=== PATIENT | female | born 1995 | race Caucasian/White ===

== ENCOUNTER 2022-07-16 10:45 | Outpatient (CLI) | payer BC, SELFPAY ==
--- OUTSIDE RECORDS SUMMARY | 2022-07-16 10:48 | XMS_ITS | Clinical Summary ---
:1995 Author Organization [employer] [place] [address] Care Team Providers Name Role Phone Noris Todd MD Primary Care Provider [phone] Dana Ch MD Unavailable Allergies No known active allergies Medications Medication Sig Dispensed Refills Start Date End Date Status citalopram (CELEXA) 20 Take 1 Tablet (20 30 Tablet 2 2 Active mg tabletIndications: mg) by mouth once Anxiety daily. Take half tab daily x5-7 days then 1 tab daily miscellaneous medical As directed. 1 Each 0 08/28/2021 Active supply (Blood Pressure Check your blood Cuff) miscIndications: pressure twice a Gestational day, call if hypertension, third >150/100 trimester NIFEdipine (PROCARDIA Take 1 Tablet (30 30 Tablet 0 09/10/2021 Active XL) 30 mg mg) by mouth once Extended-Release daily before a tabletIndications: meal. Gestational hypertension, third trimester Active Problems Patient Care Coordination Note Formatting of this note might be differe nt from the original. There is a resolved Delivery P isael of Care which has been moved to a progress note under Case Management tab dated 09/09/21 by Janey Painting RN. Problem Noted Date 37 weeks gestation of 09/07/2021 Normal vaginal delivery 09/07/2021 Obstetrical laceration, second degree 09/07/2021 Obesity in , BMI 38 09/06/2021 arrhythmia affecting , antepartum-inter mittent SVT 07/23/2021 MPP Supervision of high-risk 07/23/2021 Overview: Formatting of this note is dif ferent from the original. MPP OB PATIENT SO: Pato Its a boy! NEXT VISIT ALERTS: Patient checking at h ome BPs? COVID-19 08/28/21 negative = need to repea t prior to IOL 09/06/21 PLANS & FUTURE APPOINTMENTS: - OB visits: Through 09/19/21 TESTING PLAN: Weekly - Testing: Through 09/19/21 GROWTH PLAN: - Growth: Next 09/19/21 DELIVERY PLAN: - Scheduled delivery: 09/06/21 @ 1930 w [facility] - Preferred delivery location: [facility] PRIMARY DIAGNOSIS: 26 y.o. Estim ated Date of Delivery: 09/27/21 : Intermittent SVT Maternal: gHTN? Hospital admission d/t SVT 07/23-09/26; started flecainide Anxiety/Depression LAST GROWTH: 08/22/21 34w6d EFW 2411 grams, percentil e: 36 07/23/21 30w4d EFW 1663 grams, percentil e: 49 ECHO: Multiple in [facility] 08/22/21 Normal REFERRING PHYSICIAN/PHONE/LAST UPDATE: Radha Ch MD [facility] [phone] Primary MD approves scheduling of recomm ended ultrasounds/testing: Not specified SPECIALISTS/CONSULTS: Include: Specialty MD Clinic Name Phone# LV [place] and ADDED TO PATIENT CARE TEAM Yes LEXI signed for [facility]: Signed 08/22/21 CARE COORDINATION: Belle Coleman, SERGEI/Lay House RN/Radhika Huitron RN/Angelique Pabon RN/Jesenia Coy RN [phone] YARD JACKER: GENETICS: 04/17/21 AFP Negative 07/25/21 MPP - genetic testing after halley h PROCEDURES: EKG 07/26/21 Normal sinus rhythm PERTINENT MEDS: ASA Flecainide 100 BID ROUTINE OB: Flu vaccine: Date given: 06/05/21 COVID-19 vaccine: Date(s) given: 11/27/20; 12/18/20- Plans to schedule booster Tdap vaccine: GIVE BETWEEN 27 AND 36 WEE KS Date given: 08/07/21 COMPASS: Initial completed YES Part 2 between 32w-36w completed YES ANXIETY/DEPRESSION SCREEN: Initial screen: Date: 08/22/21 GA: 34w6d PHQ-9 score: 3 JAXON-7 score: 1 Previous history of anxiety or depressio n? YES ROUTINE LABS: Blood type: A Positive Antibody screen: Negative Last pap: 06/18/20 NIL Plan for Gestational Diabetes screening: GCT 07/04/21 100 Treponema Pallidum: DRAW @ 28 WEEKS Date drawn: 07/04/21 Negative GBS: 08/28/21 Hemoglobin: Initial: 03/04/21 13.0 28 wk: 07/04/21 12.7 36 wk 08/28/21 13.4 ADDITIONAL PERTINENT LABS: Preeclampsia Labs: 07/23/21 WNL x PCR 0. 1; 08/22/21 WNL; 08/28/21 WNL X PCR 0.1; 09/03/21 WNL PCR 0.1 CHECKLIST FOR SCHEDULING PROCEDURES: Call [phone] for Amaya and [phone] for ited Procedure: Induction Hospital: [facility] Unit: L&D Date & Time of procedure: 09/06/21 @ 193 0 Nur Score if induction: 3 Pertinent information: gHTN, intermitten t SVT Gestational age on procedure date? 37 MD doing procedure: [facility] Date scheduled: 08/28/2021 when patient wa s 35w5d. Scheduling MD & RN: COOPER Rico & Kasie reyes RN Notifications: Hospitalist Delivery-OBH buttonhole maker notifie d through Ashlee inbox? Yes MPP MD buttonhole maker notified via Ashlee in box? Yes Primary MD notified via Ashlee inbox? No Primary MD clinic called if not Jenn padilla? No On [facility] calendar? Yes Care Coordination notified? Yes H&P/PPTL: PPTL permit signed? Not Applicable H&P and Plan in chart? Yes, 08/22/21 [facility] appointment made for H&P with GUSTAVO haile 30 days of procedure? Completed 08/22/21 Regardless of vaccination status, all pr ocedures require a COVID-19 test . Patients should be scheduled for a COVID-19 test within 3-5 days prior to the scheduled procedure to be done in main [facility] Clinic Date: 09/03/21 Patient notification: Patient notified of procedure date? Yes Written admission instructions given to patient via AVS? No PPTL& DELIVERY SCHEDULING: Do COVID testing with in 3-5 days of ekta eduled delivery @ a main [facility] site H&P needed 30 days before delivery Herve e: PPTL: No Is Medical assistance? PPTL Permit signed: Date: Scanned date: PLAN OF CARE: 08/28/21 per HS ?? Continue routine ob cares ?-- Patients home cuff with big discrepancy from the clinic, she desires a cuff from our clinic today. She was instructed to check her blood pressure twice a day at home and will bring the readings with her her to next weeks appointment. Instructed to call if >150/100. ?? Return OB checks: ?-- Weekly??given concern for gestational hypertension? Return Ultrasound/Testing ?-- Growth ultras ound last week, no need to repeat prior to delivery ?-- Weekly BPP/NS T given gestational hypertension ?-- echocar diogram every 2 weeks-will cancel for next week. Okay per cardiology given patient will be induced the day it was scheduled. ?? Labs: ?-- : Com pleted with primary ?-- Diabetes scre ening: passed on 07/04/21 ?-- GBS culture t ioday ?-- Preeclampsia labs completed today given gestation hypertension and elevated blood pressure at home -- COVID-19 test today given symptoms, repeat next week if negative for pre-procedure ?? Medications: ?-- Continue pren atal vitamin with folic acid and medications noted above ?-- Tdap at 28 we eks ?-- Flu vaccine ( if not given yet) ?-- Continue on f lecainide 100mg twice daily, refill given today ?-- Continue bASA -- COVID-19 Vaccine-11/27/20; 12/18/20- Pl ans to schedule booster -- Celexa, take 10mg daily x5-7 days th en 20mg daily ?? Depression screening/management:??did not require intervention (scores<=9). ?? Consult: ?--NICU consult ?? Patient understands she should call o r return to clinic if she experiences any s/s infection, persistent uterine cramping, vaginal bleeding, leaking of fluid, pain/swelling in legs. ?? Delivery:??IOL 37 weeks given radha GONZÁLES cheduabbi for 09/06/20 at 1930 Encounter for supervision of low-risk first in first trimester 04/16/2021 Overview: Formatting of this note is dif ferent from the original. Partners name: [facility] Hx: depression Concerns this : BMI 36 - level 2 anatomy scan OB Hx: OB History Para Term AB Living 1 0 0 0 0 0 SAB TAB Ectopic Multiple Live Births 0 0 0 0 # Outcome Date GA Lbr Jack/2nd Weight Sex Delivery Anes PTL Lv 1 Current BMI: Body mass index is 36.36 kg/m??. Re commended wt gain: 11-20 Genetic screening: yes ASA prophylaxis 12-36 weeks for Moderate risk (2 or more of): Nulliparity and Obesity w BMI>30 Ultrasound: Level 2 FAS indicated (pre-preg BMI>30): yes Smoker: none Flu vaccine: COVID-19 vaccine: complete Pertussis Vaccine: Peds: Domestic violence screen: Pain during labor: BCM: : yes, but ok with formula feeding Maternal varicella, non-immune 04/03/2021 Obesity with body mass index 30 or greater 10/06/2018 Depression 08/29/2014 Gestational hypertension, third trimester Anxiety hypertension Resolved Problems Problem Noted Date Resolved Date Elevated blood pressure affecting in third 09/06/2021 trimester, antepartum Immunizations Name Administration Dates Next Due AMB Influenza, IIV3 (Age >=3 07/05/2013 years)(Flu Clinic Only) DTP 02/26/1999, 05/13/1996, 1995, 1995, 1995 HIB PRP-T (ActHIB,Hiberix) 05/13/1996, 1995, 5, 1995 Hepatitis B (Peds) 02/08/1996, 1995, 1995 Human Papilloma Virus Vaccine 10/28/2012, 07/02/2012, 2011 Influenza, IIV3 (Age >=3 years) 07/05/2013, 07/02/2012 Influenza, IIV4 06/18/2020, 06/13/2019, 05/03/2018, 06/15/2017, 06/09/2016, 05/15/2015, 05/25/2014 MMR 02/26/1999, 05/13/1996 Meningococcal Vaccine (Menveo) 06/09/2016 Oral Polio Vaccine 02/26/1999, 05/13/1996, 1995, 1995 Td (Age >=7 Years) 06/13/2019 Tdap 10/13/2006 Varicella Vaccine 04/14/2012, 04/08/2004 Family History Medical History Relation Name Comments Good Health Brother Diabetes Father Hypertension Father Good Health Mother Relation Name Status Comments Brother Alive Father Alive Mother Alive Social History Tobacco Use Types Packs/Day Years Used Date Never Smoker Smokeless Tobacco: Never Used Tobacco Cessation: Counseling Given: Yes Comments: father smokes Alcohol Use Standard Drinks/Week Comments No 0 (1 standard drink = 0.6 oz pure alcoho l) Sex Assigned at Date Recorded Not on file Obstetrics History Para Term AB IAB SAB Ectopic Multiple Living Live Births 1 1 1 0 0 0 0 0 0 1 1 Date Outcome GA Total Labor/2nd/3rd Weight Sex Delivery Anes PTL Linda A 1 A5 Name Clin Labor 09/07 Term 37w 5h 34m 5h 12m/0h 2.71 kg M VAGINAL Epidu My 7 9 PETER 1d 19m/0h 03m (5 lb GUERRERO ral, ng SE N,B ats, 15.6 Local B Chucky oz) MARCO garcia MD Complications: None Delivery Location: Hospital ([address]) Last Filed Vital Signs Vital Sign Reading Time Taken Comments Blood Pressure 129/83 09/18/2021 2:34 PM CENTRAL STERILE TECH Pulse 97 09/11/2021 9:56 AM CENTRAL STERILE TECH Temperature 36.9 ??C (98.4 ??F) 09/09/2021 9:38 AM CENTRAL STERILE TECH Respiratory Rate 16 09/09/2021 9:38 AM CENTRAL STERILE TECH Oxygen Saturation 99% 09/09/2021 9:38 AM CENTRAL STERILE TECH Inhaled Oxygen Concentration - - Weight 97.3 kg (214 lb 8 oz) 09/18/2021 2:34 PM CENTRAL STERILE TECH Height 167.5 cm (5' 5.95) 04/03/2021 2:20 PM CDT Body Mass Index 34.68 04/03/2021 2:20 PM CDT Plan of Treatment Health Maintenance Due Date Last Done Comments COVID-19 vaccine series (3 - 02/12/2021 12/18/2020, 021 Booster for Pfizer series) BMI (ht and wt on same day) for 04/03/2022 04/03/2021, 05/25, age 18+ 08/21/2019, Additional history exists Influenza for age 9-49 04/24/2022 06/18/2020, 06/13/2019, 05/03/2018, Additional history exists Depression screening for age 12+ 09/25/2022 09/25/2021, , 08/28/2021, Additional history exists Pap test for age 21-65 06/18/2023 06/18/2020, 06/15/2017, 06/09/2016 Tetanus booster 06/13/2029 06/13/2019, 10/13/2006 Tdap Completed 10/13/2006 HIV for age 15-65 Completed 03/04/2021 Hepatitis C screening for age Completed 03/04/2021 18-79 Results Not on filefrom Last 3 Months Insurance Payer Benefit Plan / Subscriber ID Effective Dates Phone Addre ss Type Group WC WORKERS WC [employer] [id number] 2020-Presen [address] [place] [address] MEDICA MEDICA CHOICE [id number] 2013-Presen [address] [address] [place] [address] BLUE CROSS BLUE CROSS OF [id number] 2018-Presen [address] [address] [place] [address] (Home) [place] [address] Jackie Luke Juan Personal/Family Self [address] (Home) [place] [address] Jackie Luke Juan Workers Comp Self [address] (Home) [place] [address] Advance Directives Documents on File Type Date Recorded Patient Manager Pathology Explanati on Treatment Guidelines 09/06/2021 Latest Code Status on File Code Status Date Activated Date Inactivated Comments Full Code 09/06/2021 9:14 PM 09/09/2021 6:02 PM Code Status Discussion: Reviewed Preferences Full Code 07/25/2021 7:36 AM 07/26/2021 2:42 PM Code Status Discussion: Reviewed Preferences Full Code 07/23/2021 4:36 PM 07/25/2021 7:36 AM Code Status Discussion: Unable to Assess Preferences, Provid er to review later Full Code 07/23/2021 3:36 PM 07/23/2021 3:54 PM Code Status Discussion: Unable to Assess Preferences, Provid er to review later Care Teams Fixture Repairer Fabricator Relationship Specialty Start Date End Date Noris Todd PCP - General Family Practice 04/03/[address] [place] [address] Dana Ch, Referring Provider Obstetrics and 08/19/21 Gynecology [address] [place] [address]
[2022-07-16 13:50] LABS: Cholesterol* 166 mg/dL (90-199); Glucose* 85 mg/dL (60-115)
[2022-07-16 13:51] LABS: HDL Cholesterol* 38 mg/dL (>=50); LDL Cholesterol Calculated 92 mg/dL (<100); Triglycerides* 181 mg/dL (40-149)
== END 2022-07-16 10:46 | disposition home or self-care (01) ==
PROVIDERS: Visit Provider Registered Nurse
DX: Z01.419 Encounter for gynecological examination (general) (routine) without abnormal findings (principal); R19.7 Diarrhea, unspecified; Z13.1 Encounter for screening for diabetes mellitus; Z13.6 Encounter for screening for cardiovascular disorders; Z13.29 Encounter for screening for other suspected endocrine disorder
CPT/HCPCS: 80061; 82947; 84443

== ENCOUNTER 2022-07-27 18:35 | Emergency (ER) | payer BC, SELFPAY ==
[2022-07-27 19:21] VITALS: BP 136/101; PULSE 87; RESP 18; TEMP 38; O2SAT 98; BMI 41.4
--- NOTE | 2022-07-27 20:03 | ED_ITS ---
HPI - Eye Problem General Time Seen by Provider: 20:03 Date Seen: 07/27/22 Chief complaint: Ear/Nose/Throat Problem Stated complaint: Blood shot eyes Time Seen by Provider: 07/27/22 20:03 Source: patient, RN notes reviewed and old records reviewed Mode of arrival: ambulatory Limitations: no limitations History of Present Illness HPI Narrative: Patient is a very pleasant 27-year-old female who noted the onset of cold and cough symptoms last week in association with right eye redness. She started antibiotic drops which are polymyxin B/trimethoprim and on that day. She noted that she thought her left eye was also little red and started using the eyedrops in both. Instead of getting better she is actually notice worsening. She notes that she feels like her eyes are bulging somewhat. She has not had any fever but also notes a cough and when she blows her nose she has significant green mucus. She notes that she feels like her eyes are itching and she has some itching below her eyes as well. She notes when she tries to itch the skin it causes a burning sensation. She has not had a fever. She has known exposure to RSV as her child has it. She is not short of breath. Tomorrow she has her grandmother's . Related Data Home Medications Medication Instructions Recorded Confirmed norethindrone (contraceptive) 0.35 1 mg PO DAILY 07/16/22 07/16/22 mg tablet Previous Rx's Medication Instructions Recorded citalopram 20 mg tablet 20 mg PO DAILY #90 tabs 07/16/22 levonorgestrel-ethinyl estradiol 1 tab PO QDAY #84 tabs 07/16/22 0.1 mg-20 mcg tablet (Aviane) amoxicillin 875 mg-potassium 1 tab PO Q12H 10 days #20 tabs 07/27/22 clavulanate 125 mg tablet fluconazole 150 mg tablet 150 mg PO DAILY 1 dose #1 tab 07/27/22 (Diflucan) Allergies Allergy/AdvReac Type Severity Reaction Status Date / Time No Known Drug Allergies Allergy Verified 07/27/22 19:26 Review of Systems Const: Reports: fatigue; Denies: fever or chills Eyes: Reports: blurry vision (Occasional blurry film over right eye that clears.), eye discomfort (Bilaterally) and eye discharge (Green); Denies: change in vision ENMT: Denies: throat pain or difficulty swallowing Cardio: Denies: chest pain or shortness of breath with exertion Resp: Reports: cough; Denies: shortness of breath GI: Denies: abdominal pain, nausea, vomiting or difficulty swallowing Neuro: Reports: headache (With cough) Endo: Reports: fatigue [facility] History History of gestational hypertension Surgical History H/O oral surgery History of removal of skin mole Family History Family/Other Breast cancer Paternal Grandfather Bladder cancer Mother High blood pressure High cholesterol Father High blood pressure High cholesterol Diabetes Social History Smoking Status: Never smoker Do you use any of these nicotine containing products: None Second hand tobacco smoke exposure: No How often do you have a drink containing alcohol: never How often do you have six or more drinks on one occasion: Never AUDIT-C Alcohol total score: 0 Non-prescribed substance use: denies use Little interest or pleasure in doing things: not at all Feeling down, depressed, or hopeless: not at all service: No Exam Narrative: Exam Narrative: Patient is alert and oriented. Her eyes are red. Her EOM is full and there is no photophobia. Pupils are equal round reactive. She has injection of the sclera and some edema noted. There is debris on the eyelashes bilaterally. No surrounding edema of the eyelids. Oral cavity moist mucous membranes and neck is supple. Heart with regular rate and rhythm and lungs are clear. Abdomen soft. Visual acuity is noted. Fundi easily visualized and are within normal limits. Const: Vital Signs, click to edit/add: Vital Signs - 24 hr 07/27/22 19:21 Temperature 100.4 F H Pulse Rate [Pulse Oximeter] 87 Respiratory Rate 18 Blood Pressure [Le ft Upper Arm] 136/101 H Pulse Oximetry 98 Oxygen Delivery Me thod Room Air Documenting provider has reviewed patient's vital signs: yes Course Vital Signs Vital signs: Initial Vital Signs Temperature 100.4 F H 07/27/22 19:21 Temperature Source Temporal Artery Scan 07/27/22 19:21 Pulse Rate 87 07/27/22 19:21 Respiratory Rate 18 07/27/22 19:21 Blood Pressure 136/101 H 07/27/22 19:21 Blood Pressure Mean 112 07/27/22 19:21 Blood Pressure Position Sitting 07/27/22 19:21 Pulse Oximetry 98 07/27/22 19:21 Oxygen Delivery Method 07/27/22 19:21 Vital Signs Temperature 100.4 F H 07/27/22 19:21 Pulse Rate 87 07/27/22 19:21 Respiratory Rate 18 07/27/22 19:21 Blood Pressure 136/101 H 07/27/22 19:21 Pulse Oximetry 98 07/27/22 19:21 Oxygen Delivery Method 07/27/22 19:21 Temperature 100.4 F H 07/27/22 19:21 Pulse Rate 87 07/27/22 19:21 Respiratory Rate 18 07/27/22 19:21 Blood Pressure 136/101 H 07/27/22 19:21 Pulse Oximetry 98 07/27/22 19:21 Oxygen Delivery Method 07/27/22 19:21 MDM - Eye Problem MDM Narrative Medical decision making narrative: 1. RSV-patient has tested positive for RSV. She is notified via phone. She gave me permission to leave a message on her phone and I do so. Negative for COVID and influenza. 2. Sinusitis-while most likely viral she does have green discharge from her eyes. Will treat with antibiotic Augmentin to cover both sinusitis and conjunctivitis. I did explain to patient this is most likely viral but given the fact that she is needing to be at a unable to return for further cares if she is not improving I did elect to treat with Augmentin 875 p.o. b.i.d. times 10 days. Tonight she will use erythromycin ointment for comfort she may discontinue the appointment when she starts an oral antibiotic. 3. Allergic reaction-patient's eyes are likely reddened secondary to neomycin which is a component of the eye drop she is currently using. Would recommend discontinuance of this medication. Benadryl 25-50 mg every 6 hours as needed. 4. Tpfxdhyrvff-caqrxu-md if she has worsening symptoms. Changes in her vision. And as needed. Medical Records Attestation: I reviewed the patient's medical records. Lab Data Attestation: I reviewed the patient's lab results. Labs: Lab Results 07/27/22 Range/Units 20:45 SARS-CoV-2 (PCR) Negative SARS-CoV-2 (Negative) Influenza Type A (PCR) Negative PCR FLU A (Negative) Influenza Type B (PCR) Negative PCR FLU B (Negative) RSV (PCR) POSITIVE PCR RSV A (Negative) Discharge Plan Discharge Clinical Impression: Allergic reaction, URI (upper respiratory infection) Patient Disposition: Home, Self-Care Condition: Unchanged Additional Instructions: Suggest use of erythromycin ointment every 6-8 hours until you start your oral antibiotic. Would also use Benadryl 25-50 mg every 6 hours as needed. I will call you with the results of your nasal swab. Augmentin the antibiotic was sent in to pharmacy in [facility]. Prescriptions: New amoxicillin-pot clavulanate 875-125 mg tablet 1 tab PO Q12H 10 Days Qty: 20 0RF fluconazole [Diflucan] 150 mg tablet 150 mg PO DAILY Qty: 1 0RF Rx Instructions: administer on day 1 of therapy No Action norethindrone (contraceptive) 0.35 mg tablet 1 mg PO DAILY citalopram 20 mg tablet 20 mg PO DAILY Qty: 90 3RF levonorgestrel-ethinyl estrad [Aviane] 0.1-20 mg-mcg tablet 1 tab PO QDAY Qty: 84 3RF Follow Up/Referrals: Provider,Not a Local [Primary Care Provider] - Stand Alone Forms: [facility] Info Instructions
--- OUTSIDE RECORDS SUMMARY | 2022-07-27 20:33 | XMS_ITS | Clinical Summary ---
:1995 Author Organization [facility] [place] [address] Care Team Providers Name Role Phone Noris Todd MD Primary Care Provider [phone] Dana Ch MD Unavailable Allergies No known [...] - Scheduled delivery: 09/06/21 @ 1930 w [facility] - Preferred delivery location: [facility] PRIMARY DIAGNOSIS: 26 y.o. Estim ated Date of Delivery: 09/27/21 : Intermittent SVT Maternal: gHTN? Hospital admission d/t SVT 07/23-09/26; started flecainide Anxiety/Depression LAST GROWTH: 08/22/21 34w6d EFW 2411 grams, percentil e: 36 07/23/21 30w4d EFW 1663 grams, percentil e: 49 ECHO: Multiple in [facility] 08/22/21 Normal REFERRING PHYSICIAN/PHONE/LAST UPDATE: Radha hC MD [facility] [phone] Primary MD approves scheduling of recomm ended ultrasounds/testing: Not specified SPECIALISTS/CONSULTS: Include: Specialty MD Clinic Name Phone# LV [place] and ADDED TO PATIENT CARE TEAM Yes LEXI signed for [facility]: Signed 08/22/21 CARE COORDINATION: Belle Coleman, SERGEI/[facility] RN/Radhika Huitron RN/Angelique Pabon RN/Jesenia Coy RN [phone] TRANSIT MECHANIC: GENETICS: 04/17/21 AFP Negative 07/25/21 MPP - [...] PCR 0.1 CHECKLIST FOR SCHEDULING PROCEDURES: Call [phone] for Amaya and [phone] for ited Procedure: Induction Hospital: [facility] Unit: L&D Date & Time of procedure: 09/06/21 @ 193 0 Nur Score if induction: 3 Pertinent information: gHTN, intermitten t SVT Gestational age on procedure date? 37 MD doing procedure: [facility] Date scheduled: 08/28/2021 when patient wa s 35w5d. Scheduling MD & RN: COOPER Rico & Kasie reyes RN Notifications: Hospitalist Delivery-OBH inclusion internship notifie d through [facility] inbox? Yes MPP MD inclusion internship notified via Ashlee in box? Yes Primary MD notified via [facility] inbox? No Primary MD clinic called if not Jenn padilla? No On [facility] calendar? Yes Care Coordination notified? Yes H&P/PPTL: PPTL permit signed? Not Applicable H&P and Plan in chart? Yes, 08/22/21 [facility] appointment made for H&P with GUSTAVO haile 30 days of procedure? Completed 08/22/21 Regardless of vaccination status, all pr ocedures require a COVID-19 test . Patients should be scheduled for a COVID-19 test within 3-5 days prior to the scheduled procedure to be done in main [facility] Clinic Date: 09/03/21 Patient notification: Patient notified of procedure date? Yes Written admission instructions given to patient via AVS? No PPTL& DELIVERY SCHEDULING: Do COVID testing with in 3-5 days of ekta eduled delivery @ a main [facility] site H&P needed 30 days before delivery [...] garcia MD Complications: None Delivery Location: Hospital ([address]) Last Filed Vital Signs Vital Sign Reading Time Taken Comments Blood Pressure 129/83 09/18/2021 2:34 PM SKIVER OPERATOR Pulse 97 09/11/2021 9:56 AM SKIVER OPERATOR Temperature 36.9 ??C (98.4 ??F) 09/09/2021 9:38 AM SKIVER OPERATOR Respiratory Rate 16 09/09/2021 9:38 AM SKIVER OPERATOR Oxygen Saturation 99% 09/09/2021 9:38 AM SKIVER OPERATOR Inhaled Oxygen Concentration - - Weight 97.3 kg (214 lb 8 oz) 09/18/2021 2:34 PM SKIVER OPERATOR Height 167.5 cm (5' 5.95) 04/03/2021 2:20 [...] ss Type Group WC WORKERS WC [employer] [id number] 2020-[employer] [address] [place] [address] MEDICA MEDICA CHOICE [id number] 2013-[employer] [address] [address] [place] [address] BLUE CROSS BL[employer] CR[employer] OF [id number] 2018-[employer] [address] [address] [place] [address] (Home) [place] [address] Jackie Luke Juan Personal/Family Self [address] (Home) [place] [address] Jackie Luke Juan Workers Comp Self [address] (Home) [place] [address] Advance Directives Documents on File Type Date Recorded 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
[2022-07-27] MEDS: ERYTHROMYCIN OPHTH OINT 3.5 GM 1 APPLIC EYE-BOTH (20:38)
[2022-07-27 21:27] LABS: PCR FLU A Negative PCR FLU A (Negative); PCR FLU B Negative PCR FLU B (Negative); PCR RSV POSITIVE PCR RSV (Negative)
[2022-07-27 21:32] LABS: SARS PCR* Negative SARS-CoV-2 (Negative)
== END 2022-07-27 20:45 | disposition home or self-care (01) ==
PROVIDERS: Emergency Provider Family Medicine
DX: B97.4 Respiratory syncytial virus as the cause of diseases classified elsewhere (principal); J32.9 Chronic sinusitis, unspecified
CPT/HCPCS: 87502; 87634; 87635; 99283; 99284; A9270

== ENCOUNTER 2022-12-28 09:42 | Emergency (ER) | payer BC, SELFPAY ==
[2022-12-28 09:57] VITALS: BP 142/83; PULSE 80; RESP 18; TEMP 37.1; O2SAT 96; BMI 41.3
--- NOTE | 2022-12-28 10:52 | CRLHL7_ITS ---
For Patients: As a result of the Century Cures Act, medical imaging exams and procedure reports are released immediately into your electronic medical record. You may view this report before your referring provider. If you have questions, please contact your health care provider. INDICATION: BLEEDING AND CRAMPING HISTORY: Bleeding and cramping. COMPARISON: None. TECHNIQUE: Pelvic ultrasound. Endovaginal imaging of the pelvis was obtained to better evaluate the adnexa and endometrial complex. Color Doppler was performed to evaluate blood flow to the ovaries. FINDINGS: Endometrial complex measures 12 mm in thickness. There is no intrauterine gestational sac. The right ovary measures 3.6 x 1.9 x 1.8 cm. Probable corpus luteum in the right ovary measuring 2.0 x 1.8 x 1.1 cm. There is an indeterminate right adnexal mass, which is extraovarian, measuring 1.8 x 1.1 x 1.4 cm. This is suspicious. The left ovary measures 3.0 x 1.4 x 1.7 cm. There is a small amount of free fluid in the rectovaginal pouch of Aristides. No large volume hemoperitoneum by ultrasound. IMPRESSION: 1. Indeterminate right adnexal mass. This appears extraovarian. 2. These findings are suspicious for an ectopic . Suggest correlation with the patient`s serum beta HCG and gynecologic consultation. 3. No intra uterine gestational sac. 4. Report called to Dr. Quintero, PADDY, 12/28/22, 1334 hours. Dictated by Lucas Hale MD @ 12/28/2022 1:37:19 PM Dictated by: Lucas Hale MD @ 12/28/2022 13:37:25 (Electronically Signed)
--- NOTE | 2022-12-28 11:04 | ED.GENADULT ---
HPI - General Adult General Chief complaint: Vaginal Bleeding Stated complaint: Possible miscarriage 6 weeks 1 day Time Seen by Provider: 12/28/22 10:51 Source: patient Mode of arrival: ambulatory Limitations: no limitations History of Present Illness HPI narrative: 27-year-old female at 6 weeks gestation via LMP comes in today concerned about vaginal bleeding. States that she had lower abdominal cramping that started yesterday and continued into today in approximately 3 hours ago she started having vaginal bleeding which she describes as a midcycle normal flow. She denies dizziness or lightheadedness. No chest pain or shortness of breath. Related Data Home Medications Medication Instructions Recorded Confirmed norethindrone (contraceptive) 0.35 1 mg PO DAILY 07/16/22 07/16/22 mg tablet Previous Rx's Medication Instructions Recorded citalopram 20 mg tablet 20 mg PO DAILY #90 tabs 07/16/22 levonorgestrel-ethinyl estradiol 1 tab PO QDAY #84 tabs 07/16/22 0.1 mg-20 mcg tablet (Aviane) amoxicillin 875 mg-potassium 1 tab PO Q12H 10 days #20 tabs 07/27/22 clavulanate 125 mg tablet fluconazole 150 mg tablet 150 mg PO DAILY 1 dose #1 tab 07/27/22 (Diflucan) Allergies Allergy/AdvReac Type Severity Reaction Status Date / Time No Known Drug Allergies Allergy Verified 07/27/22 19:26 Review of Systems Status of ROS: Reports: 10 or more systems reviewed and unremarkable except as noted in History and below PFSH COUNT INCLUDES THE [facility] Medical History History of gestational hypertension ?Z87.59 - Personal history of other complications of , childbirth and the puerperium (ICD-10) Surgical History H/O oral surgery ?Z98.890 - Other specified postprocedural states (ICD-10) History of removal of skin mole ?Z98.890 - Other specified postprocedural states (ICD-10) ?Z87.2 - Personal history of diseases of the skin and subcutaneous tissue (ICD-10) Family History Family/Other Breast cancer Paternal Grandfather Bladder cancer Mother High blood pressure High cholesterol Father High blood pressure High cholesterol Diabetes Social History Smoking Status: Never smoker Do you use any of these nicotine containing products: None Second hand tobacco smoke exposure: No How often do you have a drink containing alcohol: never How often do you have six or more drinks on one occasion: Never AUDIT-C Alcohol total score: 0 Non-prescribed substance use: denies use Little interest or pleasure in doing things: not at all Feeling down, depressed, or hopeless: not at all service: No Exam Narrative: Exam Narrative: Well-nourished well-developed patient, very tearful. Alert and oriented. Answers questions appropriately. Thoughts are goal oriented and rational. No tangential or magical thinking noted. Patient speaks in full sentences without needing to catch their breath. HEENT: Normocephalic atraumatic. Pupils are equally round reactive to light. Extraocular muscles are intact. Conjunctivae are moist without any icterus noted. Moist mucous membranes. Cardiovascular: Heart is regular rate and rhythm. Lungs: Clear to auscultation bilaterally. Abdomen: Soft and nontender nondistended with normal bowel sounds. Skin: Well perfused without any obvious rashes. Const: Vital Signs, click to edit/add: Vital Signs - 24 hr 12/28/22 09:57 Temperature 98.8 F Pulse Rate [Right Pulse Oximeter] 80 Respiratory Rate 18 Blood Pressure [Ri ght Upper Arm] 142/83 H Pulse Oximetry 96 Oxygen Delivery Me thod Room Air Course Course Hospital Course: OB ultrasound was ordered. Hemoglobin was stable, beta-hCG was just above 250. Ultrasound shows nothing inside the uterus, however and extra ovarian mass on the right side concerning for possible ectopic . I did speak to Dr. Wahl, OBGYN, who recommended a repeat beta-hCG in 48 hours in order to assess what next steps in management would be. Given that the beta hCG is below threshold, it is inconclusive at this time as to whether not that is an ectopic , per OBGYN. Vital Signs Vital signs: Initial Vital Signs Temperature 98.8 F 12/28/22 09:57 Temperature Source Temporal Artery Scan 12/28/22 09:57 Pulse Rate 80 12/28/22 09:57 Respiratory Rate 18 12/28/22 09:57 Blood Pressure 142/83 H 12/28/22 09:57 Blood Pressure Mean 102 12/28/22 09:57 Blood Pressure Position Sitting 12/28/22 09:57 Pulse Oximetry 96 12/28/22 09:57 Oxygen Delivery Method Room Air 12/28/22 09:57 Vital Signs Temperature 98.8 F 12/28/22 09:57 Pulse Rate 80 12/28/22 09:57 Respiratory Rate 18 12/28/22 09:57 Blood Pressure 142/83 H 12/28/22 09:57 Pulse Oximetry 96 12/28/22 09:57 Oxygen Delivery Method Room Air 12/28/22 09:57 Temperature 98.8 F 12/28/22 09:57 Pulse Rate 80 12/28/22 09:57 Respiratory Rate 18 12/28/22 09:57 Blood Pressure 142/83 H 12/28/22 09:57 Pulse Oximetry 96 12/28/22 09:57 Oxygen Delivery Method Room Air 12/28/22 09:57 Medical Decision Making MDM Narrative Medical decision making narrative: 27-year-old female with vaginal bleeding, concerning for spontaneous versus ectopic . At this time patient will be discharged home with repeat beta-hCG recommended in 48 hours. We discussed that if she has increasing pain she does need to return to the ER right away. Patient was agreeable with this plan and had no other questions. Lab Data Lab results reviewed: Yes I reviewed the patient's lab results Labs: Lab Results 12/28/22 Range/Units 11:10 Hgb 14.2 (12.0-16.0) gm/dL HCG, Quant 254.42 mIU/mL Blood Type A Positive Imaging Data OB ultrasound: Attestation: I have reviewed the pertinent imaging results. Radiologist's impression: Pelvic ultrasound. Endovaginal imaging of the pelvis was obtained to better evaluate the adnexa and endometrial complex. Color Doppler was performed to evaluate blood flow to the ovaries. FINDINGS: Endometrial complex measures 12 mm in thickness. There is no intrauterine gestational sac. The right ovary measures 3.6 x 1.9 x 1.8 cm. Probable corpus luteum in the right ovary measuring 2.0 x 1.8 x 1.1 cm. There is an indeterminate right adnexal mass, which is extraovarian, measuring 1.8 x 1.1 x 1.4 cm. This is suspicious. The left ovary measures 3.0 x 1.4 x 1.7 cm. There is a small amount of free fluid in the rectovaginal pouch of Aristides. No large volume hemoperitoneum by ultrasound. IMPRESSION: 1. Indeterminate right adnexal mass. This appears extraovarian. 2. These findings are suspicious for an ectopic . Suggest correlation with the patient`s serum beta HCG and gynecologic consultation. 3. No intra uterine gestational sac. Discharge Plan Discharge Clinical Impression: Vaginal bleeding Patient Disposition: Home, Self-Care Condition: Stable Additional Instructions: Your workup today revealed nothing inside the uterus, however, there is a potential concern for an ectopic . Because your beta hCG levels are not above the threshold for , is inconclusive whether or not an ectopic is present. Because of this you should call your clinic 1st thing in the morning tomorrow and tell them that you need a repeat beta hCG level on Thursday morning. Results will be sent to your OBGYN provider and next steps in management will be decided at that time. If you develop worsening pain, return to the ER right away. Prescriptions: No Action norethindrone (contraceptive) 0.35 mg tablet 1 mg PO DAILY citalopram 20 mg tablet 20 mg PO DAILY Qty: 90 3RF levonorgestrel-ethinyl estrad [Aviane] 0.1-20 mg-mcg tablet 1 tab PO QDAY Qty: 84 3RF amoxicillin-pot clavulanate 875-125 mg tablet 1 tab PO Q12H 10 Days Qty: 20 0RF fluconazole [Diflucan] 150 mg tablet 150 mg PO DAILY Qty: 1 0RF Rx Instructions: administer on day 1 of therapy Follow Up/Referrals: Provider,Not a Local [Referring] - Stand Alone Forms: [facility], [facility] Info Instructions
[2022-12-28 11:25] LABS: Hemoglobin* 14.2 gm/dL (12.0-16.0)
== END 2022-12-28 14:05 | disposition home or self-care (01) ==
PROVIDERS: Emergency Provider Family Medicine; PCP Registered Nurse
DX: O46.91 Antepartum hemorrhage, unspecified, first trimester (principal); Z3A.01 Less than 8 weeks gestation of pregnancy
CPT/HCPCS: 36415; 76817; 84702; 85018; 86900; 86901; 99283; 99284

== ENCOUNTER 2022-12-29 11:53 | Emergency (ER) | payer BC, SELFPAY ==
[2022-12-29 12:03] VITALS: BP 144/93; PULSE 94; RESP 20; TEMP 37.1; O2SAT 98; BMI 41.8
--- NOTE | 2022-12-29 12:31 | ED_ITS ---
HPI - Abdominal Pain General Time Seen by Provider: 12:31 Date Seen: 12/29/22 Chief Complaint: Abdominal Pain Stated Complaint: Likely ectopic Time Seen by Provider: 12/29/22 12:09 Source: patient, RN notes reviewed and old records reviewed Mode of arrival: ambulatory Limitations: no limitations History of Present Illness HPI narrative: Patient is a 27-year-old female that was referred to us after checking in with the clinic for abdominal pain and positive hCG. She was seen yesterday, had an ultrasound showing a possible right ectopic on her ovary. Her hCG level was 254. Spotting quit overnight, was mild this morning. She had 1 small little clot, going to the bathroom before just coming in here to the ER, had some brown spotting with wiping. She feels a pinching area in her right lower quadrant and then it feels like someone is putting their fist into her right low back. No fevers chills, no nausea vomiting, diminished appetite, no diarrhea. Did eat a bowl of cereal this morning because she forced herself to. She is not hungry. Patient's blood type was done yesterday and she is A positive. Related Data Home Medications Medication Instructions Recorded Confirmed No Known Home Medications 12/29/22 12/29/22 Allergies Allergy/AdvReac Type Severity Reaction Status Date / Time No Known Drug Allergies Allergy Verified 07/27/22 19:26 Review of Systems Status of ROS Reports: 6 or more systems reviewed and unremarkable except as noted in History and below [facility] Medical History History of gestational hypertension ?Z87.59 - Personal history of other complications of , childbirth and the puerperium (ICD-10) Surgical History H/O oral surgery ?Z98.890 - Other specified postprocedural states (ICD-10) History of removal of skin mole ?Z98.890 - Other specified postprocedural states (ICD-10) ?Z87.2 - Personal history of diseases of the skin and subcutaneous tissue (ICD-10) Family History Family/Other Breast cancer Paternal Grandfather Bladder cancer Mother High blood pressure High cholesterol Father High blood pressure High cholesterol Diabetes Social History Smoking Status: Never smoker Do you use any of these nicotine containing products: None Second hand tobacco smoke exposure: No How often do you have a drink containing alcohol: never How often do you have six or more drinks on one occasion: Never AUDIT-C Alcohol total score: 0 Non-prescribed substance use: denies use Little interest or pleasure in doing things: not at all Feeling down, depressed, or hopeless: not at all service: No Exam Const: Vital Signs, click to edit/add: Vital Signs - 24 hr 12/29/22 12:03 Temperature 98.8 F Pulse Rate [Right Pulse Oximeter] 94 Respiratory Rate 20 Blood Pressure [Ri ght Upper Arm] 144/93 H Pulse Oximetry 98 Oxygen Delivery Me thod Room Air Documenting provider has reviewed patient's vital signs: yes Common normals: no apparent distress, oriented x3, no limitations, healthy appearing, alert and well nourished General appearance: cooperative, comfortable, well kempt and well developed Nutritional appearance: overweight HENMT: Common normals: normocephalic, head/scalp atraumatic, hearing grossly normal bilaterally and external nose normal Head and scalp: normocephalic and atraumatic Nose: external nose normal Eye: Common normals: PERRL, EOMs intact bilaterally, conjunctivae normal and no scleral icterus Conjunctiva: conjunctiva(e) normal Pupil: PERRL Neck & C-Spine: Common normals: full ROM, no lymphadenopathy and supple Resp: Common normals: normal respiratory effort, no retractions, no use of a ccessory muscles and clear to auscultation bilaterally Effort & inspection: able to speak in complete sentences Auscultation: clear to auscultation bilaterally Cardio: Common normals: regular rate, regular rhythm, S1 normal heart sound, S2 normal heart sound, no gallops, no clicks and no murmurs Rate: regular rate Rhythm: regular rhythm Heart sounds: S1 normal and S2 normal GI: Common normals: Normal to inspection, nondistended, normoactive bowel sounds present, soft to palpation, non-tender, no hepatosplenomegaly and no masses Palpation: soft and no hepatosplenomegaly Neuro: Common normals: oriented x3 Sensorium/orientation: alert Psych: Appearance: well kempt Course Course Hospital Course: I have reviewed her labs and ultrasound from yesterday. She is A positive. We will place an IV and obtain a follow-up CBC and hCG quantitative. I will talk to OB Gyne regarding this patient. Clinically at this time, she is h emodynamically stable, abdominal exam is benign. These findings are reassuring for non emergent situation. She certainly still could have ectopic which I will review with OB Gyne. I do not think she needs repeat imaging at this time but will defer to OB on this topic. Reevaluation(s) Reevaluation #1: Patient is going to get Toradol for pain, was having increased complaint of pain. Have reviewed with her my discussion with search manager. She is in agreement to proceed with having a repeat ultrasound. Time: 13:28 Reevaluation #2: I have been informed by nursing staff that Dr. Crum plans on methotrexate use. She is requesting patient over in the clinic for counseling. Will discharge patient from ER to follow up with her. Time: 14:17 Consultations Consultation #1: Had a [address] Crum regarding this patient. She would like a comprehensive metabolic panel added on in case methotrexate is an option. We are going to ultrasound this patient. I will contact her back when I have labs and ultrasound report or if there is any need to update her on patient's status. Note, nursing staff is requesting pain management for the patient. I will be giving her Toradol 15 mg IV. Time: 13:09 Consultation #2: Have called Dr. Crum back with the preliminary ultrasound report of increasing size of this para adnexal ectopic . Yolk sac and gestational sac are visible today. HCG is mildly up at 271. She will be coming to evaluate the patient and make decision on intraoperative verses methotrexate management. I have alerted the house calls nurse to this patient upon her request. Time: 13:48 Vital Signs Vital signs: Initial Vital Signs Temperature 98.8 F 12/29/22 12:03 Temperature Source Temporal Artery Scan 12/29/22 12:03 Pulse Rate 94 12/29/22 12:03 Respiratory Rate 20 12/29/22 12:03 Blood Pressure 144/93 H 12/29/22 12:03 Blood Pressure Mean 110 H 12/29/22 12:03 Blood Pressure Position Sitting 12/29/22 12:03 Pulse Oximetry 98 12/29/22 12:03 Oxygen Delivery Method Room Air 12/29/22 12:03 Vital Signs Temperature 98.8 F 12/29/22 12:03 Pulse Rate 94 12/29/22 12:03 Respiratory Rate 20 12/29/22 12:03 Blood Pressure 144/93 H 12/29/22 12:03 Pulse Oximetry 98 12/29/22 12:03 Oxygen Delivery Method Room Air 12/29/22 12:03 Temperature 98.8 F 12/29/22 12:03 Pulse Rate 94 12/29/22 12:03 Respiratory Rate 20 12/29/22 12:03 Blood Pressure 144/93 H 12/29/22 12:03 Pulse Oximetry 98 12/29/22 12:03 Oxygen Delivery Method Room Air 12/29/22 12:03 MDM - Abdominal Pain Lab Data Attestation: I reviewed the patient's lab results. Labs: Lab Results 12/29/22 Range/Units 12:45 WBC 8.03 (4.50-11.00) K/uL RBC 4.74 (4.00-5.20) m/uL Hgb 13.7 (12.0-16.0) gm/dL Hct 40.5 (33.0-51.0) % MCV 85 (80-100) fL MCH 29 (26-34) pg MCHC 34 (32-36) gm/dL RDW Coeff of Deuce 12.5 (11.5-15.5) % Plt Count 365 (140-440) K/uL Neut % (Auto) 67.3 (42.0-72.0) % Lymph % (Auto) 24.5 (20-44) % Rowan % (Auto) 7.0 (0.0-11.0) % Eos % (Auto) 0.7 (0.0-7.0) % Baso % (Auto) 0.4 (0.0-3.0) % Neut # (Auto) 5.40 (1.7-7.0) K/uL Lymph # (Auto) 1.97 (0.90-2.90) K/uL Rowan # (Auto) 0.60 (0.00-0.90) K/UL Eos # (Auto) 0.06 (0.00-0.50) K/uL Baso # (Auto) 0.03 (0.00-0.30) K/uL Sodium 138 (135-149) mmol/L Potassium 4.2 (3.6-5.1) mmol/L Chloride 104 (96-114) mmol/L Carbon Dioxide 24 (20-32) mmol/L BUN 7 (5-24) mg/dL Creatinine 0.7 (0.5-1.5) mg/dL Estimated Creat Clear 108.63 Estimated GFR 121 ml/min Glucose 98 (60-115) mg/dL Calcium 9.2 (8.4-10.6) mg/dL Total Bilirubin 0.9 (0.1-1.5) mg/dL AST 30 (12-35) U/L ALT 35 (4-35) U/L Alkaline Phosphatase 83 (40-150) U/L Total Protein 7.6 (6.0-8.3) g/dL Albumin 4.2 (3.3-5.0) g/dL HCG, Quant 271.35 mIU/mL Imaging Data US pelvis: Attestation: I have reviewed the pertinent imaging results. My impression: Have reviewed the ultrasound images. Can see the right adnexal ectopic . Dr. Crum did review these with me, she will be planning on talking to radiologist whom is currently reading these films. Radiologist's impression: Patient: SHAYLA HILLS Facility:?[facility] Patient ID:?[id number] Site Patient ID:?[id number]. Site :?[id number] Study:?US OB Pelvis -12/29/2022 1:52:35 PM Ordering Physician:Sherwin Blue Final Report: INDICATION: Increasing right lower quadrant pain. TECHNIQUE: Ultrasound OB pelvis transabdominal and transvaginal. Real-time uribe-scale imaging of the pelvis was performed. COMPARISON: 12/28/2022. FINDINGS: Endometrium measures 16 millimeters. No intrauterine gestational sac seen. Re-demonstration of 1.9 centimeter right adnexal mass with suggestion of gestational sac and new yolk sac, concerning for ectopic . Otherwise, the ovary is unremarkable with small corpus luteal cyst. Trace free fluid noted in the cul-de-sac. IMPRESSION: Redemonstration of 1.9 centimeter right adnexal mass with suggestion of gestational sac and yolk sac, concerning for ectopic . Trace free fluid adjacent to the ovary. Case discussed with Su Badillo at 12:10 p.m. on 12/29/2022. Dictated by Kevan Morales MD @ 12/29/2022 2:18:36 PM (Electronic Signature) Discharge Plan Discharge Clinical Impression: Ectopic Patient Disposition: Home, Self-Care Condition: Unchanged Instructions: Ectopic (DC) Additional Instructions: We will take you over to the clinic where you will be consented by search manager Dr. Crum on methotrexate treatment of ectopic . She will consult with you on any recommendations or activity restrictions. Prescriptions: No Action No Known Home Medications Follow Up/Referrals: April Barros, RADIOPHONE OPERATOR [Primary Care Provider] - Stand Alone Forms: [id number] Info Instructions
[2022-12-29 13:09] LABS: Basophils Absolute Auto 0.03 K/uL (0.00-0.30); Basophils Percent Auto 0.4 % (0.0-3.0); Eosinophils Absolute Auto 0.06 K/uL (0.00-0.50); Eosinophils Percent Auto 0.7 % (0.0-7.0); Hematocrit 40.5 % (33.0-51.0); Hemoglobin* 13.7 gm/dL (12.0-16.0); Immature Granulocytes Abs Auto 0.01 K/uL (0.00-0.30); Immature Granulocytes Pct Auto 0.1 %; Lymphocytes Absolute Auto 1.97 K/uL (0.90-2.90); Lymphocytes Percent Auto 24.5 % (20-44); Mean Corpuscular HGB Conc 34 gm/dL (32-36); Mean Corpuscular Hemoglobin 29 pg (26-34); Mean Corpuscular Volume 85 fL (80-100); Neutrophils Percent Auto 67.3 % (42.0-72.0); Platelet Count* 365 K/uL (140-440); RDW Coefficient of Variation % 12.5 % (11.5-15.5); Red Blood Count 4.74 m/uL (4.00-5.20); White Blood Count* 8.03 K/uL (4.50-11.00)
[2022-12-29 13:13] LABS: Slide Review Reflex No
--- NOTE | 2022-12-29 13:13 | CRLHL7_ITS ---
For Patients: As a result of the Century Cures Act, medical imaging exams and procedure reports are released immediately into your electronic medical record. You may view this report before your referring provider. If you have questions, please contact your health care provider. INDICATION: Increasing right lower quadrant pain. TECHNIQUE: Ultrasound OB pelvis transabdominal and transvaginal. Real-time uribe-scale imaging of the pelvis was performed. COMPARISON: 12/28/2022. FINDINGS: Endometrium measures 16 millimeters. No intrauterine gestational sac seen. Re-demonstration of 1.9 centimeter right adnexal mass with suggestion of gestational sac and new yolk sac, concerning for ectopic . Otherwise, the ovary is unremarkable with small corpus luteal cyst. Trace free fluid noted in the cul-de-sac. IMPRESSION: Redemonstration of 1.9 centimeter right adnexal mass with suggestion of gestational sac and yolk sac, concerning for ectopic . Trace free fluid adjacent to the ovary. Case discussed with Su Badillo at 12:10 p.m. on 12/29/2022. Dictated by Kevan Morales MD @ 12/29/2022 2:18:36 PM (Electronically Signed)
[2022-12-29 13:31] LABS: Albumin* 4.2 g/dL (3.3-5.0); Chloride* 104 mmol/L (96-114); Potassium* 4.2 mmol/L (3.6-5.1); Sodium* 138 mmol/L (135-149)
[2022-12-29 13:33] LABS: Aspartate Amino Transferase* 30 U/L (12-35); Bilirubin Total* 0.9 mg/dL (0.1-1.5); Carbon Dioxide* 24 mmol/L (20-32); Creatinine* 0.7 mg/dL (0.5-1.5); Est. Creatinine Clearance* 108.63; Estimated Glomerular Filt Rate 121 ml/min; Total Protein* 7.6 g/dL (6.0-8.3)
[2022-12-29 13:34] LABS: Alanine Aminotransferase* 35 U/L (4-35); Alkaline Phosphatase* 83 U/L (40-150); Blood Urea Nitrogen* 7 mg/dL (5-24); Calcium* 9.2 mg/dL (8.4-10.6); Glucose* 98 mg/dL (60-115)
[2022-12-29 13:41] LABS: HCG Quantitative* 271.35 mIU/mL
[2022-12-29] MEDS: KETOROLAC 15 MG/ML inj IVP (13:45)
== END 2022-12-29 14:42 | disposition home or self-care (01) ==
PROVIDERS: Emergency Provider Family Medicine; PCP Registered Nurse
DX: O00.90 Unspecified ectopic pregnancy without intrauterine pregnancy (principal)
CPT/HCPCS: 36415; 76817; 80053; 84702; 85025; 96374; 99284; J1885

== ENCOUNTER 2023-07-21 18:00 | Outpatient (CLI) | payer BC, SELFPAY ==
[2023-07-21 21:48] LABS: Chlamydia DNA Amplified* NOT DETECTED (No Detected); GC DNA Amplified* NOT DETECTED (No Detected)
== END 2023-07-21 18:01 | disposition home or self-care (01) ==
PROVIDERS: Visit Provider Registered Nurse
DX: Z34.90 Encounter for supervision of normal pregnancy, unspecified, unspecified trimester (principal)
CPT/HCPCS: 82565; 82570; 84156; 84450; 84460; 84520; 84702; 86592; 86703; 86704; 86706; 86762; 86787; 86803; 86850; 86900; 86901; 87086; 87340; 87491; 87591

== ENCOUNTER 2023-07-23 10:19 | Outpatient (CLI) | payer BC, SELFPAY | END 2023-07-23 10:20 | disposition home or self-care (01) | PROVIDERS: Visit Provider Registered Nurse | DX: Z87.59 Personal history of other complications of pregnancy, childbirth and the puerperium (principal); Z34.91 Encounter for supervision of normal pregnancy, unspecified, first trimester | CPT/HCPCS: 84702 ==

== ENCOUNTER 2023-07-27 17:44 | Outpatient (CLI) | payer BC, SELFPAY | END 2023-07-27 17:45 | disposition home or self-care (01) | LOC: NFLDREF 07-29 12:46 | PROVIDERS: Visit Provider Registered Nurse | DX: Z34.90 Encounter for supervision of normal pregnancy, unspecified, unspecified trimester (principal) | CPT/HCPCS: 82570; 84156 ==

== ENCOUNTER 2023-08-05 08:58 | Outpatient (CLI) | payer BC, SELFPAY ==
--- NOTE | 2023-08-05 09:15 | CRLHL7_ITS ---
For Patients: As a result of the Century Cures Act, medical imaging exams and procedure reports are released immediately into your electronic medical record. You may view this report before your referring provider. If you have questions, please contact your health care provider. INDICATION: First trimester scan, establish dates. COMPARISON: None. TECHNIQUE: Real-time uribe-scale imaging of the pelvis was performed. FINDINGS: Sonographic imaging demonstrates a single living intrauterine gestation. The embryo demonstrates a regular cardiac rate measuring 130 beats per minute. The embryo`s crown-rump length measurement of 1.0 cm corresponds to a gestational age of 7 weeks 0 days with a sonographic due date of 03/23/2024. There is a normal-appearing yolk sac. There are no gross abnormalities noted within the embryo at this early state of development. The gestational sac has a normal appearance. There is no evidence of a perigestational hemorrhage. The amount of fluid within the sac appears appropriate for gestational age. The cervix is closed. The myometrium appears normal. The ovaries are of normal size. Corpus luteal cyst left ovary. There are no suspicious fluid collections noted in the cul-de-sac. IMPRESSION: Normal first trimester OB ultrasound exam. Gestational age calculated at 7 weeks 0 days with a sonographic due date of 03/23/2024. Dictated by Ata Izquierdo MD @ 08/05/2023 11:02:22 AM (Electronically Signed)
== END 2023-08-05 08:59 | disposition home or self-care (01) ==
LOC: US 08:58
PROVIDERS: Visit Provider Registered Nurse
DX: Z34.91 Encounter for supervision of normal pregnancy, unspecified, first trimester (principal); Z3A.01 Less than 8 weeks gestation of pregnancy
CPT/HCPCS: 76817

== ENCOUNTER 2023-08-26 10:25 | Outpatient (CLI) | payer BC, SELFPAY | END 2023-08-26 10:26 | disposition home or self-care (01) | PROVIDERS: Visit Provider Registered Nurse | DX: Z34.91 Encounter for supervision of normal pregnancy, unspecified, first trimester (principal); Z3A.10 10 weeks gestation of pregnancy | CPT/HCPCS: 84450; 84460 ==

== ENCOUNTER 2023-10-14 10:38 | Outpatient (CLI) | payer BC, SELFPAY ==
--- OUTSIDE RECORDS SUMMARY | 2023-10-14 10:41 | XMS_ITS | Clinical Summary ---
Author Name Unknown Organization [facility] Address [place], [place] [address] Care Team Providers Care Sheet Cutting Operator Name Role Phone Noris Todd MD Primary Care P rovider Dana Ch MD Unavailable [phone] Allergies No known active allergies Medications Medication Sig Dispensed Refills Start Date End Date Status citalopram (CELEXA) 20 mg tabletIndications:Anxi ety Take 1 Tablet (20 mg) by mouth once daily. Take half tab daily x5-7 days then 1 tab daily 30 Tablet 2 08/28/2021 Active miscellaneous medical supply (Blood Pressure Cuff) miscIndications:Gestat ional hypertension, third trimester As directed. Check your blood pressure twice a day, call if >150/100 1 Each 0 08/28/2021 Active NIFEdipine (PROCARDIA XL) 30 mg Extended-Release tabletIndications:Gest ational hypertension, third trimester Take 1 Tablet (30 mg) by mouth once daily before a meal. 30 Tablet 0 09/10/2021 Active ondansetron (ZOFRAN ODT) 4 mg disintegrating tabletIndications:Naus ea vomiting and diarrhea Place 1 Tablet (4 mg) on the tongue every 8 hours if needed for Nausea/Vomiting. 12 Tablet 0 11/05/2022 Active Active Problems Patient Care Coordination No te Formatting of this note migh t be different from the original. There is a resolved Delivery Plan of Care which has been moved to a progress note under Case Management tab dated 09/09/21 by Janey Painting RN. Problem Noted Date Diagnosed Date 37 weeks gestation of 09/07/2021 Normal vaginal delivery 09/07/2021 Obstetrical laceration, second degree 09/07/2021 Obesity in , BMI 38 09/06/2021 arrhythmia affecting p regnancy, antepartum-intermittent SVT 07/23/2021 [facility] Supervision of high-risk Overview: [facility] OB PATIENT SO: Pato Its a boy! NEXT VISIT ALERTS: Patient checking at home BPs? COVID-19 08/28/21 negative = need to repeat prior to IOL 09/06/21 PLANS & FUTURE APPOINTMENTS: - OB visits: Through 09/19/21 TESTING PLAN: Weekly - Testing: Through 09/19/21 GROWTH PLAN: - Growth: Next 09/19/21 DELIVERY PLAN: - Scheduled delivery: 09/06/21 @ 1930 with OB - Preferred delivery location: [facility] PRIMARY DIAGNOSIS: 26 y.o. Estimated Date of Delivery: 09/27/21 : Intermittent SVT Maternal: gHTN? Hospital admission d/t SVT 07/23-07/26; started flecainide Anxiety/Depression LAST GROWTH: 08/22/21 34w6d EFW 2411 grams, percentile: 36 07/23/21 30w4d EFW 1663 grams, percentile: 49 ECHO: Multiple in [facility] 08/22/21 Normal REFERRING PHYSICIAN/PHONE/LAST UPDATE: Dana Ch MD [facility] [phone] Primary MD approves scheduling of recommended ultrasounds/testing: Not specified SPECIALISTS/CONSULTS: Include: Specialty MD Clinic Name Phone# [place] and ADDED TO PATIENT CARE TEAM Yes LEXI signed for [facility]: Signed 08/22/21 CARE COORDINATION: Belle Coleman, SERGEI/[facility] RN/Radhika Huitron RN/Angelique Pabon RN/Jesenia Coy RN [phone] POSTDOCTORAL FELLOW: GENETICS: 04/17/21 AFP Negative 07/25/21 [facility] - genetic testing after PROCEDURES: EKG 07/26/21 Normal sinus rhythm PERTINENT MEDS: ASA Flecainide 100 BID ROUTINE OB: Flu vaccine: Date given: 06/05/21 COVID-19 vaccine: Date(s) given: 11/27/20; 12/18/20- Plans to schedule booster Tdap vaccine: GIVE BETWEEN 27 AND 36 WEEKS Date given: 08/07/21 [place]PASS: Initial completed YES Part 2 between 32w-36w completed YES ANXIETY/DEPRESSION SCREEN: Initial screen: Date: 08/22/21 GA: 34w6d PHQ-9 score: 3 JAXON-7 score: 1 Previous history of anxiety or depression? YES ROUTINE LABS: Blood type: A Positive Antibody screen: Negative Last pap: 06/18/20 NIL Plan for Gestational Diabetes screening: GCT 07/04/21 100 Treponema Pallidum: DRAW @ 28 WEEKS Date drawn: 07/04/21 Negative GBS: 08/28/21 Hemoglobin: Initial: 03/04/21 13.0 28 wk: 07/04/21 12.7 36 wk 08/28/21 13.4 ADDITIONAL PERTINENT LABS: Preeclampsia Labs: 07/23/21 WNL x PCR 0.1; 08/22/21 WNL; 08/28/21 WNL X PCR 0.1; 09/03/21 WNL PCR 0.1 CHECKLIST FOR SCHEDULING PROCEDURES: Call [phone] for [place] and [phone] for [place] Procedure: Induction Hospital: [place] Unit: L&D Date & Time of procedure: 09/06/21 @ 1930 Unr Score if induction: 3 Pertinent information: gHTN, intermittent SVT Gestational age on procedure date? 37 MD doing procedure: Al OB Date scheduled: 08/28/2021 when patient was 35w5d. Scheduling MD & RN: COOPER Rico & Richard RN Notifications: Hospitalist Delivery-OBH semiconductor testing group leader notified through [facility] inbox? Yes MPP MD semiconductor testing group leader notified via [facility] inbox? Yes Primary MD notified via [facility] inbox? No Primary MD clinic called if not [place]? No On [facility] calendar? Yes Care Coordination notified? Yes H&P/PPTL: PPTL permit signed? Not Applicable H&P and Plan in chart? Yes, 08/22/21 [facility] appointment made for H&P with SCIENTIFIC PROGRAMMER ANALYST within 30 days of procedure? Completed 08/22/21 Regardless of vaccination status, all procedures require a COVID-19 test . Patients should be scheduled for a COVID-19 test within 3-5 days prior to the scheduled procedure to be done in main [facility] Clinic Date: 09/03/21 Patient notification: Patient notified of procedure date? Yes Written admission instructions given to patient via AVS? No PPTL& DELIVERY SCHEDULING: Do COVID testing with in 3-5 days of scheduled delivery @ a main [facility] site H&P needed 30 days before delivery Date: PPTL: No Is Medical assistance? PPTL Permit [...] for gestational hypertension? Return Ultrasound/Testing ?-- Growth ultrasound last week, no need to repeat prior to delivery ?-- Weekly BPP/NST given gestational hypertension ?-- echocardiogram every 2 weeks-will cancel for next week. Okay per cardiology given patient will be induced the day it was scheduled. ?? Labs: ?-- : Completed with primary ?-- Diabetes screening: passed on 07/04/21 ?-- GBS culture tioday ?-- Preeclampsia labs completed today given gestation hypertension and elevated blood pressure at home -- COVID-19 test today given symptoms, repeat next week if negative for pre- procedure ?? Medications: ?-- Continue vitamin with folic acid and medications noted above ?-- Tdap at 28 weeks ?-- Flu vaccine (if not given yet) ?-- Continue on flecainide 100mg twice daily, refill given today ?-- Continue bASA -- COVID-19 Vaccine-11/27/20; 12/18/20- Plans to schedule booster -- Celexa, take 10mg daily x5-7 days then 20mg daily ?? Depression screening/management:??did not require intervention (scores<=9). ?? Consult: ?--NICU consult ?? Patient understands she should call or return to clinic if she experiences any s/s infection, persistent uterine cramping, vaginal bleeding, leaking of fluid, pain/swelling in legs. ?? Delivery:??IOL 37 weeks given GHTN, scheduled for 09/06/20 at 1930 Encounter for supervision of low-risk first in first trimester 04/16/2021 Overview: Partners name: [facility] Hx: depression Concerns this : BMI 36 - level 2 anatomy scan OB Hx: OB History Para Term AB Living 1 0 0 0 0 0 SAB TAB Ectopic Multiple Live Births 0 0 0 0 # Outcome Date GA Lbr Jack/2nd Weight Sex Delivery Anes PTL Lv 1 Current BMI: Body mass index is 36.36 kg/m??. Recommended wt gain: 07-13 Genetic screening: yes ASA prophylaxis 12-36 weeks for Moderate risk (2 or more of): Nulliparity and Obesity w BMI>30 Ultrasound: Level 2 FAS indicated (pre-preg BMI>30): yes Smoker: none Flu vaccine: COVID-19 vaccine: complete Pertussis Vaccine: Peds: Domestic violence screen: Pain during labor: BCM: : yes, but ok with formula feeding Maternal varicella, non-immune 04/03/2021 Obesity with body mass index 30 or greater 10/06 Depression 08/29/2014 Gestational hypertension, third trimester Anxiety hypertension Resolved Problems Problem Noted Date Diagnosed Date Resolved Date Elevated blood pressure affe cting in third trimester, antepartum 2 Immunizations Name Administration Dates Next Due AMB Influenza, IIV3 (Age >=3 years)(Flu Clinic Only) 07/05/2013 DTP 02/26/1999, 6,1995,06/05,1995 HIB PRP-T (ActHIB,Hiberix) 05/13/1996,,1995,04/06 Hepatitis B (Peds) 02/08/1996,1995, 995 Human Papilloma Virus Vaccine 10/28/2012, 012,04/14/2012 Influenza, IIV3 (Age >=3 years) 07/05/2013,07/02 Influenza, IIV4 06/18/2020, 9,05/03/2018,06/15,06/09/2016,05/15/2015,05/25/2014 MMR 02/26/1999,05/13/1996 Meningococcal Vaccine (Menveo) 06/09/2016 Oral Polio Vaccine 02/26/1999, 6,1995,04/06 Td (Age >=7 Years) 06/13/2019 Tdap 10/13/2006 Varicella Vaccine 04/14/2012,04/08/2004 Family History Medical History Relation Name Comments Good Health Brother Diabetes Father Hypertension Father Good Health Mother Relation Name Status Comments Brother Alive Father Alive Mother Alive Social History Tobacco Use Types Packs/Day Years Used Date Smoking Tobacco: Never Smokeless Tobacco: Never Tobacco Cessation:Counseling Given: Yes Comments:father smokes Alcohol Use Standard Drinks/Week Comments No 0 (1 standard drink = 0.6 oz pur e alcohol) PHQ-2 Answer Date Recorded PHQ-2 TOTAL SCORE 0 09/18/2021 Social Connections Answer Date Recorded Frequency of Communication with Friends and Fami ly Not on file 08/19/2021 Financial Resource Strain Answer Date R ecorded Difficulty of Paying Living Expenses Not on file 08/19/2021 Difficulty of Paying Living Expenses Not on file 08/19/2021 Sex and Gender Information Value Date Recorded Sex Assigned at Not on file Gender Identity Not on file Sexual Orientation Not on file Obstetrics History Para Term AB IAB SAB Ectopic Multiple Livin g Live Births 1 1 1 0 0 0 0 0 0 1 1 Date Outcome GA Total Labor Labor/2nd/3rd Weight Sex Delivery Anes PTL Linda A1 A5 Name Cl in 09/07 Term 37w 1d 5h 34m 5h 12m/0h 19m/0h 03m 2.71 kg (5 lb 15.6 oz) M VAGINAL GUERRERO Epidu ral,L ocal My ng 7 9 Olga JONAS, Chucky garcia MD Complications:None Delivery Location:Hospital ( [address]) Last Filed Vital Signs Vital Sign Reading Time Taken Comments Blood Pressure 143/92 11/05/2022 2:50 PM CDT Pulse 119 11/05/2022 2:50 PM CDT Temperature 36.7 ??C (98.1 ??F) 11/05/2022 11:56 AM C DT Respiratory Rate 22 11/05/2022 11:56 AM CDT Oxygen Saturation 99% 11/05/2022 2:50 PM CDT Inhaled Oxygen Concentration - - Weight 112.5 kg (248 lb) 11/05/2022 11:56 AM CDT Height 165.1 cm (5' 5) 11/05/2022 11:56 AM CDT Body Mass Index 41.27 11/05/2022 11:56 AM CDT Plan of Treatment Health Maintenance Due Date Last Done Comments BMI (ht and wt on same day) for age 18+ 04/03/2022 04/03/2021, 06/18/2020, 08/21/2019, Additional history exists Depression screening for age 12+ 09/25/2022 09/25/2021, 09/18/2021, 08/28/2021, Additional history exists COVID-19 vaccine series ( season) 2023 12/18/2020, 11/27/2020 Influenza for age 9-49 04/24/2023 0, 06/13/2019, 05/03/2018, Additional history exists Pap test for age 21-65 06/18/2023 0, 06/15/2017, 06/09/2016 Tetanus booster 06/13/2029 06/13/2019, 10/13/2006 Tdap Completed 10/13/2006 HIV for age 15-65 Completed 03/04/2021 Hepatitis C screening for age 18-79 Completed 03/04/2021 Pneumococcal series for age 6-64 Aged Out No longer eligible based on patient's age to complete this topic Advance Directives Documents on File Type Date Recorded 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 Treatment Guidelines 09/06/2021 Latest Code Status on File Code Status Date Activated Date Inactivated Comments Full Code 09/06/2021 9:14 PM 09/09/2021 6:02 PM Question Answer Comments Code Status Discussion: Reviewed Preferences Code Status History Code Status Date Activated Date Inactivated Comments Full Code 07/25/2021 7:36 AM 07/26/2021 2:42 PM Question Answer Comments Code Status Discussion: Reviewed Preferences Full Code 07/23/2021 4:36 PM 07/25/2021 7:36 AM Question Answer Comments Code Status Discussion: Unable to Assess Preferences, Provider to review later Full Code 07/23/2021 3:36 PM 07/23/2021 3:54 PM Question Answer Comments Code Status Discussion: Unable to Assess Preferences, Provider to review later Care Teams Sheet Cutting Operator Relationship Specialty Start Date End Date Noris Todd MD [address] [place] [id number] PCP - General Family Practice 04/03/21 Dana Ch MD [address] [place] [address] Referring Provider Obstetrics and Gynecology 08/19/21
== END 2023-10-14 10:39 | disposition home or self-care (01) ==
LOC: NFLDREF 10:40
PROVIDERS: Visit Provider Registered Nurse
DX: R30.0 Dysuria (principal)
CPT/HCPCS: 87086

== ENCOUNTER 2024-01-01 12:30 | Outpatient (CLI) | payer BC, SELFPAY ==
--- OUTSIDE RECORDS SUMMARY | 2024-01-18 13:46 | XMS_ITS | Encounter Summary ---
Author Organization [place] Address [facility] [place] [address] Care Team Providers Care Chain Carrier Name Role Phone No Ref-Primary, Physician Primary Care Provider Reason for Visit * Reason Comments Ultrasound RL2-BMI, Left UTD Encounter Details Date Type Department Care Team (Late st Contact Info) Description 01/12/2024 10:00 AM CDT Office Visit [facility] [place] [address] [place] [address] Srinivasa Hernandez MD [address] [place] [address] Elmer Ansari MD [address] [place] [address] renal anomaly, single gestation (Primary Dx) Social History Tobacco Use Types Packs/Day Years [...] as of this encounter Progress Notes * Elmer Ansari MD - 01/12/2024 10:00 AM CDT Please see full imaging report from ViewPoint program under imaging tab. Elmer Ansari MD Maternal Medicine documented in this encounter Nursing Notes * Leila Radford RN - 01/12/2024 10:00 AM CDT Patient reports good movement, denies contractions, leaking of fluid, or bleeding. SBAR givento EULALIA LONGORIA, see their note in Epic. documented in this encounter Plan of Treatment Not on file documented as of this encounter Visit Diagnoses Diagnosis renal anomaly, single gestation- Primary documented in this encounter Care Teams Chain Carrier Relationship Specialty Start Date End Date No Ref-Primary, Physician PCP - General 09/24/23 documented as of this encounter
--- OUTSIDE RECORDS SUMMARY | 2024-01-18 13:46 | XMS_ITS | Clinical Summary ---
Author Organization [place] Address [address] [place] [id number] Care Team Providers Care Tube Maker Name Role Phone No Ref-Primary, Physician Primary Care Provider Encounters Date Type Department Care Team Description 01/12/2024 10:00 AM CDT Office Visit [facility] Maternal Medicine [facility] [address] [facility] [address] [place] [address] Srinivasa Hernandez MD Jones, Cresta Wedel, MD renal anomaly, single gestation (Primary Dx) 01/12/2024 9:10 AM CDT - 01/12/2024 11:59 PM CDT Hospital Encounter [facility] Medicine [facility] [address] [facility] [address] [place] [address] Elmer Ansari MD Pyelectasis of fetus on ultrasound; Obesity affecting , antepartum, unspecified obesity type Discharge Disposition: Home or Self Care 01/12/2024 Travel 12/02/2023 10:00 AM CDT Office Visit [facility] Maternal Medicine [facility] [address] [place] [address] Srinivasa Hernandez MD Obesity affecting , antepartum, unspecified obesity type (Primary Dx); Pyelectasis of fetus on ultrasound 12/02/2023 9:30 AM CDT - 12/02/2023 11:59 PM CDT Hospital Encounter [facility] Medicine [facility] [address] [place] [address] Srinivasa Hernandez MD Encounter for follow-up ultrasound of anatomy Discharge Disposition: Home or Self Care 12/02/2023 Travel 11/04/2023 12:15 PM CDT Office Visit [facility] Medicine [facility] [address] [place] [address] Srinivasa Hernandez MD Obesity affecting , antepartum, unspecified obesity type (Primary Dx); Encounter for follow-up ultrasound of anatomy 11/04/2023 11:29 AM CDT - 11/04/2023 11:59 PM CDT Hospital Encounter [facility] Medicine [facility] [address] [address] [place] [address] Srinivasa Hernandez MD related condition, antepartum Discharge Disposition: Home or Self Care 11/04/2023 Travel 10/27/2023 PRE VISIT [facility] Medicine [facility] [address] [facility] [address] [place] [address] Molly Stevens RN Ultrasound (L2-BMI) from Last [...] Orientation Not on file Plan of Treatment Health Maintenance Due Date [...] Procedure Name Priority Date/Time Associated Diagnosis Comments [facility] US COMPREHENSIVE SINGLE F/U Routine 01/12/2024 9:50 AM CDT Pyelectasis of fetus on ultrasound Obesity affecting , antepartum, unspecified obesity type [facility] US COMPREHENSIVE SINGLE F/U Routine 12/02/2023 10:10 AM CDT Encounter for follow-up ultrasound of anatomy [facility] US COMPREHENSIVE SINGLE Routine 11/04/2023 12:30 PM CDT related condition, antepartum from Last 3 Months Results * [facility] US Comprehensive Single F/U (01/12/2024 9:50 AM CDT) Only the most recent of2 resultswithin the time period is included. Anatomical Region Laterality Modality Ultrasound 01/12/2024 9:18 AM CDT Impressions 01/12/2024 9:59 AM CDT IMPRESSION ----- 1. Dubon at 29w 6d gestational age. 2. None of the anomalies commonly detected by ultrasound were evident in the limited anatomic survey as described above. The previously seen renal pelvis dilation has resolved. 3. Growth parameters and estimated weight were consistent with gestational age predicted by assigned MARYBEL. 4. The amniotic fluid volume appeared normal. Narrative 01/12/2024 9:59 AM CDT ?Comp Follow Up ----- Pat. Name: JACKIE HILLS ? Study Date: ??01/12/2024 9:18am Pat. NO: ??[id number] ?Referring ??MD: APRIL BARROS Site: [facility] ? Charge Out Clerk: Jaja Moore RDMS : ??1995 ?Age: ?? 28 ----- INDICATION ----- left urinary tract dilation. Elevated BMI. METHOD ----- Transabdominal ultrasound examination. View: Sufficient ----- [place]on . Number of fetuses: 1 DATING ----- ? Date ?Details ?Gest. age ?MARYBEL LMP ?06/17/2023 ? Cycle: regular cycle ?29 w + 6 d ? 03/23/2024 Prior assessment ? 08/05/2023 ? GA: 7 w + 0 d ?29 w + 6 d ? 03/23/2024 U/S ? 01/12/2024 ? based upon AC, BPD, Femur, HC ?30 w + 5 d ? 03/17/2024 Assigned dating ?Dating performed on 01/12/2024, based on the LMP ?29 w + 6 d ? 03/23/2024 GENERAL EVALUATION ----- Cardiac activity present. FHR 153 bpm. movements present. Presentation cephalic. Placenta Posterior. Umbilical cord 3 vessel cord. Amniotic fluid Amount of AF: normal. MVP 4.8 cm. BIOMETRY ----- Main Biometry: BPD ?75.2 ?mm ? 30w 1d ?Hadlock OFD ?99.4 ?mm ? 29w 2d ?Nicolaides HC ?278.4 ?mm ?30w 3d ?Hadlock Cerebellum tr ?33.4 ? mm ?29w 1d ?Nicolaides AC ?271.0 ?mm ?31w 1d ?82% ?Hadlock Femur ?59.8 ? mm ?31w 1d ?Hadlock Weight Calculation: EFW ? 1,683 ?g ? 77% ?Hadlock EFW (lb,oz) ? 3 lb 11 ? oz EFW by ?Hadlock ([id number]) Head / Face / Neck Biometry: Javascript Software Engineer ? 7.7 ? mm CM ?7.4 ? mm Urinary Tract Biometry: Rt Renal pelvis ap ? 3.3 ? mm Lt Renal pelvis ap ? 3.4 ?mm ANATOMY ----- The following structures appear normal: Head / Neck ? Cranium. Head size. Head shape. Lateral ventricles. Midline falx. Cerebellum. Cisterna magna. Thalami. Face ? Lips. Profile. Nose. Heart / Thorax ?4-chamber view. RVOT view. LVOT view. 7-pktjre-hqkaaln view. ? Diaphragm. Abdomen ? Stomach. Kidneys. Bladder. The following structures were documented previously: Head / Neck ? Cavum septi pellucidi. Spine ?Cervical spine. Thoracic spine. Lumbar spine. Sacral spine. Gender: female. MATERNAL STRUCTURES ----- Cervix ?Not examined Right Ovary ?Not examined Left Ovary ?Not examined RECOMMENDATION ----- Thank-you for referring your patient for ultrasound assessment. I discussed the findings on today's ultrasound with the patient. She is pleased to hear that the renal dilation has resolved. Follow-up for additional US can be done in [place] and should include consideration for a follow up growth in 4-6 weeks, as well as weekly BPPs to start around 34 weeks. She reports no issues with her BP thus far, but she is watching it closely. Return to primary provider for continued care. If you have questions regarding today's evaluation or if we can be of further service, please contact the [facility]. anomalies may be present but not detected Procedure Note Elmer Ansari MD - 01/12/2024 Comp Follow Up ----- Pat. Name: JACKIE HILLS Study Date: 01/12/2024 9:18am Pat. NO: [id number] Referring MD: APRIL BARROS Site: [facility] Charge Out Clerk: Jaja Moore RDMS : 1995 Age: 28 ----- INDICATION ----- left urinary tract dilation. Elevated BMI. METHOD ----- Transabdominal ultrasound examination. View: Sufficient ----- [place] . Number of fetuses: 1 DATING ----- DateDetailsGest. age MARYBEL LMP 06/17/2023ycle: regular cycle29 w + 6 d 03/23/2024 Prior assessment 08/05/2023 GA: 7 w +0 d29 w + 6 d 03/23/2024 U/S 01/12/2024ased upon AC, BPD, Femur, HC30 w + 5 d 03/17/2024 Assigned dating Dating performed on 01/12/2024, based onthe LMP 29 w +6 d 03/23/2024 GENERAL EVALUATION ----- Cardiac activity present. FHR 153 bpm. movements present. Presentation cephalic. Placenta Posterior. Umbilical cord 3 vessel cord. Amniotic fluid Amount of AF: normal. MVP 4.8 cm. BIOMETRY ----- Main Biometry: BPD 75.2 mm30w 1d Hadlock OFD 99.4 mm29w 2d Nicolaides HC 278.4 mm30w 3d Hadlock Cerebellum tr 33.4 mm29w 1d Nicolaides AC 271.0 mm31w 1d 82% Hadlock Femur 59.8 mm31w 1d Hadlock Weight Calculation: EFW 1,683 g77% Hadlock EFW (lb,oz) 3 lb 11 oz EFW by Hadlock ([id number]) Head / Face / Neck Biometry: Javascript Software Engineer 7.7 mm CM 7.4 mm Urinary Tract Biometry: Rt Renal pelvis ap 3.3 mm Lt Renal pelvis ap 3.4 mm ANATOMY ----- The following structures appear normal: Head / Neck Cranium. Head size. Head shape.Lateral ventricles. Midline falx. Cerebellum. Cisterna magna. Thalami. Face Lips. Profile. Nose. Heart / Thorax 4-chamber view. RVOT view. LVOT view.4-eyduvy-ayeabii view. Diaphragm. Abdomen Stomach. Kidneys. Bladder. The following structures were documented previously: Head / Neck Cavum septi pellucidi. Spine Cervical spine. Thoracic spine.Lumbar spine. Sacral spine. Gender: female. MATERNAL STRUCTURES ----- Cervix Not examined Right Ovary Not examined Left Ovary Not examined RECOMMENDATION ----- Thank-you for referring your patient for ultrasound assessment. Idiscussed the findings on today's ultrasound with the patient. She ispleased to hear that the renal dilation has resolved. Follow-up for additional US can be done in [place] and should includeconsideration for a follow up growth in 4-6 weeks, as well as weekly BPPsto start around 34 weeks. She reports no issues with her BP thus far, but she is watching itclosely. Return to primary provider for continued care. If you have questions regarding today's evaluation or if we can be offurther service, please contact the [facility]. anomalies may be present but not detected IMPRESSION ----- 1. Dubon at 29w 6d gestational age. 2. None of the anomalies commonly detected by ultrasound were evident inthe limited anatomic survey as described above. The previously seenrenal pelvis dilation has resolved. 3. Growth parameters and estimated weight were consistent withgestational age predicted by assigned MARYBEL. 4. The amniotic fluid volume appeared normal. Srinivasa Hernandez MD [facility] ORDERABL ES * [facility] US Comprehensive Single (11/04/2023 12:30 PM [...] ? Study Date: ??11/04/2023 11:33am Pat. NO: ??[id number] ?Referring ??MD: APRIL BARROS Site: ??[facility] ? Charge Out Clerk: Jennifer Cordero RDMS : ??1995 ?Age: ?? [...] OFD ?60.5 ?mm ? 19w 4d ?Nicolaides ?169.5 ?mm ?19w 4d ?Hadlock Cerebellum tr ?20.7 ? mm ?19w 5d ?Nicolaides AC ?151.9 ?mm ?20w 3d ?58% ?Hadlock Femur ?33.2 ? mm ?20w 3d ?Hadlock Humerus ?30.5 ?mm ? 20w 0d ?Ahsan Weight Calculation: EFW ? 344 ? g ? 62% ?Hadlock EFW (lb,oz) ? 0 lb 12 ? oz EFW by ?Hadlock ([id number]-FL) Head / Face / Neck Biometry: Javascript Software Engineer ? 4.3 ? mm CM ?4.5 ? [...] / Thorax ?Aortic arch view. 3-vessel view. 6-qejaxd-rqoqfkm view. ? Diaphragm. Gender: female. MATERNAL STRUCTURES ----- Cervix ?Visualized ? Appearance: Appears Closed ? Approach - Transabdominal: Cervical length 41.9 mm Right Ovary ?Not examined Left Ovary ?Not examined RECOMMENDATION ----- We discussed the findings on today's ultrasound with the patient. We have scheduled the patient to return to [facility] in 4 weeks to complete the [...] HILLS Study Date: 11/04/2023 11:33am Pat. NO: [id number] Referring MD: APRIL BARROS Site: [facility] Charge Out Clerk: Jennifer Cordero RDMS : 1995 Age: 28 [...] 0 lb 12 oz EFW by Hadlock ([id number]) Head / Face / Neck Biometry: Javascript Software Engineer 4.3 mm CM 4.5 mm Nasal bone [...] Heart / Thorax Aortic arch view. 3-vessel view.9-prnaiw-wvcdukt view. Diaphragm. Gender: female. MATERNAL STRUCTURES ----- Cervix Visualized Appearance: Appears Closed Approach - Transabdominal:Cervical length 41.9 mm Right Ovary Not examined Left Ovary Not examined RECOMMENDATION ----- We discussed the findings on today's ultrasound with the patient. We have scheduled the patient to return to [facility] in 4 weeks to complete theanatomic [...] No markers for aneuploidy seen. April Barros APRN, CNP [facility] US ORDERABLES from Last 3 Months Care Teams Tube Maker Relationship Specialty Start Date End Date No Ref-Primary, Physician PCP - General 09/24/23
--- OUTSIDE RECORDS SUMMARY | 2024-01-18 13:46 | XMS_ITS | Encounter Summary ---
Author Organization [place] Address [address] [place] [id number] Care Team Providers Care Farm Contractor Name Role Phone No Ref-Primary, Physician Primary [...] as of this encounter Plan of Treatment Not on file documented as of this encounter Visit Diagnoses Not on filedocumented in this encounter Care Teams Farm Contractor Relationship Specialty Start Date End Date No Ref-Primary, Physician PCP - General 09/24/23 documented as of this encounter
--- OUTSIDE RECORDS SUMMARY | 2024-01-18 13:46 | XMS_ITS | Encounter Summary ---
Author Organization [facility] Address [address] [place] [address] Care Team Providers Care Uniform Room Attendant Name Role Phone No Ref-Primary, Physician Primary Care Provider Encounter Details Date Type Department Care Team (Latest Contact Info) Description 01/12/2024 Travel Social History Tobacco Use Types Packs/Day [...] on filedocumented in this encounter Care Teams Uniform Room Attendant Relationship Specialty Start Date End Date No Ref-Primary, Physician PCP - General 09/24/23 documented as of this encounter
--- OUTSIDE RECORDS SUMMARY | 2024-01-18 13:46 | XMS_ITS | Referral Summary ---
Author Organization [place] Address [address] [place] [address] Care Team Providers Care Airline Counter Agent Name Role Phone No Ref-Primary, Physician Primary Care Provider Encounters Date Type Department Care Team Description 01/12/2024 Travel 01/12/2024 10:00 AM CDT Office Visit [facility] Maternal Medicine [facility] [address] [facility] [address] [place] [phone] Srinivasa Hernandez MD Jones, Cresta Wedel, MD renal anomaly, single gestation (Primary Dx) 01/12/2024 9:10 AM CDT - 01/12/2024 11:59 PM CDT Hospital Encounter [facility] Medicine [facility] [address] [facility] [address] [place] [phone] Elmer Ansari MD Pyelectasis of fetus on ultrasound; Obesity affecting , antepartum, unspecified obesity type Discharge Disposition: Home or Self Care 12/02/2023 Travel 12/02/2023 10:00 AM CDT Office Visit [facility] Medicine [facility] [address] [facility] [address] [place] [phone] Srinivasa Hernandez MD Obesity affecting , antepartum, unspecified obesity type (Primary Dx); Pyelectasis of fetus on ultrasound 12/02/2023 9:30 AM CDT - 12/02/2023 11:59 PM CDT Hospital Encounter [facility] Medicine [facility] [address] [facility] [address] [place] [address] Srinivasa Hernandez MD Encounter for follow-up ultrasound of anatomy Discharge Disposition: Home or Self Care 11/04/2023 Travel 11/04/2023 12:15 PM CDT Office Visit [facility] Medicine [facility] [address] [facility] [address] [place] [phone] Srinivasa Hernandez MD Obesity affecting , antepartum, unspecified obesity type (Primary Dx); Encounter for follow-up ultrasound of anatomy 11/04/2023 11:29 AM CDT - 11/04/2023 11:59 PM CDT Hospital Encounter [facility] Medicine [place] [address] [address] [facility] [address] [place] [phone] Srinivasa Hernandez MD related condition, antepartum Discharge Disposition: Home or Self Care 10/27/2023 PRE VISIT [facility] Medicine [place] [address] [address] [facility] [address] [place] [phone] Molly Stevens RN Ultrasound (L2-BMI) from Last [...] Orientation Not on file Plan of Treatment Not on file Procedures Procedure Name Priority Date/Time Associated Diagnosis Comments [facility] COMPREHENSIVE SINGLE F/U Routine 01/12/2024 9:50 AM CDT Pyelectasis of fetus on ultrasound Obesity affecting , antepartum, unspecified obesity type [facility] US COMPREHENSIVE SINGLE F/U Routine 12/02/2023 10:10 AM CDT Encounter for follow-up ultrasound of anatomy [facility] US COMPREHENSIVE SINGLE Routine 11/04/2023 12:30 PM CDT related condition, antepartum from Last 3 Months Results * [facility] US Comprehensive Single F/U (01/12/2024 9:50 AM CDT) Only the most recent of2 resultswithin the time period is included. Anatomical Region Laterality Modality Ultrasound 01/12/2024 9:18 AM CDT Impressions 01/12/2024 9:59 AM CDT IMPRESSION ----- 1. Duobn at 29w 6d gestational age. 2. None [...] ? Study Date: ??01/12/2024 9:18am Pat. NO: ??[id number] ?Referring ??MD: APRIL BARROS Site: ??[facility] ? Anthropometrist: Jaja Moore RDMS : ??1995 ?Age: ?? [...] lb 11 ? oz EFW by ?Hadlock ([id number]-FL) Head / Face / Neck Biometry: Railroader ? 7.7 ? mm CM ?7.4 ? [...] Thorax ?4-chamber view. RVOT view. LVOT view. 1-govnic-faayjkx view. ? Diaphragm. Abdomen ? Stomach. Kidneys. [...] for additional US can be done in [place] and should include consideration for a follow [...] be present but not detected Procedure Note Elmre Ansari MD - 01/12/2024 Comp Follow Up ----- Pat. Name: JACKIE HILLS Study Date: 01/12/2024 9:18am Pat. NO: [id number] Referring MD: APRIL BARROS Site: [facility] Anthropometrist: Jaja Moore RDMS : 1995 Age: 28 [...] 3 lb 11 oz EFW by Hadlock ([id number]-FL) Head / Face / Neck Biometry: Railroader 7.7 mm CM 7.4 mm Urinary Tract Biometry: Rt Renal pelvis ap 3.3 mm Lt Renal pelvis ap 3.4 mm ANATOMY ----- The following structures appear normal: Head / Neck Cranium. Head size. Head shape.Lateral ventricles. Midline falx. Cerebellum. Cisterna magna. Thalami. Face Lips. Profile. Nose. Heart / Thorax 4-chamber view. RVOT view. LVOT view.8-ugyzyp-lhrbxfp view. Diaphragm. Abdomen Stomach. Kidneys. Bladder. The [...] for additional US can be done in [place] and should includeconsideration for a follow up [...] fluid volume appeared normal. Srinivasa Hernandez MD [facility] US ORDERABL ES * [facility] US Comprehensive Single (11/04/2023 12:30 PM [...] ? Study Date: ??11/04/2023 11:33am Pat. NO: ??[id number] ?Referring ??MD: APRIL BARROS Site: ??[facility] ? Anthropometrist: Jennifer Cordero [facility] : ??1995 ?Age: ?? 28 ----- [...] lb 12 ? oz EFW by ?Hadlock ([id number]) Head / Face / Neck Biometry: Railroader ? 4.3 ? mm CM ?4.5 ? [...] / Thorax ?Aortic arch view. 3-vessel view. 7-kuczgm-solmajx view. ? Diaphragm. Gender: female. MATERNAL STRUCTURES ----- Cervix ?Visualized ? Appearance: Appears Closed ? Approach - Transabdominal: Cervical length 41.9 mm Right Ovary ?Not examined Left Ovary ?Not examined RECOMMENDATION ----- We discussed the findings on today's ultrasound with the patient. We have scheduled the patient to return to [facility] in 4 weeks to complete the [...] HILLS Study Date: 11/04/2023 11:33am Pat. NO: [id number] Referring MD: APRIL BARROS Site: [facility] Anthropometrist: Jennifer Cordero RDMS : 1995 Age: 28 [...] 0 lb 12 oz EFW by Hadlock ([id number]) Head / Face / Neck Biometry: Railroader 4.3 mm CM 4.5 mm Nasal bone [...] Heart / Thorax Aortic arch view. 3-vessel view.6-lueuuv-rhfikeu view. Diaphragm. Gender: female. MATERNAL STRUCTURES ----- Cervix Visualized Appearance: Appears Closed Approach - Transabdominal:Cervical length 41.9 mm Right Ovary Not examined Left Ovary Not examined RECOMMENDATION ----- We discussed the findings on today's ultrasound with the patient. We have scheduled the patient to return to [facility] in 4 weeks to complete theanatomic [...] markers for aneuploidy seen. April Barros APRN [facility] US ORDERABLES from Last 3 Months Care Teams Airline Counter Agent Relationship Specialty Start Date End Date No Ref-Primary, Physician PCP - General 09/24/23
--- OUTSIDE RECORDS SUMMARY | 2024-01-18 13:46 | XMS_ITS | Encounter Summary ---
Author Organization [facility] Address [address] [place] [address] Care Team Providers Care Vegetable Picker Name Role Phone No Ref-Primary, Physician Primary Care Provider Reason for Referral * Diagnostic Imaging Ultrasound (Routine) - Pending Review Specialty Diagnoses / Procedures Referred By Leida galeano Referred To Contact Radiology. Diagnoses Pyelectasis of fetus on ultrasound Obesity affecting , antepartum, unspecified obesity type Procedures [facility] US Comprehensive Single F/U Srinivasa Hernandez MD [address] [place] [id number] Referral ID Status Reason Start Date Expiration Date V isits Requested Visits Authorized [id number] Pending Review 12/02/2023 12/01/2024 1 1 Reason for Visit * Diagnostic Imaging Ultrasound (Routine) - Pending Review Specialty Diagnoses / Procedures Referred By Contac t Referred To Contact Radiology. Diagnoses Pyelectasis of fetus on ultrasound Obesity affecting , antepartum, unspecified obesity type Procedures [facility] US Comprehensive Single F/U Srinivasa Hernandez MD [address] [place] [address] Referral ID Status Reason Start Date Expiration Date V isits Requested Visits Authorized [id number] Pending Review 12/02/2023 12/01/2024 1 1 Encounter Details Date Type Department Care Team (Latest Contact Info) Description 01/12/2024 9:10 AM CDT - 01/12/2024 11:59 PM CDT Hospital Encounter [facility] [place] [address] [place] [address] Elmer Ansari MD [address] [place] [address] Pyelectasis of fetus on ultrasound; Obesity affecting , antepartum, unspecified obesity type Discharge Disposition: Home or Self Care Social [...] on file documented as of this encounter Procedures Procedure Name Priority Date/Time Associated Diagnosis Comments [facility] COMPREHENSIVE SINGLE F/U Routine 01/12/2024 9:50 AM CDT Pyelectasis of fetus on ultrasound Obesity affecting , antepartum, unspecified obesity type documented in this encounter Results * [facility] Comprehensive Single F/U (01/12/2024 9:50 AM CDT) Anatomical Region Laterality Modality Ultrasound 01/12/2024 9:18 [...] ? Study Date: ??01/12/2024 9:18am Pat. NO: ??[id number] ?Referring ??MD: ERIC HARDY Site: ??[facility] ? Hydraulic Bull Riveter Operator: Jaja Moore RDMS : ??1995 ?Age: ?? [...] Biometry: BPD ?75.2 ?mm ? 30w 1d ?Nohemi DEJESUS ?99.4 ?mm ? 29w 2d ?Nicolaides HC ?278.4 ?mm ?30w 3d ?Hadlock Cerebellum tr ?33.4 ? mm ?29w 1d ?Nicolaides AC ?271.0 ?mm ?31w 1d ?82% ?Hadlock Femur ?59.8 ? mm ?31w 1d ?Hadlock Weight Calculation: EFW ? 1,683 ?g ? 77% ?Hadlock EFW (lb,oz) ? 3 lb 11 ? oz EFW by ?Hadlock (PBI-SN-WC-FL) Head / Face / Neck Biometry: Sports Book Board Attendant ? 7.7 ? mm CM ?7.4 ? [...] Thorax ?4-chamber view. RVOT view. LVOT view. 6-cptpib-inargnx view. ? Diaphragm. Abdomen ? Stomach. Kidneys. [...] for additional US can be done in [place] and should include consideration for a follow [...] [place] Study Date: 01/12/2024 9:18am Pat. NO: [id number] Referring MD: ERIC HARDY Site: [facility] Hydraulic Bull Riveter Operator: Jaja Moore RDMS : 1995 Age: 28 [...] 3 lb 11 oz EFW by Hadlock ([id number]-DR-WV-FL) Head / Face / Neck Biometry: Sports Book Board Attendant 7.7 mm CM 7.4 mm Urinary Tract Biometry: Rt Renal pelvis ap 3.3 mm Lt Renal pelvis ap 3.4 mm ANATOMY ----- The following structures appear normal: Head / Neck Cranium. Head size. Head shape.Lateral ventricles. Midline falx. Cerebellum. Cisterna magna. Thalami. Face Lips. Profile. Nose. Heart / Thorax 4-chamber view. RVOT view. LVOT view.7-qldqet-mofbokl view. Diaphragm. Abdomen Stomach. Kidneys. Bladder. The [...] for additional US can be done in [place] and should includeconsideration for a follow up growth in 4-6 weeks, as well as weekly BPPsto start around 34 weeks. She reports no issues with her BP thus far, but she is watching itclosely. Return to primary provider for continued care. If you have questions regarding today's evaluation or if [facility], please contact the M[facility]- Medicine Center. [...] volume appeared normal. Srinivasa Hernandez MD [facility] US ORDERABL ES documented in this encounter Visit Diagnoses Diagnosis Pyelectasis of fetus on ultrasound Obesity affecting , antepartum, unspecified obesity type documented in this encounter Care Teams Vegetable Picker Relationship Specialty Start Date End Date No Ref-Primary, Physician PCP - General 09/24/23 documented as of this encounter
--- OUTSIDE RECORDS SUMMARY | 2024-01-18 13:47 | XMS_ITS | Encounter Summary ---
Author Organization [facility] Address [address] [place] [address] Care Team Providers Care Film Cutter Name Role Phone No Ref-Primary, Physician Primary Care Provider Reason for Referral * Diagnostic Imaging Ultrasound (Routine) - Pending Review Specialty Diagnoses / Procedures Referred By Contgerson t Referred To Contact Radiology. Diagnoses Encounter for follow-up ultrasound of anatomy Procedures [facility] US Comprehensive Single F/U Srinivasa Hernandez MD [address] [place] [address] Referral ID Status Reason Start Date Expiration Date V isits Requested Visits Authorized [id number] Pending Review 11/04/2023 11/03/2024 1 1 Reason for Visit * Reason Comments Ultrasound L2-BMI Encounter Details Date Type Department Care Team ([facility] Contact Info) Description 11/04/2023 12:15 PM CDT Office Visit [facility] M[facility] Medicine [facility] [place] [address] [place] [address] Srinivasa Hernandez MD [address] [place] [address] Obesity affecting , antepartum, unspecified [...] for details of today's US at the [facility]. Srinivasa Hernandez MD Maternal- Medicine documented in this encounter Plan of Treatment Not on file documented as of this encounter Results * [facility] US Comprehensive Single F/U (12/02/2023 10:10 [...] ? Study Date: ??12/02/2023 9:34am Pat. NO: ??[id number] ?Referring ??MD: LEIGH LIND Site: ??[facility] ? Joy Operator Helper: Altagracia Kruger [facility] : ??1995 ?Age: [...] Biometry: BPD ?58.0 ?mm ? 23w 5d ?Nohemi DEJESUS ?78.1 ?mm ? 23w 5d ?Nicolaides ?217.6 ?mm ?23w 6d ?Hadlock Cerebellum tr ?26.8 ? mm ?24w 3d ?Nicolaides AC ?197.8 ?mm ?24w 3d ?56% ?Hadlock Femur ?46.8 ? mm ?25w 4d ?Hadlock Weight Calculation: EFW ? 732 ? g ? 76% ?Hadlock EFW (lb,oz) ? 1 lb 10 ? oz EFW by ?Hadlock (QTU-KY-[id number]-FL) Head / Face / Neck Biometry: Yard Worker ? 5.9 ? mm CM ?5.4 ? [...] LVOT view. Aortic arch view. 3-vessel view. 6-uhrzru-rlnorou view. ? Diaphragm. Abdomen ? Stomach. Right [...] have scheduled the patient to return to [facility] at 28 weeks to reassess growth [...] [place] Study Date: 12/02/2023 9:34am Pat. NO: [id number] Referring MD: LEIGH LIND Site: [facility] Operator Helper: Altagracia Kruger RDMS : 1995 Age: 28 [...] 1 lb 10 oz EFW by Hadlock (RAG-JW-LY-FL) Head / Face / Neck Biometry: Yard Worker 5.9 mm CM 5.4 mm Urinary Tract [...] view. LVOT view.Aortic arch view. 3-vessel view. 7-saqbyk-ddwirpo view. Diaphragm. Abdomen Stomach. Right kidney. Bladder. [...] have scheduled the patient to return to [facility] at 28 weeks to reassess growth [...] fluid volume appeared normal. Srinivasa Hernandez MD [facility] US ORDERABL ES documented in this encounter Visit Diagnoses Diagnosis Obesity affecting , antepartum, unspecified obesity type- Primary Encounter for follow-up ultrasound of anatomy Encounter for follow-up ultrasound of anatomy documented in this encounter Care Teams Film Cutter Relationship Specialty Start Date End Date No Ref-Primary, Physician PCP - General 09/24/23 documented as of this encounter
--- OUTSIDE RECORDS SUMMARY | 2024-01-18 13:47 | XMS_ITS | Encounter Summary ---
Author Organization [facility] Address [address] [place] [address] Care Team Providers Care Mold Builder Name Role Phone No Ref-Primary, Physician Primary Care Provider Reason for Referral * Diagnostic Imaging Ultrasound (Routine) - Pending Review Specialty Diagnoses / Procedures Referred By Contac t Referred To Contact Radiology. Diagnoses related condition, antepartum Procedures [facility] US Comprehensive Single April Barros APRN [facility] [address] [place] [address] Referral ID Status Reason Start Date Expiration Date V isits Requested Visits Authorized [id number] Pending Review 09/24/2023 09/23/2024 1 1 Reason for Visit * Diagnostic Imaging Ultrasound (Routine) - Pending Review Specialty Diagnoses / Procedures Referred By Contac t Referred To Contact Radiology. Diagnoses related condition, antepartum Procedures [facility] US Comprehensive Single April Barros APRN [facility] [address] [place] [address] Referral ID Status Reason Start Date Expiration Date V isits Requested Visits Authorized [id number] Pending Review 09/24/2023 09/23/2024 1 1 Encounter Details Date Type Department Care Team (Latest Contact Info) Description 11/04/2023 11:29 AM CDT - 11/04/2023 11:59 PM CDT Hospital Encounter [facility] M[facility] Medicine [facility] [place] [address] [place] [address] Srinivasa Hernandez MD [address] [place] [address] related condition, antepartum Discharge Disposition: Home or [...] Procedure Name Priority Date/Time Associated Diagnosis Comments [facility] US COMPREHENSIVE SINGLE Routine 11/04/2023 12:30 PM CDT related condition, antepartum documented in this encounter Results * [facility] US Comprehensive Single (11/04/2023 12:30 PM [...] ? Study Date: ??11/04/2023 11:33am Pat. NO: ??[id number] ?Referring ??MD: APRIL BARROS Site: ??[facility] ? Turbogenerator Operator: Jennifer Cordero RDMS : ??1995 ?Age: [...] lb 12 ? oz EFW by ?Hadlock (NWF-GS-TM-FL) Head / Face / Neck Biometry: Systems Requirements Planner ? 4.3 ? mm CM ?4.5 ? [...] / Thorax ?Aortic arch view. 3-vessel view. 5-lvtaew-suiuwzb view. ? Diaphragm. Gender: female. MATERNAL STRUCTURES ----- Cervix ?Visualized ? Appearance: Appears Closed ? Approach - Transabdominal: Cervical length 41.9 mm Right Ovary ?Not examined Left Ovary ?Not examined RECOMMENDATION ----- We discussed the findings on today's ultrasound with the patient. We have scheduled the patient to return to [facility] in 4 weeks to complete the [...] [place] Study Date: 11/04/2023 11:33am Pat. NO: [id number] Referring MD: APRIL BARROS Site: [facility] Turbogenerator Operator: Jennifer Cordero RDMS : 1995 Age: [...] 0 lb 12 oz EFW by Hadlock (GNS-BZ-WL-FL) Head / Face / Neck Biometry: Systems Requirements Planner 4.3 mm CM 4.5 mm Nasal bone [...] Heart / Thorax Aortic arch view. 3-vessel view.5-ranbtb-fzhxqos view. Diaphragm. Gender: female. MATERNAL STRUCTURES ----- Cervix Visualized Appearance: Appears Closed Approach - Transabdominal:Cervical length 41.9 mm Right Ovary Not examined Left Ovary Not examined RECOMMENDATION ----- We discussed the findings on today's ultrasound with the patient. We have scheduled the patient to return to [facility] in 4 weeks to complete theanatomic [...] markers for aneuploidy seen. April Barros APRN [facility] US ORDER[facility]LES documented in this encounter Visit Diagnoses Diagnosis related condition, antepartum documented in this encounter Care Teams Mold Builder Relationship Specialty Start Date End Date No Ref-Primary, Physician PCP - General 09/24/23 documented as of this encounter
--- OUTSIDE RECORDS SUMMARY | 2024-01-18 13:47 | XMS_ITS | Encounter Summary ---
Author Organization [facility] Address [address] [place] [address] Care Team Providers Care Corporate Secretary Name Role Phone No Ref-Primary, Physician Primary Care Provider Reason for Referral * Diagnostic Imaging Ultrasound (Routine) - Pending Review Specialty Diagnoses / Procedures Referred By Contgerson t Referred To Contact Radiology. Diagnoses Pyelectasis of fetus on ultrasound Obesity affecting , antepartum, unspecified obesity type Procedures [facility] US Comprehensive Single F/U Srinivasa Hernandez MD [address] [place] [address] Referral ID Status Reason Start Date Expiration Date V isits Requested Visits Authorized [id number] Pending Review 12/02/2023 12/01/2024 1 1 Reason for Visit * Reason Comments Ultrasound Rl2-subopt Encounter Details Date Type Department Care Team ([facility] Contact Info) Description 12/02/2023 10:00 AM CDT Office Visit [facility] Medicine [facility] [place] [address] [place] [phone] Srinivasa Hernandez MD [address] [place] [address] Obesity affecting , antepartum, unspecified [...] for details of today's US at the [facility]. Srinivasa Hernandez MD Maternal- Medicine documented in this encounter Plan of Treatment Not on file documented as of this encounter Results * [facility] US Comprehensive Single F/U (01/12/2024 9:50 [...] ? Study Date: ??01/12/2024 9:18am Pat. NO: ??[id number] ?Referring ??MD: ERIC HARDY Site: ??[facility] ? Linotyper: Jaja Moore RDMS : ??1995 ?Age: ?? [...] lb 11 ? oz EFW by ?Hadlock (EZE-UV-SI-FL) Head / Face / Neck Biometry: Pants Busheler ? 7.7 ? mm CM ?7.4 ? [...] Thorax ?4-chamber view. RVOT view. LVOT view. 6-mnabtu-csdquyv view. ? Diaphragm. Abdomen ? Stomach. Kidneys. [...] for additional US can be done in [place] and should include consideration for a follow [...] [place] Study Date: 01/12/2024 9:18am Pat. NO: [id number] Referring MD: ERIC HARDY Site: [facility] Linotyper: Jaja Moore RDMS : 1995 Age: 28 [...] 3 lb 11 oz EFW by Hadlock (WUP-TQ-EV-FL) Head / Face / Neck Biometry: Pants Busheler 7.7 mm CM 7.4 mm Urinary Tract Biometry: Rt Renal pelvis ap 3.3 mm Lt Renal pelvis ap 3.4 mm ANATOMY ----- The following structures appear normal: Head / Neck Cranium. Head size. Head shape.Lateral ventricles. Midline falx. Cerebellum. Cisterna magna. Thalami. Face Lips. Profile. Nose. Heart / Thorax 4-chamber view. RVOT view. LVOT view.4-hcxcjv-czebhni view. Diaphragm. Abdomen Stomach. Kidneys. Bladder. The [...] for additional US can be done in [place] and should includeconsideration for a follow up [...] fluid volume appeared normal. Srinivasa Hernandez MD [facility] US ORDERABL ES documented in this encounter Visit Diagnoses Diagnosis Obesity affecting , antepartum, unspecified obesity type- Primary Pyelectasis of fetus on ultrasound Pyelectasis of fetus on ultrasound Obesity affecting , antepartum, unspecified obesity type documented in this encounter Care Teams Corporate Secretary Relationship Specialty Start Date End Date No Ref-Primary, Physician PCP - General 09/24/23 documented as of this encounter
--- OUTSIDE RECORDS SUMMARY | 2024-01-18 13:47 | XMS_ITS | Encounter Summary ---
Author Organization [facility] Address [address] [place] [address] Care Team Providers Care Siebel Crm Developer Name Role Phone No Ref-Primary, Physician Primary Care Provider Reason for Visit * Reason Comments Ultrasound L2-BMI Encounter Details Date Type Department Care Team (Late st Contact Info) Description 10/27/2023 PRE VISIT [facility] Maternal Medicine Center [place] [address] [place] [address] Molly Stevens RN Ultrasound (L2-BMI) Social History Tobacco Use Types [...] on filedocumented in this encounter Care Teams Siebel Crm Developer Relationship Specialty Start Date End Date No Ref-Primary, Physician PCP - General 09/24/23 documented as of this encounter
--- OUTSIDE RECORDS SUMMARY | 2024-01-18 13:47 | XMS_ITS | Encounter Summary ---
Author Organization [facility] Address [address] [place] [address] Care Team Providers Care Brass Buffer Name Role Phone No Ref-Primary, Physician Primary Care Provider Reason for Referral * Diagnostic Imaging Ultrasound (Routine) - Pending Review Specialty Diagnoses / Procedures Referred By Contac t Referred To Contact Radiology. Diagnoses Encounter for follow-up ultrasound of anatomy Procedures [facility] US Comprehensive Single F/U Srinivasa Hernandez MD [address] [place] [address] Referral ID Status Reason Start Date Expiration Date V isits Requested Visits Authorized [id number] Pending Review 11/04/2023 11/03/2024 1 1 Reason for Visit * Diagnostic Imaging Ultrasound (Routine) - Pending Review Specialty Diagnoses / Procedures Referred By Contac t Referred To Contact Radiology. Diagnoses Encounter for follow-up ultrasound of anatomy Procedures [facility] US Comprehensive Single F/U Srinivasa Hernandez MD [address] [place] [address] Referral ID Status Reason Start Date Expiration Date V isits Requested Visits Authorized [id number] Pending Review 11/04/2023 11/03/2024 1 1 Encounter Details Date Type Department Care Team (Latest Contact Info) Description 12/02/2023 9:30 AM CDT - 12/02/2023 11:59 PM CDT Hospital Encounter [facility] Maternal Medicine [facility] [address] [place] [phone] Srinivasa Hernandez MD [address] [facility] [address] [place] [address] Encounter for follow-up ultrasound of anatomy Discharge [...] Procedure Name Priority Date/Time Associated Diagnosis Comments [facility] US COMPREHENSIVE SINGLE F/U Routine 12/02/2023 10:10 AM CDT Encounter for follow-up ultrasound of anatomy documented in this encounter Results * [facility] US Comprehensive Single F/U (12/02/2023 10:10 [...] ? Study Date: ??12/02/2023 9:34am Pat. NO: ??[id number] ?Referring ??MD: LEIGH LIND Site: ??[facility] ? Specimen Boss: Altagracia Kruger RDMS : ??1995 ?Age: ?? [...] DEJESUS ?78.1 ?mm ? 23w 5d ?Nicolaides HC ?217.6 ?mm ?23w 6d ?Hadlock Cerebellum tr ?26.8 ? mm ?24w 3d ?Nicolaides AC ?197.8 ?mm ?24w 3d ?56% ?Hadlock Femur ?46.8 ? mm ?25w 4d ?Hadlock Weight Calculation: EFW ? 732 ? g ? 76% ?Hadlock EFW (lb,oz) ? 1 lb 10 ? oz EFW by ?Hadlock (YKH-YD-SS-FL) Head / Face / Neck Biometry: Blanket Maker ? 5.9 ? mm CM ?5.4 ? [...] LVOT view. Aortic arch view. 3-vessel view. 3-yqoibq-wqiqplt view. ? Diaphragm. Abdomen ? Stomach. Right [...] have scheduled the patient to return to [facility] at 28 weeks to reassess growth [...] [place] Study Date: 12/02/2023 9:34am Pat. NO: [id number] Referring MD: LEIGH LIND Site: [facility] Specimen Boss: Altagracia Kruger RDMS : 1995 Age: 28 [...] 1 lb 10 oz EFW by Hadlock (ENY-FY-VE-FL) Head / Face / Neck Biometry: Blanket Maker 5.9 mm CM 5.4 mm Urinary Tract [...] view. LVOT view.Aortic arch view. 3-vessel view. 1-niotqb-cjcgfmn view. Diaphragm. Abdomen Stomach. Right kidney. Bladder. [...] have scheduled the patient to return to [facility] at 28 weeks to reassess growth [...] volume appeared normal. Srinivasa Hernandez MD [facility] US ORDERABL ES documented in this encounter Visit Diagnoses Diagnosis Encounter for follow-up ultrasound of anatomy documented in this encounter Care Teams Brass Buffer Relationship Specialty Start Date End Date No Ref-Primary, Physician PCP - General 09/24/23 documented as of this encounter
--- OUTSIDE RECORDS SUMMARY | 2024-01-18 13:47 | XMS_ITS | Encounter Summary ---
Author Organization [place] Address [address] [place] [address] Care Team Providers Care Container Finishing Inspector Name Role Phone No Ref-Primary, Physician Primary [...] on filedocumented in this encounter Care Teams Container Finishing Inspector Relationship Specialty Start Date End Date No Ref-Primary, Physician PCP - General 09/24/23 documented as of this encounter
--- OUTSIDE RECORDS SUMMARY | 2024-01-18 13:47 | XMS_ITS | Clinical Summary ---
Author Organization [facility] Address [place], [place] [address] Care Team Providers Care Automotive Internet Sales Manager Name Role Phone Noris Todd MD Primary Care P rovider Dana Ch MD Unavailable [phone] Allergies No known active allergies Medications Medication [...] arrhythmia affecting p regnancy, antepartum-intermittent SVT 07/23/2021 [facility] Supervision of high-risk Overview: [facility] OB PATIENT SO: Pato Its a boy! NEXT VISIT ALERTS: Patient checking at home BPs? COVID-19 08/28/21 negative = need to repeat prior to IOL 09/06/21 PLANS & FUTURE APPOINTMENTS: - OB visits: Through 09/19/21 TESTING PLAN: Weekly - Testing: Through 09/19/21 GROWTH PLAN: - Growth: Next 09/19/21 DELIVERY PLAN: - Scheduled delivery: 09/06/21 @ 1930 with [facility] - Preferred delivery location: [facility] PRIMARY DIAGNOSIS: 26 y.o. Estimated Date of Delivery: 09/27/21 : Intermittent SVT Maternal: gHTN? Hospital admission d/t SVT 07/23-07/26; started flecainide Anxiety/Depression LAST GROWTH: 08/22/21 34w6d EFW 2411 grams, percentile: 36 07/23/21 30w4d EFW 1663 grams, percentile: 49 ECHO: Multiple in [facility] 08/22/21 Normal REFERRING PHYSICIAN/PHONE/LAST UPDATE: Dana Ch MD [facility] [phone] Primary MD approves scheduling of recommended ultrasounds/testing: Not specified SPECIALISTS/CONSULTS: Include: Specialty MD Clinic Name Phone# LV NV and ADDED TO PATIENT CARE TEAM Yes LEXI signed for [facility]: Signed 08/22/21 CARE COORDINATION: Belle Coleman, SERGEI/Lay House, RN/Radhika Huitron RN/Angelique Pabon RN/Jesenia Coy, SERGEI [phone] DIE MAINTENANCE TECHNICIAN: GENETICS: 04/17/21 AFP Negative 07/25/21 [facility] - genetic testing after PROCEDURES: EKG [...] PCR 0.1 CHECKLIST FOR SCHEDULING PROCEDURES: Call [phone] for [employer] and [phone] for [facility] Procedure: Induction Hospital: [facility] Unit: L&D Date & Time of procedure: 09/06/21 @ 1930 Nur Score if induction: 3 Pertinent information: gHTN, intermittent SVT Gestational age on procedure date? 37 MD doing procedure: [facility] Date scheduled: 08/28/2021 when patient was 35w5d. Scheduling MD & RN: COOPER Rico & Richard RN Notifications: Hospitalist Delivery-OBH manager implementation notified through [employer] inbox? Yes MPP MD manager implementation notified via [employer] inbox? Yes Primary MD notified via Ashlee inbox? No Primary MD clinic called if not Ashlee? No On [facility] calendar? Yes Care Coordination notified? Yes H&P/PPTL: PPTL permit signed? Not Applicable H&P and Plan in chart? Yes, 08/22/21 [facility] appointment made for H&P with DOWNSTREAM BIOMANUFACTURING TECHNICIAN within 30 days of procedure? Completed 08/22/21 Regardless of vaccination status, all procedures require a COVID-19 test . Patients should be scheduled for a COVID-19 test within 3-5 days prior to the scheduled procedure to be done in main [facility] Clinic Date: 09/03/21 Patient notification: Patient notified of procedure date? Yes Written admission instructions given to patient via AVS? No PPTL& DELIVERY SCHEDULING: Do COVID testing with in 3-5 days of scheduled delivery @ a main [facility] site H&P needed 30 days [...] ral,L ocal My ng 7 9 Olga JONAS ats, Chucky garcia MD Complications:None Delivery Location:Hospital ( [address]) Last Filed Vital Signs Vital Sign [...] supervision of normal first in first trimester TALENT REP THIN PREP PAP SCREEN IMAGED Routine 06/18/2020 2:20 PM CDT Cervical cancer screening from Last 3 Months or Most Recently Relevant to Health Maintenance Results * ANTI HCV (03/04/2021 3:03 PM CDT) HEPATITIS C ANTIBODY Non-React monique Non-React monique 03/05/2021 12:30 AM CDT [facility] Comment:Antibodies to HCV no t detected; does not exclude the possibility of exposure to HCV. Blood BLOOD SPECIMEN / Unknown Venipuncture / Unknown 03/04/2021 3:03 PM CDT 03/04/2021 3:06 PM CDT Monica Licea MD SEND OUTS Performing Organization Address [place] Co de Phone Number [facility] [address] [place] [address], * ANTI HIV 1/2 (03/04/2021 3:03 PM CDT) Pathologist [facility] HIV-1/HIV-2 ANTIBODY Non-Reacti ve Non-Reacti ve 03/05/2021 12:[address] [facility] Comment:HIV-1 p24 and HIV-1/ HIV-2 Ab not detected. Blood BLOOD SPECIMEN / Unknown Venipuncture / Unknown 03/04/2021 3:03 PM CDT 03/04/2021 3:06 PM CDT Monica Licea MD SEND OUTS Performing Organization Address [place] Co de Phone Number [facility] [address] [place] [address], * TALENT REP THIN PREP PAP SCREEN IMAGED (06/18/2020 2:20 PM CDT) Pathologist [facility] Case Report Gynecologic Cytology Report ? Case: [id number] ? Authorizing Provider: ??Doreen Meraz NP ?Collected: ? 06/18/2020 1420 ? Ordering Location: ? [facility] ?Received: ?06/18/2020 1420 ? Clinic ? First Screen: ?Shaniqua Dogn ? Specimen: ?TALENT REP ThinPrep Vial Screening, Cervical ? 06/23/2020 8:31 AM CDT [facility] INTERPRETATION/ RESULT NEGATIVE FOR INTRAEPITHELIAL LESION OR MALIGNANCY (NIL) (none) 06/23/2020 8:31 AM CDT [facility] IMEN ADEQUACY Satisfactory for evaluation Endocervical component present 06/23/2020 8:31 AM CDT [facility] HPV REQUEST HPV if ASCUS 06/23/2020 8:31 AM CDT [facility] Date of LMP 05/22/2020 06/23/2020 8:31 AM CDT [facility] Last Pap Date 06/15/17 06/23/2020 8:31 AM CDT [facility] Last Pap Result NIL 0 8:31 AM CDT [facility] Abnormal Pap or [place] Bx in last 5 years No 06/23/2020 8:31 AM CDT [facility] Menstrual Status Regular Periods 06/23/2020 8:31 AM CDT [facility] [place] Bx Done Today No 06/23/2020 8:31 AM CDT [facility] Additional Information None given 06/23/2020 8:31 AM CDT [facility] Comment: Cytology is screened at [facility] - [address], [place] [address] and [facility] - [address], [place] [address] and [facility] - [address] [place] [address] Interpreted at [facility] - [address], [place] [address] Automated Review Successful 06/23/2020 8:31 AM CDT [facility] Comment:Specimen processed s uccessfully by automated golf professional device, VioozerPrep Imaging System, [employer] Note The pap test is a [...] and malignant lesions. 06/23/2020 8:31 AM CDT [facility] Other (Cervical) Non-Blood / Unknown 06/18/2020 2:20 PM CDT 06/18/2020 2:20 PM CDT Doreen Meraz NP PATHOLOGY/CYTOLOGY [facility] [address] [place] [address], [place] from Last 3 Months or Most Recently Relevant to Health Maintenance Advance Directives Documents on File Type Date Recorded Patient Air Sampling And Monitoring Expl anation Treatment Guidelines 09/06/2021 * Full [...] Preferences, Provider to review later Care Teams Automotive Internet Sales Manager Relationship Specialty Start Date End Date Noris Todd MD [address] [place] [id number] PCP - General Family Practice 04/03/21 Dana Ch MD [address] [place] [address] Referring Provider Obstetrics and Gynecology 08/19/21
== END 2024-01-01 12:31 | disposition home or self-care (01) ==
LOC: NFLDREF 01-18 13:45
PROVIDERS: PCP Registered Nurse; Visit Provider Obstetrics & Gynecology
DX: Z34.83 Encounter for supervision of other normal pregnancy, third trimester (principal)
CPT/HCPCS: 86592

== ENCOUNTER 2024-01-06 02:38 | Outpatient (CLI) | payer BC, SELFPAY ==
[2024-01-06] VITALS (16 sets, daily range): BP systolic 129; BP diastolic 76; PULSE 76–108; O2SAT 97–99
--- OUTSIDE RECORDS SUMMARY | 2024-01-06 02:41 | XMS_ITS | Encounter Summary ---
Author Name Unknown Organization [facility] Address [address] [place] [id number] Care Team Providers Care Manager Document Name Role Phone No Ref-Primary, Physician Primary Care Provider Reason for Referral * Diagnostic Imaging Ultrasound (Routine) - Pending Review Specialty Diagnoses / Procedures Referred By Contgerson t Referred To Contact Radiology. Diagnoses Pyelectasis of fetus on ultrasound Obesity affecting , antepartum, unspecified obesity type Procedures [facility] US Comprehensive Single F/U Srinivasa Hernandez MD [address] [place] [address] Referral ID Status Reason Start Date Expiration Date V isits Requested Visits Authorized [id number] Pending Review 12/02/2023 12/01/2024 1 1 Reason for Visit * Reason Comments Ultrasound Rl2-subopt Encounter Details Date Type Department Care Team (Late st Contact Info) Description 12/02/2023 10:00 AM CDT Office Visit [facility] [place] [address] [place] [phone] Srinivasa Hernandez MD [address] [place] [address] Obesity affecting , antepartum, unspecified obesity type (Primary Dx); Pyelectasis of fetus on ultrasound Social History Tobacco Use Types Packs/Day Years Used Date Smoking Tobacco: Never Assessed Adolescent Education Answer Date Record ed Getting School Help Needed Not on file 09/24 Estimated Date of Delivery Comme nts Yes 03/23/2024 Based on last me nstrual period of 06/17/2023 Sex and Gender Information Value Date Recorded Sex Assigned at Not on file Gender Identity Not on file Sexual Orientation Not on file documented as of this encounter Progress Notes * Srinivasa Hernandez MD - 12/02/2023 10:00 AM CDT Please see Imaging tab under Chart Review for details of today's US at the [facility]. Srinivasa Hernandez MD Maternal- Medicine documented in this encounter Plan of Treatment Upcoming Encounters Date Type Department Care Team (Late st Contact Info) Description 01/12/2024 9:30 AM CDT Appointment [facility] Medicine [facility] [address] [place] [phone] Elmer Ansari MD [address] [place], [place] [id number] 01/12/2024 10:00 AM CDT Office Visit [facility] [address] [place] [phone] Srinivasa Hernandez MD [address] [place], [place] [id number] Scheduled Orders Name Type Priority Associated Diagnoses Orde r Schedule [facility] US Comprehensive Single F/U Imaging Routine Pyelectasis of fetus on ultrasound Obesity affecting , antepartum, unspecified obesity type Expected: 12/30/2023 (Approximate), Expires: 12/01/2024 documented as of this encounter Visit Diagnoses Diagnosis Obesity affecting , antepartum, unspecified obesity type- Primary Pyelectasis of fetus on ultrasound documented in this encounter Care Teams Manager Document Relationship Specialty Start Date End Date No Ref-Primary, Physician PCP - General 09/24/23 documented as of this encounter
--- OUTSIDE RECORDS SUMMARY | 2024-01-06 02:41 | XMS_ITS | Encounter Summary ---
Author Name Unknown Organization [place] Address [address] [place] [address]. [place] [address] Care Team Providers Care Playground Supervisor Name Role Phone No Ref-Primary, Physician Primary Care Provider Reason for Referral * Diagnostic Imaging Ultrasound (Routine) - Pending Review Specialty Diagnoses / Procedures Referred By Contac t Referred To Contact Radiology. Diagnoses Encounter for follow-up ultrasound of anatomy Procedures [facility] US Comprehensive Single F/U Srinivasa Hernandez MD [address] [place] [address] Referral ID Status Reason Start Date Expiration Date V isits Requested Visits Authorized [id number] Pending Review 11/04/2023 11/03/2024 1 1 Reason for Visit * Reason Comments Ultrasound L2-BMI Encounter Details Date Type Department Care Team ([facility] Contact Info) Description 11/04/2023 12:15 PM CDT Office Visit [facility] [place] [address] [place] [address] Srinivasa Hernandez MD [address] [place] [address] Obesity affecting , antepartum, unspecified obesity type (Primary Dx); Encounter for follow-up ultrasound of anatomy Social History Tobacco Use Types Packs/Day Years [...] Progress Notes * Srinivasa Hernandez MD - 11/04/2023 12:15 PM CDT Please see Imaging tab under Chart Review for details of today's US at the [facility]. Srinivasa Hernandez MD Maternal- Medicine documented in this encounter Plan of Treatment Upcoming Encounters Date Type Department Care Team (Late st Contact Info) Description 01/12/2024 9:30 AM CDT Appointment [facility] [place] [address] [facility] [address] [place] [address] Elmer Ansari MD [address] [place], [place] [id number] 01/12/2024 10:00 AM CDT Office Visit [facility] [place] [address] [facility] [address] [place] [address] Srinivasa Hernandez MD [address] [place], [place] [phone] documented as of this encounter Results * [facility] US Comprehensive Single F/U (12/02/2023 10:10 AM CDT) Anatomical Region Laterality Modality Ultrasound 12/02/2023 9:34 AM CDT Impressions 12/02/2023 10:18 AM CDT IMPRESSION ----- 1. Dubon at 24w 0d gestational age. 2. The remaining anatomic survey was seen on today's ultrasound. Mild left pyelectasis (UTD A1) was seen. 3. Growth parameters and estimated weight were consistent with gestational age predicted by assigned MARYBEL. 4. The amniotic fluid volume appeared normal. Narrative 12/02/2023 10:18 AM CDT ?Comp Follow Up ----- Pat. Name: JACKIE HILLS ? Study Date: ??12/02/2023 9:34am Pat. NO: ??[id number] ?Referring ??MD: LEIGH LIND Site: ??[facility] ? Coding Validator: Altagracia Kruger RDMS : ??1995 ?Age: ?? 28 ----- INDICATION ----- Reevaluate suboptimal anatomy METHOD ----- Transabdominal ultrasound examination. View: Suboptimal view: limited by maternal body habitus ----- Dubon . Number of fetuses: 1 DATING ----- ? Date ?Details ?Gest. age ?MARYBEL LMP ?06/17/2023 ? Cycle: regular cycle ?24 w + 0 d ? 03/23/2024 Prior assessment ? 08/05/2023 ? GA: 7 w + 0 d ?24 w + 0 d ? 03/23/2024 U/S ? 12/02/2023 ? based upon AC, BPD, Femur, HC ?24 w + 3 d ? 03/20/2024 Assigned dating ?Dating performed on 11/04/2023, based on the LMP ?24 w + 0 d ? 03/23/2024 GENERAL EVALUATION ----- Cardiac activity present. FHR 154 bpm. movements present. Presentation cephalic. Placenta Posterior. Umbilical cord 3 vessel cord. Amniotic fluid Amount of AF: normal. MVP 6.1 cm. BIOMETRY ----- Main Biometry: BPD ?58.0 ?mm ? 23w 5d ?Hadlock OFD ?78.1 ?mm ? 23w 5d ?Nicolaides HC ?217.6 ?mm ?23w 6d ?Hadlock Cerebellum tr ?26.8 ? mm ?24w 3d ?Nicolaides AC ?197.8 ?mm ?24w 3d ?56% ?Hadlock Femur ?46.8 ? mm ?25w 4d ?Hadlock Weight Calculation: EFW ? 732 ? g ? 76% ?Hadlock EFW (lb,oz) ? 1 lb 10 ? oz EFW by ?Hadlock ([id number]) Head / Face / Neck Biometry: Loader ? 5.9 ? mm CM ?5.4 ? mm Urinary Tract Biometry: Rt Renal pelvis ap ? 3.7 ? mm Lt Renal pelvis ap ? 4.1 ?mm ANATOMY ----- The following structures appear abnormal: Abdomen ? Left kidney: There is mild dilation of the renal pelvis without dilation of the calyces. Parenchyma is of normal echogenicity and thickness. ? (UTD A1: Low Risk). The following structures appear normal: Head / Neck ? Cranium. Head size. Head shape. Lateral ventricles. Midline falx. Cavum septi pellucidi. Cerebellum. Cisterna magna. Thalami. Vermis. Face ? Lips. Profile. Nose. Heart / Thorax ?4-chamber view. RVOT view. LVOT view. Aortic arch view. 3-vessel view. 7-mumwam-olhzskc view. ? Diaphragm. Abdomen ? Stomach. Right kidney. Bladder. Spine ?Cervical spine. Thoracic spine. Lumbar spine. Sacral spine. Gender: female. MATERNAL STRUCTURES ----- Cervix ?Suboptimal Right Ovary ?Not examined Left Ovary ?Not examined RECOMMENDATION ----- We discussed the findings on today's ultrasound with the patient. Mild pyelectasis is most often secondary to partial UPJ obstruction or reflux and usually resolves by the third trimester (90%) or in the period. We have scheduled the patient to return to [facility] at 28 weeks to reassess growth and kidneys. Return to primary provider for continued care. Thank-you for the opportunity to participate in the care of this patient. If you have questions regarding today's evaluation or if we can be of further service, please contact the Maternal- Medicine Center. anomalies may be present but not detected Procedure Note Srinivasa Hernandez MD - 12/02/2023 Comp Follow Up ----- Pat. Name: JACKIE HILLS Study Date: 12/02/2023 9:34am Pat. NO: [id number] Referring MD: LEIGH LIND Site: [facility] Coding Validator: Altagracia Kruger RDMS : 1995 Age: 28 ----- INDICATION ----- Reevaluate suboptimal anatomy METHOD ----- Transabdominal ultrasound examination. View: Suboptimal view: limited bymaternal body habitus ----- Dubon . Number of fetuses: 1 DATING ----- DateDetailsGest. age MARYBEL LMP 06/17/2023ycle: regular cycle24 w + 0 d 03/23/2024 Prior assessment 08/05/2023 GA: 7 w +0 d24 w + 0 d 03/23/2024 U/S 12/02/2023ased upon AC, BPD, Femur, HC24 w + 3 d 03/20/2024 Assigned dating Dating performed on 11/04/2023, based onthe LMP 24 w +0 d 03/23/2024 GENERAL EVALUATION ----- Cardiac activity present. FHR 154 bpm. movements present. Presentation cephalic. Placenta Posterior. Umbilical cord 3 vessel cord. Amniotic fluid Amount of AF: normal. MVP 6.1 cm. BIOMETRY ----- Main Biometry: BPD 58.0 mm23w 5d Hadlock OFD 78.1 mm23w 5d Nicolaides HC 217.6 mm23w 6d Hadlock Cerebellum tr 26.8 mm24w 3d Nicolaides AC 197.8 mm24w 3d 56% Hadlock Femur 46.8 mm25w 4d Hadlock Weight Calculation: EFW 732 g76% Hadlock EFW (lb,oz) 1 lb 10 oz EFW by Hadlock ([id number]) Head / Face / Neck Biometry: Loader 5.9 mm CM 5.4 mm Urinary Tract Biometry: Rt Renal pelvis ap 3.7 mm Lt Renal pelvis ap 4.1 mm ANATOMY ----- The following structures appear abnormal: Abdomen Left kidney: There is mild dilation ofthe renal pelvis without dilation of the calyces. Parenchyma is of normalechogenicity and thickness. (UTD A1: Low Risk). The following structures appear normal: Head / Neck Cranium. Head size. Head shape.Lateral ventricles. Midline falx. Cavum septi pellucidi. Cerebellum.Cisterna magna. Thalami. Vermis. Face Lips. Profile. Nose. Heart / Thorax 4-chamber view. RVOT view. LVOT view.Aortic arch view. 3-vessel view. 0-rvssvs-mslnvnq view. Diaphragm. Abdomen Stomach. Right kidney. Bladder. Spine Cervical spine. Thoracic spine.Lumbar spine. Sacral spine. Gender: female. MATERNAL STRUCTURES ----- Cervix Suboptimal Right Ovary Not examined Left Ovary Not examined RECOMMENDATION ----- We discussed the findings on today's ultrasound with the patient. Mild pyelectasis is most often secondary to partial UPJ obstruction orreflux and usually resolves by the third trimester (90%) or in the newbornperiod. We have scheduled the patient to return to [facility] at 28 weeks to reassess growth andfetal kidneys. Return to primary provider for continued care. Thank-you for the opportunity to participate in the care of this patient.If you have questions regarding today's evaluation or if we can be offurther service, please contact the Maternal- Medicine Center. anomalies may be present but not detected IMPRESSION ----- 1. Dubon at 24w 0d gestational age. 2. The remaining anatomic survey was seen on today's ultrasound.Mild left pyelectasis (UTD A1) was seen. 3. Growth parameters and estimated weight were consistent withgestational age predicted by assigned MARYBEL. 4. The amniotic fluid volume appeared normal. [facility] documented in this encounter Visit Diagnoses Diagnosis Obesity affecting , antepartum, unspecified obesity type- Primary Encounter for follow-up ultrasound of anatomy Encounter for follow-up ultrasound of anatomy documented in this encounter Care Teams Playground Supervisor Relationship Specialty Start Date End Date No Ref-Primary, Physician PCP - General 09/24/23 documented as of this encounter
--- OUTSIDE RECORDS SUMMARY | 2024-01-06 02:41 | XMS_ITS | Encounter Summary ---
Author Name Unknown Organization [place] Address [address] [place] [address] Care Team Providers Care Java Golden Gate Developer Name Role Phone No Ref-Primary, Physician Primary Care Provider Reason for Referral * Diagnostic Imaging Ultrasound (Routine) - Pending Review Specialty Diagnoses / Procedures Referred By Contac t Referred To Contact Radiology. Diagnoses Encounter for follow-up ultrasound of anatomy Procedures [facility] US Comprehensive Single F/U Srinivasa Hernandez MD [address] [place], [place] [address] Referral ID Status Reason Start Date Expiration Date V isits Requested Visits Authorized [id number] Pending Review 11/04/2023 11/03/2024 1 1 Reason for Visit * Diagnostic Imaging Ultrasound (Routine) - Pending Review Specialty Diagnoses / Procedures Referred By Contac t Referred To Contact Radiology. Diagnoses Encounter for follow-up ultrasound of anatomy Procedures [facility] US Comprehensive Single F/U Srinivasa Hernandez MD [address] [place] [address] Referral ID Status Reason Start Date Expiration Date V isits Requested Visits Authorized [id number] Pending Review 11/04/2023 11/03/2024 1 1 Encounter Details Date Type Department Care Team (Latest Contact Info) Description 12/02/2023 9:30 AM CDT - 12/02/2023 11:59 PM CDT Hospital Encounter [facility] Maternal Medicine [place] [address] [place] [address] Srinivasa Hernandez MD [address] [place], [place] [phone] Encounter for follow-up ultrasound of anatomy Discharge Disposition: Home or Self Care Social History Tobacco Use Types Packs/Day Years [...] on file documented as of this encounter Plan of Treatment Upcoming Encounters Date Type Department Care Team (Late st Contact Info) Description 01/12/2024 9:30 AM CDT Appointment [facility] Maternal Medicine [place] [address] [facility] [address] [place] [phone] Elmer Ansari MD [address] [place], [place] [phone] 01/12/2024 10:00 AM CDT Office Visit [facility] Maternal Medicine [place] [address] [facility] [address] [place] [phone] Srinivasa Hernandez MD [address] [place], [place] [phone] documented as of this encounter Procedures Procedure Name Priority Date/Time Associated Diagnosis Comments [facility] US COMPREHENSIVE SINGLE F/U Routine 12/02/2023 10:10 AM CDT Encounter for follow-up ultrasound of anatomy documented in this encounter Results * [facility] US Comprehensive Single F/U (12/02/2023 10:10 AM [...] ? Study Date: ??12/02/2023 9:34am Pat. NO: ??[id number] ?Referring ??: LEIGH LIND Site: ??[facility] ? Sheetmetal Worker: Altagracia Kruger RDMS : ??1995 ?Age: ?? [...] lb 10 ? oz EFW by ?Hadlock ([id number]) Head / Face / Neck Biometry: [employer] ? 5.9 ? mm CM ?5.4 ? [...] LVOT view. Aortic arch view. 3-vessel view. 9-sijyna-fxtayhh view. ? Diaphragm. Abdomen ? Stomach. Right [...] have scheduled the patient to return to [facility] at 28 weeks to reassess growth and [...] HILLS Study Date: 12/02/2023 9:34am Pat. NO: [id number] Referring MD: LEIGH LIND Site: [facility] Sheetmetal Worker: Altagracia Kruger RDMS : 1995 Age: 28 [...] 1 lb 10 oz EFW by Hadlock ([id number]) Head / Face / Neck Biometry: [employer] 5.9 mm CM 5.4 mm Urinary Tract [...] view. LVOT view.Aortic arch view. 3-vessel view. 6-fqeilr-qepksct view. Diaphragm. Abdomen Stomach. Right kidney. Bladder. [...] have scheduled the patient to return to [facility] at 28 weeks to reassess growth andfetal [...] fluid volume appeared normal. Srinivasa Hernandez MD IMG [facility] US ORDERABL ES documented in this encounter Visit Diagnoses Diagnosis Encounter for follow-up ultrasound of anatomy documented in this encounter Care Teams Java Golden Gate Developer Relationship Specialty Start Date End Date No Ref-Primary, Physician PCP - General 09/24/23 documented as of this encounter
--- OUTSIDE RECORDS SUMMARY | 2024-01-06 02:41 | XMS_ITS | Encounter Summary ---
Author Name Unknown Organization [facility] Address [address] [place] [address] Care Team Providers Care Nurse Assessor Name Role Phone No Ref-Primary, Physician Primary Care Provider Reason for Referral * Diagnostic Imaging Ultrasound (Routine) - Pending Review Specialty Diagnoses / Procedures Referred By Gregac t Referred To Contact Radiology. Diagnoses related condition, antepartum Procedures [facility] US Comprehensive Single April Barros APRN CNP [facility] [address] [place] [address] Referral ID Status Reason Start Date Expiration Date V isits Requested Visits Authorized [id number] Pending Review 09/24/2023 09/23/2024 1 1 Reason for Visit * Diagnostic Imaging Ultrasound (Routine) - Pending Review Specialty Diagnoses / Procedures Referred By Contac t Referred To Contact Radiology. Diagnoses related condition, antepartum Procedures [facility] US Comprehensive Single April Barros APRN [facility] [address] [place] [address] Referral ID Status Reason Start Date Expiration Date V isits Requested Visits Authorized [id number] Pending Review 09/24/2023 09/23/2024 1 1 Encounter Details Date Type Department Care Team (Latest Contact Info) Description 11/04/2023 11:29 AM CDT - 11/04/2023 11:59 PM CDT Hospital Encounter [facility] Maternal Medicine Center [place] [address] [facility] [address] [place] [address] Srinivasa Hernandez MD [address] [place], [place] [phone] related condition, antepartum Discharge Disposition: Home or Self Care Social [...] Info) Description 01/12/2024 9:30 AM CDT Appointment [facility] Maternal Medicine [place] [address] [facility] [address] [place] [phone] Elmer Ansari MD [address] [place], [place] [phone] 01/12/2024 10:00 AM CDT Office Visit [facility] Maternal Medicine [place] [address] [facility] [address] [place] [phone] Srinivasa Hernandez MD [address] [place], [place] [phone] documented as of this encounter Procedures Procedure Name Priority Date/Time Associated Diagnosis Comments [facility] US COMPREHENSIVE SINGLE Routine 11/04/2023 12:30 PM CDT related condition, antepartum documented in this encounter Results * [facility] US Comprehensive Single (11/04/2023 12:30 PM CDT) Anatomical Region Laterality Modality Ultrasound 11/04/2023 11:3 3 AM CDT Impressions 11/04/2023 12:57 PM CDT IMPRESSION ----- 1) Sonographic biometry agrees with gestational age predicted by LMP. 2) The cardiac anatomy was not adequately seen. 3) The anatomy was otherwise adequately visualized and appeared normal. 4) None of the anomalies commonly detected by ultrasound were evident in those structures that were visualized. 5) No markers for aneuploidy seen. Narrative 11/04/2023 12:57 PM CDT ?Comprehensive ----- Pat. Name: JACKIE HILLS ? Study Date: ??11/04/2023 11:33am Pat. NO: ??[id number] ?Referring ??MD: APRIL BARROS Site: [facility] ? Pot Fireman: Jennifer Cordero RDMS : ??1995 ?Age: ?? 28 ----- INDICATION ----- Obesity (BMI 42). Declined screening. History of gestational hypertension and supraventricular tachycardia in previous . METHOD ----- Transabdominal ultrasound examination. View: Sufficient ----- [place] . Number of fetuses: 1 DATING ----- ? Date ?Details ?Gest. age ?MARYBEL LMP ?06/17/2023 ? Cycle: regular cycle ?20 w + 0 d ? 03/23/2024 Prior assessment ? 08/05/2023 ? GA: 7 w + 0 d ?20 w + 0 d ? 03/23/2024 U/S ? 11/04/2023 ? based upon AC, BPD, Femur, HC ?20 w + 0 d ? 03/23/2024 Assigned dating ?Dating performed on 11/04/2023, based on the LMP ?20 w + 0 d ? 03/23/2024 GENERAL EVALUATION ----- Cardiac activity present. FHR 141 bpm. movements present. Presentation tranverse with head to maternal left. Placenta posterior, no previa > 2 cm from internal os . Umbilical cord Cord vessels: 3 vessel cord. Insertion site: normal insertion. Amniotic fluid Amount of AF: normal. MVP 5.3 cm. BIOMETRY ----- Main Biometry: BPD ?45.1 ?mm ? 19w 4d ?Hadlock OFD ?60.5 ?mm ? 19w 4d ?Nicolaides HC ?169.5 ?mm ?19w 4d ?Hadlock Cerebellum tr ?20.7 ? mm ?19w 5d ?Nicolaides AC ?151.9 ?mm ?20w 3d ?58% ?Hadlock Femur ?33.2 ? mm ?20w 3d ?Hadlock Humerus ?30.5 ?mm ? 20w 0d ?Ahsan Weight Calculation: EFW ? 344 ? g ? 62% ?Hadlock EFW (lb,oz) ? 0 lb 12 ? oz EFW by ?Hadlock ([id number]) Head / Face / Neck Biometry: Relations Mgr ? 4.3 ? mm CM ?4.5 ? mm Nasal bone ? 6.6 ? mm Nuchal fold ? 4.0 ? mm ANATOMY ----- The following structures appear normal: Head / Neck ? Cranium. Head size. Head shape. Lateral ventricles. Choroid plexus. Midline falx. Cavum septi pellucidi. Cerebellum. Cisterna magna. ? Parenchyma. Thalami. ? Neck. Nuchal fold. Face ? Lips. Profile. Nose. Maxilla. Mandible. Orbits. Lens. Heart / Thorax ?4-chamber view. RVOT view. LVOT view. Situs. Bicaval view. Ductal arch view. Superior vena cava. Inferior vena cava. Cardiac position. Cardiac ? size. Cardiac rhythm. ? Right lung. Left lung. Abdomen ? Abdominal wall. Cord insertion. Stomach. Kidneys. Bladder. Liver. Bowel. Genitals. Spine ?Cervical spine. Thoracic spine. Lumbar spine. Sacral spine. Extremities / Skeleton ?Right arm. Right hand. Left arm. Left hand. Right leg. Right foot. Left leg. Left foot. The following structures could not be adequately visualized: Head / Neck ? Vermis. Heart / Thorax ?Aortic arch view. 3-vessel view. 1-gdkgvu-isxgguv view. ? Diaphragm. Gender: female. MATERNAL STRUCTURES ----- Cervix ?Visualized ? Appearance: Appears Closed ? Approach - Transabdominal: Cervical length 41.9 mm Right Ovary ?Not examined Left Ovary ?Not examined RECOMMENDATION ----- We discussed the findings on today's ultrasound with the patient. We have scheduled the patient to return to [facility] in 4 weeks to complete the anatomic survey. After that visit we recommend that you assess growth at 28 and 34 weeks and begin weekly testing at 34 weeks. We do not recommend a echo in this and the cause for SVT in her prior child was thought to be sporadic and not familial. Return to primary provider for continued care. Thank-you for the opportunity to participate in the care of this patient. If you have questions regarding today's evaluation or if we can be of further service, please contact the [facility]. anomalies may be present but not detected Procedure Note Srinivasa Hernandez MD - 11/04/2023 Comprehensive ----- Pat. Name: JACKIE HILLS Study Date: 11/04/2023 11:33am Pat. NO: [id number] Referring MD: APRIL ABRROS Site: [facility] Pot Fireman: Jennifer Cordero RDMS : 1995 Age: 28 ----- INDICATION ----- Obesity (BMI 42). Declined screening. History of gestational hypertensionand supraventricular tachycardia in previous . METHOD ----- Transabdominal ultrasound examination. View: Sufficient ----- [place] . Number of fetuses: 1 DATING ----- DateDetailsGest. age MARYBEL LMP 06/17/2023ycle: regular cycle20 w + 0 d 03/23/2024 Prior assessment 08/05/2023 GA: 7 w +0 d20 w + 0 d 03/23/2024 U/S 11/04/2023ased upon AC, BPD, Femur, HC20 w + 0 d 03/23/2024 Assigned dating Dating performed on 11/04/2023, based onthe LMP 20 w +0 d 03/23/2024 GENERAL EVALUATION ----- Cardiac activity present. FHR 141 bpm. movements present. Presentation tranverse with head to maternal left. Placenta posterior, no previa > 2 cm from internal os . Umbilical cord Cord vessels: 3 vessel cord. Insertion site: normalinsertion. Amniotic fluid Amount of AF: normal. MVP 5.3 cm. BIOMETRY ----- Main Biometry: BPD 45.1 mm19w 4d Hadlock OFD 60.5 mm19w 4d Nicolaides HC 169.5 mm19w 4d Hadlock Cerebellum tr 20.7 mm19w 5d Nicolaides AC 151.9 mm20w 3d 58% Hadlock Femur 33.2 mm20w 3d Hadlock Humerus 30.5 mm20w 0d Ahsan Weight Calculation: EFW 344 g62% Hadlock EFW (lb,oz) 0 lb 12 oz EFW by Hadlock ([id number]) Head / Face / Neck Biometry: Relations Mgr 4.3 mm CM 4.5 mm Nasal bone 6.6 mm Nuchal fold 4.0 mm ANATOMY ----- The following structures appear normal: Head / Neck Cranium. Head size. Head shape.Lateral ventricles. Choroid plexus. Midline falx. Cavum septi pellucidi.Cerebellum. Cisterna magna. Parenchyma. Thalami. Neck. Nuchal fold. Face Lips. Profile. Nose. Maxilla.Mandible. Orbits. Lens. Heart / Thorax 4-chamber view. RVOT view. LVOT view.Situs. Bicaval view. Ductal arch view. Superior vena cava. Inferior venacava. Cardiac position. Cardiac size. Cardiac rhythm. Right lung. Left lung. Abdomen Abdominal wall. Cord insertion.Stomach. Kidneys. Bladder. Liver. Bowel. Genitals. Spine Cervical spine. Thoracic spine.Lumbar spine. Sacral spine. Extremities / Skeleton Right arm. Right hand. Left arm. Lefthand. Right leg. Right foot. Left leg. Left foot. The following structures could not be adequately visualized: Head / Neck Vermis. Heart / Thorax Aortic arch view. 3-vessel view.4-pwebcz-qwxwqnw view. Diaphragm. Gender: female. MATERNAL STRUCTURES ----- Cervix Visualized Appearance: Appears Closed Approach - Transabdominal:Cervical length 41.9 mm Right Ovary Not examined Left Ovary Not examined RECOMMENDATION ----- We discussed the findings on today's ultrasound with the patient. We have scheduled the patient to return to [facility] in 4 weeks to complete theanatomic survey. After that visit we recommend that you assess growth at 28 and 34weeks and begin weekly testing at 34 weeks. We do not recommend a echo in this and the cause for Sandra her prior child was thought to be sporadic and not familial. Return to primary provider for continued care. Thank-you for the opportunity to participate in the care of this patient.If you have questions regarding today's evaluation or if we can be offurther service, please contact the [facility]. anomalies may be present but not detected IMPRESSION ----- 1) Sonographic biometry agrees with gestational age predicted by LMP. 2) The cardiac anatomy was not adequately seen. 3) The anatomy was otherwise adequately visualized and appearednormal. 4) None of the anomalies commonly detected by ultrasound were evident inthose structures that were visualized. 5) No markers for aneuploidy seen. April Barros APRN COACH OPERATOR [facility] US ORDERABLES documented in this encounter Visit Diagnoses Diagnosis related condition, antepartum documented in this encounter Care Teams Nurse Assessor Relationship Specialty Start Date End Date No Ref-Primary, Physician PCP - General 09/24/23 documented as of this encounter
--- OUTSIDE RECORDS SUMMARY | 2024-01-06 02:41 | XMS_ITS | Encounter Summary ---
Author Name Unknown Organization [facility] Address [address] [place] [address] Care Team Providers Care Spotter Driver Name Role Phone No Ref-Primary, Physician Primary Care Provider Encounter Details Date Type Department Care Team (Latest Contact Info) Description 12/02/2023 Travel Social History Tobacco Use Types Packs/Day Years [...] Appointment [facility] Maternal Medicine [facility] [address] [place] [address] Elmer Ansari MD [address] [place], [place] [phone] 01/12/2024 10:00 AM CDT Office Visit [facility] Maternal Medicine [facility] [address] [facility] [address] [place] [address] Srinivasa Hernandez MD [address] [place], [place] [phone] documented as of this encounter Visit Diagnoses Not on filedocumented in this encounter Care Teams Spotter Driver Relationship Specialty Start Date End Date No Ref-Primary, Physician PCP - General 09/24/23 documented as of this encounter
--- OUTSIDE RECORDS SUMMARY | 2024-01-06 02:41 | XMS_ITS | Referral Summary ---
Author Name Unknown Organization [facility] Address [address] [place] [address] Care Team Providers Care Polish Maker Name Role Phone No Ref-Primary, Physician Primary Care Provider Encounters Date Type Department Care Team Description 12/02/2023 Travel 12/02/2023 10:00 AM CDT Office Visit [facility] Medicine [place] [address] [facility] [address] [place] [phone] Srinivasa Hernandez MD Obesity affecting , antepartum, unspecified obesity type (Primary Dx); Pyelectasis of fetus on ultrasound 12/02/2023 9:30 AM CDT - 12/02/2023 11:59 PM CDT Hospital Encounter [facility] Medicine [facility] [address] [facility] [address] [place] [phone] Srinivasa Hernandez MD Encounter for follow-up ultrasound of anatomy Discharge Disposition: Home or Self Care 11/04/2023 Travel 11/04/2023 12:15 PM CDT Office Visit [facility] Medicine [facility] [address] [facility] [address] [place] [phone] Srinivasa Hernandez MD Obesity affecting , antepartum, unspecified obesity type (Primary Dx); Encounter for follow-up ultrasound of anatomy 11/04/2023 11:29 AM CDT - 11/04/2023 11:59 PM CDT Hospital Encounter [facility] Medicine [facility] [address] [facility] [address] [place] [address] Srinivasa Hernandez MD related condition, antepartum Discharge Disposition: Home or Self Care 10/27/2023 PRE VISIT [facility] Medicine [place] [address] [facility] [address] [place] [phone] Molly Stevens RN Ultrasound (L2-BMI) from Last 3 Months Social History Tobacco Use Types Packs/Day Years [...] on file Sexual Orientation Not on file Plan of Treatment Upcoming Encounters Date Type Department Care Team (Late st Contact Info) Description 01/12/2024 9:30 AM CDT Appointment [facility] Maternal Medicine [place] [address] [facility] [address] [place] [phone] Elmer Ansari MD [address] [place], [place] [phone] 01/12/2024 10:00 AM CDT Office Visit [facility] Maternal Medicine [place] [address] [facility] [address] [place] [phone] Srinivasa Hernandez MD [address] [place] [address] Procedures Procedure Name Priority Date/Time Associated Diagnosis Comments [facility] US COMPREHENSIVE SINGLE F/U Routine 12/02/2023 10:10 AM CDT Encounter for follow-up ultrasound of anatomy [facility] US COMPREHENSIVE SINGLE Routine 11/04/2023 12:30 PM CDT related condition, antepartum from Last 3 Months Results * [facility] US Comprehensive Single F/U (12/02/2023 10:10 [...] ? Study Date: ??12/02/2023 9:34am Pat. NO: ??[id number] ?Referring ??: LEIGH LIND Site: ??[facility] ? Shook Machine Operator: Altagracia Kruger RDMS : ??1995 ?Age: ?? [...] lb 10 ? oz EFW by ?Hadlock ([id number]) Head / Face / Neck Biometry: Night Nurse ? 5.9 ? mm CM ?5.4 ? [...] LVOT view. Aortic arch view. 3-vessel view. 1-jvxdfe-tboeboz view. ? Diaphragm. Abdomen ? Stomach. Right [...] have scheduled the patient to return to [facility] at 28 weeks to reassess growth [...] HILLS Study Date: 12/02/2023 9:34am Pat. NO: [id number] Referring MD: LEIGH LIND Site: [facility] Shook Machine Operator: Altagracia Kruger RDMS : 1995 Age: 28 ----- INDICATION ----- Reevaluate suboptimal anatomy METHOD ----- Transabdominal ultrasound examination. View: Suboptimal view: limited bymaternal body habitus ----- [place] . Number of fetuses: 1 DATING ----- DateDetailsGest. age MARYBEL LMP 06/17/2023ycle: regular cycle24 w + 0 d 03/23/2024 Prior assessment 08/05/2023 GA: 7 w +0 d24 w + 0 d 03/23/2024 U/S 4based upon AC, BPD, Femur, HC24 w + [...] 1 lb 10 oz EFW by Hadlock ([id number]) Head / Face / Neck Biometry: Night Nurse 5.9 mm CM 5.4 mm Urinary Tract [...] view. LVOT view.Aortic arch view. 3-vessel view. 0-wnalwj-zmunhak view. Diaphragm. Abdomen Stomach. Right kidney. Bladder. [...] have scheduled the patient to return to [facility] at 28 weeks to reassess growth [...] fluid volume appeared normal. Srinivasa Hernandez MD [facility] US ORDERABL ES * [facility] US Comprehensive Single (11/04/2023 12:30 PM [...] ? Study Date: ??11/04/2023 11:33am Pat. NO: ??[id number] ?Referring ??MD: ERIC BARROS Site: ??[facility] ? Shook Machine Operator: Jennifer Cordero RDMS : ??1995 ?Age: ?? [...] Biometry: BPD ?45.1 ?mm ? 19w 4d ?Nohemi DEJESUS ?60.5 ?mm ? 19w 4d ?Nicolaides HC ?169.5 ?mm ?19w 4d ?Hadlock Cerebellum tr ?20.7 ? mm ?19w 5d ?Nicolaides AC ?151.9 ?mm ?20w 3d ?58% ?Hadlock Femur ?33.2 ? mm ?20w 3d ?Hadlock Humerus ?30.5 ?mm ? 20w 0d ?Ahsan Weight Calculation: EFW ? 344 ? g ? 62% ?Hadlock EFW (lb,oz) ? 0 lb 12 ? oz EFW by ?Hadlock ([id number]) Head / Face / Neck Biometry: Night Nurse ? 4.3 ? mm CM ?4.5 ? [...] / Thorax ?Aortic arch view. 3-vessel view. 6-krysql-jqxyimu view. ? Diaphragm. Gender: female. MATERNAL STRUCTURES ----- Cervix ?Visualized ? Appearance: Appears Closed ? Approach - Transabdominal: Cervical length 41.9 mm Right Ovary ?Not examined Left Ovary ?Not examined RECOMMENDATION ----- We discussed the findings on today's ultrasound with the patient. We have scheduled the patient to return to [facility] in 4 weeks to complete the [...] HILLS Study Date: 11/04/2023 11:33am Pat. NO: [id number] Referring MD: ERIC BARROS Site: [facility] Shook Machine Operator: Jennifer Cordero RDMS : 1995 Age: 28 [...] 0 lb 12 oz EFW by Hadlock ([id number]-FL) Head / Face / Neck Biometry: Night Nurse 4.3 mm CM 4.5 mm Nasal bone [...] Heart / Thorax Aortic arch view. 3-vessel view.0-blsjzw-nlzqibr view. Diaphragm. Gender: female. MATERNAL STRUCTURES ----- Cervix Visualized Appearance: Appears Closed Approach - Transabdominal:Cervical length 41.9 mm Right Ovary Not examined Left Ovary Not examined RECOMMENDATION ----- We discussed the findings on today's ultrasound with the patient. We have scheduled the patient to return to [facility] in 4 weeks to complete theanatomic survey. After that visit we recommend that you assess growth at 28 and 34weeks and begin weekly testing at 34 weeks. We do not recommend a echo in this and the cause for LIANETin her prior child was thought to be [...] visualized. 5) No markers for aneuploidy seen. Eric Barros APRN POWER BALLAST MACHINE OPERATOR [facility] US ORDERABLES from Last 3 Months Care Teams Polish Maker Relationship Specialty Start Date End Date No Ref-Primary, Physician PCP - General 09/24/23
--- OUTSIDE RECORDS SUMMARY | 2024-01-06 02:41 | XMS_ITS | Encounter Summary ---
Author Name Unknown Organization [facility] Address [address] [place] [address] Care Team Providers Care Asset Protection Representative Name Role Phone No Ref-Primary, Physician Primary Care Provider Reason for Visit * Reason Comments Ultrasound L2-BMI Encounter Details Date Type Department Care Team ([facility] Contact Info) Description 10/27/2023 PRE VISIT [facility] Medicine [place] [address] [employer] [address] [place] [address] Molly Stevens, SERGEI Ultrasound (L2-BMI) Social History Tobacco Use Types Packs/Day Years [...] Upcoming Encounters Date Type Department Care Team ([facility] Contact Info) Description 01/12/2024 9:30 AM CDT Appointment [facility] Maternal Medicine [facility] [address] [place] [address] Elmer Ansari MD [address] [address] [place], [place] [address] 01/12/2024 10:00 AM CDT Office Visit [facility] Maternal Medicine [facility] [address] [facility] [address] [place] [phone] Srinivasa Hernandez MD [address] [place] [address] documented as of this encounter Visit Diagnoses Not on filedocumented in this encounter Care Teams Asset Protection Representative Relationship Specialty Start Date End Date No Ref-Primary, Physician PCP - General 09/24/23 documented as of this encounter
--- OUTSIDE RECORDS SUMMARY | 2024-01-06 02:41 | XMS_ITS | Clinical Summary ---
Author Name Unknown Organization [email or web address] [facility] Address [place], [place] [address] Care Team Providers Care Monument Carver Name Role Phone Noris Todd MD Primary Care P rovider Dana Ch MD Unavailable [phone] Allergies No known active allergies Medications Medication [...] a day, call if >150/100 1 Each 08/28/2021 Active NIFEdipine (PROCARDIA XL) 30 mg Extended-Release tabletIndications:Gest ational hypertension, third trimester Take 1 Tablet (30 mg) by mouth once daily before a meal. 30 Tablet 09/10/2021 Active ondansetron (ZOFRAN ODT) 4 mg disintegrating tabletIndications:Naus ea vomiting and diarrhea Place 1 Tablet (4 mg) on the tongue every 8 hours if needed for Nausea/Vomiting. 12 Tablet 11/05/2022 Active Active Problems Patient Care Coordination [...] arrhythmia affecting p regnancy, antepartum-intermittent SVT 07/23/2021 [facility] Supervision of high-risk Overview: [facility] OB PATIENT SO: Pato Its a boy! [...] Normal REFERRING PHYSICIAN/PHONE/LAST UPDATE: Dana Ch MD [facility] [phone] Primary MD approves scheduling of recommended ultrasounds/testing: Not specified SPECIALISTS/CONSULTS: Include: Specialty MD Clinic Name Phone# [phone] NV and ADDED TO PATIENT CARE TEAM Yes LEXI signed for [facility]: Signed 08/22/21 CARE COORDINATION: Belle Coleman RN/[place], RN/Radhika Huitron RN/Angelique Pabon RN/Jesenia Coy RN [phone] BINGO USHER: GENETICS: 04/17/21 AFP Negative 07/25/21 [facility] - genetic testing after PROCEDURES: EKG 07/26/21 [...] PCR 0.1 CHECKLIST FOR SCHEDULING PROCEDURES: Call [phone] for [employer] and [phone] for [place] Procedure: Induction Hospital: [facility] Unit: L&D Date & Time of procedure: 09/06/21 @ 1930 Nur Score if induction: 3 Pertinent information: gHTN, intermittent SVT Gestational age on procedure date? 37 MD doing procedure: [place] [facility] Date scheduled: 08/28/2021 when patient was 35w5d. Scheduling MD & RN: COOPER Rico & Richard RN Notifications: Hospitalist Delivery-OBH long wall shear operator notified through [employer] inbox? Yes MPP MD long wall shear operator notified via [employer] inbox? Yes Primary MD notified via [employer] inbox? No Primary MD clinic called if not Ashlee? No On [facility] calendar? Yes Care Coordination notified? Yes H&P/PPTL: PPTL permit signed? Not Applicable H&P and Plan in chart? Yes, 08/22/21 [facility] appointment made for H&P with [facility] within 30 days of procedure? Completed 08/22/21 Regardless of vaccination status, all procedures require a COVID-19 test . Patients should be scheduled for a COVID-19 test within 3-5 days prior to the scheduled procedure to be done in main [facility] Clinic Date: 09/03/21 Patient notification: Patient notified of procedure date? Yes Written admission instructions given to patient via AVS? No PPTL& DELIVERY SCHEDULING: Do COVID testing with in 3-5 days of scheduled delivery @ a main [facility] site H&P needed 30 days before [...] Chucky garcia MD Complications:None Delivery Location:Hospital ( [address]) Last Filed Vital Signs Vital Sign [...] vaccine series ( season) 2023 12/18/2020, 11/27/2020 Pap test for age 21-65 06/18/2023 0, 06/15/2017, 06/09/2016 Influenza for age 9-49 04/24/2024 0, 06/13/2019, 05/03/2018, Additional history exists Tetanus booster 06/13/2029 06/13/2019, 10/13/2006 Tdap Completed 10/13/2006 HIV for age 15-65 Completed 03/04/2021 Hepatitis C screening for age 18-79 Completed 03/04/2021 Pneumococcal series for age 6-64 Aged Out No longer eligible based on patient's age to complete this topic Procedures Procedure Name Priority Date/Time Associated Diagnosis Comments ANTI HIV 1/2 Routine 03/04/2021 3:03 PM CDT Encounter for supervision of normal first in first trimester ANTI HCV Routine 03/04/2021 3:03 PM CDT Encounter for supervision of normal first in first trimester CELL CLEANER THIN PREP PAP SCREEN IMAGED Routine 06/18/2020 2:20 PM CDT Cervical cancer screening from Last 3 Months or Most Recently Relevant to Health Maintenance Results * ANTI HCV (03/04/2021 3:03 PM CDT) HEPATITIS C ANTIBODY Non-React monique Non-React monique 03/05/2021 12:30 AM CDT [facility] Comment:Antibodies to HCV no t detected; does not exclude the possibility of exposure to HCV. Blood BLOOD SPECIMEN / Unknown Venipuncture / Unknown 03/04/2021 3:03 PM CDT 03/04/2021 3:06 PM CDT Monica Licea MD SEND OUTS Performing Organization Address [facility] Co de Phone Number [facility] [address] [place] [address], * ANTI HIV 1/2 (03/04/2021 3:03 PM CDT) Pathologist [facility] HIV-1/HIV-2 ANTIBODY Non-Reacti ve Non-Reacti ve 03/05/2021 12:49 AM CDT [facility] Comment:HIV-1 p24 and HIV-1/ HIV-2 Ab not detected. Blood BLOOD SPECIMEN / Unknown Venipuncture / Unknown 03/04/2021 3:03 PM CDT 03/04/2021 3:06 PM CDT Monica Licea MD SEND OUTS Performing Organization Address [facility] Co de Phone Number [facility] [address] [place] [address], * CELL CLEANER THIN PREP PAP SCREEN IMAGED (06/18/2020 2:20 PM CDT) [facility] Case Report Gynecologic Cytology Report ? Case: [id number] ? Authorizing Provider: ??Doreen Meraz NP ?Collected: ? 06/18/2020 1420 ? Ordering Location: ? [facility] ?Received: ?06/18/2020 1420 ? Clinic ? First Screen: ?Shaniqua Dong ? Specimen: ?CELL CLEANER ThinPrep Vial Screening, Cervical ? 06/23/2020 8:31 AM CDT [facility] INTERPRETATION/ RESULT NEGATIVE FOR INTRAEPITHELIAL LESION OR MALIGNANCY (NIL) (none) 06/23/2020 8:31 AM CDT [facility] IMEN ADEQUACY Satisfactory for evaluation Endocervical component present 06/23/2020 8:31 AM CDT [facility] HPV REQUEST HPV if ASCUS 06/23/2020 8:31 AM CDT [facility] Date of LMP 05/22/2020 06/23/2020 8:31 AM CDT [facility] Last Pap Date 06/15/17 06/23/2020 8:31 AM CDT [facility] Last Pap Result NIL 0 8:31 AM CDT [facility] Abnormal Pap or [place] Bx in last 5 years No 06/23/2020 8:31 AM CDT [facility] Menstrual Status Regular Periods 06/23/2020 8:31 AM CDT [facility] [place] Bx Done Today No 06/23/2020 8:31 AM CDT [facility] Additional Information None given 06/23/2020 8:31 AM CDT [facility] Comment: Cytology is screened at [facility] - [address], [place] [address] and [facility] - [address], [place] [address] and [facility] - [address] [place] [address] Interpreted at [facility] - [address], [place] [address] Automated Review [place] 06/23/2020 8:31 AM CDT [facility] Comment:Specimen processed s uccessfully by automated correctional nurse device, ThinPrep Imaging System, [employer] Note The pap test is a screening technique, not a diagnostic procedure. It is used primarily to screen for squamous cancers and precursor lesions. Published studies have shown that it is subject to both false negative and false positive results. The pap test should not be used as the sole means to diagnose or exclude pre-malignant and malignant lesions. 06/23/2020 8:31 AM CDT [facility] Other (Cervical) Non-Blood / Unknown 06/18/2020 2:20 PM CDT 06/18/2020 2:20 PM CDT Doreen Meraz NP PATHOLOGY/CYTOLOGY [facility] [address] [place] [address], [place] from Last 3 Months or Most Recently Relevant to Health Maintenance Advance Directives Documents on File Type Date Recorded Patient Gridcap Machine Operator Expl anation Treatment Guidelines 09/06/2021 * Full Code (Latest Code Status on File) Date Activated Date Inactivated Comments 09/06/2021 9:14 PM 09/09/2021 6:02 PM Question Answer Comments Code Status Discussion: Reviewed Preferences * Full Code Date Activated Date Inactivated Comments 07/25/2021 7:36 AM 07/26/2021 2:42 PM Question Answer Comments Code Status Discussion: Reviewed Preferences * Full Code Date Activated Date Inactivated Comments 07/23/2021 4:36 PM 07/25/2021 7:36 AM Question Answer Comments Code Status Discussion: Unable to Assess Preferences, Provider to review later * Full Code Date Activated Date Inactivated Comments 07/23/2021 3:36 PM 07/23/2021 3:54 PM Question Answer Comments Code Status Discussion: Unable to Assess Preferences, Provider to review later Care Teams Monument Carver Relationship Specialty Start Date End Date Noris Todd MD [address] [place] [phone] PCP - General Family Practice 04/03/21 Dana Ch MD [address] [place] [address] Referring Provider Obstetrics and Gynecology 08/19/21
--- OUTSIDE RECORDS SUMMARY | 2024-01-06 02:41 | XMS_ITS | Encounter Summary ---
Author Name Unknown Organization [place] Address [address] [place] [address] Care Team Providers Care Aircraft Engine Technician Name Role Phone No Ref-Primary, Physician Primary Care Provider Encounter Details Date Type Department Care Team (Latest Contact Info) Description 11/04/2023 Travel Social History Tobacco Use Types Packs/Day [...] Info) Description 01/12/2024 9:30 AM CDT Appointment [facility] [address] [place] [address] Elmer Ansari MD [address] [place], [place] [phone] 01/12/2024 10:00 AM CDT Office Visit [facility] [address] [place] [address] Srinivasa Hernandez MD [address] [place], [place] [phone] documented as of this encounter Visit Diagnoses Not on filedocumented in this encounter Care Teams Aircraft Engine Technician Relationship Specialty Start Date End Date No Ref-Primary, Physician PCP - General 09/24/23 documented as of this encounter
--- OUTSIDE RECORDS SUMMARY | 2024-01-06 02:41 | XMS_ITS | Clinical Summary ---
Author Name Unknown Organization [facility] Address [address] [place] [address] Care Team Providers Care Musical String Maker Name Role Phone No Ref-Primary, Physician Primary Care Provider Encounters Date Type Department Care Team Description 12/02/2023 10:00 AM CDT Office Visit [facility] [place] [address] [facility] [address] [place] [phone] Srinivasa Hernandez MD Obesity affecting , antepartum, unspecified obesity type (Primary Dx); Pyelectasis of fetus on ultrasound 12/02/2023 9:30 AM CDT - 12/02/2023 11:59 PM CDT Hospital Encounter [facility] [place] [address] [facility] [facility] [address] [place] [phone] Srinivasa Hernandez MD Encounter for follow-up ultrasound of anatomy Discharge Disposition: Home or Self Care 12/02/2023 Travel 11/04/2023 12:15 PM CDT Office Visit [facility] [address] [facility] [address] [place] [phone] Srinivasa Hernandez MD Obesity affecting , antepartum, unspecified obesity type (Primary Dx); Encounter for follow-up ultrasound of anatomy 11/04/2023 11:29 AM CDT - 11/04/2023 11:59 PM CDT Hospital Encounter [facility] [address] [facility] [address] [place] [phone] Srinivasa Hernandez MD related condition, antepartum Discharge Disposition: Home or Self Care 11/04/2023 Travel 10/27/2023 PRE VISIT [facility] [place] [address] [facility] [facility] [address] [place] [phone] Molly Stevens RN Ultrasound (L2-BMI) from Last [...] Info) Description 01/12/2024 9:30 AM CDT Appointment [facility] [place] [address] [facility] [address] [place] [phone] Elmer Ansari MD [address] [place], [place] [address] 01/12/2024 10:00 AM CDT Office Visit [facility] [place] [address] [facility] [address] [place] [phone] Srinivasa Hernandez MD [address] [place], [place] [address] Health Maintenance Due Date Last Done Comments ADVANCE CARE PLANNING 1995 ANNUAL REVIEW OF HM ORDERS 1995 YEARLY PREVENTIVE VISIT 1995 HIV SCREENING 2010 HEPATITIS C SCREENING 2013 PAP 02/05/2016 PHQ-2 (once per calendar year) 2023 MATERNAL SCREENING DISCUSSION 08/26/2023 OBGCT (OB) 12/02/2023 DTAP/TDAP/TD IMMUNIZATION (9 - Td or Tdap) 08/07/2031 08/07/2021, 06/13/2019, 10/13/2006, Additional history exists HEPATITIS B IMMUNIZATION Completed 996, 1995, 1995 IPV IMMUNIZATION Completed 02/26/1999, , 1995, Additional history exists HPV IMMUNIZATION Completed 10/28/2012, 04/2012, 04/14/2012 MENINGITIS IMMUNIZATION Aged Out 06/09/2016 No l onger eligible based on patient's age to complete this topic INFLUENZA VACCINE Completed 07/21/2023, , 06/05/2021, Additional history exists COVID-19 Vaccine Completed 08/05/2023, 10/2021, 12/18/2020, Additional history exists Pneumococcal Vaccine: Pediatrics (0 to 5 Years) and At-Risk Patients (6 to 64 Years) Aged Out No longer eligible based on patient's age to complete this topic RSV MONOCLONAL ANTIBODY Aged Out No l onger eligible based on patient's age to complete this topic RSV VACCINE ( & 60+) (No Doses Required) Completed Procedures Procedure Name Priority Date/Time Associated Diagnosis Comments [facility] US COMPREHENSIVE SINGLE F/U Routine 12/02/2023 10:10 AM CDT Encounter for follow-up ultrasound of anatomy [facility] US COMPREHENSIVE SINGLE Routine 11/04/2023 12:30 PM CDT related condition, antepartum from Last 3 Months Results * [facility] US Comprehensive Single F/U (12/02/2023 10:10 [...] ? Study Date: ??12/02/2023 9:34am Pat. NO: ??[id number] ?Referring ??MD: LEIGH LIND Site: ??[facility] ? Safety Professional: Altagracia Kruger RDMS : ??1995 ?Age: ?? [...] lb 10 ? oz EFW by ?Hadlock ([id number]) Head / Face / Neck Biometry: International Banker ? 5.9 ? mm CM ?5.4 ? [...] LVOT view. Aortic arch view. 3-vessel view. 6-vhnsff-ymmbstz view. ? Diaphragm. Abdomen ? Stomach. Right [...] have scheduled the patient to return to [facility] at 28 weeks to reassess growth [...] HILLS Study Date: 12/02/2023 9:34am Pat. NO: [id number] Referring MD: LEIGH LIND Site: [facility] Safety Professional: Altagracia Kruger RDMS : 1995 Age: 28 [...] 1 lb 10 oz EFW by Hadlock ([id number]) Head / Face / Neck Biometry: International Banker 5.9 mm CM 5.4 mm Urinary Tract [...] view. LVOT view.Aortic arch view. 3-vessel view. 4-ydpayq-vtruppv view. Diaphragm. Abdomen Stomach. Right kidney. Bladder. [...] have scheduled the patient to return to [facility] at 28 weeks to reassess growth [...] fluid volume appeared normal. Srinivasa Hernandez MD [facility] US ORDERABL ES * [facility] Comprehensive Single (11/04/2023 12:30 PM CDT) Anatomical [...] ? Study Date: ??11/04/2023 11:33am Pat. NO: ??[id number] ?Referring ??: ERIC BARROS Site: ??[facility] ? Safety Professional: Jennifer Cordero [facility] : ??1995 ?Age: ?? 28 ----- INDICATION [...] Biometry: BPD ?45.1 ?mm ? 19w 4d ?Hadrachel OFBeatrice ?60.5 ?mm ? 19w 4d ?Nicolaides ?169.5 ?mm ?19w 4d ?Hadlock Cerebellum tr ?20.7 ? mm ?19w 5d ?Nicolaides AC ?151.9 ?mm ?20w 3d ?58% ?Hadlock Femur ?33.2 ? mm ?20w 3d ?Hadlock Humerus ?30.5 ?mm ? 20w 0d ?Ahsan Weight Calculation: EFW ? 344 ? g ? 62% ?Hadlock EFW (lb,oz) ? 0 lb 12 ? oz EFW by ?Hadlock ([id number]) Head / Face / Neck Biometry: International Banker ? 4.3 ? mm CM ?4.5 ? [...] / Thorax ?Aortic arch view. 3-vessel view. 1-chqipu-nniqphg view. ? Diaphragm. Gender: female. MATERNAL STRUCTURES ----- Cervix ?Visualized ? Appearance: Appears Closed ? Approach - Transabdominal: Cervical length 41.9 mm Right Ovary ?Not examined Left Ovary ?Not examined RECOMMENDATION ----- We discussed the findings on today's ultrasound with the patient. We have scheduled the patient to return to [facility] in 4 weeks to complete the [...] HILLS Study Date: 11/04/2023 11:33am Pat. NO: [id number] Referring MD: ERIC BARROS Site: [facility] Safety Professional: Jennifer Cordero RDMS : 1995 Age: 28 [...] 0 lb 12 oz EFW by Hadlock ([id number]) Head / Face / Neck Biometry: International Banker 4.3 mm CM 4.5 mm Nasal bone [...] Heart / Thorax Aortic arch view. 3-vessel view.1-ocnpfz-pgkqduc view. Diaphragm. Gender: female. MATERNAL STRUCTURES ----- Cervix Visualized Appearance: Appears Closed Approach - Transabdominal:Cervical length 41.9 mm Right Ovary Not examined Left Ovary Not examined RECOMMENDATION ----- We discussed the findings on today's ultrasound with the patient. We have scheduled the patient to return to [facility] in 4 weeks to complete theanatomic survey. After that visit we recommend that you assess growth at 28 and 34weeks and begin weekly testing at 34 weeks. We do not recommend a echo in this and the cause for SVTin her prior child was thought to be [...] markers for aneuploidy seen. Eric Barros APRN TRUCKLOAD OWNER OPERATOR IMG [facility] US ORDERABLES from Last 3 Months Care Teams Musical String Maker Relationship Specialty Start Date End Date No Ref-Primary, Physician PCP - General 09/24/23
--- NOTE | 2024-01-06 03:31 | US_ITS ---
Patient: SHAYLA HILLS Facility:?[facility] Patient ID:?[id number] Site Patient ID:?[id number]. Site :?1995 Study:?US-OB Pelvis BPP-01/06/2024 4:31:47 AM Ordering Physician:?RODNEY BENNETT Final Report: INDICATION: R/O SVT IN FETUS. TECHNIQUE: Ultrasound OB pelvis transabdominal. Real-time uribe-scale imaging of the fetus was performed without stress testing. COMPARISON: None available. FINDINGS: Sonographic imaging demonstrates a single living intrauterine gestation. Fetus demonstrates a regular cardiac rate of 154 beats per minute. Fetus has a cephalic orientation. Amniotic fluid volume single deepest pocket 4.2 cm 2/2. motion 2/2. tone 2/2. breathing movements 2/2. IMPRESSION: Single viable intrauterine with a biophysical profile 8/8. heart rate 154 beats per minute. Dictated by Jackie Walton MD @ 01/06/2024 5:10:09 AM Signed by:?Jackie Walton MD @01/06/2024 5:10:09 AM (Electronic Signature)
--- NOTE | 2024-01-06 04:43 | PC.OBNST ---
NST Note NST Note Start: 01/06/24 02:56 Freq: ONCE Status: Active Protocol: Document 01/06/24 04:40 HARVEY (Rec: 01/06/24 04:42 STEPHONDONTE [id number]) NST Note 3 Para (# of births) 1 EDC 03/23/24 Gestational Age In Weeks & Days 29 Weeks & 0 Days High Risk Factors High Blood Pressure - Preexisting Patient Presented with Complaint(s) of Other Other Complaints Increased movement. Reactive Yes Appropriate for Gestational Age Yes SERGEI Gibson RNC Date 01/06/24 Reactive Yes Appropriate for Gestational Age Yes SERGEI Stern RN Date 01/06/24 OB NST charge Yes Complete NST Note via Write Note Yes The provider's electronic signature indicates the NST is reactive/appropriate for gestational age. *Note to provider: If an addendum is required, open the patient's chart and click on the note under the Nurse/Allied Health tab.
--- NOTE | 2024-01-06 04:44 | PC.OBNST ---
NST Note NST Note Start: 01/06/24 02:56 Freq: ONCE Status: Active Protocol: Document 01/06/24 04:40 HARVEY (Rec: 01/06/24 04:42 STEPHONDONTE [id number]) NST Note 3 Para (# of births) 1 EDC 03/23/24 Gestational Age In Weeks & Days 29 Weeks & 0 Days High Risk Factors High Blood Pressure - Preexisting Patient Presented with Complaint(s) of Other Other Complaints Increased movement. Reactive Yes Appropriate for Gestational Age Yes SERGEI Gibson RNC Date 01/06/24 Reactive Yes Appropriate for Gestational Age Yes SERGEI Stern RN Date 01/06/24 OB NST charge Yes Complete NST Note via Write Note Yes The provider's electronic signature indicates the NST is reactive/appropriate for gestational age. *Note to provider: If an addendum is required, open the patient's chart and click on the note under the Nurse/Allied Health tab.
== END 2024-01-06 04:55 | disposition home or self-care (01) ==
LOC: OB OUT 02:38 → OB 02:39
PROVIDERS: Visit Provider Obstetrics & Gynecology
DX: O10.913 Unspecified pre-existing hypertension complicating pregnancy, third trimester (principal); Z3A.29 29 weeks gestation of pregnancy
CPT/HCPCS: 59025; 76819; G0463

== ENCOUNTER 2024-01-27 09:32 | Outpatient (CLI) | payer BC, SELFPAY ==
--- OUTSIDE RECORDS SUMMARY | 2024-01-27 09:33 | XMS_ITS | Referral Summary ---
Author Organization [facility] Address [address] [place] [address] Care Team Providers Care Electric Serviceman Name Role Phone No Ref-Primary, Physician Primary Care Provider Encounters Date Type Department Care Team Description 01/12/2024 Travel 01/12/2024 10:00 AM CDT Office Visit [facility] Maternal Medicine [facility] [address] [facility] [address] [place] [phone] Srinivasa Hernandez MD Jones, Cresta Wedel, MD renal anomaly, single gestation (Primary Dx) 01/12/2024 9:10 AM CDT - 01/12/2024 11:59 PM CDT Hospital Encounter [facility] [address] [facility] [address] [place] [phone] Elmer Ansari MD Pyelectasis of fetus on ultrasound; Obesity affecting , antepartum, unspecified obesity type Discharge Disposition: Home or Self Care 12/02/2023 Travel 12/02/2023 10:00 AM CDT Office Visit [facility] [address] [facility] [address] [place] [phone] Srinivasa Hernandez MD Obesity affecting , antepartum, unspecified obesity type (Primary Dx); Pyelectasis of fetus on ultrasound 12/02/2023 9:30 AM CDT - 12/02/2023 11:59 PM CDT Hospital Encounter [facility] [address] [facility] [address] [place] [address] Srinivasa Hernandez MD Encounter for follow-up ultrasound of anatomy Discharge Disposition: Home or Self Care 11/04/2023 Travel 11/04/2023 12:15 PM CDT Office Visit [facility] [address] [facility] [address] [place] [phone] Srinivasa Hernandez MD Obesity affecting , antepartum, unspecified obesity type (Primary Dx); Encounter for follow-up ultrasound of anatomy 11/04/2023 11:29 AM CDT - 11/04/2023 11:59 PM CDT Hospital Encounter [facility] [place] [address] [address] [facility] [address] [place] [phone] Srinivasa Hernandez MD related condition, antepartum Discharge Disposition: Home or Self Care 10/27/2023 PRE VISIT [facility] [place] [address] [facility] [address] [place] [phone] Molly Stevens RN Ultrasound (L2-BMI) from Last [...] Procedure Name Priority Date/Time Associated Diagnosis Comments [facility] COMPREHENSIVE SINGLE F/U Routine 01/12/2024 9:50 AM CDT Pyelectasis of fetus on ultrasound Obesity affecting , antepartum, unspecified obesity type [facility] US COMPREHENSIVE SINGLE F/U Routine 12/02/2023 10:10 AM CDT Encounter for follow-up ultrasound of anatomy [facility] US COMPREHENSIVE SINGLE Routine 11/04/2023 12:30 PM CDT related condition, antepartum from Last 3 Months Results * [facility] US Comprehensive Single F/U (01/12/2024 9:50 [...] ? Study Date: ??01/12/2024 9:18am Pat. NO: ??[id number] ?Referring ??MD: APRIL BARROS Site: ??[facility] ? Mortgage Loan Underwriter: Jaja Moore RDMS : ??1995 ?Age: ?? [...] lb 11 ? oz EFW by ?Hadlock ([id number]) Head / Face / Neck Biometry: Show Girl ? 7.7 ? mm CM ?7.4 ? [...] Thorax ?4-chamber view. RVOT view. LVOT view. 2-jounas-vosiyck view. ? Diaphragm. Abdomen ? Stomach. Kidneys. [...] for additional US can be done in [place] and should include consideration for a follow [...] HILLS Study Date: 01/12/2024 9:18am Pat. NO: [id number] Referring MD: APRIL BARROS Site: [facility] Mortgage Loan Underwriter: Jaja Moore RDMS : 1995 Age: 28 [...] 3 lb 11 oz EFW by Hadlock ([id number]-[id number]-FL) Head / Face / Neck Biometry: Show Girl 7.7 mm CM 7.4 mm Urinary Tract Biometry: Rt Renal pelvis ap 3.3 mm Lt Renal pelvis ap 3.4 mm ANATOMY ----- The following structures appear normal: Head / Neck Cranium. Head size. Head shape.Lateral ventricles. Midline falx. Cerebellum. Cisterna magna. Thalami. Face Lips. Profile. Nose. Heart / Thorax 4-chamber view. RVOT view. LVOT view.2-fiwaar-filccax view. Diaphragm. Abdomen Stomach. Kidneys. Bladder. The [...] for additional US can be done in [place] and should includeconsideration for a follow up [...] fluid volume appeared normal. Srinivasa Hernandez MD [facility] US ORDERABL ES * [facility] US Comprehensive Single (11/04/2023 12:30 PM [...] ? Study Date: ??11/04/2023 11:33am Pat. NO: ??[id number] ?Referring ??MD: APRIL BARROS Site: ??[facility] ? Mortgage Loan Underwriter: Jennifer Cordero [facility] : ??1995 ?Age: ?? 28 ----- INDICATION [...] lb 12 ? oz EFW by ?Hadlock ([id number]) Head / Face / Neck Biometry: Show Girl ? 4.3 ? mm CM ?4.5 ? [...] / Thorax ?Aortic arch view. 3-vessel view. 3-zwssfj-ltvkudi view. ? Diaphragm. Gender: female. MATERNAL STRUCTURES ----- Cervix ?Visualized ? Appearance: Appears Closed ? Approach - Transabdominal: Cervical length 41.9 mm Right Ovary ?Not examined Left Ovary ?Not examined RECOMMENDATION ----- We discussed the findings on today's ultrasound with the patient. We have scheduled the patient to return to [facility] in 4 weeks to complete the [...] HILLS Study Date: 11/04/2023 11:33am Pat. NO: [id number] Referring MD: APRIL BARROS Site: [facility] Mortgage Loan Underwriter: Jennifer Cordero RDMS : 1995 Age: 28 [...] 0 lb 12 oz EFW by Hadlock ([id number]-FL) Head / Face / Neck Biometry: Show Girl 4.3 mm CM 4.5 mm Nasal bone [...] Heart / Thorax Aortic arch view. 3-vessel view.6-jrfkmi-suxefvk view. Diaphragm. Gender: female. MATERNAL STRUCTURES ----- Cervix Visualized Appearance: Appears Closed Approach - Transabdominal:Cervical length 41.9 mm Right Ovary Not examined Left Ovary Not examined RECOMMENDATION ----- We discussed the findings on today's ultrasound with the patient. We have scheduled the patient to return to [facility] in 4 weeks to complete theanatomic [...] markers for aneuploidy seen. April Barros APRN [facility] US ORDERABLES from Last 3 Months Care Teams Electric Serviceman Relationship Specialty Start Date End Date No Ref-Primary, Physician PCP - General 09/24/23
--- OUTSIDE RECORDS SUMMARY | 2024-01-27 09:33 | XMS_ITS | Clinical Summary ---
Author Organization [facility] Address [address] [place] [address] Care Team Providers Care Donor Support Technician Name Role Phone No Ref-Primary, Physician Primary Care Provider Encounters Date Type Department Care Team Description 01/12/2024 10:00 AM CDT Office Visit [facility] [address] [facility] [address] [place] [address] Srinivasa Hernandez MD Jones, Cresta Wedel, MD renal anomaly, single gestation (Primary Dx) 01/12/2024 9:10 AM CDT - 01/12/2024 11:59 PM CDT Hospital Encounter [facility] [address] [place] [facility] [address] [place] [address] Elmer Ansari MD Pyelectasis of fetus on ultrasound; Obesity affecting , antepartum, unspecified obesity type Discharge Disposition: Home or Self Care 01/12/2024 Travel 12/02/2023 10:00 AM CDT Office Visit [facility] [address] [place] [address] [place] [address] Srinivasa Hernandez MD Obesity affecting , antepartum, unspecified obesity type (Primary Dx); Pyelectasis of fetus on ultrasound 12/02/2023 9:30 AM CDT - 12/02/2023 11:59 PM CDT Hospital Encounter [facility] [address] [place] [address] [place] [address] Srinivasa Hernandez MD Encounter for follow-up ultrasound of anatomy Discharge Disposition: Home or Self Care 12/02/2023 Travel 11/04/2023 12:15 PM CDT Office Visit [facility] [address] [place] [address] [place] [address] Srinivasa Hernandez MD Obesity affecting , antepartum, unspecified obesity type (Primary Dx); Encounter for follow-up ultrasound of anatomy 11/04/2023 11:29 AM CDT - 11/04/2023 11:59 PM CDT Hospital Encounter [facility] [address] [facility] [address] [place] [address] Srinivasa Hernandez MD related condition, antepartum Discharge Disposition: Home or Self Care 11/04/2023 Travel 10/27/2023 PRE VISIT [facility] [address] [facility] [address] [place] [address] Molly Stevens RN Ultrasound (L2-BMI) from Last [...] Procedure Name Priority Date/Time Associated Diagnosis Comments [facility] US COMPREHENSIVE SINGLE F/U Routine 01/12/2024 9:50 AM CDT Pyelectasis of fetus on ultrasound Obesity affecting , antepartum, unspecified obesity type [facility] US COMPREHENSIVE SINGLE F/U Routine 12/02/2023 10:10 AM CDT Encounter for follow-up ultrasound of anatomy [facility] US COMPREHENSIVE SINGLE Routine 11/04/2023 12:30 PM CDT related condition, antepartum from Last 3 Months Results * [facility] US Comprehensive Single F/U (01/12/2024 9:50 AM [...] ? Study Date: ??01/12/2024 9:18am Pat. NO: ??[id number] ?Referring ??MD: APRIL BARROS Site: ??[facility] ? V Belt Skiver: Jaja Moore RDMS : ??1995 ?Age: ?? [...] lb 11 ? oz EFW by ?Hadlock ([id number]-FL) Head / Face / Neck Biometry: Field Spec ? 7.7 ? mm CM ?7.4 ? [...] Thorax ?4-chamber view. RVOT view. LVOT view. 9-mptpnh-eoecywj view. ? Diaphragm. Abdomen ? Stomach. Kidneys. [...] for additional US can be done in [place] and should include consideration for a follow [...] HILLS Study Date: 01/12/2024 9:18am Pat. NO: [id number] Referring MD: APRIL BARROS Site: [facility] V Belt Skiver: Jaja Moore RDMS : 1995 Age: 28 [...] 3 lb 11 oz EFW by Hadlock ([id number]-[id number]-FL) Head / Face / Neck Biometry: Field Spec 7.7 mm CM 7.4 mm Urinary Tract Biometry: Rt Renal pelvis ap 3.3 mm Lt Renal pelvis ap 3.4 mm ANATOMY ----- The following structures appear normal: Head / Neck Cranium. Head size. Head shape.Lateral ventricles. Midline falx. Cerebellum. Cisterna magna. Thalami. Face Lips. Profile. Nose. Heart / Thorax 4-chamber view. RVOT view. LVOT view.8-dclxvx-bliqqeu view. Diaphragm. Abdomen Stomach. Kidneys. Bladder. The [...] for additional US can be done in [place] and should includeconsideration for a follow up [...] fluid volume appeared normal. Srinivasa Hernandez MD [facility] ORDERABL ES * [facility] US Comprehensive Single (11/04/2023 12:30 PM CDT) [...] ? Study Date: ??11/04/2023 11:33am Pat. NO: ??[id number] ?Referring ??MD: APRIL BARROS Site: ??[facility] ? V Belt Skiver: Jennifer Cordero RDMS : ??1995 ?Age: ?? [...] lb 12 ? oz EFW by ?Hadlock ([id number]-FL) Head / Face / Neck Biometry: Field Spec ? 4.3 ? mm CM ?4.5 ? [...] / Thorax ?Aortic arch view. 3-vessel view. 4-tutbef-ufuzsxg view. ? Diaphragm. Gender: female. MATERNAL STRUCTURES ----- Cervix ?Visualized ? Appearance: Appears Closed ? Approach - Transabdominal: Cervical length 41.9 mm Right Ovary ?Not examined Left Ovary ?Not examined RECOMMENDATION ----- We discussed the findings on today's ultrasound with the patient. We have scheduled the patient to return to [facility] in 4 weeks to complete the anatomic [...] HILLS Study Date: 11/04/2023 11:33am Pat. NO: [id number] Referring MD: APRIL BARROS Site: [facility] V Belt Skiver: Jennifer Cordero RDMS : 1995 Age: 28 [...] 0 lb 12 oz EFW by Hadlock ([id number]-IS-JV-FL) Head / Face / Neck Biometry: Field Spec 4.3 mm CM 4.5 mm Nasal bone [...] Heart / Thorax Aortic arch view. 3-vessel view.1-ilgijk-rmjtfay view. Diaphragm. Gender: female. MATERNAL STRUCTURES ----- Cervix Visualized Appearance: Appears Closed Approach - Transabdominal:Cervical length 41.9 mm Right Ovary Not examined Left Ovary Not examined RECOMMENDATION ----- We discussed the findings on today's ultrasound with the patient. We have scheduled the patient to return to [facility] in 4 weeks to complete theanatomic survey. [...] for aneuploidy seen. April Barros APRN, CNP [facility] US ORDERABLES from Last 3 Months Care Teams Donor Support Technician Relationship Specialty Start Date End Date No Ref-Primary, Physician PCP - General 09/24/23
--- OUTSIDE RECORDS SUMMARY | 2024-01-27 09:33 | XMS_ITS | Encounter Summary ---
Author Organization [facility] Address [address] [place] [address] Care Team Providers Care Senior Qa Automation Engineer Name Role Phone No Ref-Primary, Physician Primary [...] on filedocumented in this encounter Care Teams Senior Qa Automation Engineer Relationship Specialty Start Date End Date No Ref-Primary, Physician PCP - General 09/24/23 documented as of this encounter
--- OUTSIDE RECORDS SUMMARY | 2024-01-27 09:33 | XMS_ITS | Encounter Summary ---
Author Organization [place] Address [facility] [place] [address] Care Team Providers Care Barrel Stave Inspector Name Role Phone No Ref-Primary, Physician Primary Care Provider Reason for Visit * Reason Comments Ultrasound RL2-BMI, Left UTD Encounter Details Date Type Department Care Team (Late st Contact Info) Description 01/12/2024 10:00 AM CDT Office Visit [facility] [place] [address] [facility] [address] [place] [address] Srinivasa Hernandez MD [address] [place] [address] Elmer Ansari MD [address] [place] [address] renal anomaly, single gestation (Primary [...] Primary documented in this encounter Care Teams Barrel Stave Inspector Relationship Specialty Start Date End Date No Ref-Primary, Physician PCP - General 09/24/23 documented as of this encounter
--- OUTSIDE RECORDS SUMMARY | 2024-01-27 09:34 | XMS_ITS | Encounter Summary ---
Author Organization [place] Address [address] [place] [address] Care Team Providers Care Meeting Coordinator Name Role Phone No Ref-Primary, Physician Primary Care Provider Reason for Referral * Diagnostic Imaging Ultrasound (Routine) - Pending Review Specialty Diagnoses / Procedures Referred By Contgerson t Referred To Contact Radiology. Diagnoses Encounter for follow-up ultrasound of anatomy Procedures [facility] US Comprehensive Single F/U Srinivasa Hernandez MD [address] [place] [address] Referral ID Status Reason Start Date Expiration Date V isits Requested Visits Authorized [id number] Pending Review 11/04/2023 11/03/2024 1 1 Reason for Visit * Reason Comments Ultrasound L2-BMI Encounter Details Date Type Department Care Team ([facility] Contact Info) Description 11/04/2023 12:15 PM CDT Office Visit [facility] Maternal Medicine [facility] [place] [address] [place] [address] Srinivasa Hernandez MD [address] [place] [address] Obesity affecting , antepartum, unspecified [...] for details of today's US at the [facility]. Srinivasa Hernandez MD Maternal- Medicine documented in this encounter Plan of Treatment Not on file documented as of this encounter Results * [facility] US Comprehensive Single F/U (12/02/2023 10:10 [...] ? Study Date: ??12/02/2023 9:34am Pat. NO: ??[id number] ?Referring ??MD: LEIGH LIND Site: ??[place] ? [employer] Police: Altagracia Kruger [facility] : ??1995 ?Age: ?? 28 ----- INDICATION [...] lb 10 ? oz EFW by ?Hadlock ([id number]-FL) Head / Face / Neck Biometry: Stone Sawyer ? 5.9 ? mm CM ?5.4 ? [...] LVOT view. Aortic arch view. 3-vessel view. 4-pzaqem-obermvh view. ? Diaphragm. Abdomen ? Stomach. Right [...] have scheduled the patient to return to [facility] at 28 weeks to reassess growth [...] H[place]S Study Date: 12/02/2023 9:34am Pat. NO: [id number] Referring MD: LEIGH LIND Site: [place] [employer] Police: Altagracia Kruger RDMS : 1995 Age: 28 [...] 1 lb 10 oz EFW by Hadlock ([id number]-FL) Head / Face / Neck Biometry: Stone Sawyer 5.9 mm CM 5.4 mm Urinary Tract [...] view. LVOT view.Aortic arch view. 3-vessel view. 6-iobajc-pvlzpsn view. Diaphragm. Abdomen Stomach. Right kidney. Bladder. [...] have scheduled the patient to return to [facility] at 28 weeks to reassess growth [...] volume appeared normal. Srinivasa Hernandez MD G [facility] US ORDERABL ES documented in this encounter Visit Diagnoses Diagnosis Obesity affecting , antepartum, unspecified obesity type- Primary Encounter for follow-up ultrasound of anatomy Encounter for follow-up ultrasound of anatomy documented in this encounter Care Teams Meeting Coordinator Relationship Specialty Start Date End Date No Ref-Primary, Physician PCP - General 09/24/23 documented as of this encounter
--- OUTSIDE RECORDS SUMMARY | 2024-01-27 09:34 | XMS_ITS | Encounter Summary ---
Author Organization [place] Address [address] [place] [address] Care Team Providers Care Corncob Pipe Manufacturing Supervisor Name Role Phone No Ref-Primary, Physician Primary Care Provider Reason for Referral * Diagnostic Imaging Ultrasound (Routine) - Pending Review Specialty Diagnoses / Procedures Referred By Leida galeano Referred To Contact Radiology. Diagnoses Pyelectasis of fetus on ultrasound Obesity affecting , antepartum, unspecified obesity type Procedures [facility] US Comprehensive Single F/U Srinivasa Hernandez MD [address] [place] [id number] Referral ID Status Reason Start Date Expiration Date V isits Requested Visits Authorized [id number] Pending Review 12/02/2023 12/01/2024 1 1 Reason for Visit * Diagnostic Imaging Ultrasound (Routine) - Pending Review Specialty Diagnoses / Procedures Referred By Contac t Referred To Contact Radiology. Diagnoses Pyelectasis of fetus on ultrasound Obesity affecting , antepartum, unspecified obesity type Procedures [facility] US Comprehensive Single F/U Srinivasa Hernandez MD [address] [place] [address] Referral ID Status Reason Start Date Expiration Date V isits Requested Visits Authorized [id number] Pending Review 12/02/2023 12/01/2024 1 1 Encounter Details Date Type Department Care Team (Latest Contact Info) Description 01/12/2024 9:10 AM CDT - 01/12/2024 11:59 PM CDT Hospital Encounter [facility] M[facility] Medicine [facility] [place] [address] [place] [address] Elmer Ansari MD [address] [place] [address] Pyelectasis of fetus on ultrasound; [...] Procedure Name Priority Date/Time Associated Diagnosis Comments [facility] COMPREHENSIVE SINGLE F/U Routine 01/12/2024 9:50 AM CDT Pyelectasis of fetus on ultrasound Obesity affecting , antepartum, unspecified obesity type documented in this encounter Results * [facility] Comprehensive Single F/U (01/12/2024 9:50 AM CDT) [...] ? Study Date: ??01/12/2024 9:18am Pat. NO: ??[id number] ?Referring ??MD: ERIC HARDY Site: ??[facility] ? Movie Editor: Jaja Moore RDMS : ??1995 ?Age: ?? [...] lb 11 ? oz EFW by ?Hadlock ([id number]-FX-TA-FL) Head / Face / Neck Biometry: [place] Boatman ? 7.7 ? mm CM ?7.4 ? [...] Thorax ?4-chamber view. RVOT view. LVOT view. 6-wadazt-nswxnli view. ? Diaphragm. Abdomen ? Stomach. Kidneys. [...] for additional US can be done in [place] and should include consideration for a follow [...] H[place]S Study Date: 01/12/2024 9:18am Pat. NO: [id number] Referring MD: ERIC HARDY Site: [facility] Movie Editor: Jaja Moore RDMS : 1995 Age: 28 [...] 3 lb 11 oz EFW by Hadlock ([id number]-AZ-FL) Head / Face / Neck Biometry: [place] Boatman 7.7 mm CM 7.4 mm Urinary Tract Biometry: Rt Renal pelvis ap 3.3 mm Lt Renal pelvis ap 3.4 mm ANATOMY ----- The following structures appear normal: Head / Neck Cranium. Head size. Head shape.Lateral ventricles. Midline falx. Cerebellum. Cisterna magna. Thalami. Face Lips. Profile. Nose. Heart / Thorax 4-chamber view. RVOT view. LVOT view.8-ysdgsk-hydwcjz view. Diaphragm. Abdomen Stomach. Kidneys. Bladder. The [...] for additional US can be done in [place] and should includeconsideration for a follow up growth in 4-6 weeks, as well as weekly BPPsto start around 34 weeks. She reports no issues with her BP thus far, but she is watching itclosely. Return to primary provider for continued care. If you have questions regarding today's evaluation or [facility], please contact the Maternal- Medicine Center. [...] MD [facility] US ORDERABL ES documented in this encounter Visit Diagnoses Diagnosis Pyelectasis of fetus on ultrasound Obesity affecting , antepartum, unspecified obesity type documented in this encounter Care Teams Corncob Pipe Manufacturing Supervisor Relationship Specialty Start Date End Date No Ref-Primary, Physician PCP - General 09/24/23 documented as of this encounter
--- OUTSIDE RECORDS SUMMARY | 2024-01-27 09:34 | XMS_ITS | Encounter Summary ---
Author Organization [facility] Address [address] [place] [address] Care Team Providers Care Instrument Repair Supervisor Name Role Phone No Ref-Primary, Physician [...] on filedocumented in this encounter Care Teams Instrument Repair Supervisor Relationship Specialty Start Date End Date No Ref-Primary, Physician PCP - General 09/24/23 documented as of this encounter
--- OUTSIDE RECORDS SUMMARY | 2024-01-27 09:34 | XMS_ITS | Encounter Summary ---
Author Organization [place] Address [address] [place] [address] Care Team Providers Care Dental Biller Name Role Phone No Ref-Primary, Physician Primary [...] on filedocumented in this encounter Care Teams Dental Biller Relationship Specialty Start Date End Date No Ref-Primary, Physician PCP - General 09/24/23 documented as of this encounter
--- OUTSIDE RECORDS SUMMARY | 2024-01-27 09:34 | XMS_ITS | Encounter Summary ---
Author Organization [place] Address [address] [place] [address] Care Team Providers Care Disability Advocate Name Role Phone No Ref-Primary, Physician Primary Care Provider Reason for Visit * Reason Comments Ultrasound L2-BMI Encounter Details Date Type Department Care Team (Late st Contact Info) Description 10/27/2023 PRE VISIT [facility] Maternal Medicine [facility] [place] [address] [place] [address] Molly Stevens RN Ultrasound (L2-BMI) [...] on filedocumented in this encounter Care Teams Disability Advocate Relationship Specialty Start Date End Date No Ref-Primary, Physician PCP - General 09/24/23 documented as of this encounter
--- OUTSIDE RECORDS SUMMARY | 2024-01-27 09:34 | XMS_ITS | Encounter Summary ---
Author Organization [place] Address [address] [place] [address] Care Team Providers Care Resin Remover Name Role Phone No Ref-Primary, Physician Primary Care Provider Reason for Referral * Diagnostic Imaging Ultrasound (Routine) - Pending Review Specialty Diagnoses / Procedures Referred By Contgerson t Referred To Contact Radiology. Diagnoses Pyelectasis of fetus on ultrasound Obesity affecting , antepartum, unspecified obesity type Procedures [facility] US Comprehensive Single F/U Srinivasa Hernandez MD [address] [place] [address] Referral ID Status Reason Start Date Expiration Date V isits Requested Visits Authorized [id number] Pending Review 12/02/2023 12/01/2024 1 1 Reason for Visit * Reason Comments Ultrasound Rl2-subopt Encounter Details Date Type Department Care Team ([facility] Contact Info) Description 12/02/2023 10:00 AM CDT Office Visit [facility] M[facility] Medicine [facility] [place] [address] [place] [phone] Srinivasa Hernandez MD [address] [place] [address] Obesity affecting , antepartum, unspecified [...] for details of today's US at the [facility]. Srinivasa Hernandez MD Maternal- Medicine documented in this encounter Plan of Treatment Not on file documented as of this encounter Results * [facility] US Comprehensive Single F/U (01/12/2024 9:50 AM [...] ? Study Date: ??01/12/2024 9:18am Pat. NO: ??[id number] ?Referring ??MD: ERIC HARDY Site: ??[place] ? Manager Bench: Jaja Moore RDMS : ??1995 ?Age: ?? [...] lb 11 ? oz EFW by ?Hadlock ([id number]-FL) Head / Face / Neck Biometry: Wine Cellar Stock Clerk ? 7.7 ? mm CM ?7.4 ? [...] Thorax ?4-chamber view. RVOT view. LVOT view. 0-fdtqsl-hpnanho view. ? Diaphragm. Abdomen ? Stomach. Kidneys. [...] for additional US can be done in [place] and should include consideration for a follow [...] H[place]S Study Date: 01/12/2024 9:18am Pat. NO: [id number] Referring MD: ERIC HARDY Site: [facility] Manager Bench: Jaja Moore RDMS : 1995 Age: 28 [...] 3 lb 11 oz EFW by Hadlock ([id number]-FL) Head / Face / Neck Biometry: Wine Cellar Stock Clerk 7.7 mm CM 7.4 mm Urinary Tract Biometry: Rt Renal pelvis ap 3.3 mm Lt Renal pelvis ap 3.4 mm ANATOMY ----- The following structures appear normal: Head / Neck Cranium. Head size. Head shape.Lateral ventricles. Midline falx. Cerebellum. Cisterna magna. Thalami. Face Lips. Profile. Nose. Heart / Thorax 4-chamber view. RVOT view. LVOT view.8-cilhyx-johnllk view. Diaphragm. Abdomen Stomach. Kidneys. Bladder. The [...] for additional US can be done in [place] and should includeconsideration for a follow up [...] fluid volume appeared normal. Srinivasa Hernandez MD [facility] US ORDERABL ES documented in this encounter Visit Diagnoses Diagnosis Obesity affecting , antepartum, unspecified obesity type- Primary Pyelectasis of fetus on ultrasound Pyelectasis of fetus on ultrasound Obesity affecting , antepartum, unspecified obesity type documented in this encounter Care Teams Resin Remover Relationship Specialty Start Date End Date No Ref-Primary, Physician PCP - General 09/24/23 documented as of this encounter
--- OUTSIDE RECORDS SUMMARY | 2024-01-27 09:34 | XMS_ITS | Encounter Summary ---
Author Organization [place] Address [address] [place] [address] Care Team Providers Care Cover Operator Name Role Phone No Ref-Primary, Physician Primary Care Provider Reason for Referral * Diagnostic Imaging Ultrasound (Routine) - Pending Review Specialty Diagnoses / Procedures Referred By Contac t Referred To Contact Radiology. Diagnoses related condition, antepartum Procedures [facility] US Comprehensive Single April Barros APRN [facility] [address] [place] [address] Referral ID Status Reason Start Date Expiration Date V isits Requested Visits Authorized [id number] Pending Review 09/24/2023 09/23/2024 1 1 Reason for Visit * Diagnostic Imaging Ultrasound (Routine) - Pending Review Specialty Diagnoses / Procedures Referred By Contac t Referred To Contact Radiology. Diagnoses related condition, antepartum Procedures [facility] US Comprehensive Single April Barros APRN [facility] [address] [place] [address] Referral ID Status Reason Start Date Expiration Date V isits Requested Visits Authorized [id number] Pending Review 09/24/2023 09/23/2024 1 1 Encounter Details Date Type Department Care Team (Latest Contact Info) Description 11/04/2023 11:29 AM CDT - 11/04/2023 11:59 PM CDT Hospital Encounter [facility] Maternal Medicine [facility] [place] [address] [place] [address] Srinivasa Hernandez MD [address] [place] [address] related condition, antepartum Discharge Disposition: [...] Procedure Name Priority Date/Time Associated Diagnosis Comments [facility] US COMPREHENSIVE SINGLE Routine 11/04/2023 12:30 PM CDT related condition, antepartum documented in this encounter Results * [facility] US Comprehensive Single (11/04/2023 12:30 PM [...] ? Study Date: ??11/04/2023 11:33am Pat. NO: ??[id number] ?Referring ??MD: APRIL BARROS Site: ??[place] ? Concrete Placement Equipment Operator: Jennifer Cordero RDMS : ??1995 ?Age: [...] lb 12 ? oz EFW by ?Hadlock ([id number]-FL) Head / Face / Neck Biometry: Sole Rougher ? 4.3 ? mm CM ?4.5 ? [...] / Thorax ?Aortic arch view. 3-vessel view. 9-tzrgxo-jbycjii view. ? Diaphragm. Gender: female. MATERNAL STRUCTURES ----- Cervix ?Visualized ? Appearance: Appears Closed ? Approach - Transabdominal: Cervical length 41.9 mm Right Ovary ?Not examined Left Ovary ?Not examined RECOMMENDATION ----- We discussed the findings on today's ultrasound with the patient. We have scheduled the patient to return to [facility] in 4 weeks to complete the [...] [place]S Study Date: 11/04/2023 11:33am Pat. NO: [id number] Referring MD: APRIL BARROS Site: [facility] Concrete Placement Equipment Operator: Jennifer Cordero RDMS : 1995 Age: [...] 0 lb 12 oz EFW by Hadlock ([id number]-FL) Head / Face / Neck Biometry: Sole Rougher 4.3 mm CM 4.5 mm Nasal bone [...] Heart / Thorax Aortic arch view. 3-vessel view.4-kxavtx-vvndlth view. Diaphragm. Gender: female. MATERNAL STRUCTURES ----- Cervix Visualized Appearance: Appears Closed Approach - Transabdominal:Cervical length 41.9 mm Right Ovary Not examined Left Ovary Not examined RECOMMENDATION ----- We discussed the findings on today's ultrasound with the patient. We have scheduled the patient to return to [facility] in 4 weeks to complete theanatomic [...] markers for aneuploidy seen. April Barros APRN [facility] US ORDERABLES documented in this encounter Visit Diagnoses Diagnosis related condition, antepartum documented in this encounter Care Teams Cover Operator Relationship Specialty Start Date End Date No Ref-Primary, Physician PCP - General 09/24/23 documented as of this encounter
--- OUTSIDE RECORDS SUMMARY | 2024-01-27 09:34 | XMS_ITS | Encounter Summary ---
Author Organization [place] Address [address] [place] [address] Care Team Providers Care Slaughterer Religious Ritual Name Role Phone No Ref-Primary, Physician Primary Care Provider Reason for Referral * Diagnostic Imaging Ultrasound (Routine) - Pending Review Specialty Diagnoses / Procedures Referred By Contac t Referred To Contact Radiology. Diagnoses Encounter for follow-up ultrasound of anatomy Procedures [facility] US Comprehensive Single F/U Srinivasa Hernandez MD [address] [place] [address] Referral ID Status Reason Start Date Expiration Date V isits Requested Visits Authorized [id number] Pending Review 11/04/2023 11/03/2024 1 1 Reason for Visit * Diagnostic Imaging Ultrasound (Routine) - Pending Review Specialty Diagnoses / Procedures Referred By Contac t Referred To Contact Radiology. Diagnoses Encounter for follow-up ultrasound of anatomy Procedures [facility] US Comprehensive Single F/U Srinivasa Hernandez MD [address] [place] [address] Referral ID Status Reason Start Date Expiration Date V isits Requested Visits Authorized [id number] Pending Review 11/04/2023 11/03/2024 1 1 Encounter Details Date Type Department Care Team (Latest Contact Info) Description 12/02/2023 9:30 AM CDT - 12/02/2023 11:59 PM CDT Hospital Encounter [facility] Maternal Medicine [facility] [address] [place] [phone] Srinivasa Hernandez MD [address] [facility] [address] [place] [address] Encounter for follow-up ultrasound of [...] Procedure Name Priority Date/Time Associated Diagnosis Comments [facility] US COMPREHENSIVE SINGLE F/U Routine 12/02/2023 10:10 AM CDT Encounter for follow-up ultrasound of anatomy documented in this encounter Results * [facility] US Comprehensive Single F/U (12/02/2023 10:10 [...] ? Study Date: ??12/02/2023 9:34am Pat. NO: ??[id number] ?Referring ??MD: LEIGH LIND Site: ??[place] ? Thermodynamics Engineer: Altagracia Kruger RDMS : ??1995 ?Age: ?? [...] lb 10 ? oz EFW by ?Hadlock ([id number]-FL) Head / Face / Neck Biometry: Tool Turret Lathe Set Up Operator ? 5.9 ? mm CM ?5.4 ? [...] LVOT view. Aortic arch view. 3-vessel view. 3-kkzeze-nfezoky view. ? Diaphragm. Abdomen ? Stomach. Right [...] have scheduled the patient to return to [facility] at 28 weeks to reassess growth [...] H[place]S Study Date: 12/02/2023 9:34am Pat. NO: [id number] Referring MD: LEIGH LIND Site: [facility] Thermodynamics Engineer: Altagracia Kruger RDMS : 1995 Age: 28 [...] 1 lb 10 oz EFW by Hadlock (UMO-FL-AP-FL) Head / Face / Neck Biometry: Tool Turret Lathe Set Up Operator 5.9 mm CM 5.4 mm Urinary Tract [...] view. LVOT view.Aortic arch view. 3-vessel view. 0-ynaamx-sohrpbr view. Diaphragm. Abdomen Stomach. Right kidney. Bladder. [...] have scheduled the patient to return to [facility] at 28 weeks to reassess growth [...] anatomy documented in this encounter Care Teams Slaughterer Religious Ritual Relationship Specialty Start Date End Date No Ref-Primary, Physician PCP - General 09/24/23 documented as of this encounter
--- OUTSIDE RECORDS SUMMARY | 2024-01-27 09:34 | XMS_ITS | Clinical Summary ---
Author Organization [facility] Address [place], [place] [address] Care Team Providers Care Transcription Typist Name Role Phone Noris Todd MD Primary Care P rovider Dana Ch MD Unavailable [phone] Allergies No known active allergies Medications Medication [...] arrhythmia affecting p regnancy, antepartum-intermittent SVT 07/23/2021 [facility] Supervision of high-risk Overview: [facility] OB PATIENT SO: Pato Its a boy! NEXT VISIT ALERTS: Patient checking at home BPs? COVID-19 08/28/21 negative = need to repeat prior to IOL 09/06/21 PLANS & FUTURE APPOINTMENTS: - OB visits: Through 09/19/21 TESTING PLAN: Weekly - Testing: Through 09/19/21 GROWTH PLAN: - Growth: Next 09/19/21 DELIVERY PLAN: - Scheduled delivery: 09/06/21 @ 1930 with [facility] - Preferred delivery location: [facility] PRIMARY DIAGNOSIS: 26 y.o. Estimated Date of Delivery: 09/27/21 : Intermittent SVT Maternal: gHTN? Hospital admission d/t SVT 07/23-07/26; started flecainide Anxiety/Depression LAST GROWTH: 08/22/21 34w6d EFW 2411 grams, percentile: 36 07/23/21 30w4d EFW 1663 grams, percentile: 49 ECHO: Multiple in [facility] 08/22/21 Normal REFERRING PHYSICIAN/PHONE/LAST UPDATE: Dana Ch MD [facility] [phone] Primary MD approves scheduling of recommended ultrasounds/testing: Not specified SPECIALISTS/CONSULTS: Include: Specialty MD Clinic Name Phone# LV NV and ADDED TO PATIENT CARE TEAM Yes LEXI signed for [facility]: Signed 08/22/21 CARE COORDINATION: Belle Coleman, SERGEI/Lay House, RN/Radhika Huitron RN/Angelique Pabon RN/Jesenia Coy, SERGEI [phone] CHURN DRILLER HELPER: GENETICS: 04/17/21 AFP Negative 07/25/21 [facility] - genetic testing after PROCEDURES: EKG [...] PCR 0.1 CHECKLIST FOR SCHEDULING PROCEDURES: Call [phone] for [facility]Visum and [phone] for [place] Procedure: Induction Hospital: [facility] Unit: L&D Date & Time of procedure: 09/06/21 @ 1930 Nur Score if induction: 3 Pertinent information: gHTN, intermittent SVT Gestational age on procedure date? 37 MD doing procedure: [place] [facility] Date scheduled: 08/28/2021 when patient was 35w5d. Scheduling MD & RN: COOPER Rico & Richard RN Notifications: Hospitalist Delivery-OBH marble mason notified through [employer] inbox? Yes MPP MD marble mason notified via [employer] inbox? Yes Primary MD notified via Ashlee inbox? No Primary MD clinic called if not Ashlee? No On [facility] calendar? Yes Care Coordination notified? Yes H&P/PPTL: PPTL permit signed? Not Applicable H&P and Plan in chart? Yes, 08/22/21 [facility] appointment made for H&P with ASBESTOS ABATEMENT TECHNICIAN within 30 days of procedure? Completed 08/22/21 Regardless of vaccination status, all procedures require a COVID-19 test . Patients should be scheduled for a COVID-19 test within 3-5 days prior to the scheduled procedure to be done in main [facility] Clinic Date: 09/03/21 Patient notification: Patient notified of procedure date? Yes Written admission instructions given to patient via AVS? No PPTL& DELIVERY SCHEDULING: Do COVID testing with in 3-5 days of scheduled delivery @ a main [facility] site H&P needed 30 days before [...] Chucky garcia MD Complications:None Delivery Location:Hospital ( [address]) Last Filed Vital Signs Vital Sign [...] supervision of normal first in first trimester TAX ASSOCIATE ATTORNEY THIN PREP PAP SCREEN IMAGED Routine 06/18/2020 2:20 PM CDT Cervical cancer screening from Last 3 Months or Most Recently Relevant to Health Maintenance Results * ANTI HCV (03/04/2021 3:03 PM CDT) HEPATITIS C ANTIBODY Non-React monique Non-React monique 03/05/2021 12:30 AM CDT [facility] Comment:Antibodies to HCV no t detected; does not exclude the possibility of exposure to HCV. Blood BLOOD SPECIMEN / Unknown Venipuncture / Unknown 03/04/2021 3:03 PM CDT 03/04/2021 3:06 PM CDT Monica Licea MD SEND OUTS Performing Organization Address [facility] Co de Phone Number [facility] [address] [place] [address], * ANTI HIV 1/2 (03/04/2021 3:03 PM CDT) Pathologist [facility] HIV-1/HIV-2 ANTIBODY Non-Reacti ve Non-Reacti ve 03/05/2021 12:49 AM CDT [facility] Comment:HIV-1 p24 and HIV-1/ HIV-2 Ab not detected. Blood BLOOD SPECIMEN / Unknown Venipuncture / Unknown 03/04/2021 3:03 PM CDT 03/04/2021 3:06 PM CDT Monica Licea MD SEND OUTS Performing Organization Address [facility] Co de Phone Number [facility] [address] [place] [address], * TAX ASSOCIATE ATTORNEY THIN PREP PAP SCREEN IMAGED (06/18/2020 2:20 PM CDT) Pathologist [facility] Case Report Gynecologic Cytology Report ? Case: [id number] ? Authorizing Provider: ??Doreen Meraz NP ?Collected: ? 06/18/2020 1420 ? Ordering Location: ? [facility] ?Received: ?06/18/2020 1420 ? Clinic ? First Screen: ?Shaniqua Dong ? Specimen: ?TAX ASSOCIATE ATTORNEY ThinPrep Vial Screening, Cervical ? 06/23/2020 8:31 AM CDT [facility]AL LABORATORY INTERPRETATION/ RESULT NEGATIVE FOR INTRAEPITHELIAL LESION OR MALIGNANCY (NIL) (none) 06/23/2020 8:31 AM CDT [facility]AL [facility] IMEN ADEQUACY Satisfactory for evaluation Endocervical component present 06/23/2020 8:31 AM CDT [facility] HPV REQUEST HPV if ASCUS 06/23/2020 8:31 AM CDT [facility] Date of LMP 05/22/2020 06/23/2020 8:31 AM CDT [facility] Last Pap Date 06/15/17 06/23/2020 8:31 AM CDT [facility] Last Pap Result NIL 0 8:31 AM CDT [facility] Abnormal Pap or [place] Bx in last 5 years No 06/23/2020 8:31 AM CDT [facility] Menstrual Status Regular Periods 06/23/2020 8:31 AM CDT [facility] [place] Bx Done Today No 06/23/2020 8:31 AM CDT [facility] Additional Information None given 06/23/2020 8:31 AM CDT [facility] Comment: Cytology is screened at [facility] - [address], [place] [address] and [facility] - [address], [place] [address] [address] [facility] - [address] [place] [address] Interpreted at [facility] - [address], [place] [address] Automated Review Successful 06/23/2020 8:31 AM CDT [facility] Comment:Specimen processed s uccessfully by automated sql server consultant device, ConvivaPrep Imaging System, [employer] Note The pap test is a [...] and malignant lesions. 06/23/2020 8:31 AM CDT [facility] Other (Cervical) Non-Blood / Unknown 06/18/2020 2:20 PM CDT 06/18/2020 2:20 PM CDT Doreen Meraz NP PATHOLOGY/CYTOLOGY [facility] 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
--- NOTE | 2024-01-27 09:45 | CRLHL7_ITS ---
For Patients: As a result of the Century Cures Act, medical imaging exams and procedure reports are released immediately into your electronic medical record. You may view this report before your referring provider. If you have questions, please contact your health care provider. INDICATION: Pain, elevated liver enzymes, 3rd trimester COMPARISON: none TECHNIQUE: Real time uribe scale imaging and color Doppler analysis was performed of the right upper quadrant. FINDINGS: The liver is diffusely echogenic. The liver measures 19.4 cm. No intrahepatic mass. The main portal vein is patent with antegrade flow and measures 1.1 cm. There is a normal appearance of the hepatic IVC and proximal abdominal aorta. There is no evidence of ascites. The gallbladder is of normal size and there is a hyperechoic focus along the dependent gallbladder wall measuring 7 millimeters. The gallbladder wall measures 1.5 mm in thickness. The common bile duct is of normal size and measures 5 mm in diameter at the level of the mandi hepatis. The pancreas appears normal. There is no evidence of a stone or hydronephrosis within the right kidney. The right kidney measures 13.3 cm in length. There is a hyperechoic nonshadowing focus within the right kidney measuring 7 x 7 x 6 millimeters. IMPRESSION: Hepatomegaly and diffuse hepatic steatosis, moderately severe. Echogenic focus associated with the dependent gallbladder wall measuring 7 millimeters may represent gallstones/adherent sludge versus polyp. No biliary obstruction. 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 No hydronephrosis. Dictated by Ata Izquierdo MD @ 01/28/2024 10:39:58 AM (Electronically Signed)
== END 2024-01-27 09:33 | disposition home or self-care (01) ==
PROVIDERS: Visit Provider Obstetrics & Gynecology
DX: O26.893 Other specified pregnancy related conditions, third trimester (principal); R79.89 Other specified abnormal findings of blood chemistry; K76.0 Fatty (change of) liver, not elsewhere classified; R10.9 Unspecified abdominal pain
CPT/HCPCS: 76705

== ENCOUNTER 2024-02-10 12:49 | Outpatient (CLI) | payer BC, SELFPAY ==
--- NOTE | 2024-02-10 13:00 | CRLHL7_ITS ---
For Patients: As a result of the Century Cures Act, medical imaging exams and procedure reports are released immediately into your electronic medical record. You may view this report before your referring provider. If you have questions, please contact your health care provider. INDICATION: Pre-existing hypertension TECHNIQUE: Real time uribe scale imaging of the fetus was performed. COMPARISON: 01/06/2024 FINDINGS: Sonographic imaging demonstrates a single living intrauterine gestation. Fetus demonstrates a regular cardiac rate of 145 beats per minute. Fetus has a vertex position. The placenta lies left posterior. Amniotic fluid volume appears normal and there is a single deepest pocket of 4.2 cm. The estimated weight is 2642gm which lies at the 81st %. BPD 78th percentile. HC is 35th percentile. AC 92nd percentile. FL 60th percentile. The fetus was active and demonstrated normal breathing movements. There was normal flexion and extension of the trunk and extremities. IMPRESSION: Normal biophysical profile score 8/8. Sonographic gestational age 35 weeks 1 day and sonographic due date 03/15/2024. Sonographic age 8 days ahead of the clinical age. Estimated weight 81st percentile. Abdominal circumference 92nd percentile. Dictated by Ata Izquierdo MD @ 02/11/2024 12:12:01 PM (Electronically Signed)
== END 2024-02-10 12:50 | disposition home or self-care (01) ==
LOC: US 12:50
PROVIDERS: Visit Provider Obstetrics & Gynecology
DX: O10.913 Unspecified pre-existing hypertension complicating pregnancy, third trimester (principal); Z3A.35 35 weeks gestation of pregnancy
CPT/HCPCS: 76816; 76819

== ENCOUNTER 2024-02-17 09:05 | Outpatient (CLI) | payer BC, SELFPAY ==
--- OUTSIDE RECORDS SUMMARY | 2024-02-17 09:11 | XMS_ITS | Referral Summary ---
Author Organization [facility] Address [address] [place] [address] Care Team Providers Care Syrup Blender Name Role Phone No Ref-Primary, Physician Primary Care Provider Encounters Date Type Department Care Team Description 01/12/2024 Travel 01/12/2024 10:00 AM CDT Office Visit [facility] [address] [facility] [address] [place] [phone] Srinivasa Hernandez MD Jones, Cresta Wedel, MD renal anomaly, single gestation (Primary Dx) 01/12/2024 9:10 AM CDT - 01/12/2024 11:59 PM CDT Hospital Encounter [facility] Medicine [facility] [address] [facility] [address] [place] [phone] Elmer Ansari MD Pyelectasis of fetus on ultrasound; Obesity affecting , antepartum, unspecified obesity type Discharge Disposition: Home or Self Care 12/02/2023 Travel 12/02/2023 10:00 AM CDT Office Visit [facility] [address] [facility] [address] [place] [phone] Srinivasa Hernandez MD Obesity affecting , antepartum, unspecified obesity type (Primary Dx); Pyelectasis of fetus on ultrasound 12/02/2023 9:30 AM CDT - 12/02/2023 11:59 PM CDT Hospital Encounter [facility] [address] [facility] [address] [place] [address] Srinivasa Hernandez MD Encounter for follow-up ultrasound of anatomy Discharge Disposition: Home or Self Care from Last 3 Months Social History Tobacco [...] Procedure Name Priority Date/Time Associated Diagnosis Comments [facility] US COMPREHENSIVE SINGLE F/U Routine 01/12/2024 9:50 AM CDT Pyelectasis of fetus on ultrasound Obesity affecting , antepartum, unspecified obesity type [facility] US COMPREHENSIVE SINGLE F/U Routine 12/02/2023 10:10 AM CDT Encounter for follow-up ultrasound of anatomy from Last 3 Months Results * [facility] US Comprehensive Single F/U (01/12/2024 9:50 [...] ? Study Date: ??01/12/2024 9:18am Pat. NO: ??[id number] ?Referring ??MD: ERIC HARDY Site: ??[place] ? Library Science Instructor: Jaja Moore RDMS : ??1995 ?Age: ?? [...] lb 11 ? oz EFW by ?Hadlock ([id number]) Head / Face / Neck Biometry: Geriatric Case Manager ? 7.7 ? mm CM ?7.4 ? [...] Thorax ?4-chamber view. RVOT view. LVOT view. 8-gaatxj-wafegun view. ? Diaphragm. Abdomen ? Stomach. Kidneys. [...] for additional US can be done in [place] and should include consideration for a follow [...] HILLS Study Date: 01/12/2024 9:18am Pat. NO: [id number] Referring MD: ERIC HARDY Site: [place] Library Science Instructor: Jaja Moore RDMS : 1995 Age: 28 [...] 3 lb 11 oz EFW by Hadlock ([id number]) Head / Face / Neck Biometry: Geriatric Case Manager 7.7 mm CM 7.4 mm Urinary Tract Biometry: Rt Renal pelvis ap 3.3 mm Lt Renal pelvis ap 3.4 mm ANATOMY ----- The following structures appear normal: Head / Neck Cranium. Head size. Head shape.Lateral ventricles. Midline falx. Cerebellum. Cisterna magna. Thalami. Face Lips. Profile. Nose. Heart / Thorax 4-chamber view. RVOT view. LVOT view.3-vtsxdn-vlfzvpl view. Diaphragm. Abdomen Stomach. Kidneys. Bladder. The [...] for additional US can be done in [place] and should includeconsideration for a follow up [...] volume appeared normal. Srinivasa Hernandez MD [facility] US ORDERABL ES from Last 3 Months Care Teams Syrup Blender Relationship Specialty Start Date End Date No Ref-Primary, Physician PCP - General 09/24/23
--- OUTSIDE RECORDS SUMMARY | 2024-02-17 09:11 | XMS_ITS | Encounter Summary ---
Author Organization [facility] Address [facility] [place] [address] Care Team Providers Care Inverter And Clipper Name Role Phone No Ref-Primary, Physician Primary Care Provider Reason for Visit * Reason Comments Ultrasound RL2-BMI, Left UTD Encounter Details Date Type Department Care Team (Late st Contact Info) Description 01/12/2024 10:00 AM CDT Office Visit [facility] Medicine [facility] [place] [address] [facility] [address] [place] [address] Srinivasa Hernandez MD [address] [place] [address] Elmer Ansari MD [address] [place] [address] renal anomaly, single gestation (Primary [...] Primary documented in this encounter Care Teams Inverter And Clipper Relationship Specialty Start Date End Date No Ref-Primary, Physician PCP - General 09/24/23 documented as of this encounter
--- OUTSIDE RECORDS SUMMARY | 2024-02-17 09:11 | XMS_ITS | Encounter Summary ---
Author Organization [facility] Address [address] [place] [address] Care Team Providers Care Lpn Per Diem Name Role Phone No Ref-Primary, Physician Primary Care Provider Reason for Referral * Diagnostic Imaging Ultrasound (Routine) - Pending Review Specialty Diagnoses / Procedures Referred By Contac t Referred To Contact Radiology. Diagnoses Encounter for follow-up ultrasound of anatomy Procedures [facility] US Comprehensive Single F/U Srinivasa Hernandez MD [address] [place] [address] Referral ID Status Reason Start Date Expiration Date V isits Requested Visits Authorized [id number] Pending Review 11/04/2023 11/03/2024 1 1 Reason for Visit * Diagnostic Imaging Ultrasound (Routine) - Pending Review Specialty Diagnoses / Procedures Referred By Contac t Referred To Contact Radiology. Diagnoses Encounter for follow-up ultrasound of anatomy Procedures [facility] US Comprehensive Single F/U Srinivasa Hernandez MD [address] [place] [address] Referral ID Status Reason Start Date Expiration Date V isits Requested Visits Authorized [id number] Pending Review 11/04/2023 11/03/2024 1 1 Encounter Details Date Type Department Care Team (Latest Contact Info) Description 12/02/2023 9:30 AM CDT - 12/02/2023 11:59 PM CDT Hospital Encounter [facility] Maternal Medicine [facility] [address] [facility] [address] [place] [phone] Srinivasa Hernandez MD [address] [facility] [address] [place] [address] Encounter for follow-up ultrasound of [...] Procedure Name Priority Date/Time Associated Diagnosis Comments [facility] US COMPREHENSIVE SINGLE F/U Routine 12/02/2023 10:10 AM CDT Encounter for follow-up ultrasound of anatomy documented in this encounter Results * [facility] US Comprehensive Single F/U (12/02/2023 10:10 AM [...] ? Study Date: ??12/02/2023 9:34am Pat. NO: ??[id number] ?Referring ??MD: LEIGH LIND Site: ??[place] ? High Man: Altagracia Kruger RDMS : ??1995 ?Age: ?? [...] lb 10 ? oz EFW by ?Hadlock ([id number]) Head / Face / Neck Biometry: Police Lieutenant Patrol ? 5.9 ? mm CM ?5.4 ? [...] LVOT view. Aortic arch view. 3-vessel view. 3-pxyyiz-djfrvzj view. ? Diaphragm. Abdomen ? Stomach. Right [...] have scheduled the patient to return to [facility] at 28 weeks to reassess growth and [...] HILLS Study Date: 12/02/2023 9:34am Pat. NO: [id number] Referring MD: LEIGH LIND Site: [employer] High Man: Altagracia Kruger RDMS : 1995 Age: 28 [...] 1 lb 10 oz EFW by Hadlock ([id number]) Head / Face / Neck Biometry: Police Lieutenant Patrol 5.9 mm CM 5.4 mm Urinary Tract [...] view. LVOT view.Aortic arch view. 3-vessel view. 9-xgygps-qyedhdx view. Diaphragm. Abdomen Stomach. Right kidney. Bladder. [...] have scheduled the patient to return to [facility] at 28 weeks to reassess growth andfetal [...] anatomy documented in this encounter Care Teams Lpn Per Diem Relationship Specialty Start Date End Date No Ref-Primary, Physician PCP - General 09/24/23 documented as of this encounter
--- OUTSIDE RECORDS SUMMARY | 2024-02-17 09:11 | XMS_ITS | Encounter Summary ---
Author Organization [facility] Address [address] [place] [address] Care Team Providers Care Manager Commodities Name Role Phone No Ref-Primary, Physician Primary Care Provider Reason for Referral * Diagnostic Imaging Ultrasound (Routine) - Pending Review Specialty Diagnoses / Procedures Referred By Contgerson t Referred To Contact Radiology. Diagnoses Pyelectasis of fetus on ultrasound Obesity affecting , antepartum, unspecified obesity type Procedures [facility] US Comprehensive Single F/U Srinivasa Hernandez MD [address] [place] [address] Referral ID Status Reason Start Date Expiration Date V isits Requested Visits Authorized [id number] Pending Review 12/02/2023 12/01/2024 1 1 Reason for Visit * Reason Comments Ultrasound Rl2-subopt Encounter Details Date Type Department Care Team ([facility] Contact Info) Description 12/02/2023 10:00 AM CDT Office Visit [facility] Medicine [facility] [place] [address] [facility] [address] [place] [phone] Srinivasa Hernandez MD [address] [place] [address] Obesity affecting , antepartum, unspecified [...] for details of today's US at [facility]. Srinivasa Hernandez MD Maternal- Medicine documented [...] ? Study Date: ??01/12/2024 9:18am Pat. NO: ??[id number] ?Referring ??MD: ERIC HARDY Site: ??[place] ? Delivery Table Operator: Jaja Moore RDMS : ??1995 ?Age: [...] lb 11 ? oz EFW by ?Hadlock ([id number]) Head / Face / Neck Biometry: Mortgage Loan Originator ? 7.7 ? mm CM ?7.4 ? [...] Thorax ?4-chamber view. RVOT view. LVOT view. 8-tykmja-mscskpp view. ? Diaphragm. Abdomen ? Stomach. Kidneys. [...] for additional US can be done in [place] and should include consideration for a follow [...] H[place]S Study Date: 01/12/2024 9:18am Pat. NO: [id number] Referring MD: ERIC HARDY Site: [facility] Delivery Table Operator: Jaja Moore RDMS : 1995 Age: [...] 3 lb 11 oz EFW by Hadlock ([id number]) Head / Face / Neck Biometry: Mortgage Loan Originator 7.7 mm CM 7.4 mm Urinary Tract Biometry: Rt Renal pelvis ap 3.3 mm Lt Renal pelvis ap 3.4 mm ANATOMY ----- The following structures appear normal: Head / Neck Cranium. Head size. Head shape.Lateral ventricles. Midline falx. Cerebellum. Cisterna magna. Thalami. Face Lips. Profile. Nose. Heart / Thorax 4-chamber view. RVOT view. LVOT view.7-mihbkl-yhkerfo view. Diaphragm. Abdomen Stomach. Kidneys. Bladder. The [...] for additional US can be done in [place] and should includeconsideration for a follow up [...] fluid volume appeared normal. Srinivasa Hernandez MD [facility] US ORDERABL ES documented in this encounter Visit Diagnoses Diagnosis Obesity affecting , antepartum, unspecified obesity type- Primary Pyelectasis of fetus on ultrasound Pyelectasis of fetus on ultrasound Obesity affecting , antepartum, unspecified obesity type documented in this encounter Care Teams Manager Commodities Relationship Specialty Start Date End Date No Ref-Primary, Physician PCP - General 09/24/23 documented as of this encounter
--- OUTSIDE RECORDS SUMMARY | 2024-02-17 09:11 | XMS_ITS | Clinical Summary ---
Author Organization [facility] Address [place], [place] [address] Care Team Providers Care Senior Software Engineer Analytics Name Role Phone Noris Todd MD Primary Care P rovider Dana Ch MD Unavailable Allergies No known [...] arrhythmia affecting p regnancy, antepartum-intermittent SVT 07/23/2021 [facility] Supervision of high-risk Overview: [facility] OB PATIENT SO: Pato Its a boy! NEXT VISIT ALERTS: Patient checking at home BPs? COVID-19 08/28/21 negative = need to repeat prior to IOL 09/06/21 PLANS & FUTURE APPOINTMENTS: - OB visits: Through 09/19/21 TESTING PLAN: Weekly - Testing: Through 09/19/21 GROWTH PLAN: - Growth: Next 09/19/21 DELIVERY PLAN: - Scheduled delivery: 09/06/21 @ 1930 with [facility] - Preferred delivery location: [facility] PRIMARY DIAGNOSIS: 26 y.o. Estimated Date of Delivery: 09/27/21 : Intermittent SVT Maternal: gHTN? Hospital admission d/t SVT 07/23-07/26; started flecainide Anxiety/Depression LAST GROWTH: 08/22/21 34w6d EFW 2411 grams, percentile: 36 07/23/21 30w4d EFW 1663 grams, percentile: 49 ECHO: Multiple in [facility] 08/22/21 Normal REFERRING PHYSICIAN/PHONE/LAST UPDATE: Dana Ch MD [facility] [phone] Primary MD approves scheduling of recommended ultrasounds/testing: Not specified SPECIALISTS/CONSULTS: Include: Specialty MD Clinic Name Phone# LV [place] and ADDED TO PATIENT CARE TEAM Yes LEXI signed for [facility]: Signed 08/22/21 CARE COORDINATION: Belle Coleman, SERGEI/Lay House, RN/Radhika Huitron RN/Angelique Pabon RN/Jesenia Coy, SERGEI [phone] WILDLIFE ECOLOGY PROFESSOR: GENETICS: 04/17/21 AFP Negative 07/25/21 [facility] - genetic testing after PROCEDURES: EKG [...] PCR 0.1 CHECKLIST FOR SCHEDULING PROCEDURES: Call [phone] for [employer] and [phone] for [facility] Procedure: Induction Hospital: [place] Unit: L&D Date & Time of procedure: 09/06/21 @ 1930 Nur Score if induction: 3 Pertinent information: gHTN, intermittent SVT Gestational age on procedure date? 37 MD doing procedure: [facility] [place] [facility] Date scheduled: 08/28/2021 when patient was 35w5d. Scheduling MD & RN: COOPER Rico & Richard RN Notifications: Hospitalist Delivery-OBH aviation manager notified through [employer] inbox? Yes MPP MD aviation manager notified via [employer] inbox? Yes Primary MD notified via Ashlee inbox? No Primary MD clinic called if not Ashlee? No On [facility] calendar? Yes Care Coordination notified? Yes H&P/PPTL: PPTL permit signed? Not Applicable H&P and Plan in chart? Yes, 08/22/21 [facility] appointment made for H&P with [facility] within 30 days of procedure? Completed 08/22/21 Regardless of vaccination status, all procedures require a COVID-19 test . Patients should be scheduled for a COVID-19 test within 3-5 days prior to the scheduled procedure to be done in main [facility] Clinic Date: 09/03/21 Patient notification: Patient notified of procedure date? Yes Written admission instructions given to patient via AVS? No PPTL& DELIVERY SCHEDULING: Do COVID testing with in 3-5 days of scheduled delivery @ a main [facility] site H&P needed 30 days before [...] Outcome GA Total Labor Labor/2nd/3rd Weight Sex Type Anes PTL Linda A1 A5 Name Clin 2021 Term 37w 1d 5h 34m 5h 12m/0h 19m/0h 03m 2.71 kg (5 lb 15.6 oz) M VAGINA L GUERRERO Epidu ral,L ocal Livin g 7 9 GLORIA GUERRA,BB JACKIE cason, Chucky garcia MD Complications:None Delivery Location:[facility] ( [address]) Last Filed Vital Signs Vital Sign [...] supervision of normal first in first trimester [facility] BAILIFF THIN PREP PAP SCREEN IMAGED Routine 06/18/2020 2:20 PM CDT Cervical cancer screening from Last 3 Months or Most Recently Relevant to Health Maintenance Results * ANTI HCV (03/04/2021 3:03 PM CDT) HEPATITIS C ANTIBODY Non-React monique Non-React monique 03/05/2021 12:30 AM CDT [facility] Comment:Antibodies to HCV no t detected; does not exclude the possibility of exposure to HCV. Blood BLOOD SPECIMEN / Unknown Venipuncture / Unknown 03/04/2021 3:03 PM CDT 03/04/2021 3:06 PM CDT Monica Licea MD SEND OUTS Performing Organization Address [facility] [employer] Phone Number [facility] [address] [place] [address], * ANTI HIV 1/2 (03/04/2021 3:03 PM CDT) Pathologist [facility] HIV-1/HIV-2 ANTIBODY Non-Reacti ve Non-Reacti ve 03/05/2021 12:49 AM CDT [facility] TRAL [facility] Comment:HIV-1 p24 and HIV-1/ HIV-2 Ab not detected. Blood BLOOD SPECIMEN / Unknown Venipuncture / Unknown 03/04/2021 3:03 PM CDT 03/04/2021 3:06 PM CDT Monica Licea MD SEND OUTS Performing Organization Address [facility] [employer] Phone Number [facility] [address] [place] [address], * [facility] COURT BAILIFF THIN PREP PAP SCREEN IMAGED (06/18/2020 2:20 PM CDT) Pathologist [facility] Case Report Gynecologic Cytology Report ? Case: [id number] ? Authorizing Provider: ??Doreen Meraz NP ?Collected: ? 06/18/2020 1420 ? Ordering Location: ? [facility] ?Received: ?06/18/2020 1420 ? Clinic ? First Screen: ?Shaniqua Dong ? Specimen: ?DISTRICT COURT BAILIFF ThinPrep Vial Screening, Cervical ? 06/23/2020 8:31 AM CDT [facility] EN[facility]AL [facility] INTERPRETATION/ RESULT NEGATIVE FOR INTRAEPITHELIAL LESION OR MALIGNANCY (NIL) (none) 06/23/2020 8:31 AM CDT [facility] IMEN ADEQUACY Satisfactory for evaluation Endocervical component present 06/23/2020 8:31 AM CDT [facility] HPV REQUEST HPV if ASCUS 06/23/2020 8:31 AM CDT [facility] Date of LMP 05/22/2020 06/23/2020 8:31 AM CDT [facility] Last Pap Date 06/15/17 06/23/2020 8:31 AM CDT [facility] EN[facility]AL LABORATORY Last Pap Result NIL 0 8:31 AM CDT [facility] Abnormal Pap or [place] Bx in last 5 years No 06/23/2020 8:31 AM CDT [facility] Menstrual Status Regular Periods 06/23/2020 8:31 AM CDT [facility] [place] Bx Done Today No 06/23/2020 8:31 AM CDT [facility] Additional Information None given 06/23/2020 8:31 AM CDT [facility]AL [facility] Comment: Cytology is screened at [facility] - [address], [place] [address] and [facility] - [address], [place] [address] [address] [facility] - [address] [place] [address] Interpreted at [facility] - [address], [place] [address] Automated Review Successful 06/23/2020 8:[address] [facility] Comment:Specimen processed s uccessfully by automated senior analysis specialist device, ThinPrep Imaging System, [employer] Note The pap test is a [...] and malignant lesions. 06/23/2020 8:[address] [facility] Other (Cervical) Non-Blood / Unknown 06/18/2020 2:20 PM CDT 06/18/2020 2:20 PM CDT Doreen Meraz NP PATHOLOGY/CYTOLOGY [facility] [address] [place] [address], [place] from Last 3 Months or Most Recently Relevant to Health Maintenance Advance Directives Documents on File Type Date Recorded Patient Social Human Services Assistants Expl anation Treatment Guidelines 09/06/2021 * Full [...] Preferences, Provider to review later Care Teams Senior Software Engineer Analytics Relationship Specialty Start Date End Date Noris Todd MD [address] [place] [address] PCP - General Family Practice 04/03/21 Dana Ch MD [address] [place] [address] Referring Provider Obstetrics and Gynecology 08/19/21
--- OUTSIDE RECORDS SUMMARY | 2024-02-17 09:11 | XMS_ITS | Encounter Summary ---
Author Organization [facility] Address [address] [place] [address] Care Team Providers Care Assistant Director Of Residence Life Name Role Phone No Ref-Primary, Physician Primary [...] on filedocumented in this encounter Care Teams Assistant Director Of Residence Life Relationship Specialty Start Date End Date No Ref-Primary, Physician PCP - General 09/24/23 documented as of this encounter
--- OUTSIDE RECORDS SUMMARY | 2024-02-17 09:11 | XMS_ITS | Clinical Summary ---
Author Organization [facility] Address [address] [place] [address] Care Team Providers Care Sports Athletic Trainer Name Role Phone No Ref-Primary, Physician Primary Care Provider Encounters Date Type Department Care Team Description 01/12/2024 10:00 AM CDT Office Visit [facility] Maternal Medicine [facility] [address] [place] [address] Srinivasa Hernandez MD Jones, Cresta Wedel, MD renal anomaly, single gestation (Primary Dx) 01/12/2024 9:10 AM CDT - 01/12/2024 11:59 PM CDT Hospital Encounter [facility] Medicine [facility] [address] [facility] [address] [place] [address] Elmer Ansari MD Pyelectasis of fetus on ultrasound; Obesity affecting , antepartum, unspecified obesity type Discharge Disposition: Home or Self Care 01/12/2024 Travel 12/02/2023 10:00 AM CDT Office Visit [facility] Maternal Medicine [facility] [address] [place] [address] Srinivasa Hernandez MD Obesity affecting , antepartum, unspecified obesity type (Primary Dx); Pyelectasis of fetus on ultrasound 12/02/2023 9:30 AM CDT - 12/02/2023 11:59 PM CDT Hospital Encounter [facility] Medicine [facility] [address] [place] [address] Srinivasa Hernandez MD Encounter for follow-up ultrasound of anatomy Discharge Disposition: Home or Self Care 12/02/2023 Travel from Last 3 Months Social History Tobacco [...] Procedure Name Priority Date/Time Associated Diagnosis Comments [facility] US COMPREHENSIVE SINGLE F/U Routine 01/12/2024 9:50 AM CDT Pyelectasis of fetus on ultrasound Obesity affecting , antepartum, unspecified obesity type [facility] US COMPREHENSIVE SINGLE F/U Routine 12/02/2023 10:10 AM CDT Encounter for follow-up ultrasound of anatomy from Last 3 Months Results * [facility] US Comprehensive Single F/U (01/12/2024 9:50 [...] CDT ?Comp Follow Up ----- Pat. Name: HILLS, JACKIE ? Study Date: ??01/12/2024 9:18am Pat. NO: ??[id number] ?Referring ??MD: ERIC HARDY Site: ??[facility] ? Bark Skinner: Jaja Moore RDMS : ??1995 ?Age: ?? [...] 3 lb 11 ? oz EFW by ?[facility]. [facility] ([id number]) Head / Face / Neck Biometry: Pta ? 7.7 ? mm CM ?7.4 ? [...] Thorax ?4-chamber view. RVOT view. LVOT view. 2-rltubk-vihhznx view. ? Diaphragm. Abdomen ? Stomach. Kidneys. [...] for additional US can be done in [place] and should include consideration for a follow [...] HILLS Study Date: 01/12/2024 9:18am Pat. NO: [id number] Referring MD: ERIC HARDY Site: [facility] Bark Skinner: Jaja Moore RDMS : 1995 Age: 28 [...] 3 lb 11 oz EFW by Hadlock ([id number]) Head / Face / Neck Biometry: Pta 7.7 mm CM 7.4 mm Urinary Tract Biometry: Rt Renal pelvis ap 3.3 mm Lt Renal pelvis ap 3.4 mm ANATOMY ----- The following structures appear normal: Head / Neck Cranium. Head size. Head shape.Lateral ventricles. Midline falx. Cerebellum. Cisterna magna. Thalami. Face Lips. Profile. Nose. Heart / Thorax 4-chamber view. RVOT view. LVOT view.2-fdhjxa-sdbrddx view. Diaphragm. Abdomen Stomach. Kidneys. Bladder. The [...] for additional US can be done in [place] and should includeconsideration for a follow up [...] fluid volume appeared normal. Srinivasa Hernandez MD [facility] ORDERABL ES from Last 3 Months Care Teams Sports Athletic Trainer Relationship Specialty Start Date End Date No Ref-Primary, Physician PCP - General 09/24/23
--- OUTSIDE RECORDS SUMMARY | 2024-02-17 09:11 | XMS_ITS | Encounter Summary ---
Author Organization [facility] Address [address] [place] [address] Care Team Providers Care Form Grader Operator Name Role Phone No Ref-Primary, Physician [...] on filedocumented in this encounter Care Teams Form Grader Operator Relationship Specialty Start Date End Date No Ref-Primary, Physician PCP - General 09/24/23 documented as of this encounter
--- OUTSIDE RECORDS SUMMARY | 2024-02-17 09:11 | XMS_ITS | Encounter Summary ---
Author Organization [facility] Address [address] [place] [address] Care Team Providers Care Historic Clothing And Costume Maker Name Role Phone No Ref-Primary, Physician Primary Care Provider Reason for Referral * Diagnostic Imaging Ultrasound (Routine) - Pending Review Specialty Diagnoses / Procedures Referred By Leida galeano Referred To Contact Radiology. Diagnoses Pyelectasis of fetus on ultrasound Obesity affecting , antepartum, unspecified obesity type Procedures [facility] US Comprehensive Single F/U Srinivasa Hernandez MD [address] [place] [address] Referral ID Status Reason Start Date Expiration Date V isits Requested Visits Authorized [id number] Pending Review 12/02/2023 12/01/2024 1 1 Reason for Visit * Diagnostic Imaging Ultrasound (Routine) - Pending Review Specialty Diagnoses / Procedures Referred By Contac t Referred To Contact Radiology. Diagnoses Pyelectasis of fetus on ultrasound Obesity affecting , antepartum, unspecified obesity type Procedures [facility] US Comprehensive Single F/U Srinivasa Hernandez MD [address] [place] [address] Referral ID Status Reason Start Date Expiration Date V isits Requested Visits Authorized [id number] Pending Review 12/02/2023 12/01/2024 1 1 Encounter Details Date Type Department Care Team (Latest Contact Info) Description 01/12/2024 9:10 AM CDT - 01/12/2024 11:59 PM CDT Hospital Encounter [facility] Maternal Medicine [facility] [place] [address] [place] [address] Elmer Ansari MD [address] [place] [address] Pyelectasis of fetus on ultrasound; [...] Procedure Name Priority Date/Time Associated Diagnosis Comments [facility] COMPREHENSIVE SINGLE F/U Routine 01/12/2024 9:50 AM CDT Pyelectasis of fetus on ultrasound Obesity affecting , antepartum, unspecified obesity type documented in this encounter Results * [facility] Comprehensive Single F/U (01/12/2024 9:50 AM CDT) [...] ? Study Date: ??01/12/2024 9:18am Pat. NO: ??[id number] ?Referring ??MD: ERIC HARDY Site: ??[facility] ? Clay Caster: Jaja Moore RDMS : ??1995 ?Age: ?? [...] lb 11 ? oz EFW by ?Hadlock ([id number]) Head / Face / Neck Biometry: Fisher Reef Net ? 7.7 ? mm CM ?7.4 ? [...] Thorax ?4-chamber view. RVOT view. LVOT view. 7-txxygl-vykwsrl view. ? Diaphragm. Abdomen ? Stomach. Kidneys. [...] for additional US can be done in [place] and should include consideration for a follow [...] HILLS Study Date: 01/12/2024 9:18am Pat. NO: [id number] Referring MD: ERIC HARDY Site: [facility] Clay Caster: Jaja Moore RDMS : 1995 Age: 28 [...] 3 lb 11 oz EFW by Hadlock ([id number]) Head / Face / Neck Biometry: Fisher Reef Net 7.7 mm CM 7.4 mm Urinary Tract Biometry: Rt Renal pelvis ap 3.3 mm Lt Renal pelvis ap 3.4 mm ANATOMY ----- The following structures appear normal: Head / Neck Cranium. Head size. Head shape.Lateral ventricles. Midline falx. Cerebellum. Cisterna magna. Thalami. Face Lips. Profile. Nose. Heart / Thorax 4-chamber view. RVOT view. LVOT view.4-fryrwp-wukhlgm view. Diaphragm. Abdomen Stomach. Kidneys. Bladder. The [...] for additional US can be done in [place] and should includeconsideration for a follow up growth in 4-6 weeks, as well as weekly BPPsto start around 34 weeks. She reports no issues with her BP thus far, but she is watching itclosely. Return to primary provider for continued care. If you have questions regarding today's evaluation or if [facility], please contact the Maternal- Medicine Center. [...] fluid volume appeared normal. Srinivasa Hernandez MD [facility] US ORDERABL ES documented in this encounter Visit Diagnoses Diagnosis Pyelectasis of fetus on ultrasound Obesity affecting , antepartum, unspecified obesity type documented in this encounter Care Teams Historic Clothing And Costume Maker Relationship Specialty Start Date End Date No Ref-Primary, Physician PCP - General 09/24/23 documented as of this encounter
--- NOTE | 2024-02-17 09:15 | CRLHL7_ITS ---
For Patients: As a result of the Cures Act, medical imaging exams and procedure reports are released immediately into your electronic medical record. You may view this report before your referring provider. If you have questions, please contact your health care provider. INDICATION: Pre-existing hypertension. Thirty-five weeks 0 day . Technique: Transabdominal grayscale and Doppler images from a biophysical profiles submitted FINDINGS: breathing movements: 2 Gross body movements: 2 tone: 2 Amniotic fluid volume: 2 Total: 8/8 Amniotic Fluid SDP: 4.1 cm. Heart rate is 45 beats per minute. Vertex presentation IMPRESSION: Normal biophysical profile score of 8/8. Dictated by Jarrett Dunlap MD @ 02/17/2024 3:57:59 PM (Electronically Signed)
== END 2024-02-17 09:06 | disposition home or self-care (01) ==
LOC: US 09:05
PROVIDERS: Visit Provider Obstetrics & Gynecology
DX: O10.913 Unspecified pre-existing hypertension complicating pregnancy, third trimester (principal); Z3A.35 35 weeks gestation of pregnancy
CPT/HCPCS: 76819; 80076; 83690

== ENCOUNTER 2024-02-24 07:18 | Outpatient (CLI) | payer BC, SELFPAY ==
--- NOTE | 2024-02-24 07:15 | CRLHL7_ITS ---
For Patients: As a result of the Century Cures Act, medical imaging exams and procedure reports are released immediately into your electronic medical record. You may view this report before your referring provider. If you have questions, please contact your health care provider. INDICATION: Chronic hypertension. COMPARISON: OB ultrasound 02/17/2024. TECHNIQUE: Ultrasound OB pelvis biophysical profile. Real time uribe scale imaging of the fetus was performed without non-stress testing. FINDINGS: Sonographic imaging demonstrates a single living intrauterine gestation. The fetus demonstrates a regular cardiac rate of 161 beats per minute. The fetus has a cephalic orientation. The placenta lies posteriorly. Single deepest pocket measures 5.3 cm (2/2). The fetus was active (2/2). There was normal flexion and extension of the trunk and extremities (2/2). The fetus demonstrated normal breathing movements (2/2). IMPRESSION: Normal biophysical profile score 8 out of 8. Dictated by Priscilla Garcia MD @ 02/25/2024 2:11:29 AM (Electronically Signed)
--- OUTSIDE RECORDS SUMMARY | 2024-02-24 07:20 | XMS_ITS | Encounter Summary ---
Author Organization [facility] Address [address] [place] [address] Care Team Providers Care Refinery Operator Polymerization Plant Name Role Phone No Ref-Primary, Physician Primary [...] on filedocumented in this encounter Care Teams Refinery Operator Polymerization Plant Relationship Specialty Start Date End Date No Ref-Primary, Physician PCP - General 09/24/23 documented as of this encounter
--- OUTSIDE RECORDS SUMMARY | 2024-02-24 07:20 | XMS_ITS | Encounter Summary ---
Author Organization [place] Address [facility] [place] [address] Care Team Providers Care Metal Bonding Helper Name Role Phone No Ref-Primary, Physician Primary Care Provider Reason for Visit * Reason Comments Ultrasound RL2-BMI, Left UTD Encounter Details Date Type Department Care Team (Late st Contact Info) Description 01/12/2024 10:00 AM CDT Office Visit [facility] Maternal Medicine Center [place] [address] [facility] [address] [place] [address] Srinivasa Hernandez MD [address] [place] [address] Elmer Ansari MD [address] [place] [address] renal anomaly, single gestation (Primary [...] Primary documented in this encounter Care Teams Metal Bonding Helper Relationship Specialty Start Date End Date No Ref-Primary, Physician PCP - General 09/24/23 documented as of this encounter
--- OUTSIDE RECORDS SUMMARY | 2024-02-24 07:20 | XMS_ITS | Encounter Summary ---
Author Organization [facility] Address [address] [place] [address] Care Team Providers Care Home Service Consultant Name Role Phone No Ref-Primary, Physician Primary Care Provider Reason for Referral * Diagnostic Imaging Ultrasound (Routine) - Pending Review Specialty Diagnoses / Procedures Referred By Contac t Referred To Contact Radiology. Diagnoses Encounter for follow-up ultrasound of anatomy Procedures [facility] US Comprehensive Single F/U Srinivasa Hernandez MD [address] [facility] [address] [place] [address] Referral ID Status Reason Start Date Expiration Date V isits Requested Visits Authorized [id number] Pending Review 11/04/2023 11/03/2024 1 1 Reason for Visit * Diagnostic Imaging Ultrasound (Routine) - Pending Review Specialty Diagnoses / Procedures Referred By Contac t Referred To Contact Radiology. Diagnoses Encounter for follow-up ultrasound of anatomy Procedures [facility] US Comprehensive Single F/U Srinivasa Hernandez MD [address] [facility] [address] [place] [address] Referral ID Status Reason Start Date Expiration Date V isits Requested Visits Authorized [id number] Pending Review 11/04/2023 11/03/2024 1 1 Encounter Details Date Type Department Care Team (Latest Contact Info) Description 12/02/2023 9:30 AM CDT - 12/02/2023 11:59 PM CDT Hospital Encounter [facility] Maternal Medicine [facility] [address] [facility] [address] [place] [phone] Srinivasa Hernandez MD [address] [facility] [address] [place] [address] Encounter for follow-up ultrasound of [...] Procedure Name Priority Date/Time Associated Diagnosis Comments [facility] US COMPREHENSIVE SINGLE F/U Routine 12/02/2023 10:10 AM CDT Encounter for follow-up ultrasound of anatomy documented in this encounter Results * [facility] US Comprehensive Single F/U (12/02/2023 10:10 [...] ? Study Date: ??12/02/2023 9:34am Pat. NO: ??[id number] ?Referring ??MD: LEIGH LIND Site: ??[facility] ? Dinker: Altagracia Kruger RDMS : ??1995 ?Age: ?? [...] lb 10 ? oz EFW by ?Hadlock ([id number]) Head / Face / Neck Biometry: Hole Digger ? 5.9 ? mm CM ?5.4 ? [...] LVOT view. Aortic arch view. 3-vessel view. 3-qvjeke-hnjxaxj view. ? Diaphragm. Abdomen ? Stomach. Right [...] have scheduled the patient to return to [facility] at 28 weeks to reassess growth [...] HILLS Study Date: 12/02/2023 9:34am Pat. NO: [id number] Referring MD: LEIGH LIND Site: [facility] Dinker: Altagracia Kruger RDMS : 1995 Age: 28 [...] 1 lb 10 oz EFW by Hadlock ([id number]) Head / Face / Neck Biometry: Hole Digger 5.9 mm CM 5.4 mm Urinary Tract [...] view. LVOT view.Aortic arch view. 3-vessel view. 3-xujzey-cvxtqee view. Diaphragm. Abdomen Stomach. Right kidney. Bladder. [...] have scheduled the patient to return to [facility] at 28 weeks to reassess growth [...] anatomy documented in this encounter Care Teams Home Service Consultant Relationship Specialty Start Date End Date No Ref-Primary, Physician PCP - General 09/24/23 documented as of this encounter
--- OUTSIDE RECORDS SUMMARY | 2024-02-24 07:20 | XMS_ITS | Referral Summary ---
Author Organization [facility] Address [address] [place] [address] Care Team Providers Care Granite Block Paver Name Role Phone No Ref-Primary, Physician Primary Care Provider Encounters Date Type Department Care Team Description 01/12/2024 Travel 01/12/2024 10:00 AM CDT Office Visit [facility] Maternal Medicine [facility] [address] [facility] [address] [place] [phone] Srinivasa Hernandez MD Jones, Cresta Wedel, MD renal anomaly, single gestation (Primary Dx) 01/12/2024 9:10 AM CDT - 01/12/2024 11:59 PM CDT Hospital Encounter [facility] Medicine [facility] [address] [facility] [address] [place] [phone] Elmer Ansari MD Pyelectasis of fetus on ultrasound; Obesity affecting , antepartum, unspecified obesity type Discharge Disposition: Home or Self Care 12/02/2023 Travel 12/02/2023 10:00 AM CDT Office Visit [facility] Medicine [facility] [address] [facility] [address] [place] [phone] Srinivasa Hernandez MD Obesity affecting , antepartum, unspecified obesity type (Primary Dx); Pyelectasis of fetus on ultrasound 12/02/2023 9:30 AM CDT - 12/02/2023 11:59 PM CDT Hospital Encounter [facility] Medicine [facility] [address] [facility] [address] [place] [address] Srinivasa Hernandez MD Encounter for [...] Procedure Name Priority Date/Time Associated Diagnosis Comments [facility] US COMPREHENSIVE SINGLE F/U Routine 01/12/2024 9:50 AM CDT Pyelectasis of fetus on ultrasound Obesity affecting , antepartum, unspecified obesity type [facility] US COMPREHENSIVE SINGLE F/U Routine 12/02/2023 10:10 AM CDT Encounter for follow-up ultrasound of anatomy from Last 3 Months Results * [facility] US Comprehensive Single F/U (01/12/2024 9:50 [...] ? Study Date: ??01/12/2024 9:18am Pat. NO: ??[id number] ?Referring ??MD: ERIC HARDY Site: ??[facility] ? Relief Mate: Jaja Moore RDMS : ??1995 ?Age: ?? [...] lb 11 ? oz EFW by ?Hadlock ([id number]) Head / Face / Neck Biometry: Spice Grinder ? 7.7 ? mm CM ?7.4 ? [...] Thorax ?4-chamber view. RVOT view. LVOT view. 9-akjkwd-agukiho view. ? Diaphragm. Abdomen ? Stomach. Kidneys. [...] for additional US can be done in [place] and should include consideration for a follow [...] [place] Study Date: 01/12/2024 9:18am Pat. NO: [id number] Referring MD: ERIC HARDY Site: [place] Relief Mate: Jaja Moore RDMS : 1995 Age: 28 [...] 3 lb 11 oz EFW by Hadlock ([id number]-FL) Head / Face / Neck Biometry: Spice Grinder 7.7 mm CM 7.4 mm Urinary Tract Biometry: Rt Renal pelvis ap 3.3 mm Lt Renal pelvis ap 3.4 mm ANATOMY ----- The following structures appear normal: Head / Neck Cranium. Head size. Head shape.Lateral ventricles. Midline falx. Cerebellum. Cisterna magna. Thalami. Face Lips. Profile. Nose. Heart / Thorax 4-chamber view. RVOT view. LVOT view.7-fowvgi-spyuzty view. Diaphragm. Abdomen Stomach. Kidneys. Bladder. The [...] for additional US can be done in [place] and should includeconsideration for a follow up [...] volume appeared normal. Srinivasa Hernandez MD [facility] US ORDERABL ES from Last 3 Months Care Teams Granite Block Paver Relationship Specialty Start Date End Date No Ref-Primary, Physician PCP - General 09/24/23
--- OUTSIDE RECORDS SUMMARY | 2024-02-24 07:20 | XMS_ITS | Clinical Summary ---
Author Organization [facility] Address [address] [place] [address] Care Team Providers Care [place] Boatman Name Role Phone No Ref-Primary, Physician Primary Care Provider Encounters Date Type Department Care Team Description 01/12/2024 10:00 AM CDT Office Visit [facility] Maternal Medicine [facility] [address] [facility] [address] [place] [address] Srinivasa Hernandez MD Jones, Cresta Wedel, MD renal anomaly, single gestation (Primary Dx) 01/12/2024 9:10 AM CDT - 01/12/2024 11:59 PM CDT Hospital Encounter [facility] Medicine [facility] [address] [place] [phone] Elmer Ansari MD Pyelectasis of fetus on ultrasound; Obesity affecting , antepartum, unspecified obesity type Discharge Disposition: Home or Self Care 01/12/2024 Travel 12/02/2023 10:00 AM CDT Office Visit [facility] Maternal Medicine [facility] [address] [place] [address] Srinivasa Hernandez MD Obesity affecting , antepartum, unspecified obesity type (Primary Dx); Pyelectasis of fetus on ultrasound 12/02/2023 9:30 AM CDT - 12/02/2023 11:59 PM CDT Hospital Encounter [facility] Medicine [facility] [address] [place] [address] Srinivasa Hernandez MD Encounter for follow-up ultrasound [...] MATERNAL SCREENING DISCUSSION 08/26/2023 OBGCT (OB) 12/02/2023 GROUP B STREP SCREENING 02/24/2024 INFLUENZA VACCINE (#1) 2024 , 07/16/2022, 06/05/2021, Additional history exists DTAP/TDAP/TD IMMUNIZATION (9 - Td or Tdap) 08/07/2031 08/07/2021, 06/13/2019, 10/13/2006, Additional history exists HEPATITIS B IMMUNIZATION Completed 996, 1995, 1995 IPV IMMUNIZATION Completed 02/26/1999, , 1995, Additional history exists HPV IMMUNIZATION Completed 10/28/2012, 04/2012, 04/14/2012 MENINGITIS IMMUNIZATION Aged Out 06/09/2016 No l onger eligible based on patient's age to complete this topic COVID-19 Vaccine Completed 08/05/2023, 10/2021, 12/18/2020, Additional [...] Procedure Name Priority Date/Time Associated Diagnosis Comments [facility] US COMPREHENSIVE SINGLE F/U Routine 01/12/2024 9:50 AM CDT Pyelectasis of fetus on ultrasound Obesity affecting , antepartum, unspecified obesity type [facility] US COMPREHENSIVE SINGLE F/U Routine 12/02/2023 10:10 AM CDT Encounter for follow-up ultrasound of anatomy from Last 3 Months Results * [facility] US Comprehensive Single F/U (01/12/2024 [...] ? Study Date: ??01/12/2024 9:18am Pat. NO: ??[id number] ?Referring ??MD: ERIC HARDY Site: ??[facility] ? Termite Control Servicer: Jaja Moore RDMS : ??1995 ?Age: ?? [...] Biometry: BPD ?75.2 ?mm ? 30w 1d ?Hadrachel OFD ?99.4 ?mm ? 29w 2d ?Nicolaides HC ?278.4 ?mm ?30w 3d ?Hadlock Cerebellum tr ?33.4 ? mm ?29w 1d ?Nicolaides AC ?271.0 ?mm ?31w 1d ?82% ?Hadlock Femur ?59.8 ? mm ?31w 1d ?Hadlock Weight Calculation: EFW ? 1,683 ?g ? 77% ?Hadlock EFW (lb,oz) ? 3 lb 11 ? oz EFW by ?[facility] ([id number]) Head / Face / Neck Biometry: Coke Inspector ? 7.7 ? mm CM ?7.4 ? [...] Thorax ?4-chamber view. RVOT view. LVOT view. 1-qjakyb-hlplafw view. ? Diaphragm. Abdomen ? Stomach. Kidneys. [...] for additional US can be done in [place] and should include consideration for a follow [...] [place] Study Date: 01/12/2024 9:18am Pat. NO: [id number] Referring MD: ERIC HARDY Site: [facility] Termite Control Servicer: Jaja Moore RDMS : 1995 Age: 28 ----- INDICATION ----- left urinary tract dilation. Elevated BMI. METHOD ----- Transabdominal ultrasound examination. View: Sufficient ----- [place] . Number of fetuses: 1 DATING ----- DateDetailsGest. age MARYBEL LMP 10/25/2023Cycle: regular cycle29 w + 6 d 03/23/2024 [...] 3 lb 11 oz EFW by Hadlock ([id number]-[id number]-FL) Head / Face / Neck Biometry: Coke Inspector 7.7 mm CM 7.4 mm Urinary Tract Biometry: Rt Renal pelvis ap 3.3 mm Lt Renal pelvis ap 3.4 mm ANATOMY ----- The following structures appear normal: Head / Neck Cranium. Head size. Head shape.Lateral ventricles. Midline falx. Cerebellum. Cisterna magna. Thalami. Face Lips. Profile. Nose. Heart / Thorax 4-chamber view. RVOT view. LVOT view.7-okpbyl-wfsrnhm view. Diaphragm. Abdomen Stomach. Kidneys. Bladder. The [...] for additional US can be done in [place] and should includeconsideration for a follow up [...] fluid volume appeared normal. Srinivasa Hernandez MD [facility] ORDERABL ES from Last 3 Months Care Teams [place] Boatman Relationship Specialty Start Date End Date No Ref-Primary, Physician PCP - General 09/24/23
--- OUTSIDE RECORDS SUMMARY | 2024-02-24 07:20 | XMS_ITS | Encounter Summary ---
Author Organization [facility] Address [address] [place] [address] Care Team Providers Care Golf Course Superintendent Name Role Phone No Ref-Primary, Physician Primary Care Provider Reason for Referral * Diagnostic Imaging Ultrasound (Routine) - Pending Review Specialty Diagnoses / Procedures Referred By Contgerson t Referred To Contact Radiology. Diagnoses Pyelectasis of fetus on ultrasound Obesity affecting , antepartum, unspecified obesity type Procedures [facility] US Comprehensive Single F/U Srinivasa Hernandez MD [address] [place] [address] Referral ID Status Reason Start Date Expiration Date V isits Requested Visits Authorized [id number] Pending Review 12/02/2023 12/01/2024 1 1 Reason for Visit * Reason Comments Ultrasound Rl2-subopt Encounter Details Date Type Department Care Team ([facility] Contact Info) Description 12/02/2023 10:00 AM CDT Office Visit [facility] Maternal Medicine [facility] [place] [address] [facility] [address] [place] [phone] Srinivasa Hernandez MD [address] [place] [address] Obesity affecting , antepartum, unspecified [...] documented as of this encounter Results * [facility] US Comprehensive Single F/U (01/12/2024 9:50 [...] ? Study Date: ??01/12/2024 9:18am Pat. NO: ??[id number] ?Referring ??MD: ERIC HARDY Site: ??[place] ? Furniture Dipper: Jaja Moore RDMS : ??1995 ?Age: ?? [...] lb 11 ? oz EFW by ?Hadlock ([id number]-HD-UB-FL) Head / Face / Neck Biometry: Nipping Machine Operator ? 7.7 ? mm CM ?7.4 ? [...] Thorax ?4-chamber view. RVOT view. LVOT view. 9-rtrndh-xqvmwha view. ? Diaphragm. Abdomen ? Stomach. Kidneys. [...] for additional US can be done in [place] and should include consideration for a follow [...] [place] Study Date: 01/12/2024 9:18am Pat. NO: [id number] Referring MD: ERIC HARDY Site: [facility] Furniture Dipper: Jaja Moore RDMS : 1995 Age: 28 [...] 3 lb 11 oz EFW by Hadlock ([id number]-FL) Head / Face / Neck Biometry: Nipping Machine Operator 7.7 mm CM 7.4 mm Urinary Tract Biometry: Rt Renal pelvis ap 3.3 mm Lt Renal pelvis ap 3.4 mm ANATOMY ----- The following structures appear normal: Head / Neck Cranium. Head size. Head shape.Lateral ventricles. Midline falx. Cerebellum. Cisterna magna. Thalami. Face Lips. Profile. Nose. Heart / Thorax 4-chamber view. RVOT view. LVOT view.1-zjdvns-hsvmgdd view. Diaphragm. Abdomen Stomach. Kidneys. Bladder. The [...] for additional US can be done in [place] and should includeconsideration for a follow up [...] fluid volume appeared normal. Srinivasa Hernandez MD [facility] US ORDERABL ES documented in this encounter Visit Diagnoses Diagnosis Obesity affecting , antepartum, unspecified obesity type- Primary Pyelectasis of fetus on ultrasound Pyelectasis of fetus on ultrasound Obesity affecting , antepartum, unspecified obesity type documented in this encounter Care Teams Golf Course Superintendent Relationship Specialty Start Date End Date No Ref-Primary, Physician PCP - General 09/24/23 documented as of this encounter
--- OUTSIDE RECORDS SUMMARY | 2024-02-24 07:20 | XMS_ITS | Encounter Summary ---
Author Organization [facility] Address [address] [place] [address] Care Team Providers Care Binder Fixer Name Role Phone No Ref-Primary, Physician Primary [...] MD [address] [place] [id number] Referral ID Status Reason Start Date Expiration Date V isits Requested Visits Authorized [id number] Pending Review 12/02/2023 12/01/2024 1 1 Reason for Visit * Diagnostic Imaging Ultrasound (Routine) - Pending Review Specialty Diagnoses / Procedures Referred By Contac t Referred To Contact Radiology. Diagnoses Pyelectasis of fetus on ultrasound Obesity affecting , antepartum, unspecified obesity type Procedures [facility] US Comprehensive Single F/U Srinivasa Hernandez MD [address] [place] [address] Referral ID Status Reason Start Date Expiration Date V isits Requested Visits Authorized [id number] Pending Review 12/02/2023 12/01/2024 1 1 Encounter Details Date Type Department Care Team (Latest Contact Info) Description 01/12/2024 9:10 AM CDT - 01/12/2024 11:59 PM CDT Hospital Encounter [facility] [place] [address] [place] [address] Elmer Ansari MD [address] [place] [address] Pyelectasis of fetus on ultrasound; [...] Procedure Name Priority Date/Time Associated Diagnosis Comments [facility] COMPREHENSIVE SINGLE F/U Routine 01/12/2024 9:50 AM CDT Pyelectasis of fetus on ultrasound Obesity affecting , antepartum, unspecified obesity type documented in this encounter Results * [facility] Comprehensive Single F/U (01/12/2024 9:50 [...] ? Study Date: ??01/12/2024 9:18am Pat. NO: ??[id number] ?Referring ??MD: ERIC HARDY Site: ??[facility] ? Front Desk: Jaja Moore RDMS : ??1995 ?Age: ?? [...] lb 11 ? oz EFW by ?Hadlock ([id number]-[id number]-FL) Head / Face / Neck Biometry: Cigarette Tipper ? 7.7 ? mm CM ?7.4 ? [...] Thorax ?4-chamber view. RVOT view. LVOT view. 6-stlyjs-pdftqii view. ? Diaphragm. Abdomen ? Stomach. Kidneys. [...] for additional US can be done in [place] and should include consideration for a follow [...] [place] Study Date: 01/12/2024 9:18am Pat. NO: [id number] Referring MD: ERIC HARDY Site: [facility] Front Desk: Jaja Moore RDMS : 1995 Age: 28 [...] 3 lb 11 oz EFW by Hadlock ([id number]-FL) Head / Face / Neck Biometry: Cigarette Tipper 7.7 mm CM 7.4 mm Urinary Tract Biometry: Rt Renal pelvis ap 3.3 mm Lt Renal pelvis ap 3.4 mm ANATOMY ----- The following structures appear normal: Head / Neck Cranium. Head size. Head shape.Lateral ventricles. Midline falx. Cerebellum. Cisterna magna. Thalami. Face Lips. Profile. Nose. Heart / Thorax 4-chamber view. RVOT view. LVOT view.8-mnkscd-abpixcz view. Diaphragm. Abdomen Stomach. Kidneys. Bladder. The [...] for additional US can be done in [place] and should includeconsideration for a follow up growth in 4-6 weeks, as well as weekly BPPsto start around 34 weeks. She reports no issues with her BP thus far, but she is watching itclosely. Return to primary provider for continued care. If you have questions regarding today's evaluation or if [facility], please contact the [facility] Center. [...] fluid volume appeared normal. Srinivasa Hernandez MD [facility] US ORDERABL ES documented in this encounter Visit Diagnoses Diagnosis Pyelectasis of fetus on ultrasound Obesity affecting , antepartum, unspecified obesity type documented in this encounter Care Teams Binder Fixer Relationship Specialty Start Date End Date No Ref-Primary, Physician PCP - General 09/24/23 documented as of this encounter
--- OUTSIDE RECORDS SUMMARY | 2024-02-24 07:20 | XMS_ITS | Encounter Summary ---
Author Organization [facility] Address [address] [place] [address] Care Team Providers Care Patent Prosecution Attorney Name Role Phone No Ref-Primary, Physician Primary [...] on filedocumented in this encounter Care Teams Patent Prosecution Attorney Relationship Specialty Start Date End Date No Ref-Primary, Physician PCP - General 09/24/23 documented as of this encounter
--- OUTSIDE RECORDS SUMMARY | 2024-02-24 07:21 | XMS_ITS | Clinical Summary ---
Author Organization [employer] [facility] Address [place], [place] [address] Care Team Providers Care Certified Registered Locksmith Name Role Phone Noris Todd MD Primary Care P rovider Dana Ch MD Unavailable [phone] Allergies No known active allergies Medications Medication [...] arrhythmia affecting p regnancy, antepartum-intermittent SVT 07/23/2021 [facility] Supervision of high-risk Overview: [facility] OB PATIENT SO: Pato Its a boy! NEXT VISIT ALERTS: Patient checking at home BPs? COVID-19 08/28/21 negative = need to repeat prior to IOL 09/06/21 PLANS & FUTURE APPOINTMENTS: - OB visits: Through 09/19/21 TESTING PLAN: Weekly - Testing: Through 09/19/21 GROWTH PLAN: - Growth: Next 09/19/21 DELIVERY PLAN: - Scheduled delivery: 09/06/21 @ 1930 with [facility] - Preferred delivery location: [facility] PRIMARY DIAGNOSIS: 26 y.o. Estimated Date of Delivery: 09/27/21 : Intermittent SVT Maternal: gHTN? Hospital admission d/t SVT 07/23-07/26; started flecainide Anxiety/Depression LAST GROWTH: 08/22/21 34w6d EFW 2411 grams, percentile: 36 07/23/21 30w4d EFW 1663 grams, percentile: 49 ECHO: Multiple in [facility] 08/22/21 Normal REFERRING PHYSICIAN/PHONE/LAST UPDATE: Dana Ch MD [facility] [phone] Primary MD approves scheduling of recommended ultrasounds/testing: Not specified SPECIALISTS/CONSULTS: Include: Specialty MD Clinic Name Phone# [place] and ADDED TO PATIENT CARE TEAM Yes LEXI signed for [facility]: Signed 08/22/21 CARE COORDINATION: Belle Coleman, SERGEI/Lay House, RN/Radhika Huitron RN/Angelique Pabon RN/Jesenia Coy, SERGEI [phone] BULB WEEDER: GENETICS: 04/17/21 AFP Negative 07/25/21 [facility] - genetic testing after PROCEDURES: [...] PCR 0.1 CHECKLIST FOR SCHEDULING PROCEDURES: Call [phone] for [employer] and [phone] for [place] Procedure: Induction Hospital: [place] Unit: L&D Date & Time of procedure: 09/06/21 @ 1930 Nur Score if induction: 3 Pertinent information: gHTN, intermittent SVT Gestational age on procedure date? 37 MD doing procedure: [facility] [address] [facility] Date scheduled: 08/28/2021 when patient was 35w5d. Scheduling MD & RN: COOPER Rico & Richard RN Notifications: Hospitalist Delivery-OBH family consumer science teacher notified through [employer] inbox? Yes MPP MD family consumer science teacher notified via [employer]beto inbox? Yes Primary MD notified via Ashlee inbox? No Primary MD clinic called if not Ashlee? No On [facility] calendar? Yes Care Coordination notified? Yes H&P/PPTL: PPTL permit signed? Not Applicable H&P and Plan in chart? Yes, 08/22/21 [facility] appointment made for H&P with REAL ESTATE ASSOCIATE ATTORNEY within 30 days of procedure? Completed 08/22/21 Regardless of vaccination status, all procedures require a COVID-19 test . Patients should be scheduled for a COVID-19 test within 3-5 days prior to the scheduled procedure to be done in main [facility] Clinic Date: 09/03/21 Patient notification: Patient notified of procedure date? Yes Written admission instructions given to patient via AVS? No PPTL& DELIVERY SCHEDULING: Do COVID testing with in 3-5 days of scheduled delivery @ a main [facility] site H&P needed 30 days [...] JACKIE cason, Chucky garcia MD Complications:None Delivery Location:[facility] ( [address]) Last Filed Vital Signs Vital Sign [...] supervision of normal first in first trimester BALL WARPER TENDER THIN PREP PAP SCREEN IMAGED Routine 06/18/2020 2:20 PM CDT Cervical cancer screening from Last 3 Months or Most Recently Relevant to Health Maintenance Results * ANTI HCV (03/04/2021 3:03 PM CDT) HEPATITIS C ANTIBODY Non-React monique Non-React monique 03/05/2021 12:30 AM CDT [facility] Comment:Antibodies to HCV no t detected; does not exclude the possibility of exposure to HCV. Blood BLOOD SPECIMEN / Unknown Venipuncture / Unknown 03/04/2021 3:03 PM CDT 03/04/2021 3:06 PM CDT Monica Licea MD SEND OUTS Performing Organization Address [facility] Co de Phone Number [facility] [address] [place] [address], * ANTI HIV 1/2 (03/04/2021 3:03 PM CDT) Pathologist [facility] HIV-1/HIV-2 ANTIBODY Non-Reacti ve Non-Reacti ve 03/05/2021 12:49 AM CDT [facility] Comment:HIV-1 p24 and HIV-1/ HIV-2 Ab not detected. Blood BLOOD SPECIMEN / Unknown Venipuncture / Unknown 03/04/2021 3:03 PM CDT 03/04/2021 3:06 PM CDT Monica Licea MD SEND OUTS Performing Organization Address [facility] Co de Phone Number [facility] [address] [place] [address], * BALL WARPER TENDER THIN PREP PAP SCREEN IMAGED (06/18/2020 2:20 PM CDT) Pathologist [facility] Case Report Gynecologic Cytology Report ? Case: [id number] ? Authorizing Provider: ??Doreen Meraz NP ?Collected: ? 06/18/2020 1420 ? Ordering Location: ? [facility] ?Received: ?06/18/2020 1420 ? Clinic ? First Screen: ?Shaniqua Dong ? Specimen: ?BALL WARPER TENDER ThinPrep Vial Screening, Cervical ? 06/23/2020 8:31 AM CDT [facility] INTERPRETATION/ RESULT NEGATIVE FOR INTRAEPITHELIAL LESION OR MALIGNANCY (NIL) (none) 06/23/2020 8:31 AM CDT [facility] IMEN ADEQUACY Satisfactory for evaluation Endocervical component present 06/23/2020 8:31 AM CDT [facility] HPV REQUEST HPV if ASCUS 06/23/2020 8:31 AM CDT [facility] Date of LMP 05/22/2020 06/23/2020 8:31 AM CDT [facility] Last Pap Date 06/15/17 06/23/2020 8:31 AM CDT [facility] LAB[facility] Last Pap Result NIL 0 8:31 AM CDT [facility] Abnormal Pap or [place] Bx in last 5 years No 06/23/2020 8:31 AM CDT [facility] Menstrual Status Regular Periods 06/23/2020 8:31 AM CDT [facility] [place] Bx Done Today No 06/23/2020 8:31 AM CDT [facility] Additional Information None given 06/23/2020 8:31 AM CDT [facility] Comment: Cytology is screened at [facility] - [address], [place] [address] and [facility] - [address], [place] [address] and [facility] - [address] [place] [address] Interpreted at [facility] - [address], [place] [address] Automated Review Successful 06/23/2020 8:31 AM CDT [facility] Comment:Specimen processed s uccessfully by automated tester operator device, ThinPrep Imaging System, [employer] Note The pap test is a [...] and malignant lesions. 06/23/2020 8:31 AM CDT [facility] Other (Cervical) Non-Blood / Unknown 06/18/2020 2:20 PM CDT 06/18/2020 2:20 PM CDT Doreen Meraz NP PATHOLOGY/CYTOLOGY [facility] [address] [place] [address], [place] from Last 3 Months or Most Recently Relevant to Health Maintenance Advance Directives Documents on File Type Date Recorded Patient Special Client Bus Driver Expl anation Treatment Guidelines 09/06/2021 * Full [...] Preferences, Provider to review later Care Teams Certified Registered Locksmith Relationship Specialty Start Date End Date Noris Todd MD [address] [place] [id number] PCP - General Family Practice 04/03/21 Dana Ch MD [address] [place] [address] Referring Provider Obstetrics and Gynecology 08/19/21
== END 2024-02-24 07:19 | disposition home or self-care (01) ==
PROVIDERS: Visit Provider Obstetrics & Gynecology
DX: O10.919 Unspecified pre-existing hypertension complicating pregnancy, unspecified trimester (principal)
CPT/HCPCS: 76819; 82565; 82570; 84156; 84450; 84460; 84520; 84550; 87081; 87653

== ENCOUNTER 2024-03-02 05:56 | Inpatient (IN) | payer BC, SELFPAY ==
[2024-03-02] VITALS (48 sets, daily range): BP systolic 100–141; BP diastolic 56–87; PULSE 75–129; RESP 18; TEMP 36.6–36.8; O2SAT 99–100; BMI 44.2
--- OUTSIDE RECORDS SUMMARY | 2024-03-02 05:59 | XMS_ITS | Encounter Summary ---
Author Organization [place] Address [address] [place] [address] Care Team Providers Care Deposition Operator Name Role Phone No Ref-Primary, Physician Primary Care Provider Reason for Referral * Diagnostic Imaging Ultrasound (Routine) - Pending Review Specialty Diagnoses / Procedures Referred By Contac t Referred To Contact Radiology. Diagnoses Encounter for follow-up ultrasound of anatomy Procedures [facility] US Comprehensive Single F/U Srinivasa Hernandez MD [address] [place] [address] [place] [address] Referral ID Status Reason Start Date Expiration Date V isits Requested Visits Authorized [id number] Pending Review 11/04/2023 11/03/2024 1 1 Reason for Visit * Diagnostic Imaging Ultrasound (Routine) - Pending Review Specialty Diagnoses / Procedures Referred By Contac t Referred To Contact Radiology. Diagnoses Encounter for follow-up ultrasound of anatomy Procedures [facility] US Comprehensive Single F/U Srinivasa Hernandez MD [address] [place] [address] Referral ID Status Reason Start Date Expiration Date V isits Requested Visits Authorized [id number] Pending Review 11/04/2023 11/03/2024 1 1 Encounter Details Date Type Department Care Team (Latest Contact Info) Description 12/02/2023 9:30 AM CDT - 12/02/2023 11:59 PM CDT Hospital Encounter [facility] Maternal Medicine [facility] [address] [place] [id number] Srinivasa Hernandez MD [address] [facility] [address] [place] [address] Encounter for follow-up ultrasound of [...] Procedure Name Priority Date/Time Associated Diagnosis Comments [facility] US COMPREHENSIVE SINGLE F/U Routine 12/02/2023 10:10 AM CDT Encounter for follow-up ultrasound of anatomy documented in this encounter Results * [facility] US Comprehensive Single F/U (12/02/2023 10:10 [...] ? Study Date: ??12/02/2023 9:34am Pat. NO: ??[id number] ?Referring ??MD: LEIGH LIND Site: ??[facility] ? Forest Management Teacher: Altagracia Kruger RDMS : ??1995 ?Age: ?? [...] lb 10 ? oz EFW by ?Hadlock ([id number]) Head / Face / Neck Biometry: Public Health Staff Nurse ? 5.9 ? mm CM ?5.4 [...] LVOT view. Aortic arch view. 3-vessel view. 9-lcahew-pujbcau view. ? Diaphragm. Abdomen ? Stomach. Right [...] have scheduled the patient to return to [facility] at 28 weeks to reassess growth [...] [place] Study Date: 12/02/2023 9:34am Pat. NO: [id number] Referring MD: LEIGH LIND Site: [facility] Forest Management Teacher: Altagracia Kruger RDMS : 1995 Age: 28 [...] 1 lb 10 oz EFW by Hadlock ([id number]) Head / Face / Neck Biometry: Public Health Staff Nurse 5.9 mm CM 5.4 mm Urinary [...] view. LVOT view.Aortic arch view. 3-vessel view. 4-wrtcic-jbcyyfn view. Diaphragm. Abdomen Stomach. Right kidney. Bladder. [...] have scheduled the patient to return to [facility] at 28 weeks to reassess growth [...] anatomy documented in this encounter Care Teams Deposition Operator Relationship Specialty Start Date End Date No Ref-Primary, Physician PCP - General 09/24/23 documented as of this encounter
--- OUTSIDE RECORDS SUMMARY | 2024-03-02 05:59 | XMS_ITS | Encounter Summary ---
Author Organization [place] Address [facility] [place] [address] Care Team Providers Care Transport Coordinator Name Role Phone No Ref-Primary, Physician Primary Care Provider Reason for Visit * Reason Comments Ultrasound RL2-BMI, Left UTD Encounter Details Date Type Department Care Team (Late st Contact Info) Description 01/12/2024 10:00 AM CDT Office Visit [facility] [place] [address] [place] [address] Srinivasa Hernandez MD [address] [place] [address] Elmer Ansari MD [address] [place] [address] renal anomaly, single gestation (Primary [...] Primary documented in this encounter Care Teams Transport Coordinator Relationship Specialty Start Date End Date No Ref-Primary, Physician PCP - General 09/24/23 documented as of this encounter
--- OUTSIDE RECORDS SUMMARY | 2024-03-02 05:59 | XMS_ITS | Clinical Summary ---
Author Organization [facility] [facility] Address [place], [place] [address] Care Team Providers Care Linux Systems Engineer Name Role Phone Noris Todd MD Primary Care P rovider Dana Ch MD Unavailable [phone] Allergies No known active allergies Medications Medication [...] arrhythmia affecting p regnancy, antepartum-intermittent SVT 07/23/2021 [facility] Supervision of high-risk Overview: [facility] OB PATIENT SO: Pato Its a boy! NEXT VISIT ALERTS: Patient checking at home BPs? COVID-19 08/28/21 negative = need to repeat prior to IOL 09/06/21 PLANS & FUTURE APPOINTMENTS: - OB visits: Through 09/19/21 TESTING PLAN: Weekly - Testing: Through 09/19/21 GROWTH PLAN: - Growth: Next 09/19/21 DELIVERY PLAN: - Scheduled delivery: 09/06/21 @ 1930 with [facility] - Preferred delivery location: [facility] PRIMARY DIAGNOSIS: 26 y.o. Estimated Date of Delivery: 09/27/21 : Intermittent SVT Maternal: gHTN? Hospital admission d/t SVT 07/23-07/26; started flecainide Anxiety/Depression LAST GROWTH: 08/22/21 34w6d EFW 2411 grams, percentile: 36 07/23/21 30w4d EFW 1663 grams, percentile: 49 ECHO: Multiple in [facility] 08/22/21 Normal REFERRING PHYSICIAN/PHONE/LAST UPDATE: Dana Ch MD [facility] [phone] Primary MD approves scheduling of recommended ultrasounds/testing: Not specified SPECIALISTS/CONSULTS: Include: Specialty MD Clinic Name Phone# [place] and ADDED TO PATIENT CARE TEAM Yes LEXI signed for [facility]: Signed 08/22/21 CARE COORDINATION: Belle Coleman, SERGEI/Lay House, RN/Radhika Huitron RN/Angelique Pabon RN/Jesenia Coy, SERGEI [phone] PRINCIPAL TECHNICAL WRITER: GENETICS: 04/17/21 AFP Negative 07/25/21 [facility] - genetic testing after PROCEDURES: EKG 07/26/21 [...] PCR 0.1 CHECKLIST FOR SCHEDULING PROCEDURES: Call [phone] for [employer] and [phone] for [place] Procedure: Induction Hospital: [place] Unit: L&D Date & Time of procedure: 09/06/21 @ 1930 Nur Score if induction: 3 Pertinent information: gHTN, intermittent SVT Gestational age on procedure date? 37 MD doing procedure: [facility] Date scheduled: 08/28/2021 when patient was 35w5d. Scheduling MD & RN: COOPER Rico & Richard RN Notifications: Hospitalist Delivery-OBH carbonizer notified through [employer] inbox? Yes MPP MD carbonizer notified via [employer] inbox? Yes Primary MD notified via Ashlee inbox? No Primary MD clinic called if not Ashlee? No On [facility] calendar? Yes Care Coordination notified? Yes H&P/PPTL: PPTL permit signed? Not Applicable H&P and Plan in chart? Yes, 08/22/21 [facility] appointment made for H&P with BAG MAKING MACHINE OPERATOR within 30 days of procedure? Completed 08/22/21 Regardless of vaccination status, all procedures require a COVID-19 test . Patients should be scheduled for a COVID-19 test within 3-5 days prior to the scheduled procedure to be done in main [facility] Clinic Date: 09/03/21 Patient notification: Patient notified of procedure date? Yes Written admission instructions given to patient via AVS? No PPTL& DELIVERY SCHEDULING: Do COVID testing with in 3-5 days of scheduled delivery @ a main [facility] site H&P needed 30 days before delivery [...] JACKIE cason, Chucky garcia MD Complications:None Delivery Location:[facility] ( [address]) Last Filed Vital Signs Vital Sign [...] supervision of normal first in first trimester EXTERNAL GRINDER TOOL THIN PREP PAP SCREEN IMAGED Routine 06/18/2020 2:20 PM CDT Cervical cancer screening from Last 3 Months or Most Recently Relevant to Health Maintenance Results * ANTI HCV (03/04/2021 3:03 PM CDT) HEPATITIS C ANTIBODY Non-React monique Non-React monique 03/05/2021 12:30 AM CDT [facility] Comment:Antibodies to HCV no t detected; does not exclude the possibility of exposure to HCV. Blood BLOOD SPECIMEN / Unknown Venipuncture / Unknown 03/04/2021 3:03 PM CDT 03/04/2021 3:06 PM CDT Monica Licea MD SEND OUTS Performing Organization Address [facility] Co de Phone Number [facility] [address] [place] [address], * ANTI HIV 1/2 (03/04/2021 3:03 PM CDT) Pathologist [facility] HIV-1/HIV-2 ANTIBODY Non-Reacti ve Non-Reacti ve 03/05/2021 12:49 AM CDT [facility] Comment:HIV-1 p24 and HIV-1/ HIV-2 Ab not detected. Blood BLOOD SPECIMEN / Unknown Venipuncture / Unknown 03/04/2021 3:03 PM CDT 03/04/2021 3:06 PM CDT Monica Licea MD SEND OUTS Performing Organization Address [facility] Co de Phone Number [facility] [address] [place] [address], * EXTERNAL GRINDER TOOL THIN PREP PAP SCREEN IMAGED (06/18/2020 2:20 PM CDT) Pathologist [facility] Case Report Gynecologic Cytology Report ? Case: [id number] ? Authorizing Provider: ??Doreen Meraz NP ?Collected: ? 06/18/2020 1420 ? Ordering Location: ? [facility] ?Received: ?06/18/2020 1420 ? Clinic ? First Screen: ?Shaniqua Dong ? Specimen: ?EXTERNAL GRINDER TOOL ThinPrep Vial Screening, Cervical ? 06/23/2020 8:31 AM CDT [facility] ENTRAL LABORATORY INTERPRETATION/ RESULT NEGATIVE FOR INTRAEPITHELIAL LESION OR MALIGNANCY (NIL) (none) 06/23/2020 8:31 AM CDT [facility] IMEN ADEQUACY Satisfactory for evaluation Endocervical component present 06/23/2020 8:31 AM CDT [facility] LAB[facility] HPV REQUEST HPV if ASCUS 06/23/2020 8:31 AM CDT [facility] Date of LMP 05/22/2020 06/23/2020 8:31 AM CDT [facility] Last Pap Date 06/15/17 06/23/2020 8:31 AM CDT [facility]-C ENTRAL LABORATORY Last Pap Result NIL 0 8:31 AM CDT [facility] Abnormal Pap or [place] Bx in last 5 years No 06/23/2020 8:31 AM CDT [facility] Menstrual Status Regular Periods 06/23/2020 8:31 AM CDT [facility] [place] Bx Done Today No 06/23/2020 8:31 AM CDT [facility] Additional Information None given 06/23/2020 8:31 AM CDT [facility] Comment: Cytology is screened at [facility] - [address], [place] [address] and [facility] - [address], [place] [address] and [facility] - [address] [place] [address] Interpreted at [facility] - [address], [place] [address] Automated Review Successful 06/23/2020 8:[address] [facility] Comment:Specimen processed s uccessfully by automated precinct police lieutenant device, ThinPrep Imaging System, [employer] Note The pap test is a [...] malignant lesions. 06/23/2020 8:[address] [facility] Other (Cervical) Non-Blood / Unknown 06/18/2020 2:20 PM CDT 06/18/2020 2:20 PM CDT Doreen Meraz NP PATHOLOGY/CYTOLOGY [facility] [address] [place] [address], [place] from Last 3 Months or Most Recently Relevant to Health Maintenance Advance Directives Documents on File Type Date Recorded Patient Ammonium Nitrate Crystallizer Expl anation Treatment Guidelines 09/06/2021 * Full [...] Preferences, Provider to review later Care Teams Linux Systems Engineer Relationship Specialty Start Date End Date Noris Todd MD [address] [place] [address] PCP - General Family Practice 04/03/21 Dana Ch MD [address] [place] [address] Referring Provider Obstetrics and Gynecology 08/19/21
--- OUTSIDE RECORDS SUMMARY | 2024-03-02 05:59 | XMS_ITS | Encounter Summary ---
Author Organization [place] Address [address] [place] [address] Care Team Providers Care Impress Associate Name Role Phone No Ref-Primary, Physician Primary [...] on filedocumented in this encounter Care Teams Impress Associate Relationship Specialty Start Date End Date No Ref-Primary, Physician PCP - General 09/24/23 documented as of this encounter
--- OUTSIDE RECORDS SUMMARY | 2024-03-02 05:59 | XMS_ITS | Encounter Summary ---
Author Organization [facility] Address [address] [place] [address] Care Team Providers Care Transition Mgr Rn Name Role Phone No Ref-Primary, Physician Primary Care Provider Reason for Referral * Diagnostic Imaging Ultrasound (Routine) - Pending Review Specialty Diagnoses / Procedures Referred By Contgerson t Referred To Contact Radiology. Diagnoses Pyelectasis of fetus on ultrasound Obesity affecting , antepartum, unspecified obesity type Procedures [facility] US Comprehensive Single F/U Srinivasa Hernandez MD [address] [place] [address] Referral ID Status Reason Start Date Expiration Date V isits Requested Visits Authorized [id number] Pending Review 12/02/2023 12/01/2024 1 1 Reason for Visit * Reason Comments Ultrasound Rl2-subopt Encounter Details Date Type Department Care Team ([facility] Contact Info) Description 12/02/2023 10:00 AM CDT Office Visit [facility] Medicine [facility] [place] [address] [place] [phone] Srinivasa Hernandez MD [address] [place] [address] Obesity affecting , antepartum, unspecified [...] US at the [facility]. Srinivasa Hernandez MD Maternal- Medicine documented in this encounter Plan of Treatment Not on file documented as of this encounter Results * [facility] US Comprehensive Single F/U (01/12/2024 9:50 [...] ? Study Date: ??01/12/2024 9:18am Pat. NO: ??[id number] ?Referring ??MD: ERIC HARDY Site: ??[facility] ? Third Rigger: Jaja Moore RDMS : ??1995 ?Age: ?? [...] lb 11 ? oz EFW by ?Hadlock ([id number]) Head / Face / Neck Biometry: Project Economist ? 7.7 ? mm CM ?7.4 ? [...] Thorax ?4-chamber view. RVOT view. LVOT view. 0-hccqoq-rsznloy view. ? Diaphragm. Abdomen ? Stomach. Kidneys. [...] for additional US can be done in [place] and should include consideration for a follow [...] [place] Study Date: 01/12/2024 9:18am Pat. NO: [id number] Referring MD: ERIC HARDY Site: [facility] Third Rigger: Jaja Moore RDMS : 1995 Age: 28 [...] 3 lb 11 oz EFW by Hadlock ([id number]-JA-AN-FL) Head / Face / Neck Biometry: Project Economist 7.7 mm CM 7.4 mm Urinary Tract Biometry: Rt Renal pelvis ap 3.3 mm Lt Renal pelvis ap 3.4 mm ANATOMY ----- The following structures appear normal: Head / Neck Cranium. Head size. Head shape.Lateral ventricles. Midline falx. Cerebellum. Cisterna magna. Thalami. Face Lips. Profile. Nose. Heart / Thorax 4-chamber view. RVOT view. LVOT view.2-yyrlyj-fjadbhe view. Diaphragm. Abdomen Stomach. Kidneys. Bladder. The [...] for additional US can be done in [place] and should includeconsideration for a follow up [...] fluid volume appeared normal. Srinivasa Hernandez MD [facility] US ORDERABL ES documented in this encounter Visit Diagnoses Diagnosis Obesity affecting , antepartum, unspecified obesity type- Primary Pyelectasis of fetus on ultrasound Pyelectasis of fetus on ultrasound Obesity affecting , antepartum, unspecified obesity type documented in this encounter Care Teams Transition Mgr Rn Relationship Specialty Start Date End Date No Ref-Primary, Physician PCP - General 09/24/23 documented as of this encounter
--- OUTSIDE RECORDS SUMMARY | 2024-03-02 05:59 | XMS_ITS | Referral Summary ---
Author Organization [facility] Address [address] [place] [address] Care Team Providers Care Medical Registrar Name Role Phone No Ref-Primary, Physician Primary Care Provider Encounters Date Type Department Care Team Description 01/12/2024 Travel 01/12/2024 10:00 AM CDT Office Visit [facility] Maternal Medicine [facility] [address] [facility] [facility] [address] [place] [phone] Srinivasa Hernandez MD Jones, Cresta Wedel, MD renal anomaly, single gestation (Primary Dx) 01/12/2024 9:10 AM CDT - 01/12/2024 11:59 PM CDT Hospital Encounter [facility] [address] [address] [place] [phone] Elmer Ansari MD Pyelectasis of fetus on ultrasound; Obesity affecting , antepartum, unspecified obesity type Discharge Disposition: Home or Self Care 12/02/2023 Travel 12/02/2023 10:00 AM CDT Office Visit [facility] [address] [facility] [address] [place] [phone] Srinivasa Hernandez MD Obesity affecting , antepartum, unspecified obesity type (Primary Dx); Pyelectasis of fetus on ultrasound 12/02/2023 9:30 AM CDT - 12/02/2023 11:59 PM CDT Hospital Encounter [facility] [address] [facility] [address] [place] [address] Srinivasa Hernandez MD Encounter for [...] Procedure Name Priority Date/Time Associated Diagnosis Comments [facility] US COMPREHENSIVE SINGLE F/U Routine 01/12/2024 9:50 AM CDT Pyelectasis of fetus on ultrasound Obesity affecting , antepartum, unspecified obesity type [facility] US COMPREHENSIVE SINGLE F/U Routine 12/02/2023 10:10 AM CDT Encounter for follow-up ultrasound of anatomy from Last 3 Months Results * [facility] US Comprehensive Single F/U (01/12/2024 9:50 [...] ? Study Date: ??01/12/2024 9:18am Pat. NO: ??[id number] ?Referring ??MD: ERIC HARDY Site: ??[facility] ? Cyber Policy And Strategy Planner: Jaja Moore RDMS : ??1995 ?Age: ?? [...] lb 11 ? oz EFW by ?Hadlock ([id number]) Head / Face / Neck Biometry: Hired Worker ? 7.7 ? mm CM ?7.4 ? [...] Thorax ?4-chamber view. RVOT view. LVOT view. 8-mbjcdy-uniwmfp view. ? Diaphragm. Abdomen ? Stomach. Kidneys. [...] for additional US can be done in [place] and should include consideration for a follow [...] [place] Study Date: 01/12/2024 9:18am Pat. NO: [id number] Referring MD: ERIC HARDY Site: [facility] Cyber Policy And Strategy Planner: Jaja Moore RDMS : 1995 Age: 28 [...] 3 lb 11 oz EFW by Hadlock ([id number]-FL) Head / Face / Neck Biometry: Hired Worker 7.7 mm CM 7.4 mm Urinary Tract Biometry: Rt Renal pelvis ap 3.3 mm Lt Renal pelvis ap 3.4 mm ANATOMY ----- The following structures appear normal: Head / Neck Cranium. Head size. Head shape.Lateral ventricles. Midline falx. Cerebellum. Cisterna magna. Thalami. Face Lips. Profile. Nose. Heart / Thorax 4-chamber view. RVOT view. LVOT view.6-zzykgn-xuuaagv view. Diaphragm. Abdomen Stomach. Kidneys. Bladder. The [...] for additional US can be done in [place] and should includeconsideration for a follow up [...] volume appeared normal. Srinivasa Hernandez MD [facility] US ORDERABL ES from Last 3 Months Care Teams Medical Registrar Relationship Specialty Start Date End Date No Ref-Primary, Physician PCP - General 09/24/23
--- OUTSIDE RECORDS SUMMARY | 2024-03-02 05:59 | XMS_ITS | Encounter Summary ---
Author Organization [facility] Address [address] [place] [address] Care Team Providers Care Crew Dispatcher Name Role Phone No Ref-Primary, Physician Primary Care Provider Reason for Referral * Diagnostic Imaging Ultrasound (Routine) - Pending Review Specialty Diagnoses / Procedures Referred By Leida galeano Referred To Contact Radiology. Diagnoses Pyelectasis of fetus on ultrasound Obesity affecting , antepartum, unspecified obesity type Procedures [facility] US Comprehensive Single F/U Srinivasa Hernandez MD [address] [place] [id number] Referral ID Status Reason Start Date Expiration Date V isits Requested Visits Authorized [id number] Pending Review 12/02/2023 12/01/2024 1 1 Reason for Visit * Diagnostic Imaging Ultrasound (Routine) - Pending Review Specialty Diagnoses / Procedures Referred By Contac t Referred To Contact Radiology. Diagnoses Pyelectasis of fetus on ultrasound Obesity affecting , antepartum, unspecified obesity type Procedures [facility] US Comprehensive Single F/U Srinivasa Hernandez MD [address] [place] [address] Referral ID Status Reason Start Date Expiration Date V isits Requested Visits Authorized [id number] Pending Review 12/02/2023 12/01/2024 1 1 Encounter Details Date Type Department Care Team (Latest Contact Info) Description 01/12/2024 9:10 AM CDT - 01/12/2024 11:59 PM CDT Hospital Encounter [facility] M[facility] Medicine [facility] [place] [address] [place] [phone] Elmer Ansari MD [address] [place] [address] Pyelectasis of fetus on ultrasound; [...] Procedure Name Priority Date/Time Associated Diagnosis Comments [facility] COMPREHENSIVE SINGLE F/U Routine 01/12/2024 9:50 AM CDT Pyelectasis of fetus on ultrasound Obesity affecting , antepartum, unspecified obesity type documented in this encounter Results * [facility] Comprehensive Single F/U (01/12/2024 9:50 AM [...] ? Study Date: ??01/12/2024 9:18am Pat. NO: ??[id number] ?Referring ??MD: ERIC HARDY Site: ??[facility] ? Virtual Office Assistant: Jaja Moore RDMS : ??1995 ?Age: ?? [...] lb 11 ? oz EFW by ?Hadlock ([id number]-FL) Head / Face / Neck Biometry: General Partner ? 7.7 ? mm CM ?7.4 ? [...] Thorax ?4-chamber view. RVOT view. LVOT view. 7-jvwmvl-owapicw view. ? Diaphragm. Abdomen ? Stomach. Kidneys. [...] for additional US can be done in [place] and should include consideration for a follow [...] [place] Study Date: 01/12/2024 9:18am Pat. NO: [id number] Referring MD: ERIC HARDY Site: [facility] Virtual Office Assistant: Jaja Moore RDMS : 1995 Age: 28 [...] 3 lb 11 oz EFW by Hadlock ([id number]-FL) Head / Face / Neck Biometry: General Partner 7.7 mm CM 7.4 mm Urinary Tract Biometry: Rt Renal pelvis ap 3.3 mm Lt Renal pelvis ap 3.4 mm ANATOMY ----- The following structures appear normal: Head / Neck Cranium. Head size. Head shape.Lateral ventricles. Midline falx. Cerebellum. Cisterna magna. Thalami. Face Lips. Profile. Nose. Heart / Thorax 4-chamber view. RVOT view. LVOT view.8-gwqmey-qldnaaw view. Diaphragm. Abdomen Stomach. Kidneys. Bladder. The [...] for additional US can be done in [place] and should includeconsideration for a follow up growth in 4-6 weeks, as well as weekly BPPsto start around 34 weeks. She reports no issues with her BP thus far, but she is watching itclosely. Return to primary provider for continued care. If you have questions regarding today's evaluation or if [facility], please contact the Maternal- Medicine Center. [...] volume appeared normal. Srinivasa Hernandez MD [facility] US ORDERABL ES documented in this encounter Visit Diagnoses Diagnosis Pyelectasis of fetus on ultrasound Obesity affecting , antepartum, unspecified obesity type documented in this encounter Care Teams Crew Dispatcher Relationship Specialty Start Date End Date No Ref-Primary, Physician PCP - General 09/24/23 documented as of this encounter
--- OUTSIDE RECORDS SUMMARY | 2024-03-02 05:59 | XMS_ITS | Clinical Summary ---
Author Organization [facility] Address [address] [place] [address] Care Team Providers Care Fire Alarm Mechanic Name Role Phone No Ref-Primary, Physician Primary Care Provider Encounters Date Type Department Care Team Description 01/12/2024 10:00 AM CDT Office Visit [facility] Maternal Medicine [facility] [address] [place] [address] Srinivasa Hernandez MD Jones, Cresta Wedel, MD renal anomaly, single gestation (Primary Dx) 01/12/2024 9:10 AM CDT - 01/12/2024 11:59 PM CDT Hospital Encounter [facility] [address] [place] [address] Elmer Ansari MD Pyelectasis of fetus on ultrasound; Obesity affecting , antepartum, unspecified obesity type Discharge Disposition: Home or Self Care 01/12/2024 Travel 12/02/2023 10:00 AM CDT Office Visit [facility] Maternal Medicine [facility] [address] [place] [address] Srinivasa Hernandez MD Obesity affecting , antepartum, unspecified obesity type (Primary Dx); Pyelectasis of fetus on ultrasound 12/02/2023 9:30 AM CDT - 12/02/2023 11:59 PM CDT Hospital Encounter [facility] [address] [place] [address] Srinivasa Hernandze MD Encounter for follow-up ultrasound of anatomy [...] Procedure Name Priority Date/Time Associated Diagnosis Comments [facility] US COMPREHENSIVE SINGLE F/U Routine 01/12/2024 9:50 AM CDT Pyelectasis of fetus on ultrasound Obesity affecting , antepartum, unspecified obesity type [facility] US COMPREHENSIVE SINGLE F/U Routine 12/02/2023 10:10 AM CDT Encounter for follow-up ultrasound of anatomy from Last 3 Months Results * [facility] US Comprehensive Single F/U (01/12/2024 9:50 AM [...] ? Study Date: ??01/12/2024 9:18am Pat. NO: ??[id number] ?Referring ??MD: ERIC HARDY Site: ??[facility] ? Motor Assembly Supervisor: Jaja Moore RDMS : ??1995 ?Age: ?? [...] 3 lb 11 ? oz EFW by ?[facility] ([id number]) Head / Face / Neck Biometry: Shellfish Checker ? 7.7 ? mm CM ?7.4 ? [...] Thorax ?4-chamber view. RVOT view. LVOT view. 2-yohwca-xfjmpca view. ? Diaphragm. Abdomen ? Stomach. Kidneys. [...] for additional US can be done in [place] and should include consideration for a follow [...] [place] Study Date: 01/12/2024 9:18am Pat. NO: [id number] Referring MD: ERIC HARDY Site: [facility] Motor Assembly Supervisor: Jaja Moore RDMS : 1995 Age: 28 [...] 3 lb 11 oz EFW by Hadlock ([id number]) Head / Face / Neck Biometry: Shellfish Checker 7.7 mm CM 7.4 mm Urinary Tract Biometry: Rt Renal pelvis ap 3.3 mm Lt Renal pelvis ap 3.4 mm ANATOMY ----- The following structures appear normal: Head / Neck Cranium. Head size. Head shape.Lateral ventricles. Midline falx. Cerebellum. Cisterna magna. Thalami. Face Lips. Profile. Nose. Heart / Thorax 4-chamber view. RVOT view. LVOT view.9-rojkoc-rjfrnmv view. Diaphragm. Abdomen Stomach. Kidneys. Bladder. The [...] for additional US can be done in [place] and should includeconsideration for a follow up [...] fluid volume appeared normal. Srinivasa Hernandez MD [facility] ORDERABL ES from Last 3 Months Care Teams Fire Alarm Mechanic Relationship Specialty Start Date End Date No Ref-Primary, Physician PCP - General 09/24/23
--- OUTSIDE RECORDS SUMMARY | 2024-03-02 05:59 | XMS_ITS | Encounter Summary ---
Author Organization [facility] Address [address] [place] [address] Care Team Providers Care Metal Control Coordinator Name Role Phone No Ref-Primary, Physician [...] on filedocumented in this encounter Care Teams Metal Control Coordinator Relationship Specialty Start Date End Date No Ref-Primary, Physician PCP - General 09/24/23 documented as of this encounter
--- NOTE | 2024-03-02 07:09 | P.OBHP_ITS ---
OB - H&P: HPI Labor/Induction History of Present Illness Time Seen by Provider: 07:09 Date Seen: 03/02/24 Chief Complaint: The patient is a 29 year old 3 para 1 at 37 weeks gestation by LMP, who presents for induction of labor in the setting of chronic hypertension with concern for superimposed preeclampsia without severe features. is complicated by chronic hypertension, history of gestational hypertension in her last , cholelithiasis, obesity, anxiety and depression. Jackie is feeling well today with no acute concerns. Denies regular/painful uterine contractions, vaginal bleeding or leaking of fluids. Endorses active movement. No headache, vision changes or right upper quadrant pain. Chief complaint: Maternity Narrative: Jackie Schroeder is a 29 year old female Specific Issues/Plans : [place] 1. Chronic Hypertension, several diastolics >80 in early History of gestational hypertension * Baseline preeclampsia labs: PC ratio 0.4, 24 hour protein 130 mg. AST 57, ALT 59. Repeat AST 36*, ALT 46*. * Recommend daily baby aspirin starting at 12 weeks. * Growth US and testing at 34 weeks (see below) - revise PRN if medications are needed as progresses * worksheet completed 01/13/24 2. BMI 43.0 * Hemoglobin A1c: 5.0 * Nutrition consult: referral placed * Level 2 ultrasound: 11/04/2023 [place]. EFW 62%. No anomalies. Follow-up ultrasound scheduled with [facility] in four weeks. echo not indicated. * At follow up US, mild urinary tract dilation noted in kidney. Planning repeat US at 28 weeks - resolved. * Anesthesia consult * Early GDM testing between 16 and 20 weeks: 128 * Weekly testing starting at 34 weeks - form completed 01/12 * Growth ultrasound at 28 and 34 weeks [x] repeat US with MFM shows resolution of dilated kidney! EFW 1683g at 77%ile. MVP 4.8. 3. History of ectopic treated with methotrexate December 2022 4. History of SVT in 1st , discovered at 30 weeks. Admitted to [facility] [place]; to be inpatient X 1 week. Intermittent tachyarrhythmia 240s. Transferred care to [place] at 34 weeks. 5. Depression and anxiety. Citalopram 20 mg daily. Mood is stable at 1st OB visit. Discontinued citalopram by 14 weeks. 6. Hepatomegaly and diffuse hepatic steatosis, moderately severe, noted on RUQ US 01/26 * Refer to hepatology * Limit Tylenol use if possible. 7. Echogenic focus associated with the dependent gallbladder wall measuring 7 millimeters may represent gallstones/adherent sludge versus polyp noted on RUQ US 01/26 * Recommended low fat diet * Referred to general surgery 02/10/24 8. 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 No hydronephrosis. noted on RUQ US 01/26 * Repeat imaging with a CT scan * With angiomyolipoma, may need to avoid hormonal contraception and consider urology referral ULTRASOUNDS: 02/09 = 34 week: cephalic, SDP 5, EFW 81%, AC 92%, BPD 78%, HC 35%, FL 60%. Flu: Completed Covid: Completed at 1st OB visit Tdap: 01/13/24 Meds Home Medications and Allergies Home Medications ?Medication ?Instructions ?Recorded ?Confirmed ?Type aspirin 81 mg capsule 81 mg PO QDAY 07/21/23 03/02/24 History docosahexaenoic acid 200 mg 200 mg PO DAILY 07/21/23 03/02/24 History capsule ( DHA) omeprazole 20 mg capsule,delayed 40 mg PO ONCE 03/02/24 03/02/24 History release Allergies Allergy/AdvReac Type Severity Reaction Status Date / Time No Known Drug Allergies Allergy Verified 03/02/24 06:29 OB - H&P: Exam Physical Exam: Vital signs: Pulse BP 106 H 125/77 03/02/24 06:15 03/02/24 06:15 Narrative: General: Alert and oriented, in no acute distress Heart: Regular rate and rhythm, no rubs murmurs or gallops Lungs: Clear to posterior auscultation Abdomen: Gravid. Non-tender. EFW by [facility] is 3400g, by US on 02/09 was 2642g at 81%ile, AC 92%ile by US. FHR: Baseline 150bpm, moderate variability, accelerations present, decelerations absent. [place]: No regular contractions. OB - Problem Based A/P Additional Plan (1) Hypertension affecting : Status: Acute (2) Cholelithiasis affecting , antepartum: Status: Acute (3) GERD (gastroesophageal reflux disease): Status: Acute (4) Anxiety and depression: Status: Acute (5) BMI 40.0-44.9, adult: Status: Acute Plan Ms. Schroeder is a 29yo at 37w0d [place] admitted for IOL for chronic hypertension with superimposed preeclampsia without SF. is otherwise complicated by cholelithiasis, obesity and anxiety/depression. Admit to Labor and delivery. Prior exam in the clinic by Dr. Gastelum revealed favorable cervix, 2/50/-2. - Start Pitocin induction of labor - Anticipate next exam in 4 hours, with likely a ROM - Obtain repeat preeclampsia labs and type and screen on admission - Diligent blood pressure monitoring intrapartum - Blood type A positive - GBS negative
[2024-03-02 07:25] LABS: Basophils Absolute Auto 0.02 K/uL (0.00-0.30); Basophils Percent Auto 0.2 % (0.0-3.0); Eosinophils Absolute Auto 0.05 K/uL (0.00-0.50); Eosinophils Percent Auto 0.5 % (0.0-7.0); Hematocrit 37.4 % (33.0-51.0); Hemoglobin* 12.8 gm/dL (12.0-16.0); Immature Granulocytes Abs Auto 0.05 K/uL (0.00-0.30); Immature Granulocytes Pct Auto 0.5 %; Lymphocytes Percent Auto 15.2 % (20-44); Mean Corpuscular HGB Conc 34 gm/dL (32-36); Mean Corpuscular Hemoglobin 30 pg (26-34); Mean Corpuscular Volume 87 fL (80-100); Monocytes Percent Auto 7.3 % (0.0-11.0); Neutrophils Percent Auto 76.3 % (42.0-72.0); Platelet Count* 301 K/uL (140-440); RDW Coefficient of Variation % 13.1 % (11.5-15.5); Red Blood Count 4.29 m/uL (4.00-5.20); White Blood Count* 10.44 K/uL (4.50-11.00)
[2024-03-02 07:29] LABS: Slide Review Reflex No
[2024-03-02 07:34] LABS: Alanine Aminotransferase* 20 U/L (4-35); Aspartate Amino Transferase* 26 U/L (12-35); Creatinine* 0.5 mg/dL (0.5-1.5); Est. Creatinine Clearance* 149.39; Estimated Glomerular Filt Rate 130 ml/min
[2024-03-02] MEDS: LACTATED RINGERS 1000 ML 1,000 ML 125 ML IV (07:46)
[2024-03-02] MEDS: OXYTOCIN 30 unit/500 ML in NS 30 UNIT/500 ML BAG IVPB (07:46)
[2024-03-02] MEDS: LACTATED RINGERS 1000 ML 1,000 ML 525 ML IV (13:15)
--- NOTE | 2024-03-02 13:30 | P.ANBPRC_ITS ---
PFSH PFS Medical History Supraventricular tachycardia of fetus affecting management of ?O36.8390 - Maternal care for abnormalities of the heart rate or rhythm, unspecified trimester, not applicable or unspecified (ICD-10) History of gestational hypertension ?Z87.59 - Personal history of other complications of , childbirth and the puerperium (ICD-10) Surgical History H/O oral surgery ?Z98.890 - Other specified postprocedural states (ICD-10) History of removal of skin mole ?Z98.890 - Other specified postprocedural states (ICD-10) ?Z87.2 - Personal history of diseases of the skin and subcutaneous tissue (ICD-10) Family History (Updated 02/16/24 @ 11:13 by Charline Cruz MD) Family/Other Breast cancer Paternal Grandfather Bladder cancer Mother High blood pressure High cholesterol Father High blood pressure High cholesterol Diabetes Social History (Updated 02/16/24 @ 11:14 by Charline Cruz MD) Narrative: non-smoker, no alcohol use while . Does not work outside the home. Has one child, is 35 weeks . What is your current living situation?: I presently have a place to live Problems where you live: no known problems In the past 12 months, utilities in danger of being shut off: no In past 12 months, lack of transportation kept you from medical appts, meetings, work, or getting things needed for daily living: no In the past 12 mos, have been you worried that your food would run out before you had money to buy more?: never true In the past 12 mos, the food you bought just didn't last and you didn't have money to buy more?: never true Smoking Status: Never smoker Do you use any of these nicotine containing products: None Second hand tobacco smoke exposure: No How often do you have a drink containing alcohol: never How often do you have six or more drinks on one occasion: Never AUDIT-C Alcohol total score: 0 Non-prescribed substance use: denies use How often does anyone, including family, friends and others, physically hurt you : never How often does anyone, including family, friends and others, insult or talk down to you: never How often does anyone, including family, friends and others, threaten you with harm: never How often does anyone, including family, friends and others, scream or curse at you: never Little interest or pleasure in doing things: not at all Feeling down, depressed, or hopeless: not at all service: No Meds Home Medications and Allergies Home Medications ?Medication ?Instructions ?Recorded ?Confirmed ?Type aspirin 81 mg capsule 81 mg PO QDAY 07/21/23 03/02/24 History docosahexaenoic acid 200 mg 200 mg PO DAILY 07/21/23 03/02/24 History capsule ( DHA) omeprazole 20 mg capsule,delayed 40 mg PO ONCE 03/02/24 03/02/24 History release Allergies Allergy/AdvReac Type Severity Reaction Status Date / Time No Known Drug Allergies Allergy Verified 03/02/24 06:29 Results Labs Labs: Laboratory Results - last 24 hr 03/02/24 06:45 WBC 10.44 RBC 4.29 Hgb 12.8 Hct 37.4 MCV 87 MCH 30 MCHC 34 RDW Coeff of Deuce 13.1 Plt Count 301 Neut % (Auto) 76.3 H Lymph % (Auto) 15.2 L [place] % (Auto) 7.3 Eos % (Auto) 0.5 Baso % (Auto) 0.2 Neut # (Auto) 8.00 H Lymph # (Auto) 1.60 [place] # (Auto) 0.80 Eos # (Auto) 0.05 Baso # (Auto) 0.02 Abs Immat Gran (auto) 0.05 Imm/Tot Granulo (auto) 0.5 Creatinine 0.5 Estimated Creat Clear 149.39 Estimated GFR 130 AST 26 ALT 20 Blood Type A Positive Antibody Screen NEGATIVE Vital Signs Vital Signs: Last Vital Signs Temp 98.3 F 03/02/24 13:29 Pulse 104 H 03/02/24 13:29 BP 112/66 03/02/24 13:29 Pulse Ox 99 03/02/24 13:26 Weight: 120.656 kg Height: 165.1 cm Anesthesia Procedures Epidural Insertion Patient Location: OB Start Time: 12:45 Stop Time: 13:45 Start Date: 03/02/24 Stop Date: 03/02/24 Reason for Block: procedure for pain Patient Position: sitting Performed By: Santiago Sanz Preanesthetic Checklist: IV checked, risks and benefits discussed, monitors and equipment checked, pre-op evaluation, timeout performed and anesthesia consent Prep: chlorhexidine gluconate Monitoring: blood pressure monitoring, continuous pulse oximetry and heart rate Approach: midline Vertebral Space: lumbar (1-5) Epidural Technique: PEDRO saline Needle Type: Tuohy needle Injection Technique: continuous catheter Needle gauge: 17 Needle Length (cm): 10 cm Needle Insertion Depth (cm): 8 Catheter Gauge: 19 Catheter Type: multi-orifice Catheter at skin depth (cm): 19 Test Dose Result: negative and lidocaine 1.5% with epinephrine 1 to 200,000
[2024-03-02] MEDS: ROPIVACAINE 0.2% 100 ml 100 ML 12 MG EPIDURAL ×2 (13:34→21:09)
[2024-03-02] MEDS: LIDOCAINE 2% (PF) 5 ML VIAL EPIDURAL (13:34)
[2024-03-02] MEDS: ONDANSETRON 2 MG/ML inj 4 MG IV ×2 (13:45→21:54)
[2024-03-02] MEDS: LACTATED RINGERS 1000 ML 1,000 ML 115 ML IV (20:38)
--- NOTE | 2024-03-02 22:31 | PM.OBPNL ---
Subjective Time Seen by Provider: 11:30 Date Seen: 03/02/24 Narrative: Delayed documentation due to patient care. Jackie is a 29 year old 3 para 1 at 37 weeks gestation by LMP ongoing induction of labor in the setting of chronic hypertension with concern for superimposed preeclampsia without severe features. is complicated by chronic hypertension, history of gestational hypertension in her last , cholelithiasis, obesity, anxiety and depression. IOL has included pitocin, 2.5/80/-1 on last check. Category 1 FHR tracing. Discussed risks/benefits and alternatives to AROM, where verbal consent was provided. AROM performed with return of small volume clear fluid. Hold pitocin for now, will modify as needed pending FHR and toco data. Anticipate next exam in 4 hours, sooner as clinically indicated. HELLP labs WNL, BPs have been within normal limits. Objective Vital Signs: Last Vital Signs Temp 98.3 F 03/02/24 20:32 Pulse 96 03/02/24 22:24 Resp 18 03/02/24 20:32 BP 117/58 L 03/02/24 22:24 Pulse Ox 99 03/02/24 13:26
--- NOTE | 2024-03-02 23:04 | W.PM.VAGDEL1 ---
Procedure Procedure Done: Global Procedure Details: Spontaneous vaginal delivery Events: Chronic Hypertension, Pre-Eclampsia, Labor Induction and Other (Cholelithiasis, obesity, maternal mood disorder) Intrapartal Events: Labor Induction Delivery augmentation: rupture of membranes Delivery monitor: external FHT Route of delivery: Laceration description: None Estimated blood loss (mL): 100 Anesthesia type: Epidural Disposition: floor Complications: None Narrative: Jackie is a 29 year old 3 para 1 at 37 weeks gestation by LMP admitted for induction of labor in the setting of chronic hypertension with concern for superimposed preeclampsia without severe features. is complicated by chronic hypertension, history of gestational hypertension in her last , cholelithiasis, obesity, anxiety and depression. heart tones on admission were category 1. Her labor was induced with pitocin and epidural were utilized for pain management. Status of bag of wu: AROM performed with return of clear fluid. heart tones during active labor were category 1 and 2. She was complete at 2204 and started pushing at 2206. She made excellent descent with expulsive efforts, where occurred at 2218. Baby delivered OA and restituted CASSANDRA. The anterior and posterior shoulders delivered without difficulty. No nuchal cord was noted. The cord was clamped and cut after delayed cord clamping. Active management of the third stage was initiated with pitocin and gentle traction on the umbilical cord, and the placenta delivered spontaneous and intact at 2222. Placenta was inspected then sent for pathologic evaluation. Cord gases sent: no Cord blood sent for infant ABO: no Perineum and vagina were inspected, and the following lacerations were noted: none, intact. No repair was required. details: - Liveborn female at 2218 - weight pending - Apgars were 7 and 8 at 1 and 5 minutes respectively Excellent hemostasis was noted, with total EBL of 100cc. All counts were correct. Mother and in stable condition following the .? [facility] Infant Infant Gender: Female presentation: vertex Placental Delivery Description: Spontaneous Cord Description: 3 Vessels
[2024-03-03 00:35] VITALS: BP 112/74; PULSE 88; RESP 18; TEMP 36.6; O2SAT 96
[2024-03-03] MEDS: IBUPROFEN 600 MG TABLET PO ×3 (04:20→19:17)
[2024-03-03 04:22] VITALS: BP 123/84; PULSE 76; RESP 16; TEMP 36.6; O2SAT 98
[2024-03-03 07:18] LABS: Hemoglobin* 11.7 gm/dL (12.0-16.0)
[2024-03-03 08:18] VITALS: BP 112/78; PULSE 83; RESP 16; O2SAT 96
[2024-03-03] MEDS: ACETAMINOPHEN 500 MG TABLET 1000 MG PO ×2 (08:24→16:16)
[2024-03-03] MEDS: DOCUSATE SODIUM 100 MG CAPSULE PO (08:24)
--- NOTE | 2024-03-03 08:38 | P.OBPN_ITS ---
OB - PN:Subj Subjective Date Seen: 03/03/24 Patient comments OB post-: no complaints, pain well controlled, tolerating diet and flatus present [place] status: bottle and doing well feeding status: exclusively bottle feeding (planning to try pumping today) Narrative: Complications:? none? Jackie feels well.? Her pain is well controlled with current medications.? She has no new complaints.? Urinary output is adequate and she is voiding without difficulty.? Has a good appetite, is tolerating a general diet, is passing flatus, and has not had a bowel movement.? Has small amount of rubra lochia.? She is ambulating well.?She is planning on exclusively pumping. She had a low milk supply last time and feels more comfortable pumping. Blood pressures have been WNL. Will continue to monitor BPs and symptoms of preeclampsia. OB - PN: Obj Exam Physical Exam: Vital signs: Temp Pulse Resp BP Pulse Ox O2 Del Method 97.8 F 83 16 112/78 96 Room Air 03/03/24 04:22 03/03/24 08:18 03/03/24 08:18 03/03/24 08:18 03/03/24 08:18 03/03/24 08:18 Narrative: GENERAL APPEARANCE:? normal affect, alert, no distress? MOOD:? appropriate? CHEST:? clear to auscultation and percussion? HEART:? regular rate and rhythm? ABDOMEN:? soft, non-tender the uterine fundus is U/2 and is appropriate for the stage of recovery.? PERINEUM:? mild edema of the perineum, there is an intact perineum that is healing well.? EXTREMITIES:? normal and no edema? Urinary Catheter Management: Urethral: Cath placed during this visit: no OB - PN: Obj Data Labs Labs: Laboratory Results - last 24 hr 03/03/24 06:59 Hgb 11.7 L OB - PN: A/P Delivery Assessment and Plan (1) Hypertension affecting : Status: Acute (2) Anxiety and depression: Status: Acute (3) BMI 40.0-44.9, adult: Status: Acute (4) care and examination immediately after delivery: Status: Acute (5) Lactating mother: Status: Acute Plan day: 1 Plan: routine care Comments: Anticipate discharge tomorrow. Continue to monitor blood pressures. Begin pumping per patient preference.
[2024-03-03 12:54] VITALS: BP 119/80; PULSE 83; RESP 16; TEMP 36.7
--- NOTE | 2024-03-03 13:57 | PM.ANPOST ---
Post Anesthesia Note Post Anesthesia Note Patient seen: Inpatient Respiratory Status: adequate Cardiovascular Status: adequate Mental Status: baseline Pain: adequate Temp: baseline Anesthetic awareness: N/A Complications: none Follow care: none
[2024-03-03 16:11] VITALS: BP 120/79; PULSE 83; RESP 16; TEMP 36.5
[2024-03-03 17:34] LABS: Rapid Plasma Reagin (RPR) Non Reactive (Non Reactive)
[2024-03-03 20:51] VITALS: BP 119/77; PULSE 69; RESP 16; TEMP 37; O2SAT 98
[2024-03-04 01:58] VITALS: BP 118/80; PULSE 63; RESP 16; TEMP 36.4; O2SAT 97
[2024-03-04] MEDS: IBUPROFEN 600 MG TABLET PO ×2 (02:33→09:06)
[2024-03-04 05:35] VITALS: BP 115/79
[2024-03-04] MEDS: ENOXAPARIN 40 MG/0.4 ML INJ SUBCUT (05:35)
--- NOTE | 2024-03-04 07:54 | PM.OBDSVD1 ---
DS: Providers Provider Date Seen: 03/04/24 Date of admission: 03/02/24 05:56 Primary care physician: Not a Local Provider Admitting Clinician: Mary Kate Sanchez MD Attending Physician on discharge: Mary Kate Sanchez MD DS: Diagnosis Discharge Diagnosis (1) care and examination immediately after delivery: Status: Acute (2) Lactating mother: Status: Acute (3) Hypertension affecting : Status: Acute (4) Anxiety and depression: Status: Acute Exam Narrative: Exam Narrative: GENERAL APPEARANCE:? normal affect, alert, no distress MOOD:? appropriate CHEST:? clear to auscultation HEART:? regular rate and rhythm ABDOMEN:? soft, non-tender the uterine fundus is at Umbilicus, Midline and is appropriate for the stage of recovery. PERINEUM:? mild edema of the perineum. EXTREMITIES:? normal and no edema Const: Vital Signs, click to edit/add: Vital Signs - 24 hr 03/03/24 08:18 03/03/24 12:54 03/03/24 16:11 Temperature 98.1 F 97.7 F Pulse Rate [Pulse Oximeter] 83 83 83 Respiratory Rate 16 16 16 Blood Pressure [Ri ght Arm] 112/78 119/80 120/79 Pulse Oximetry 96 Oxygen Delivery Me thod Room Air Room Air 03/03/24 20:51 03/04/24 01:58 03/04/24 05:35 Temperature 98.6 F 97.5 F L Pulse Rate [Pulse Oximeter] 69 63 Respiratory Rate 16 16 Blood Pressure [Ri ght Arm] 119/77 118/80 115/79 Pulse Oximetry 98 97 Oxygen Delivery Me thod Room Air Room Air Documenting provider has reviewed patient's vital signs: yes OB - DS: Summary Hospital Course Hospital Course: Jackie is a 29 y.o. G 3 P 2 who was admitted to [facility] for IOL for chronic Hypertension, Pre-Eclampsia, Labor Induction and Other (Cholelithiasis, obesity, maternal mood disorder). ?She had a NVD that was uncomplicated. The patient feels well. ?The pain is well controlled with current medications. ?She has no new complaints. ?She is formula feeding. the patient has done well.? Vitals have been stable.? She has remained afebrile.? Has a good appetite, is tolerating a general diet. ?She is voiding without difficulty.? She is passing gas and has had a bowel movement.? She is ambulating and denies any dizziness.? Has small amount of rubra lochia. She is planning undecided for prevention. Problems: none plan: Discharge home with baby. Follow up in 2 weeks and 6 weeks. , may see if needed Hgb 11.7. Chronic HTN with pre-eclampsia Super imposed Labs WNL Follow up in 3-5 days Call for signs/symptoms of worsening preeclampsia Peripartum Data delivery method: Vaginal Laceration description: None complications: none Gender: Female Discharge Plan: Home Status at Discharge Functional status at discharge: independent ambulation Overall status at discharge: patient is progressing back to baseline Time Spent with Patient Time attestation: Total time spent providing and/or coordinating discharge services: Time spent: Less than 30 minutes Discharge Plan Discharge Disposition: Home, Self-Care Date of Admission: 03/02/24 05:56 Attending Provider on Discharge: Lia Doe Primary Care Provider: Provider,Not a Local Condition: Stable Anticipated Discharge Date/Time: 03/04/24 12:00 Discharge Medications: New acetaminophen 500 mg Tablet 1,000 mg PO Q6H PRNQty: 0 0RF docusate sodium 100 mg Capsule 100 mg PO DAILY Qty: 90 0RF ibuprofen 600 mg Tablet 600 mg PO Q6H PRNQty: 60 0RF Continued DHA 200 mg capsule 200 mg PO DAILY (DME) Blood Pressure Cuff Misc See Rx Instructions .Route Qty: 1 0RF Rx Instructions: Take blood pressure twice daily. omeprazole 20 mg capsule,delayed release(DR/EC) 40 mg PO ONCE ondansetron 4 mg tablet,disintegrating 4 mg PO .q6hr Qty: 30 2RF Discontinued aspirin 81 mg capsule 81 mg PO QDAY Discharge Orders: Discharge Order (Routine); Ordered 03/04/24 Ordered By: Lia Doe Patient Education: OB Over the Counter Medication Information, OB Vaginal/Breast Feeding Additional Instructions: Discharge instructions were reviewed with the patient including signs and symptoms of infection and home going medications Nothing vaginally for 6 weeks: no tampons or intercourse Off Work or School for 6 weeks Follow Up [facility] for a BP check?3-5 days Call with BP greater than or equal to 160/110 or sustained BP of 140/90's Optional 2-week visit: discuss feeding concerns, review control options and screen for anxiety/depression. 6-week visit for an annual exam. consultation services are available to all mothers and babies for the first year after delivery.? To make an appointment, please call [phone]. Activity Level: Activity as Tolerated Discharge Diet: Regular Follow Up Appointments: [facility] [Provider Group] Forms: [employer] Info Instructions
[2024-03-04 09:01] VITALS: BP 120/80; PULSE 87; RESP 16; TEMP 36.6; O2SAT 99
[2024-03-04] MEDS: DOCUSATE SODIUM 100 MG CAPSULE PO (09:07)
== END 2024-03-04 10:10 | disposition home or self-care (01) | DRG 560 ==
PROVIDERS: Admitting Provider Obstetrics & Gynecology; Visit Provider Obstetrics & Gynecology
DX: O10.92 Unspecified pre-existing hypertension complicating childbirth (principal); O11.4 Pre-existing hypertension with pre-eclampsia, complicating childbirth; O99.344 Other mental disorders complicating childbirth; F32.A Depression, unspecified; F41.9 Anxiety disorder, unspecified; O99.214 Obesity complicating childbirth; O99.62 Diseases of the digestive system complicating childbirth; K80.20 Calculus of gallbladder without cholecystitis without obstruction; K21.9 Gastro-esophageal reflux disease without esophagitis; Z37.0 Single live birth; Z3A.37 37 weeks gestation of pregnancy
CPT/HCPCS: 01967; 36415; 82565; 84450; 84460; 85018; 85025; 86592; 86850; 86900; 86901; A9270; J1650; J2371; J2405; J2795; J7120

== ENCOUNTER 2024-03-16 11:36 | Outpatient (CLI) | payer BC, SELFPAY ==
--- OUTSIDE RECORDS SUMMARY | 2024-03-16 11:39 | XMS_ITS | Encounter Summary ---
Author Organization [facility] Address [address] [place] [address] Care Team Providers Care Grain Unloader Name Role Phone No Ref-Primary, Physician Primary [...] on filedocumented in this encounter Care Teams Grain Unloader Relationship Specialty Start Date End Date No Ref-Primary, Physician PCP - General 09/24/23 documented as of this encounter
--- OUTSIDE RECORDS SUMMARY | 2024-03-16 11:39 | XMS_ITS | Encounter Summary ---
Author Organization [facility] Address [address] [place] [id number] Care Team Providers Care Linux Vmware Administrator Name Role Phone No Ref-Primary, Physician Primary Care Provider Reason for Referral * Diagnostic Imaging Ultrasound (Routine) - Pending Review Specialty Diagnoses / Procedures Referred By Leida galeano Referred To Contact Radiology. Diagnoses Pyelectasis of fetus on ultrasound Obesity affecting , antepartum, unspecified obesity type Procedures [facility] US Comprehensive Single F/U Srinivasa Hernandez MD [address] [place] [id number] Referral ID Status Reason Start Date Expiration Date V isits Requested Visits Authorized [id number] Pending Review 12/02/2023 12/01/2024 1 1 Reason for Visit * Diagnostic Imaging Ultrasound (Routine) - Pending Review Specialty Diagnoses / Procedures Referred By Contac t Referred To Contact Radiology. Diagnoses Pyelectasis of fetus on ultrasound Obesity affecting , antepartum, unspecified obesity type Procedures [facility] US Comprehensive Single F/U Srinivasa Hernnadez MD [address] [place] [address] Referral ID Status Reason Start Date Expiration Date V isits Requested Visits Authorized [id number] Pending Review 12/02/2023 12/01/2024 1 1 Encounter Details Date Type Department Care Team (Latest Contact Info) Description 01/12/2024 9:10 AM CDT - 01/12/2024 11:59 PM CDT Hospital Encounter [facility] [place] [address] [place] [address] Elmer Ansari MD [address] [place] [address] Pyelectasis of fetus on ultrasound; [...] Procedure Name Priority Date/Time Associated Diagnosis Comments [facility] COMPREHENSIVE SINGLE F/U Routine 01/12/2024 9:50 AM CDT Pyelectasis of fetus on ultrasound Obesity affecting , antepartum, unspecified obesity type documented in this encounter Results * [facility] Comprehensive Single F/U (01/12/2024 9:50 AM CDT) [...] ? Study Date: ??01/12/2024 9:18am Pat. NO: ??[id number] ?Referring ??MD: ERIC HARDY Site: ??[facility] ? Hydraulic Boom Operator: Jaja Moore RDMS : ??1995 ?Age: [...] lb 11 ? oz EFW by ?Hadlock ([id number]) Head / Face / Neck Biometry: Char Filter Tank Tender Head ? 7.7 ? mm CM ?7.4 ? [...] Thorax ?4-chamber view. RVOT view. LVOT view. 4-tltwze-ehlvppt view. ? Diaphragm. Abdomen ? Stomach. Kidneys. [...] for additional US can be done in [place] and should include consideration for a follow [...] [place] Study Date: 01/12/2024 9:18am Pat. NO: [id number] Referring MD: ERIC HARDY Site: [facility] Hydraulic Boom Operator: Jaja Moore RDMS : 1995 Age: [...] 3 lb 11 oz EFW by Hadlock ([id number]) Head / Face / Neck Biometry: Char Filter Tank Tender Head 7.7 mm CM 7.4 mm Urinary Tract Biometry: Rt Renal pelvis ap 3.3 mm Lt Renal pelvis ap 3.4 mm ANATOMY ----- The following structures appear normal: Head / Neck Cranium. Head size. Head shape.Lateral ventricles. Midline falx. Cerebellum. Cisterna magna. Thalami. Face Lips. Profile. Nose. Heart / Thorax 4-chamber view. RVOT view. LVOT view.0-wqymhh-virgolo view. Diaphragm. Abdomen Stomach. Kidneys. Bladder. The [...] for additional US can be done in [place] and should includeconsideration for a follow up growth in 4-6 weeks, as well as weekly BPPsto start around 34 weeks. She reports no issues with her BP thus far, but she is watching itclosely. Return to primary provider for continued care. If you have questions regarding today's evaluation or [facility], please contact [facility]. [...] fluid volume appeared normal. Srinivasa Hernandez MD [facility] US ORDERABL ES documented in this encounter Visit Diagnoses Diagnosis Pyelectasis of fetus on ultrasound Obesity affecting , antepartum, unspecified obesity type documented in this encounter Care Teams Linux Vmware Administrator Relationship Specialty Start Date End Date No Ref-Primary, Physician PCP - General 09/24/23 documented as of this encounter
--- OUTSIDE RECORDS SUMMARY | 2024-03-16 11:39 | XMS_ITS | Clinical Summary ---
Author Organization [facility] Address [place], [place] [address] Care Team Providers Care Documentation Liaison Name Role Phone Noris Todd MD Primary Care P rovider Dana Ch MD Unavailable [phone] Allergies No known active allergies Medications Medication [...] arrhythmia affecting p regnancy, antepartum-intermittent SVT 07/23/2021 [facility] Supervision of high-risk Overview: [facility] OB PATIENT SO: Pato Its a boy! NEXT VISIT ALERTS: Patient checking at home BPs? COVID-19 08/28/21 negative = need to repeat prior to IOL 09/06/21 PLANS & FUTURE APPOINTMENTS: - OB visits: Through 09/19/21 TESTING PLAN: Weekly - Testing: Through 09/19/21 GROWTH PLAN: - Growth: Next 09/19/21 DELIVERY PLAN: - Scheduled delivery: 09/06/21 @ 1930 with [facility] - Preferred delivery location: [facility] PRIMARY DIAGNOSIS: 26 y.o. Estimated Date of Delivery: 09/27/21 : Intermittent SVT Maternal: gHTN? Hospital admission d/t SVT 07/23-07/26; started flecainide Anxiety/Depression LAST GROWTH: 08/22/21 34w6d EFW 2411 grams, percentile: 36 07/23/21 30w4d EFW 1663 grams, percentile: 49 ECHO: Multiple in [facility] 08/22/21 Normal REFERRING PHYSICIAN/PHONE/LAST UPDATE: Dana Ch MD [facility] [phone] Primary MD approves scheduling of recommended ultrasounds/testing: Not specified SPECIALISTS/CONSULTS: Include: Specialty MD Clinic Name Phone# LV [place] and ADDED TO PATIENT CARE TEAM Yes LEXI signed for [facility]: Signed 08/22/21 CARE COORDINATION: Belle Coleman, SERGEI/[place], RN/Radhika Huitron RN/Angelique Pabon RN/Jesenia Coy, SERGEI [phone] INFORMATION ANALYST: GENETICS: 04/17/21 AFP Negative 07/25/21 [facility] - genetic testing after PROCEDURES: [...] PCR 0.1 CHECKLIST FOR SCHEDULING PROCEDURES: Call [phone] for [facility] and [phone] for [place] Procedure: Induction Hospital: [facility] Unit: L&D Date & Time of procedure: 09/06/21 @ 1930 Nur Score if induction: 3 Pertinent information: gHTN, intermittent SVT Gestational age on procedure date? 37 MD doing procedure: [facility] Date scheduled: 08/28/2021 when patient was 35w5d. Scheduling MD & RN: COOPER Rico & Richard RN Notifications: Hospitalist Delivery-OBH construction crew member notified through [employer] inbox? Yes MPP MD construction crew member notified via [employer] inbox? Yes Primary MD notified via Ashlee inbox? No Primary MD clinic called if not [facility]? No On [facility] calendar? Yes Care Coordination notified? Yes H&P/PPTL: PPTL permit signed? Not Applicable H&P and Plan in chart? Yes, 08/22/21 [facility] appointment made for H&P with LOAN [employer]ER within 30 days of procedure? Completed 08/22/21 Regardless of vaccination status, all procedures require a COVID-19 test . Patients should be scheduled for a COVID-19 test within 3-5 days prior to the scheduled procedure to be done in main [facility] Clinic Date: 09/03/21 Patient notification: Patient notified of procedure date? Yes Written admission instructions given to patient via AVS? No PPTL& DELIVERY SCHEDULING: Do COVID testing with in 3-5 days of scheduled delivery @ a main [facility] site H&P needed 30 days [...] JACKIE cason, Chucky garcia MD Complications:None Delivery Location:[facility] ( [address]) Last Filed Vital Signs Vital Sign [...] supervision of normal first in first trimester JAVA WEBSPHERE DEVELOPER THIN PREP PAP SCREEN IMAGED Routine 06/18/2020 2:20 PM CDT Cervical cancer screening from Last 3 Months or Most Recently Relevant to Health Maintenance Results * ANTI HCV (03/04/2021 3:03 PM CDT) HEPATITIS C ANTIBODY Non-React monique Non-React monique 03/05/2021 12:30 AM CDT [facility] Comment:Antibodies to HCV no t detected; does not exclude the possibility of exposure to HCV. Blood BLOOD SPECIMEN / Unknown Venipuncture / Unknown 03/04/2021 3:03 PM CDT 03/04/2021 3:06 PM CDT Monica Licea MD SEND OUTS Performing Organization Address [facility] Co de Phone Number [facility] [address] [place] [address], * ANTI HIV 1/2 (03/04/2021 3:03 PM CDT) Pathologist [facility] HIV-1/HIV-2 ANTIBODY Non-Reacti ve Non-Reacti ve 03/05/2021 12:49 AM CDT [facility] Comment:HIV-1 p24 and HIV-1/ HIV-2 Ab not detected. Blood BLOOD SPECIMEN / Unknown Venipuncture / Unknown 03/04/2021 3:03 PM CDT 03/04/2021 3:06 PM CDT Monica Licea MD SEND OUTS Performing Organization Address [facility] Co de Phone Number [facility] [address] [place] [address], * JAVA WEBSPHERE DEVELOPER THIN PREP PAP SCREEN IMAGED (06/18/2020 2:20 PM CDT) Pathologist [facility] Case Report Gynecologic Cytology Report ? Case: [id number] ? Authorizing Provider: ??Doreen Meraz NP ?Collected: ? 06/18/2020 1420 ? Ordering Location: ? [facility] ?Received: ?06/18/2020 1420 ? Clinic ? First Screen: ?Shaniqua Dong ? Specimen: ?JAVA WEBSPHERE DEVELOPER ThinPrep Vial Screening, Cervical ? 06/23/2020 8:31 AM CDT [employer] LABORAT[facility]-C ENTRAL LABORATORY INTERPRETATION/ RESULT NEGATIVE FOR INTRAEPITHELIAL LESION OR MALIGNANCY (NIL) (none) 06/23/2020 8:31 AM CDT [facility] IMEN ADEQUACY Satisfactory for evaluation Endocervical component present 06/23/2020 8:31 AM CDT [employer] [facility] LABORAT[facility]-C ENTRAL LABORATORY HPV REQUEST HPV if ASCUS 06/23/2020 8:31 AM CDT [facility] Date of LMP 05/22/2020 06/23/2020 8:31 AM CDT [facility] Last Pap Date 06/15/17 06/23/2020 8:31 AM CDT [facility] [employer] LABORATORY-C ENTRAL LABORATORY Last Pap Result NIL 0 8:31 AM CDT [facility] Abnormal Pap or Holton Bx in last 5 years No 06/23/2020 8:31 AM CDT [facility] Menstrual Status Regular Periods 06/23/2020 8:31 AM CDT [facility] LAB[facility] Holton Bx Done Today No 06/23/2020 8:31 AM CDT [facility] Additional Information None given 06/23/2020 8:31 AM CDT [facility]-C ENTRAL LABORATORY Comment: Cytology is screened at [facility] - [address], [place] [address] and [facility] - [address], [place] [address] and [facility] - [address] [place] [address] Interpreted at [facility] - [address], [place] [address] Automated Review Successful 06/23/2020 8:31 AM CDT [facility] Comment:Specimen processed s uccessfully by automated hop weigher device, ThinPrep Imaging System, [employer] Note The pap test is a [...] and malignant lesions. 06/23/2020 8:31 AM CDT [facility] Other (Cervical) Non-Blood / Unknown 06/18/2020 2:20 PM CDT 06/18/2020 2:20 PM CDT Doreen Meraz NP PATHOLOGY/CYTOLOGY [facility] [address] [place] [address], [place] from Last 3 Months or Most Recently Relevant to Health Maintenance Advance Directives Documents on File Type Date Recorded Patient Materials Analyst Expl anation Treatment Guidelines 09/06/2021 * Full [...] Preferences, Provider to review later Care Teams Documentation Liaison Relationship Specialty Start Date End Date Noris Todd MD [address] [place] [id number] PCP - General Family Practice 04/03/21 Dana Ch MD [address] [place] [address] Referring Provider Obstetrics and Gynecology 08/19/21
--- OUTSIDE RECORDS SUMMARY | 2024-03-16 11:39 | XMS_ITS | Encounter Summary ---
Author Organization [place] Address [facility]ly [facility], [facility] [place] [address] Care Team Providers Care Light Coil Winder Name Role Phone No Ref-Primary, Physician Primary Care Provider Reason for Visit * Reason Comments Ultrasound RL2-BMI, Left UTD Encounter Details Date Type Department Care Team (Late st Contact Info) Description 01/12/2024 10:00 AM CDT Office Visit [facility] [place] [address] [place] [address] Srinivasa Hernandez MD [address] [place] [address] Elmer Ansari MD [address] [place] [address] renal anomaly, single gestation (Primary [...] Primary documented in this encounter Care Teams Light Coil Winder Relationship Specialty Start Date End Date No Ref-Primary, Physician PCP - General 09/24/23 documented as of this encounter
--- OUTSIDE RECORDS SUMMARY | 2024-03-16 11:39 | XMS_ITS | Clinical Summary ---
Author Organization [place] Address [address] [place] [address] Care Team Providers Care Vending Route Servicer Name Role Phone No Ref-Primary, Physician Primary Care Provider Encounters Date Type Department Care Team Description 01/12/2024 10:00 AM CDT Office Visit [facility] Maternal Medicine [facility] [address] [place] [phone] Srinivasa Hernandez MD Jones, Cresta Wedel, MD renal anomaly, single gestation (Primary Dx) 01/12/2024 9:10 AM CDT - 01/12/2024 11:59 PM CDT Hospital Encounter [facility] Maternal Medicine [facility] [address] [place] [phone] Elmer Ansari MD Pyelectasis of fetus on ultrasound; Obesity affecting , antepartum, unspecified obesity type Discharge Disposition: Home or Self Care 01/12/2024 Travel from Last 3 Months Social History [...] Procedure Name Priority Date/Time Associated Diagnosis Comments [facility] US COMPREHENSIVE SINGLE F/U Routine 01/12/2024 9:50 AM CDT Pyelectasis of fetus on ultrasound Obesity affecting , antepartum, unspecified obesity type from Last 3 Months Results * [facility] US Comprehensive Single F/U (01/12/2024 9:50 [...] ? Study Date: ??01/12/2024 9:18am Pat. NO: ??[id number] ?Referring ??MD: ERIC HARDY Site: ??[facility] ? Rpg Programmer: Jaja Moore RDMS : ??1995 ?Age: ?? [...] lb 11 ? oz EFW by ?Hadlock ([id number]) Head / Face / Neck Biometry: Air Intercept Controller Supervisor ? 7.7 ? mm CM ?7.4 ? [...] Thorax ?4-chamber view. RVOT view. LVOT view. 4-djxktr-devorld view. ? Diaphragm. Abdomen ? Stomach. Kidneys. [...] for additional US can be done in [place] and should include consideration for a follow [...] [place] Study Date: 01/12/2024 9:18am Pat. NO: [id number] Referring MD: ERIC HARDY Site: [facility] Rpg Programmer: Jaja Moore RDMS : 1995 Age: 28 [...] 3 lb 11 oz EFW by Hadlock ([id number]) Head / Face / Neck Biometry: Air Intercept Controller Supervisor 7.7 mm CM 7.4 mm Urinary Tract Biometry: Rt Renal pelvis ap 3.3 mm Lt Renal pelvis ap 3.4 mm ANATOMY ----- The following structures appear normal: Head / Neck Cranium. Head size. Head shape.Lateral ventricles. Midline falx. Cerebellum. Cisterna magna. Thalami. Face Lips. Profile. Nose. Heart / Thorax 4-chamber view. RVOT view. LVOT view.8-ioxava-trvqruu view. Diaphragm. Abdomen Stomach. Kidneys. Bladder. The [...] for additional US can be done in [place] and should includeconsideration for a follow up [...] fluid volume appeared normal. Srinivasa Hernandez MD [facility] ORDERABL ES from Last 3 Months Care Teams Vending Route Servicer Relationship Specialty Start Date End Date No Ref-Primary, Physician PCP - General 09/24/23
--- OUTSIDE RECORDS SUMMARY | 2024-03-16 11:39 | XMS_ITS | Referral Summary ---
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 Role Phone No Ref-Primary, Physician Primary Care Provider Encounters Date Type Department Care Team Description 01/12/2024 Travel 01/12/2024 10:00 AM CDT Office Visit [facility] Maternal Medicine [facility] [address] [place] [phone] Srinivasa Hernandez MD Jones, Cresta Wedel, MD renal anomaly, single gestation (Primary Dx) 01/12/2024 9:10 AM CDT - 01/12/2024 11:59 PM CDT Hospital Encounter [facility] Medicine [facility] [address] [place] [phone] Elmer Ansari MD Pyelectasis of fetus on ultrasound; Obesity affecting , antepartum, unspecified obesity type Discharge Disposition: Home or Self Care from [...] type from Last 3 Months Results * [facility] US Comprehensive Single F/U (01/12/2024 9:50 [...] ? Study Date: ??01/12/2024 9:18am Pat. NO: ??[id number] ?Referring ??MD: ERIC HARDY Site: ??[facility] ? Spectroscopist: Jaja Moore RDMS : ??1995 ?Age: ?? [...] lb 11 ? oz EFW by ?Hadlock ([id number]) Head / Face / Neck Biometry: Advertising Assistant Manager ? 7.7 ? mm CM ?7.4 [...] Thorax ?4-chamber view. RVOT view. LVOT view. 7-uyyxxi-lppigjj view. ? Diaphragm. Abdomen ? Stomach. Kidneys. [...] for additional US can be done in [place] and should include consideration for a follow [...] [place] Study Date: 01/12/2024 9:18am Pat. NO: [id number] Referring MD: ERIC HARDY Site: [facility] Spectroscopist: Jaja Moore RDMS : 1995 Age: 28 [...] 3 lb 11 oz EFW by Hadlock ([id number]) Head / Face / Neck Biometry: Advertising Assistant Manager 7.7 mm CM 7.4 mm Urinary Tract Biometry: Rt Renal pelvis ap 3.3 mm Lt Renal pelvis ap 3.4 mm ANATOMY ----- The following structures appear normal: Head / Neck Cranium. Head size. Head shape.Lateral ventricles. Midline falx. Cerebellum. Cisterna magna. Thalami. Face Lips. Profile. Nose. Heart / Thorax 4-chamber view. RVOT view. LVOT view.5-grqwgf-akbacca view. Diaphragm. Abdomen Stomach. Kidneys. Bladder. The [...] for additional US can be done in [place] and should includeconsideration for a follow up [...] fluid volume appeared normal. 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
== END 2024-03-16 11:37 | disposition home or self-care (01) ==
PROVIDERS: Visit Provider Registered Nurse
DX: Z39.2 Encounter for routine postpartum follow-up (principal); O16.5 Unspecified maternal hypertension, complicating the puerperium
CPT/HCPCS: 82565; 84450; 84460; 84520

== ENCOUNTER 2024-06-15 15:11 | Emergency (ER) | payer BC, SELFPAY ==
[2024-06-15] VITALS (18 sets, daily range): BP systolic 131–147; BP diastolic 79–100; PULSE 61–78; RESP 16; TEMP 36.2; O2SAT 96–100; BMI 41.9
--- NOTE | 2024-06-15 15:35 | CRLHL7_ITS ---
For Patients: As a result of the Cures Act, medical imaging exams and procedure reports are released immediately into your electronic medical record. You may view this report before your referring provider. If you have questions, please contact your health care provider. INDICATION: Chest pain. TECHNIQUE: Chest 2 views. COMPARISON: None. FINDINGS: Cardiovascular and mediastinum: Cardiomediastinal silhouette is within normal limits Lungs and pleural spaces: Lungs are clear. No sign of pleural effusion. No pneumothorax. Bones and soft tissues: No significant findings. IMPRESSION: No acute or significant findings. Dictated by Thomas Garcia MD @ 06/15/2024 4:33:55 PM (Electronically Signed)
--- NOTE | 2024-06-15 15:45 | ED.GENADULT ---
HPI - General Adult General Chief complaint: Chest Pain Stated complaint: chest pain Time Seen by Provider: 06/15/24 15:28 Source: patient Mode of arrival: ambulatory Limitations: no limitations History of Present Illness HPI narrative: 29-year-old female coming in today with 4 days of substernal central chest pain. She rates the pain a 2/10, pain does not radiate. It comes and goes. It is not associated with eating, physical activity. Patient sleeps well at night and the pain does not bother her when she is sleeping. She denies feeling short of breath, diaphoretic or dizzy. She is able to do her usual activities of daily living without difficulty or increased shortness of breath. Patient is 3 months . She takes control, citalopram. No recent traveling. Postoperative course has been uneventful. She denies any abdominal discomfort, diarrhea. No changes in her appetite, eating well. Related Data Home Medications ?Medication ?Instructions ?Recorded ?Confirmed citalopram 20 mg tablet 20 mg PO QDAY 04/13/24 06/14/24 Previous Rx's ?Medication ?Instructions ?Recorded citalopram 20 mg tablet 20 mg PO QDAY #90 tabs 04/13/24 norethindrone (contraceptive) 0.35 0.35 mg PO QDAY #84 tabs 04/13/24 mg tablet (Marta) clotrimazole 1 % vaginal cream 1 appful vaginal QHS 7 days #45 06/14/24 grams Allergies Allergy/AdvReac Type Severity Reaction Status Date / Time No Known Drug Allergies Allergy Verified 06/14/24 09:33 Review of Systems Status of ROS: Reports: 10 or more systems reviewed and unremarkable except as noted in History and below [facility] Medical History Supraventricular tachycardia of fetus affecting management of ?O36.8390 - Maternal care for abnormalities of the heart rate or rhythm, unspecified trimester, not applicable or unspecified (ICD-10) History of gestational hypertension ?Z87.59 - Personal history of other complications of , childbirth and the puerperium (ICD-10) Surgical History H/O oral surgery ?Z98.890 - Other specified postprocedural states (ICD-10) History of removal of skin mole ?Z98.890 - Other specified postprocedural states (ICD-10) ?Z87.2 - Personal history of diseases of the skin and subcutaneous tissue (ICD-10) Family History Family/Other Breast cancer Paternal Grandfather Bladder cancer Mother High blood pressure High cholesterol Father High blood pressure High cholesterol Diabetes Social History Narrative: non-smoker, no alcohol use while . Does not work outside the home. Has one child, is 35 weeks . What is your current living situation?: I presently have a place to live Problems where you live: no known problems In the past 12 months, utilities in danger of being shut off: no In past 12 months, lack of transportation kept you from medical appts, meetings, work, or getting things needed for daily living: no In the past 12 mos, have been you worried that your food would run out before you had money to buy more?: never true In the past 12 mos, the food you bought just didn't last and you didn't have money to buy more?: never true Smoking Status: Never smoker Do you use any of these nicotine containing products: None Second hand tobacco smoke exposure: No How often do you have a drink containing alcohol: never How often do you have six or more drinks on one occasion: Never AUDIT-C Alcohol total score: 0 Non-prescribed substance use: denies use How often does anyone, including family, friends and others, physically hurt you: never How often does anyone, including family, friends and others, insult or talk down to you: never How often does anyone, including family, friends and others, threaten you with harm: never How often does anyone, including family, friends and others, scream or curse at you: never Little interest or pleasure in doing things: not at all Feeling down, depressed, or hopeless: not at all service: No Exam Narrative: Exam Narrative: Well-nourished well-developed patient in no acute distress. Alert and oriented. Answers questions appropriately. Mood and affect are appropriate. Thoughts are goal oriented and rational. No tangential or magical thinking noted. Patient speaks in full sentences without needing to catch her breath. HEENT: Normocephalic atraumatic. Pupils are equally round reactive to light. Extraocular muscles are intact. Conjunctivae are moist without any icterus noted. Moist mucous membranes. Posterior pharynx is normal. Neck is soft without any lymphadenopathy or thyromegaly. No masses are appreciated. Cardiovascular: Heart is regular rate and rhythm S1 and S2 are present without any murmurs. Lungs: Clear to auscultation bilaterally no wheezes rhonchi or rales are appreciated. Patient takes deep breaths without any discomfort. Cannot reproduce her pain with palpation of the chest wall. Abdomen: Soft and nontender nondistended with normal bowel sounds. No guarding or rebound. No masses or organomegaly appreciated. Extremities: Bilateral lower extremities are without edema. Normal DP and PT pulses. Skin: Well perfused without any obvious rashes. Const: Vital Signs, click to edit/add: Vital Signs - 24 hr 06/15/24 15:16 06/15/24 15:35 06/15/24 15:42 Temperature 97.2 F L Pulse Rate 66 Pulse Rate [Pulse Oximeter] 76 Respiratory Rate 16 Blood Pressure Blood Pressure [Ri ght Upper Arm] 147/100 H Pulse Oximetry 100 98 98 Oxygen Delivery Me thod Room Air 06/15/24 15:43 06/15/24 15:45 06/15/24 16:02 Temperature Pulse Rate 62 75 76 Pulse Rate [Pulse Oximeter] Respiratory Rate Blood Pressure 137/82 Blood Pressure [Ri ght Upper Arm] Pulse Oximetry 98 96 98 Oxygen Delivery Me thod 06/15/24 16:04 06/15/24 16:05 06/15/24 16:15 Temperature Pulse Rate 70 70 69 Pulse Rate [Pulse Oximeter] Respiratory Rate Blood Pressure 135/85 Blood Pressure [Ri ght Upper Arm] Pulse Oximetry 98 98 98 Oxygen Delivery Me thod 06/15/24 16:30 06/15/24 16:32 06/15/24 16:45 Temperature Pulse Rate 67 65 70 Pulse Rate [Pulse Oximeter] Respiratory Rate 16 Blood Pressure 131/79 Blood Pressure [Ri ght Upper Arm] Pulse Oximetry 100 100 99 Oxygen Delivery Me thod 06/15/24 17:00 06/15/24 17:05 06/15/24 17:15 Temperature Pulse Rate 69 66 61 Pulse Rate [Pulse Oximeter] Respiratory Rate Blood Pressure Blood Pressure [Ri ght Upper Arm] Pulse Oximetry 98 100 100 Oxygen Delivery Me thod 06/15/24 17:33 06/15/24 17:34 06/15/24 17:47 Temperature Pulse Rate 74 70 78 Pulse Rate [Pulse Oximeter] Respiratory Rate Blood Pressure Blood Pressure [Ri ght Upper Arm] Pulse Oximetry 99 99 99 Oxygen Delivery Me thod Course Course ED Course: EKG, read by me, shows normal sinus rhythm with a pulse of 68. Chest x-ray, read by me, does not show any acute pathology. CBC is normal. D-dimer is minimally elevated at 0.53. Patient is not tachypneic, tachycardic or hypoxic, however she is on control, is and is having chest pain. We discussed risks and benefits of doing a chest CT PE protocol - using mutual decision making decided proceed with the scan. Troponin less than 0.01. Chemistries are normal. Normal LFTs. CRP 1.4. Normal lipase. Negative test. Normal lactate. Normal lipase. Chest CT unremarkable. Vital Signs Vital signs: Initial Vital Signs Temperature 97.2 F L 06/15/24 15:16 Temperature Source Temporal Artery Scan 06/15/24 15:16 Pulse Rate 76 06/15/24 15:16 Respiratory Rate 16 06/15/24 15:16 Blood Pressure 147/100 H 06/15/24 15:16 Blood Pressure Mean 115 H 06/15/24 15:16 Blood Pressure Position Sitting 06/15/24 15:16 Pulse Oximetry 100 06/15/24 15:16 Oxygen Delivery Method Room Air 06/15/24 15:16 Vital Signs Temperature 97.2 F L 06/15/24 15:16 Pulse Rate 76 06/15/24 15:16 Respiratory Rate 16 06/15/24 15:16 Blood Pressure 147/100 H 06/15/24 15:16 Pulse Oximetry 100 06/15/24 15:16 Oxygen Delivery Method Room Air 06/15/24 15:16 Temperature 97.2 F L 06/15/24 15:16 Pulse Rate 78 06/15/24 17:47 Respiratory Rate 16 06/15/24 16:30 Blood Pressure 131/79 06/15/24 16:32 Pulse Oximetry 99 06/15/24 17:47 Oxygen Delivery Method Room Air 06/15/24 15:16 Medical Decision Making MDM Narrative Medical decision making narrative: 29-year-old female with chest pain. Differential diagnoses includes chest wall pain, GERD. We have effectively ruled out pneumonia, coronary artery disease, PE, pneumothorax, pericarditis, myocarditis. We discussed watchful monitoring for now and following up if the pain worsens or does not resolve. I would like for her to follow up with her primary care provider this week. Lab Data Lab results reviewed: Yes I reviewed the patient's lab results Labs: Lab Results 06/15/24 06/15/24 Range/Units 15:50 16:00 WBC 9.72 (4.50-11.00) K/uL RBC 4.93 (4.00-5.20) m/uL Hgb 14.3 (12.0-16.0) gm/dL Hct 42.4 (33.0-51.0) % MCV 86 (80-100) fL MCH 29 (26-34) pg MCHC 34 (32-36) gm/dL RDW Coeff of Deuce 12.6 (11.5-15.5) % Plt Count 325 (140-440) K/uL Neut % (Auto) 66.2 (42.0-72.0) % Lymph % (Auto) 25.2 (20-44) % Rolette % (Auto) 7.2 (0.0-11.0) % Eos % (Auto) 0.9 (0.0-7.0) % Baso % (Auto) 0.4 (0.0-3.0) % Neut # (Auto) 6.43 (1.7-7.0) K/uL Lymph # (Auto) 2.45 (0.90-2.90) K/uL Rolette # (Auto) 0.70 (0.00-0.90) K/UL Eos # (Auto) 0.09 (0.00-0.50) K/uL Baso # (Auto) 0.04 (0.00-0.30) K/uL Abs Immat Gran (auto) 0.01 (0.00-0.30) K/uL Imm/Tot Granulo (auto) 0.1 % D-Dimer Quant (PE/DVT) 0.53 H (0.00-0.50) ug/ml Sodium 136 (135-149) mmol/L Potassium 4.2 (3.6-5.1) mmol/L Chloride 102 (96-114) mmol/L Carbon Dioxide 23 (20-32) mmol/L Anion Gap 11 (7-15) mEq/L BUN 12 (5-24) mg/dL Creatinine 0.7 (0.5-1.5) mg/dL Estimated Creat Clear 106.71 Estimated GFR 120 ml/min Glucose 94 (60-115) mg/dL Lactate 1.3 (0.5-1.9) mmol/L Calcium 9.4 (8.4-10.6) mg/dL Total Bilirubin 1.2 (0.1-1.5) mg/dL Direct Bilirubin 0.1 (0.0-0.5) mg/dL AST 33 (12-35) U/L ALT 35 (4-35) U/L Alkaline Phosphatase 91 (40-150) U/L Troponin I < 0.01 L (0.01-0.04) ng/mL C-Reactive Protein 1.4 H (0.5-1.0) mg/dL Total Protein 7.9 (6.0-8.3) g/dL Albumin 4.6 (3.3-5.0) g/dL Lipase 123 (23-300) U/L Urine HCG, Qual Negative (Negative) Imaging Data Chest x-ray: Attestation: I have reviewed the pertinent imaging results. Radiologist's impression: None. FINDINGS: Cardiovascular and mediastinum: Cardiomediastinal silhouette is within normal limits Lungs and pleural spaces: Lungs are clear. No sign of pleural effusion. No pneumothorax. Bones and soft tissues: No significant findings. IMPRESSION: No acute or significant findings. CT scan - chest: Attestation: I have reviewed the pertinent imaging results. Radiologist's impression: CT chest PE was acquired with 95 cc Isovue 370 IV contrast. COMPARISON: None. FINDINGS: Heart and vasculature: Contrast opacification of the pulmonary arterial tree is adequate. No sign of pulmonary embolism. Heart size is normal. Thoracic aorta and pulmonary artery are normal in caliber. Lungs and pleura: No suspicious nodules or infiltrates. No pleural effusions, pleural thickening, or pneumothorax. Lymph nodes/mediastinum: No mediastinal, hilar, or axillary adenopathy. Chest wall: No masses. Upper abdomen: No acute or significant findings. Bones: Unremarkable for age. IMPRESSION: No pulmonary embolism. No acute findings in the chest. ECG Data Attestation: I personally reviewed and interpreted this ECG as follows: Discharge Plan Discharge Clinical Impression: Atypical chest pain Additional Instructions: Recommend you follow-up with your primary care provider this week. We will send you home with a copy of the reports of your imaging and all of your lab work so you can share that with your provider. If your pain worsens you should return to the emergency room. Prescriptions: No Action citalopram 20 mg tablet 20 mg PO QDAY citalopram 20 mg tablet 20 mg PO QDAY Qty: 90 3RF norethindrone (contraceptive) [Marta] 0.35 mg tablet 0.35 mg PO QDAY Qty: 84 4RF clotrimazole 1 % cream 1 appful vaginal QHS 7 Days Qty: 45 0RF Follow Up/Referrals: Provider,Not a Local [Primary Care Provider] - Stand Alone Forms: [facility] Info Instructions
[2024-06-15 16:03] LABS: Lactate* 1.3 mmol/L (0.5-1.9)
--- OUTSIDE RECORDS SUMMARY | 2024-06-15 16:20 | XMS_ITS | Clinical Summary ---
Author Organization [facility] Address [address] [place] [address] Care Team Providers Care Emu Farm Worker Name Role Phone No Ref-Primary, Physician Primary Care Provider Evangelista Tucker MD Unavailable [phone] April Barros APRN, CNP Unavailable [phone] Evangelista Tucker MD Unavailable [phone] Allergies No known active allergies Medications citalopram (CELEXA) 20 MG tablet 20 mg daily 3 Active NIFEdipine ER (ADALAT CC) 30 MG 24 hr tablet 4 Active ondansetron (ZOFRAN ODT) 4 MG ODT tab 4 mg 4 Active UNABLE TO FIND MISCELLANEOUS MEDICAL SUPPLY (BLOOD PRESSURE CUFF) MISC Active Encounters Date Type Department Care Team Description 04/05/2024 12:45 PM CDT Office Visit [facility] [address] [address] April Barros APRN CNP Albrecht, Jeffrey Holt, MD Nausea (Primary Dx); Hepatomegaly, not elsewhere classified; Fatty (change of) liver, not elsewhere classified; Gallstones 04/05/2024 Travel 04/05/2024 Telephone [facility] [address] [address] Sue Roman RN 03/29/2024 10:15 AM CDT Lab [facility] [address] [place] [address] Fatty liver; Hepatomegaly 03/29/2024 Travel 03/28/2024 Telephone [facility] [place] [address] [place] [address] [address] [place] [address] Evangelista Tucker MD Orders (Labs) 03/18/2024 Transcribe Orders GENERIC EXTERNAL DATA DEPARTMENT April Barros, FAMILY LAW ATTORNEY HEEL TURNER Hepatomegaly, not elsewhere classified (Primary Dx); Fatty (change of) liver, not elsewhere classified 03/17/2024 Medical Correspondence [facility] [address] [facility] [place] [address] Scan, Non-Provider from Last 3 Months Social History Tobacco Use Types Packs/Day Years Used Date Smoking Tobacco: Never Smokeless Tobacco: Never Tobacco Cessation:Counseling Given: No Alcohol Use Standard Drinks/Week Comments Never 0 (1 standard drink = 0.6 oz pur e alcohol) PHQ-2 Answer Date Recorded PHQ-2 Score 1 04/05/2024 Adolescent Education Answer Date Record ed Getting School Help Needed Not on file 09/24 Comments No Sex and Gender Information Value Date Recorded Sex Assigned at Not on file 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 Gender Identity Not on file Sexual Orientation Not on file Last Filed Vital Signs Vital Sign Reading Time Taken Comments Blood Pressure 120/82 04/05/2024 12:47 PM CDT Pulse 74 04/05/2024 12:47 PM CDT Temperature - - Respiratory Rate - - Oxygen Saturation 98% 04/05/2024 12:47 PM CDT Inhaled Oxygen Concentration - - Weight 102.1 kg (225 lb) 04/05/2024 12:47 PM CDT shoes Height 165.1 cm (5' 5) 04/05/2024 12:47 PM CDT Body Mass Index 37.44 04/05/2024 12:47 PM CDT Plan of Treatment Health Maintenance Due Date Last Done Comments ADVANCE CARE PLANNING 1995 ANNUAL REVIEW OF HM ORDERS 1995 YEARLY PREVENTIVE VISIT 1995 HIV SCREENING 2010 COVID-19 Vaccine ( season) 2024 08/05/2023, 10/24/2021, 12/18/2020, Additional history exists INFLUENZA VACCINE (#1) 2024 , 07/16/2022, 06/05/2021, Additional history exists PAP 07/21/2026 07/21/2023, 07/21/2023 DTAP/TDAP/TD IMMUNIZATION (10 - Td or Tdap) 01/12/2034 01/13/2024, 08/07/2021, 06/13/2019, Additional history exists RSV VACCINE (1 - 1-dose 75+ series) 2070 HEPATITIS B IMMUNIZATION Completed 996, 1995, 1995 HPV IMMUNIZATION Completed 10/28/2012, 04/2012, 04/14/2012 MENINGITIS IMMUNIZATION Aged Out 06/09/2016 No l onger eligible based on patient's age to complete this topic HEPATITIS C SCREENING Completed 03/29/2024 PHQ-2 (once per calendar year) Completed 04/05/2024 Pneumococcal Vaccine: Pediatrics (0 to 5 Years) and At-Risk Patients (6 to 64 Years) Aged Out No longer eligible based on patient's age to complete this topic RSV MONOCLONAL ANTIBODY Aged Out No l onger eligible based on patient's age to complete this topic Procedures Procedure Name Priority Date/Time Associated Diagnosis Comments HEPATITIS C ANTIBODY Routine 03/29/2024 9:56 AM CDT Fatty liver Hepatomegaly HEPATITIS B SURFACE ANTIGEN Routine 03/29/2024 9:56 AM CDT Fatty liver Hepatomegaly HEPATITIS B CORE ANTIBODY Routine 03/29/2024 9:56 AM CDT Fatty liver Hepatomegaly HEPATITIS B SURFACE ANTIBODY Routine 03/29/2024 9:56 AM CDT Fatty liver Hepatomegaly CBC WITH PLATELETS Routine 03/29/2024 9: 56 AM CDT Fatty liver Hepatomegaly BASIC METABOLIC PANEL Routine 03/29/2024 9:56 AM CDT Fatty liver Hepatomegaly HEPATIC FUNCTION PANEL Routine 03/29/2024 9:56 AM CDT Fatty liver Hepatomegaly INR Routine 03/29/2024 9:56 AM CDT Fatty liver Hepatomegaly from Last 3 Months Results * Hepatitis B Surface Antibody (03/29/2024 9:56 AM CDT) Hepatitis B Surface Antibody Reactive 03/29/2024 3:18 PM CDT [facility] Comment:A reactive result in dicates recovery from acute or chronic hepatitis B virus (HBV) infection or acquired immunity from HBV vaccination. This assay does not differentiate between a vaccine-induced immune response and an immune response induced by infection with HBV. A positive total antihepatitis B core result would indicate that the hepatitis B surface antibody response is due to past HBV infection. Hepatitis B Surface Antibody Instrument Value 29.30 <8.5 m[IU]/mL 03/29/2024 3:18 PM CDT [facility] Blood BLOOD SPECIMEN / Unknown Venipuncture / Unknown 03/29/2024 9:56 AM CDT 03/29/2024 9:57 AM CDT Evangelista Tucker MD LAB - BLOOD ORDERABLES Final Result [facility] [address] [facility], [address] [place] [address] * INR (03/29/2024 9:56 AM CDT) INR 0.93 0.85 - 1.15 03/29/2024 10:12 AM CDT LABORATORY Blood BLOOD SPECIMEN / Unknown Venipuncture / Unknown 03/29/2024 9:56 AM CDT 03/29/2024 9:57 AM CDT Evangelista Tucker MD LAB - BLOOD ORDERABLES Final Result [facility] [address] [facility] Lab (1st floor, no room number) [place] [address] * Hepatitis C antibody (03/29/2024 9:56 AM CDT) Hepatitis C Antibody Nonreactive Nonreactive 03/29/2024 2:06 PM CDT [facility] Comment:A nonreactive screen ing test result does not exclude the possibility of exposure to or infection with HCV. Nonreactive screening test results in individuals with prior exposure to HCV may be due to antibody levels below the limit of detection of this assay or lack of reactivity to the HCV antigens used in this assay. Patients with recent HCV infections (<3 months from time of exposure) may have false- negative HCV antibody results due to the time needed for seroconversion (average of 8 to 9 weeks). Blood BLOOD SPECIMEN / Unknown Venipuncture / Unknown 03/29/2024 9:56 AM CDT 03/29/2024 9:57 AM CDT Evangelista Tucker MD LAB - BLOOD ORDERABLES Final Result Performing Organization Address City/[facility]/ZIP Co de Phone Number LABORATORY [facility] [address] [facility], [address] [address] * Hepatitis B surface antigen (03/29/2024 9:56 AM CDT) Pathologist [facility] Hepatitis B Surface Antigen Nonreactive Nonreactive 03/29/2024 3:18 PM CDT [facility] Blood BLOOD SPECIMEN / Unknown Venipuncture / Unknown 03/29/2024 9:56 AM CDT 03/29/2024 9:57 AM CDT Evangelista Tucker MD LAB - BLOOD ORDERABLES Final Result [facility]ATORY [facility] [address] [facility], [address] [address] * Hepatitis B core antibody (03/29/2024 9:56 AM CDT) Pathologist [facility] Hepatitis B Core Antibody Total Nonreactive Nonreactive 03/29/2024 3:18 PM CDT [facility] Comment:Nonreactive hepatiti s B core antibody test results indicate the absence of exposure to hepatitis B virus and no evidence of recent, past/resolved, or chronic hepatitis B. Blood BLOOD SPECIMEN / Unknown Venipuncture / Unknown 03/29/2024 9:56 AM CDT 03/29/2024 9:57 AM CDT Evangelista Tucker MD LAB - BLOOD ORDERABLES Final Result [facility] [address] [facility], [address] [address] * Hepatic function panel (03/29/2024 9:56 AM CDT) Pathologist [facility] Protein Total 7.2 6.4 - 8.3 g/dL 03/29/2024 10:17 AM CDT [facility] Albumin 4.0 3.5 - 5.2 g/dL 03/29/2024 10:17 AM CDT [facility] Bilirubin Total 0.7 <=1.2 mg/dL 03/29/2024 10:17 AM CDT [facility] Alkaline Phosphatase 105 40 - 150 U/L 03/29/2024 10:17 AM CDT [facility] AST 26 0 - 45 U/L 03/29/2024 10:17 AM CDT [facility] ALT 32 0 - 50 U/L 03/29/2024 10:17 AM CDT [facility] Bilirubin Direct <0.20 0.00 - 0.30 mg/dL 03/29/2024 10:17 AM CDT [facility] Blood BLOOD SPECIMEN / Unknown Venipuncture / Unknown 03/29/2024 9:56 AM CDT 03/29/2024 9:57 AM CDT Evangelista Tucker MD LAB - BLOOD ORDERABLES Final Result LABORATORY [facility] Acute Care Lab [address] Lab (1st floor, no room number) [place] [address] * (ABNORMAL) Basic metabolic panel (03/29/2024 9:56 AM CDT) Sodium 138 135 - 145 mmol/L 03/29/2024 10:17 AM CDT LABORATORY Potassium 4.4 3.4 - 5.3 mmol/L 03/29/2024 10:17 AM CDT LABORATORY Chloride 101 98 - 107 mmol/L 03/29/2024 10:17 AM CDT LABORATORY Carbon Dioxide (CO2) 22 22 - 29 mmol/L 03/29/2024 10:17 AM CDT LABORATORY Anion Gap 15 7 - 15 mmol/L 03/29/2024 10:17 AM CDT LABORATORY Urea Nitrogen 10.9 6.0 - 20.0 mg/dL 03/29/2024 10:17 AM CDT LABORATORY Creatinine 0.78 0.51 - 0.95 mg/dL 03/29/2024 10:17 AM CDT LABORATORY GFR Estimate >90 >60 mL/min/1.7 3m2 03/29/2024 10:17 AM CDT LABORATORY Comment:eGFR calculated usin 2020 CKD-EPI equation. Calcium 9.0 8.8 - 10.4 mg/dL 03/29/2024 10:17 AM CDT [facility]OR[facility]ORY Comment:Reference intervals for this test were updated on 03/08/2024 to reflect our healthy population more accurately. There may be differences in the flagging of prior results with similar values performed with this method. Those prior results can be interpreted in the context of the updated reference intervals. Glucose 132(H) 70 - 99 mg/dL 03/29/2024 10:17 AM CDT LABORATORY Blood BLOOD SPECIMEN / Unknown Venipuncture / Unknown 03/29/2024 9:56 AM CDT 03/29/2024 9:57 AM CDT Evangelista Tucker MD LAB - BLOOD ORDERABLES Final Result LABORATORY [facility] Acute Care Lab [address] Lab (1st floor, no room number) [place] [address], [facility] * CBC with platelets (03/29/2024 9:56 AM CDT) WBC Count 9.1 4.0 - 11.0 10e3/uL 03/29/2024 9:59 AM CDT [facility] RBC Count 4.82 3.80 - 5.20 10e6/uL 03/29/2024 9:59 AM CDT [facility] Hemoglobin 14.1 11.7 - 15.7 g/dL 03/29/2024 9:59 AM CDT [facility] Hematocrit 43.2 35.0 - 47.0 % 03/29/2024 9:59 AM CDT [facility] MCV 90 78 - 100 fL 03/29/2024 9:59 AM CDT [facility] MCH 29.3 26.5 - 33.0 pg 03/29/2024 9:59 AM CDT [facility] MCHC 32.6 31.5 - 36.5 g/dL 03/29/2024 9:59 AM CDT [facility] RDW 11.9 10.0 - 15.0 % 03/29/2024 9:59 AM CDT [facility] Platelet Count 352 150 - 450 10e3/uL 03/29/2024 9:59 AM CDT [facility] Blood BLOOD SPECIMEN / Unknown Venipuncture / Unknown 03/29/2024 9:56 AM CDT 03/29/2024 9:57 AM CDT Evangelista Tucker MD LAB - BLOOD ORDERABLES Final Result [facility] Lab [address] Lab (1st floor, no room number) [place] [address], [facility] from Last 3 Months Insurance [employer] [place] [address] [place] [address] OUT OF STATE Care Teams Emu Farm Worker Relationship Specialty Start Date End Date No Ref-Primary, Physician PCP - General 09/24/23 Evangelista Tucker MD [address] [place] [address] Gastroenterology 03/22/24 April Barros APRN CNP [facility] [address] [place] [address] Nurse Practitioner physical chemistry teacher 03/22/24 Evangelista Tucker MD [address] [place] [address] Assigned Gastroenterology Provider 04/15/24
[2024-06-15 16:21] LABS: Basophils Absolute Auto 0.04 K/uL (0.00-0.30); Basophils Percent Auto 0.4 % (0.0-3.0); Eosinophils Absolute Auto 0.09 K/uL (0.00-0.50); Eosinophils Percent Auto 0.9 % (0.0-7.0); Hematocrit 42.4 % (33.0-51.0); Hemoglobin* 14.3 gm/dL (12.0-16.0); Immature Granulocytes Abs Auto 0.01 K/uL (0.00-0.30); Immature Granulocytes Pct Auto 0.1 %; Lymphocytes Absolute Auto 2.45 K/uL (0.90-2.90); Lymphocytes Percent Auto 25.2 % (20-44); Mean Corpuscular HGB Conc 34 gm/dL (32-36); Mean Corpuscular Hemoglobin 29 pg (26-34); Mean Corpuscular Volume 86 fL (80-100); Monocytes Percent Auto 7.2 % (0.0-11.0); Neutrophils Absolute Auto 6.43 K/uL (1.7-7.0); Neutrophils Percent Auto 66.2 % (42.0-72.0); Platelet Count* 325 K/uL (140-440); RDW Coefficient of Variation % 12.6 % (11.5-15.5); Red Blood Count 4.93 m/uL (4.00-5.20); White Blood Count* 9.72 K/uL (4.50-11.00)
--- OUTSIDE RECORDS SUMMARY | 2024-06-15 16:21 | XMS_ITS | Encounter Summary ---
Author Organization [facility] Address [address] [place] [address]. 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
--- OUTSIDE RECORDS SUMMARY | 2024-06-15 16:21 | XMS_ITS | Encounter Summary ---
Author Organization [facility] Address [address] [place] [address] Care Team Providers Care Warehouse Logistics Coordinator Name Role Phone No Ref-Primary, Physician Primary Care Provider Reason for Referral * Consultation (Routine) - Pending Review Specialty Diagnoses / Procedures Referred By Contac t Referred To Contact Gastroenterology Diagnoses Hepatomegaly, not elsewhere classified Fatty (change of) liver, not elsewhere classified April Barros, [facility] [address] [place] [address] Phone: tel: fax: Referral ID Status Reason Start Date Expiration Date V isits Requested Visits Authorized [id number] Pending Review 03/18/2024 03/18/2025 1 1 Question Answer Reason for Referral: Liver Disease/Concern Scheduling Instructions: [facility] will call you to coordinate your care as prescribed by the provider. If you don? t hear from a manufacturers service representative within 2 business days, please call . Comments Please be aware that coverage of these services is subject to the terms and limitations of your health insurance plan. Call member services at your health plan with any benefit or coverage questions. Referral Transcribed by external fax Provider: April Barros NP affiliated with [facility]: No If yes was is the [facility] Authorization Number: Address: [address] [place] [address] Phone number: [phone] Fax number: [facility] will call you to coordinate your care as prescribed by the provider. If you don? t hear from a manufacturers service representative within 2 business days, please call . 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 Gender Identity Not on file Sexual Orientation Not on file documented as of this encounter Plan of Treatment Scheduled Referrals Name Type Priority Associated Diagnoses Orde r Schedule Adult GI Allergist/Pediatric Pulmonologist Referral - Consult Only Referral Routine Hepatomegaly, not elsewhere classified Fatty (change of) liver, not elsewhere classified Expected: 03/18/2024 (Approximate), Expires: 03/18/2025 documented as of this encounter Visit Diagnoses Diagnosis Hepatomegaly, not elsewhere classified- Primary Fatty (change of) liver, not elsewhere classified documented in this encounter Care Teams Warehouse Logistics Coordinator Relationship Specialty Start Date End Date No Ref-Primary, Physician PCP - General 09/24/23 documented as of this encounter
--- OUTSIDE RECORDS SUMMARY | 2024-06-15 16:21 | XMS_ITS | Encounter Summary ---
Author Organization [place] Address [address] [place] [address] Care Team Providers Care Electric Refrigerator Preparer Name Role Phone No Ref-Primary, Physician Primary Care Provider Evangelista Tucker MD Unavailable [phone] April Barros APRN, CNP Unavailable [phone] Reason for Visit * Reason Comments New Patient Hepatomegaly, not el sewhere classifiedFatty (change of) liver, not elsewhere classified * Consultation (Routine) - Pending Review Specialty Diagnoses / Procedures Referred By Leida t Referred To Contact Gastroenterology Diagnoses Hepatomegaly, not elsewhere classified Fatty (change of) liver, not elsewhere classified April Barros APRN CNP [facility] [address] [place] [address] Phone: tel: fax: Referral ID Status Reason Start Date Expiration Date V isits Requested Visits Authorized [id number] Pending Review 03/18/2024 03/18/2025 1 1 Encounter Details Date Type Department Care Team (Late st Contact Info) Description 04/05/2024 12:45 PM CDT Office Visit 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 Your liver tests, CBC, and INR are normal in our laboratory. Your hepatitis B and C serologies are negative. 2. The ultrasound from [place] in January showed an echogenic liver, which is likely related to steatotic liver disease (MASLD, formerly known as fatty liver). Your blood test did not suggest significant fibrosis of the liver, which is good. As of this time, the main approach to MASLD is sustained weight loss. I suggest that you talk to your primary care provider in 6 to 12 months about strategies to help achieve weight loss, possibly including some of the new weight loss medications (such as GLP-1 agonists). At this time, I do not think you need to be seen back in hepatology clinic unless new issues arise.If you have any questions about your liver disease care or tests, you can call the clinic at [phone]. documented in this encounter Progress Notes * Evangelista Tucker MD - 04/05/2024 12:45 PM CDT [facility] Hepatology Clinic Date of Service: 04/05/2024 History of Present Illness Ms. Schroeder is sent in consultation by Ms. Barros because of presumed MASLD. She is accompanied by her and young son. The information is obtained from the patient, since we do not have access to any records from the [facility]. I do have an ultrasound report dated January 27, 2024 showing an echogenic liver suggesting steatosis. The gallbladder showed an echogenic focus that could reflect stones or sludge. The patient reports that he had significant nausea and vomiting during her . This has slowly improved since her delivery, but she still has occasions of nausea and rare vomiting. She takes Zofran, which helps with the nausea. She also had episodes of upper abdominal pain during the , and was started on omeprazole after delivering. This discomfort has improved substantially, now she rarely gets mild upper abdominal pain. She reports that she had seen a surgeon regarding the possibility of a cholecystectomy given her symptoms, but they elected not to proceed. She reports no prior history of liver problems. There is no family history of liver disease. She reports no history of significant alcohol use. Overall, she says she is doing well since her delivery. She lives with her and children in [place]. Past Medical History: No past medical history on file. There is no problem list on file for this patient. Surgical History: No past surgical history on file. Social History: Social History Tobacco Use Smoking status: Never Smokeless tobacco: Never Substance Use Topics Alcohol use: Never Drug use: Never Family History: No family history on file. Medications: Current Outpatient Medications Medication Sig Dispense Refill citalopram (CELEXA) 20 MG tablet 20 mg daily NIFEdipine ER (ADALAT CC) 30 MG 24 hr tablet ondansetron (ZOFRAN ODT) 4 MG ODT tab 4 mg No current facility-administered medications for this visit. Objective: Vitals: 04/05/24 1247 BP: 120/82 BP Location: Left arm Patient Position: Sitting Cuff Size: Adult Large Pulse: 74 SpO2: 98% Height: 1.651 m (5' 5) There is no height or weight on file to calculate BMI. Physical Exam Constitutional: Well-developed, obese, in no apparent distress. HEENT: Normocephalic. No scleral icterus. GI: Abdomen soft, non-distended, non-tender. No overt hepatosplenomegaly. Skin: No rash noted. No spider nevi noted. Peripheral Vascular: No lower extremity edema. Musculoskeletal: ROM intact, grossly normal muscle bulk Psychiatric: Normal mood and affect. Behavior is normal. Neuro: No asterixis Labs and Diagnostic tests: Lab Results Component Value Date NA 138 03/29/2024 POTASSIUM 4.4 03/29/2024 CHLORIDE 101 03/29/2024 CO2 22 03/29/2024 BUN 10.9 03/29/2024 CR 0.78 03/29/2024 Lab Results Component Value Date BILITOTAL 0.7 03/29/2024 ALT 32 03/29/2024 AST 26 03/29/2024 ALKPHOS 105 03/29/2024 Lab Results Component Value Date ALBUMIN 4.0 03/29/2024 PROTTOTAL 7.2 03/29/2024 Lab Results Component Value Date WBC 9.1 03/29/2024 HGB 14.1 03/29/2024 MCV 90 03/29/2024 PLT 352 03/29/2024 Lab Results Component Value Date INR 0.93 03/29/2024 Previous work-up: Lab Results Component Value Date HEPBANG Nonreactive 03/29/2024 HBCAB Nonreactive 03/29/2024 AUSAB 29.30 03/29/2024 HCVAB Nonreactive 03/29/2024 No results found for: SPECDES, LDRESULTS FIB-4 Calculation: 0.38 at 03/29/2024 9:56 AM Calculated from: SGOT/AST: 26 U/L at 03/29/2024 9:56 AM SGPT/ALT: 32 U/L at 03/29/2024 9:56 AM Platelets: 352 10e3/uL at 03/29/2024 9:56 AM Age: 29 years Ultrasound as noted above. 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 This is a patient with obesity who recently delivered a baby. Her ultrasound suggest steatotic liver disease, which is not surprising. Her FIB-4 score does not suggest fibrosis. Her liver test, CBC, and INR are normal. At this point, I think that if further evaluation of her liver is not needed. We did discuss the significance of MASLD at some length. I explained that there is a long-term risk of developing cirrhosis or HCC, although these outcomes do not occur in most patients. As of now, the mainstay of therapyis sustained weight loss. I suggest that she discuss weight management strategies with her primary care provider in 6 to 12 months. In addition to potentially meeting with a dietitian and getting advice regarding physical activity, the use of weight loss medications (such as a GLP-1 agonist) could be considered. It would be reasonable to have her primary care clinic check labs about once yearly (including a liver panel and CBC) to calculate her Fib 4 score to estimate whether there is significant hepatic fibrosis. If her liver tests become significantly abnormal, or if there is evidence of potential hepatic fibrosis, she can certainly can be seen back in this clinic. In regard to her nausea, this is slowly improving. If she has sustained symptoms, further testing might be indicated. In regard to her possible gallstones (or sludge), she does not appear to be having typical biliary symptoms on my interview. Certainly, if she does develop symptoms suggestive of gallstone pain, a cholecystectomy should be considered. Her questions were answered. About 30 minutes spent today with patient, reviewing results, and coordinating care. This note was created with voice recognition software, and while reviewed for accuracy, typos may remain. Evangelista Tucker MD top installer [facility] Division of Gastroenterology, Hepatology, and Nutrition documented in this encounter Nursing Notes * Braxton Tirado Gregorio - 04/05/2024 12:45 PM CDT Chief Complaint Patient presents with New Patient Hepatomegaly, not elsewhere classified Fatty (change of) liver, not elsewhere classified Vitals: 04/05/24 1247 BP: 120/82 BP Location: Left arm Patient Position: Sitting Cuff Size: Adult Large Pulse: 74 SpO2: 98% Weight: 102.1 kg (225 lb) Height: 1.651 m (5' 5) Body mass index is 37.44 kg/m??. Braxton Perkins. Candida ICVF documented in this encounter Plan of Treatment Not on file documented as of this encounter Visit Diagnoses Diagnosis Nausea- Primary Nausea alone Hepatomegaly, not elsewhere classified Fatty (change of) liver, not elsewhere classified Gallstones Calculus of gallbladder without mention of cholecystitis or obstruction documented in this encounter Care Teams Electric Refrigerator Preparer Relationship Specialty Start Date End Date No Ref-Primary, Physician PCP - General 09/24/23 Evangelista Tucker MD [address] [place] [address] Gastroenterology 03/22/24 April Barros APRN [facility] [address] [place] [address] Nurse Practitioner heating operators engineer 03/22/24 documented as of this encounter
--- OUTSIDE RECORDS SUMMARY | 2024-06-15 16:21 | XMS_ITS | Encounter Summary ---
Author Organization [facility] Address [address] [place] [address] Care Team Providers Care Bobtail Driver Name Role Phone No Ref-Primary, Physician Primary Care Provider Evangelista Tucker MD Unavailable [phone] April Barros APRN, CNP Unavailable [phone] Encounter Details Date Type Department Care Team (Late st Contact Info) Description 04/05/2024 Telephone [facility] Hepatology Clinic [address] [phone] Sue Roman RN Social History Tobacco Use Types Packs/Day Years Used Date Smoking Tobacco: Never Smokeless Tobacco: Never Alcohol Use Standard Drinks/Week Comments Never 0 (1 standard drink = 0.6 oz pur e alcohol) PHQ-2 Answer Date Recorded PHQ-2 Score 1 04/05/2024 Adolescent Education Answer Date Record ed Getting School Help Needed Not on file 09/24 Comments No Sex and Gender Information Value Date Recorded Sex Assigned at Not on file 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 Tucker as there is nothing relevant in patient's chart for the hepatology appointment today. Spoke with medical records who will send last office visit note over via fax + push relevant image (s) to PACS. INESSA Rogers, RN, PHN [facility] documented in this encounter Plan of Treatment Not on file documented as of this encounter Visit Diagnoses Not on filedocumented in this encounter Care Teams Bobtail Driver Relationship Specialty Start Date End Date No Ref-Primary, Physician PCP - General 09/24/23 Evangelista Tucker MD [address] [place] [address] Gastroenterology 03/22/24 April Barros APRN [facility] [address] [place] [address] Nurse Practitioner school librarian 03/22/24 documented as of this encounter
--- OUTSIDE RECORDS SUMMARY | 2024-06-15 16:21 | XMS_ITS | Referral Summary ---
Author Organization [facility] Address [address] [place] [address] Care Team Providers Care Supervisor Park Workers Name Role Phone No Ref-Primary, Physician Primary Care Provider Evangelista Tucker MD Unavailable [phone] April Barros APRN SCIENTIFIC EDITOR Unavailable [phone] Evangelista Tucker MD Unavailable [phone] Encounters Date Type Department Care Team Description 04/05/2024 Travel 04/05/2024 Telephone [facility] Hepatology Clinic [address] [phone] Sue Roman RN 04/05/2024 12:45 PM CDT Office Visit [facility] Specialty [address] [place] [phone] April Barros, CONCRETE BLOCK [employer] Evangelista Lema MD Nausea (Primary Dx); Hepatomegaly, not elsewhere classified; Fatty (change of) liver, not elsewhere classified; Gallstones 03/29/2024 Travel 03/29/2024 10:15 AM CDT Lab [facility] [address] [place] [phone] Fatty liver; Hepatomegaly 03/28/2024 Telephone [facility] Specialty [address] [place] [phone] Evangelista Tucker MD Orders (Labs) 03/18/2024 Transcribe Orders GENERIC EXTERNAL DATA DEPARTMENT April Barros, CONCRETE BLOCK MASON SCIENTIFIC EDITOR Hepatomegaly, not elsewhere classified (Primary Dx); Fatty (change of) liver, not elsewhere classified 03/17/2024 Medical Correspondence [facility] [address] [place] [address] Scan, Non-Provider from Last 3 Months Allergies No known active allergies Medications citalopram (CELEXA) 20 MG tablet 20 mg daily 3 Active NIFEdipine ER (ADALAT CC) 30 MG 24 hr tablet 4 Active ondansetron (ZOFRAN ODT) 4 MG ODT tab 4 mg 4 Active UNABLE TO FIND MISCELLANEOUS MEDICAL SUPPLY (BLOOD PRESSURE CUFF) MISC Active Social History Tobacco Use Types Packs/Day Years [...] on file Legal Sex Female 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 Gender Identity Not on file Sexual Orientation [...] 04/05/2024 12:47 PM CDT Plan of Treatment Not on file Procedures [...] 9:56 AM CDT 03/29/2024 9:57 AM CDT us Evangelista Tucker MD LAB - BLOOD ORDERABLES Final Result [facility] [address] [facility] [address] [facility], Room [address] [place] [address], [facility] * INR (03/29/2024 9:56 AM CDT) [facility] INR 0.93 0.85 - 1.15 03/29/2024 10:12 AM CDT LABORATORY Blood BLOOD SPECIMEN / Unknown Venipuncture / Unknown 03/29/2024 9:56 AM CDT 03/29/2024 9:57 AM CDT Evangelista Tucker MD LAB - BLOOD ORDERABLES Final Result LABORATORY [facility] Acute Care Lab [address] [facility] Lab (1st floor, no room number) [place] [address], [facility] * Hepatitis C antibody (03/29/2024 9:56 AM CDT) [facility] Hepatitis C Antibody Nonreactive Nonreactive 03/29/2024 2:06 PM CDT LABORATORY Comment:A nonreactive screen ing test result [...] LAB - BLOOD ORDERABLES Final Result LABORATORY [facility] Core Lab [address] [facility], Room [address] [place] [address], [facility] * Hepatitis B surface antigen (03/29/2024 9:56 AM CDT) Pathologist [facility] Hepatitis B Surface Antigen Nonreactive Nonreactive 03/29/2024 3:18 PM CDT [facility] Blood BLOOD SPECIMEN / Unknown Venipuncture / Unknown 03/29/2024 9:56 AM CDT 03/29/2024 9:57 AM CDT Evangelista Tucker MD LAB - BLOOD ORDERABLES Final Result [facility] [place] [facility] Lab [address] [facility], [address] [phone] * Hepatitis B core antibody (03/29/2024 9:56 AM CDT) [facility] Hepatitis B Core Antibody Total Nonreactive Nonreactive [...] BLOOD ORDERABLES Final Result Performing Organization Address City/[facility] de Phone Number LABORATORY [facility] [place] Core Lab [address] [facility], [address] [phone] * Hepatic function panel (03/29/2024 9:56 AM CDT) Pathologist [facility] Protein Total 7.2 6.4 - 8.3 g/dL [...] - 0.30 mg/dL 03/29/2024 10:17 AM CDT LABORATORY Blood BLOOD SPECIMEN / Unknown Venipuncture / Unknown 03/29/2024 9:56 AM CDT 03/29/2024 9:57 AM CDT us Evangelista Tucker MD LAB - BLOOD ORDERABLES Final Result LABORATORY [facility] Acute Care Lab [address] [facility] Lab (1st floor, no room number) [place] [address] * (ABNORMAL) Basic metabolic panel (03/29/2024 9:56 [...] - 99 mg/dL 03/29/2024 10:17 AM CDT [facility] Blood BLOOD SPECIMEN / Unknown Venipuncture / Unknown 03/29/2024 9:56 AM CDT 03/29/2024 9:57 AM CDT us Evangelista Tucker MD LAB - BLOOD ORDERABLES Final Result [facility] Acute Care Lab [address] [facility] Lab (1st floor, no room number) [place] [address] * CBC with platelets (03/29/2024 [...] 9:56 AM CDT 03/29/2024 9:57 AM CDT us Evangelista Tucker MD LAB - BLOOD ORDERABLES Final Result [facility] Acute Care Lab [address] [facility] Lab (1st floor, no room number) [place] [address], [facility] from Last 3 Months Insurance BCBS OUT OF STATE BCBS OUT OF STATE Care Teams Supervisor Park Workers Relationship Specialty Start Date End Date No Ref-Primary, Physician PCP - General 09/24/23 Evangelista Tucker MD [address] [place] [address] Gastroenterology 03/22/24 April Barros APRN SCIENTIFIC EDITOR [facility] [address] Nurse Practitioner assistant store leader 03/22/24 Evangelista Tucker MD [address] [place] [address] Assigned Gastroenterology Provider 04/15/24
--- OUTSIDE RECORDS SUMMARY | 2024-06-15 16:21 | XMS_ITS | Encounter Summary ---
Author Organization [place] Address [address] [place] [address] Care Team Providers Care Case Supervisor Name Role Phone No Ref-Primary, Physician Primary Care Provider Evangelista Tucker MD Unavailable [phone] April Barros APRN DIRECTOR OF CARDIOLOGY Unavailable [phone] Reason for Visit * Reason Onset Date Comments Orders 03/28/2024 Labs Encounter Details Date Type Department Care Team (Late st Contact Info) Description 03/28/2024 [facility] Special[facility] Clinic [address] [place] [address] Evangelista Tucker MD [address] [place] [phone] Orders (Labs) Social History Tobacco Use Types Packs/Day Years Used Date Smoking Tobacco: Never Assessed Adolescent Education Answer Date Record ed Getting School Help Needed Not on file 09/24 Comments Yes Sex and Gender Information Value Date Recorded Sex Assigned at Not on file 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 Tucker Action Taken: Message routed to: [facility] Hepatology Travel Screening: Not Applicable Date of Service: documented in this encounter Plan of Treatment Not on file documented as of this encounter Results * Hepatitis C antibody (03/29/2024 9:56 AM CDT) Hepatitis C Antibody Nonreactive Nonreactive 03/29/2024 2:06 PM CDT [facility] Comment:A nonreactive screen ing test result [...] - BLOOD ORDERABLES Final Result [facility] [place] [facility] [address] [place] [address], [address] [address] * Hepatitis B surface antigen (03/29/2024 9:56 AM CDT) Hepatitis B Surface Antigen Nonreactive Nonreactive 03/29/2024 3:18 PM CDT [facility] Blood BLOOD SPECIMEN / Unknown Venipuncture / Unknown 03/29/2024 9:56 AM CDT 03/29/2024 9:57 AM CDT Evangelista Tucker MD LAB - BLOOD ORDERABLES Final Result [facility] [place] [facility] [address] [facility], [address] * Hepatitis B core antibody (03/29/2024 9:56 AM CDT) Hepatitis B Core Antibody Total Nonreactive Nonreactive [...] BLOOD ORDERABLES Final Result Performing Organization Address [facility] Co de Phone Number U LABORATORY [facility] Core Lab [address] [facility], [address] * Hepatitis B Surface Antibody (03/29/2024 9:56 AM CDT) Pathologist [facility] Hepatitis B Surface Antibody Reactive 03/29/2024 3:18 PM CDT U LAB[facility]ATORY Comment:A reactive result in dicates recovery [...] - BLOOD ORDERABLES Final Result [facility] [place] [facility] Lab [address] [facility], [address] [place] [address], [facility] * CBC with platelets (03/29/2024 9:56 AM [...] - BLOOD ORDERABLES Final Result [facility] LABORATORY [facility] Acute Care Lab [address] Lab (1st floor, no room number) [place] [address], [facility] * (ABNORMAL) Basic metabolic panel (03/29/2024 9:56 AM CDT) Pathologist [facility] Sodium 138 135 - 145 mmol/L 03/29/2024 10:17 AM CDT [facility] Potassium 4.4 3.4 - 5.3 mmol/L 03/29/2024 10:17 AM CDT [facility] Chloride 101 98 - 107 mmol/L 03/29/2024 10:17 AM CDT [facility] Carbon Dioxide (CO2) 22 22 - 29 mmol/L 03/29/2024 10:17 AM CDT [facility] Anion Gap 15 7 - 15 mmol/L 03/29/2024 10:17 AM CDT [facility] Urea Nitrogen 10.9 6.0 - 20.0 mg/dL 03/29/2024 10:17 AM CDT LABORATORY Creatinine 0.78 0.51 - 0.95 mg/dL 03/29/2024 10:17 AM CDT [facility] GFR Estimate >90 >60 mL/min/1.7 3m2 03/29/2024 10:17 AM CDT [facility] Comment:eGFR calculated us2020 CKD-EPI equation. Calcium 9.0 8.8 - 10.4 mg/dL 03/29/2024 10:17 AM CDT [facility] Comment:Reference intervals for this test were [...] LAB - BLOOD ORDERABLES Final Result LABORATORY [facility] Acute Care Lab [address] Lab (1st floor, no room number) [place] [address], [facility] * Hepatic function panel (03/29/2024 9:56 AM CDT) Protein Total 7.2 6.4 - 8.3 g/dL 03/29/2024 10:17 AM CDT LABORATORY Albumin 4.0 3.5 - 5.2 g/dL 03/29/2024 10:17 AM CDT LABORATORY Bilirubin Total 0.7 <=1.2 mg/dL 03/29/2024 [...] MD LAB - BLOOD ORDERABLES Final Result [facility] Lab [address] Lab (1st floor, no room number) [place] [address] * INR (03/29/2024 9:56 AM CDT) INR 0.93 0.85 - 1.15 03/29/2024 10:12 AM CDT [facility] Blood BLOOD SPECIMEN / Unknown Venipuncture / Unknown 03/29/2024 9:56 AM CDT 03/29/2024 9:57 AM CDT Evangelista Tucker MD LAB - BLOOD ORDERABLES Final Result [facility] Care Lab [address] Lab (1st floor, no room number) [place] [address] documented in this encounter Visit Diagnoses Diagnosis Fatty liver- Primary Other chronic nonalcoholic liver disease Hepatomegaly documented in this encounter Care Teams Case Supervisor Relationship Specialty Start Date End Date No Ref-Primary, Physician PCP - General 09/24/23 Evangelista Tucker MD [address] [place] [address] Gastroenterology 03/22/24 April Barros APRN [facility] [address] [place] [address] Nurse Practitioner retail planning manager 03/22/24 documented as of this encounter
--- OUTSIDE RECORDS SUMMARY | 2024-06-15 16:21 | XMS_ITS | Encounter Summary ---
Author Organization [address] [address] Care Team Providers Care Film Replacement Orderer Name Role Phone No Ref-Primary, Physician Primary Care Provider Evangelista Tucker MD Unavailable [phone] April Barros APRN EDUCATION DIRECTOR Unavailable + [phone] Encounter Details Date Type Department Care Team (Late st Contact Info) Description 03/29/2024 10:15 AM CDT Lab [facility] [address] [place] [address] Fatty liver; Hepatomegaly Social History Tobacco Use Types Packs/Day Years Used Date Smoking Tobacco: Never Assessed Adolescent Education Answer Date Record ed Getting School Help Needed Not on file 09/24 Comments Yes Sex and Gender Information Value Date Recorded Sex Assigned at Not on file 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 Sex 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 Gender Identity Not on file Sexual Orientation Not on file documented as of this encounter Plan of Treatment Not on file documented as of this encounter Procedures Procedure Name Priority Date/Time Associated Diagnosis Comments HEPATITIS B SURFACE ANTIBODY Routine 03/29/2024 9:56 AM CDT Fatty liver Hepatomegaly INR Routine 03/29/2024 9:56 AM CDT Fatty liver Hepatomegaly HEPATITIS C ANTIBODY Routine 03/29/2024 9:56 AM CDT Fatty liver Hepatomegaly HEPATITIS B SURFACE ANTIGEN Routine 03/29/2024 9:56 AM CDT Fatty liver Hepatomegaly HEPATITIS B CORE ANTIBODY Routine 03/29/2024 9:56 AM CDT Fatty liver Hepatomegaly HEPATIC FUNCTION PANEL Routine 03/29/2024 9:56 AM CDT Fatty liver Hepatomegaly BASIC METABOLIC PANEL Routine 03/29/2024 9:56 AM CDT Fatty liver Hepatomegaly CBC WITH PLATELETS Routine 03/29/2024 9: 56 AM CDT Fatty liver Hepatomegaly documented in this encounter Results * Hepatitis C antibody [...] - BLOOD ORDERABLES Final Result [facility] [place] Core Lab [address] [facility], [address] [place] [address], [facility] * Hepatitis B surface antigen (03/29/2024 9:56 AM CDT) Hepatitis B Surface Antigen Nonreactive Nonreactive 03/29/2024 3:18 PM CDT [facility]AT[facility] Blood BLOOD SPECIMEN / Unknown Venipuncture / Unknown 03/29/2024 9:56 AM CDT 03/29/2024 9:57 AM CDT Evangelista Tucker MD LAB - BLOOD ORDERABLES Final Result LABORATORY [facility] [place] Core Lab [address] [facility], [address] * Hepatitis B core antibody (03/29/2024 [...] BLOOD ORDERABLES Final Result Performing Organization Address City/[facility] Co de Phone Number LABORATORY [facility] [place] Core Lab [address] [facility], [address] * Hepatitis B Surface Antibody (03/29/2024 [...] - BLOOD ORDERABLES Final Result [facility] [place] Core Lab [address] [facility], [address] [place] [address], [facility] * CBC with platelets (03/29/2024 9:56 AM CDT) [facility] WBC Count 9.1 4.0 - 11.0 10e3/uL [...] - BLOOD ORDERABLES Final Result [facility] LABORATORY [facility] Acute Care Lab [address] Lab (1st floor, no room number) [place] [address], [facility] * (ABNORMAL) Basic metabolic panel (03/29/2024 9:56 AM CDT) Pathologist [facility] Sodium 138 135 - 145 mmol/L 03/29/2024 [...] 10:17 AM CDT LABORATORY Comment:eGFR calculated usin g 2020 CKD-EPI equation. Calcium 9.0 8.8 - [...] LAB - BLOOD ORDERABLES Final Result LABORATORY [facility] Acute Care Lab [address] [facility] Lab (1st floor, no room number) [place] [address], [facility] * Hepatic function panel (03/29/2024 9:56 AM CDT) Pathologist [facility] Protein Total 7.2 6.4 - 8.3 [...] MD LAB - BLOOD ORDERABLES Final Result [facility] Lab [address] Lab (1st floor, no room number) [address] * INR (03/29/2024 9:56 AM CDT) Pathologist [facility] INR 0.93 0.85 - 1.15 03/29/2024 10:12 AM CDT LABORATORY Blood BLOOD SPECIMEN / Unknown Venipuncture / Unknown 03/29/2024 9:56 AM CDT 03/29/2024 9:57 AM CDT Evangelista Tucker MD LAB - BLOOD ORDERABLES Final Result [facility] [address] Lab (1st floor, no room number) [place] [id number] [place] [address] documented in this encounter Visit Diagnoses Diagnosis Fatty liver Other chronic nonalcoholic liver disease Hepatomegaly documented in this encounter Care Teams Film Replacement Orderer Relationship Specialty Start Date End Date No Ref-Primary, Physician PCP - General 09/24/23 Evangelista Tucker MD [address] [place] [address] Gastroenterology 03/22/24 April Barros APRN [facility] [address] [place] [address] Nurse Practitioner business services officer 03/22/24 documented as of this encounter
--- OUTSIDE RECORDS SUMMARY | 2024-06-15 16:21 | XMS_ITS | Clinical Summary ---
Author Organization [facility] Address [place], [place] [address] Care Team Providers Care Compounding Pharmacy Technician Name Role Phone Noris Todd MD Primary Care P rovider Dana Ch MD Unavailable [phone] Allergies No known active allergies Medications Medication [...] arrhythmia affecting p regnancy, antepartum-intermittent SVT 07/23/2021 [facility] Supervision of high-risk Overview (09/03/2021): [facility] OB PATIENT SO: [facility] Its a [...] Normal REFERRING PHYSICIAN/PHONE/LAST UPDATE: Dana Ch MD [facility] [phone] Primary MD approves scheduling of recommended ultrasounds/testing: Not specified SPECIALISTS/CONSULTS: Include: Specialty MD Clinic Name Phone# SU NV and ADDED TO PATIENT CARE TEAM Yes LEXI signed for [facility]: Signed 08/22/21 CARE COORDINATION: Belle Coleman, SERGEI/[facility] RN/Radhika Huitron RN/Angelique Pabon RN/Jesenia Coy RN [phone] CHANNEL MARKETING MANAGER: GENETICS: 04/17/21 AFP Negative 07/25/21 [facility] - genetic testing after PROCEDURES: EKG [...] PCR 0.1 CHECKLIST FOR SCHEDULING PROCEDURES: Call [phone] for [place] and [phone] for [place] Procedure: Induction Hospital: [facility] Unit: L&D Date & Time of procedure: 09/06/21 @ 1930 Nur Score if induction: 3 Pertinent information: gHTN, intermittent SVT Gestational age on procedure date? 37 MD doing procedure: Al OB Date scheduled: 08/28/2021 when patient was 35w5d. Scheduling MD & RN: COOPER Rico & Richard RN Notifications: Hospitalist Delivery-OBH consumer sales representative notified through Ashlee inbox? Yes [facility] MD consumer sales representative notified via KeepTruckinbeto inbox? Yes Primary MD notified via Ashlee inbox? No Primary MD clinic called if not Ashlee? No On [facility] calendar? Yes Care Coordination notified? Yes H&P/PPTL: PPTL permit signed? Not Applicable H&P and Plan in chart? Yes, 08/22/21 [facility] appointment made for H&P with PERSONNEL WORKER within 30 days of procedure? Completed 08/22/21 Regardless of vaccination status, all procedures require a COVID-19 test . Patients should be scheduled for a COVID-19 test within 3-5 days prior to the scheduled procedure to be done in main [facility] Clinic Date: 09/03/21 Patient notification: Patient notified of procedure date? Yes Written admission instructions given to patient via AVS? No PPTL& DELIVERY SCHEDULING: Do COVID testing with in 3-5 days of scheduled delivery @ a main [facility] site H&P needed 30 days before [...] of low-risk first in first trimester 04/16/2021 Overview (04/16/2021): Partners name: [facility] Hx: depression Concerns [...] >=3 years) 07/05/2013,07/02 Influenza, IIV4 06/18/2020, 9,05/03/2018,06/15,06/09/2016,05/15/2015,05/25/2014 MENINGOCOCCAL VACCINE 2 VIAL 2MO-55YO (MENVEO) 06/09/2016 MMR 02/26/1999,05/13/1996 Oral Polio Vaccine 02/26/1999, 6,1995,04/06 Td (Age [...] ral,L ocal Livin g 7 9 GLORIA GUERRA,LOU Moncada ats, Chucky garcia MD Complications:None Delivery Location:Hospital ( [address]) Last Filed Vital Signs Vital Sign [...] 09/25/2022 09/25/2021, 09/18/2021, 08/28/2021, Additional history exists Pap test for age 21-65 06/18/2023 0, 06/15/2017, 06/09/2016 COVID-19 vaccine series (2023- season) 2024 12/18/2020, 11/27/2020 Influenza for age 9-49 04/24/2024 0, 06/13/2019, [...] supervision of normal first in first trimester FLAT OPTICAL ELEMENT MAKER THIN PREP PAP SCREEN IMAGED Routine 06/18/2020 2:20 PM CDT Cervical cancer screening from Last 3 Months or Most Recently Relevant to Health Maintenance Results * ANTI HCV (03/04/2021 3:03 PM CDT) HEPATITIS C ANTIBODY Non-React monique Non-React monique 03/05/2021 12:30 AM CDT [facility] TR[facility] LABORATORY Comment:Antibodies to HCV no t detected; does not exclude the possibility of exposure to HCV. Blood BLOOD SPECIMEN / Unknown Venipuncture / Unknown 03/04/2021 3:03 PM CDT 03/04/2021 3:06 PM CDT Monica Licea MD SEND OUTS Performing Organization Address [facility] Co de Phone Number [facility] [address] [place] [address], * ANTI HIV 1/2 (03/04/2021 3:03 PM CDT) [facility] HIV-1/HIV-2 ANTIBODY Non-Reacti ve Non-Reacti ve 03/05/2021 12:49 AM CDT [facility] TRAL LABORATORY Comment:HIV-1 p24 and HIV-1/ HIV-2 Ab not detected. Blood BLOOD SPECIMEN / Unknown Venipuncture / Unknown 03/04/2021 3:03 PM CDT 03/04/2021 3:06 PM CDT Monica Licea MD SEND OUTS Performing Organization Address [facility] Co de Phone Number [facility] [address] [place] [address], * FLAT OPTICAL ELEMENT MAKER THIN PREP PAP SCREEN IMAGED (06/18/2020 2:20 PM CDT) [facility] Case Report Gynecologic Cytology Report ? Case: [id number] ? Authorizing Provider: ??Doreen Meraz NP ?Collected: ? 06/18/2020 1420 ? Ordering Location: ? [facility] ?Received: ?06/18/2020 1420 ? Clinic ? First Screen: ?Shaniqua Dong ? Specimen: ?FLAT OPTICAL ELEMENT MAKER ThinPrep Vial Screening, Cervical ? 06/23/2020 8:31 AM CDT [facility] LABORATORY-C ENTRAL LABORATORY INTERPRETATION/ RESULT NEGATIVE FOR INTRAEPITHELIAL LESION OR MALIGNANCY (NIL) (none) 06/23/2020 8:31 AM CDT [facility] LABORATORY-C ENTRAL LABORATORY IMEN ADEQUACY Satisfactory for evaluation Endocervical component present 06/23/2020 8:31 AM CDT [facility] LABORATORY-[facility] EN[facility]AL LABORATORY HPV REQUEST HPV if ASCUS 06/23/2020 8:31 AM CDT [facility] LABORATORY-[facility] EN[facility]AL LABORATORY Date of LMP 05/22/2020 06/23/2020 8:31 AM CDT [facility] LABORATORY-[facility] EN[facility]AL LABORAT[facility] Last Pap Date 06/15/17 06/23/2020 8:31 AM CDT [facility] LABORATORY-[facility] EN[facility]AL LABORATORY Last Pap Result NIL 0 8:31 AM CDT [facility] LABORATORY-[facility] ENTRAL LABORATORY Abnormal Pap or Enterprise Bx in last 5 years No 06/23/2020 8:31 AM CDT [facility] LABORATORY-C ENTRAL LABORATORY Menstrual Status Regular Periods 06/23/2020 8:31 AM CDT [facility] LABORATORY-C ENTRAL LABORATORY Enterprise Bx Done Today No 06/23/2020 8:31 AM CDT [facility] LABORATORY-C ENTRAL LABORATORY Additional Information None given 06/23/2020 8:31 AM CDT [facility] ENTRNM LABORATORY Comment: Cytology is screened at [facility] - [address], [place] [address] and [facility] - [address], [place] [address] and [facility] - [address] [place] [address] Interpreted at [facility] - [address], [place] [address] Automated Review Successful 06/23/2020 8:31 AM CDT [facility] Comment:Specimen processed s uccessfully by automated cement grinding mill operator device, [employer] SolutionPrep Imaging System, [employer] Note The pap test is a [...] and malignant lesions. 06/23/2020 8:31 AM CDT [facility] Other (Cervical) Non-Blood / Unknown 06/18/2020 2:20 PM CDT 06/18/2020 2:20 PM CDT Doreen Meraz NP PATHOLOGY/CYTOLOGY [facility] [address] [place] [address], [place] from Last 3 Months or Most Recently Relevant to Health Maintenance Advance Directives Documents on File Type Date Recorded Patient Senior Qualitative Researcher Expl anation Treatment Guidelines 09/06/2021 * Full [...] Preferences, Provider to review later Care Teams Compounding Pharmacy Technician Relationship Specialty Start Date End Date Noris Todd MD [address] [place] [address] PCP - General Family Practice 04/03/21 Dana Ch MD [address] [place] [address] Referring Provider Obstetrics and Gynecology 08/19/21
--- OUTSIDE RECORDS SUMMARY | 2024-06-15 16:21 | XMS_ITS | Encounter Summary ---
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
--- OUTSIDE RECORDS SUMMARY | 2024-06-15 16:21 | XMS_ITS | Encounter Summary ---
Author Organization [facility] Address [address] [place] [address] Care Team Providers Care Information Technology Program Manager Name Role Phone No Ref-Primary, Physician Primary Care Provider Evangelista Tucker MD Unavailable [phone] April Barros APRN [facility] Unavailable [phone] Encounter Details Date Type Department Care Team (Latest Contact Info) Description 03/29/2024 Travel Social History Tobacco Use Types Packs/Day Years Used Date Smoking Tobacco: Never Assessed Adolescent Education Answer Date Record ed Getting School Help Needed Not on file 09/24 Comments Yes Sex and Gender Information Value Date Recorded Sex Assigned at Not on file Legal Sex Female 9:35 AM CREDIT PORTFOLIO ADVISOR Gender Identity Not on file Sexual Orientation Not on file documented as of this encounter Plan of Treatment Not on file documented as of this encounter Visit Diagnoses Not on filedocumented in this encounter Care Teams Information Technology Program Manager Relationship Specialty Start Date End Date No Ref-Primary, Physician PCP - General 09/24/23 Evangelista Tucker MD [address] [place] [address] Gastroenterology 03/22/24 April Barros APRN [facility] [address] [place] [address] Nurse Practitioner utility pipe layer 03/22/24 documented as of this encounter
[2024-06-15 16:23] LABS: Ur HCG Qualitative* Negative (Negative)
[2024-06-15 16:24] LABS: Slide Review Reflex No
[2024-06-15 16:25] LABS: D Dimer Quantitative* 0.53 ug/ml (0.00-0.50)
--- NOTE | 2024-06-15 16:30 | CRLHL7_ITS ---
For Patients: As a result of the Century Cures Act, medical imaging exams and procedure reports are released immediately into your electronic medical record. You may view this report before your referring provider. If you have questions, please contact your health care provider. INDICATION: Chest pain. TECHNIQUE: CT chest PE was acquired with 95 cc Isovue 370 IV contrast. COMPARISON: None. FINDINGS: Heart and vasculature: Contrast opacification of the pulmonary arterial tree is adequate. No sign of pulmonary embolism. Heart size is normal. Thoracic aorta and pulmonary artery are normal in caliber. Lungs and pleura: No suspicious nodules or infiltrates. No pleural effusions, pleural thickening, or pneumothorax. Lymph nodes/mediastinum: No mediastinal, hilar, or axillary adenopathy. Chest wall: No masses. Upper abdomen: No acute or significant findings. Bones: Unremarkable for age. IMPRESSION: No pulmonary embolism. No acute findings in the chest. Please note that all CT scans at this facility use dose modulation, iterative reconstruction, and/or weight-based dosing when appropriate to reduce radiation dose to as low as reasonably achievable. Dictated by Dalton Hurtado MD @ 06/15/2024 6:07:50 PM (Electronically Signed)
[2024-06-15 17:02] LABS: Albumin* 4.6 g/dL (3.3-5.0); Chloride* 102 mmol/L (96-114); Sodium* 136 mmol/L (135-149)
[2024-06-15 17:03] LABS: Potassium* 4.2 mmol/L (3.6-5.1)
[2024-06-15 17:05] LABS: Anion Gap 11 mEq/L (7-15); Aspartate Amino Transferase* 33 U/L (12-35); Bilirubin Direct* 0.1 mg/dL (0.0-0.5); Bilirubin Total* 1.2 mg/dL (0.1-1.5); Carbon Dioxide* 23 mmol/L (20-32); Creatinine* 0.7 mg/dL (0.5-1.5); Est. Creatinine Clearance* 106.71; Estimated Glomerular Filt Rate 120 ml/min
[2024-06-15 17:06] LABS: Alanine Aminotransferase* 35 U/L (4-35); Alkaline Phosphatase* 91 U/L (40-150); Blood Urea Nitrogen* 12 mg/dL (5-24); Calcium* 9.4 mg/dL (8.4-10.6); Glucose* 94 mg/dL (60-115); Lipase* 123 U/L (23-300); Total Protein* 7.9 g/dL (6.0-8.3)
[2024-06-15 17:07] LABS: Troponin I* < 0.01 ng/mL (0.01-0.04)
[2024-06-15 17:08] LABS: C Reactive Protein* 1.4 mg/dL (0.5-1.0)
== END 2024-06-15 18:50 | disposition home or self-care (01) ==
PROVIDERS: Emergency Provider Family Medicine
DX: R07.9 Chest pain, unspecified (principal)
CPT/HCPCS: 36415; 71046; 71275; 80048; 80076; 81025; 83605; 83690; 84484; 85025; 85379; 86140; 93005; 94761; 99284; 99285; Q9967

== ENCOUNTER 2024-07-14 10:56 | Outpatient (CLI) | payer BC, SELFPAY ==
--- OUTSIDE RECORDS SUMMARY | 2024-07-14 10:58 | XMS_ITS | Clinical Summary ---
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 Gender Identity Not on file Sexual Orientation [...] Fatty liver Hepatomegaly from Last 3 Months or Most Recently Relevant to Health Maintenance Results * Hepatitis C antibody (03/29/2024 9:56 [...] - BLOOD ORDERABLES Final Result [facility] LAB[facility]AT[facility] [place] Core Lab [address] [facility], [address] [place] [id number] from Last 3 Months or Most Recently Relevant to Health Maintenance Insurance [facility] OUT OF STATE [facility] OUT OF STATE Care Teams Non Morse Intercept Technician Relationship Specialty Start Date End Date No Ref-Primary, Physician PCP - General 09/24/23 Evangelista Tucker MD [address] [place] [address] Gastroenterology 03/22/24 April Barros APRN FRONT OFFICE HELP [facility] [address] [place] [address] Nurse Practitioner bus escort 03/22/24 Evangelista Tucker MD [address] [place] [address] Assigned Gastroenterology Provider 04/15/24
--- OUTSIDE RECORDS SUMMARY | 2024-07-14 10:58 | XMS_ITS | Referral Summary ---
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 Gender Identity Not on file Sexual Orientation [...] LAB - BLOOD ORDERABLES Final Result LABORATORY [facility] [place] Core Lab [address] [facility], [address] [place] [address], [facility] from Last 3 Months or Most Recently Relevant to Health Maintenance Insurance [employer] OUT OF STATE BCBS OUT OF STATE Care Teams System Architect Relationship Specialty Start Date End Date No Ref-Primary, Physician PCP - General 09/24/23 Evangelista Tucker MD [address] [place] [address] Gastroenterology 03/22/24 April Barros, CLINICAL PHLEBOTOMIST [facility] [address] [place] [address] Nurse Practitioner fish flipper 03/22/24 Evangelista Tucker MD [address] [place] [address] Assigned Gastroenterology Provider 04/15/24
--- OUTSIDE RECORDS SUMMARY | 2024-07-14 10:59 | XMS_ITS | Encounter Summary ---
Author Organization [facility] Address [address] [place] [address] Care Team Providers Care Relay Associate Name Role Phone No Ref-Primary, Physician Primary Care Provider Evangelista Tucker MD Unavailable [phone] April Barros APRN, CNP Unavailable [phone] Reason for Visit * Reason Comments New Patient Hepatomegaly, not el sewhere classifiedFatty (change of) liver, not elsewhere classified * Consultation (Routine) - Pending Review Specialty Diagnoses / Procedures Referred By Leida t Referred To Contact Gastroenterology Diagnoses Hepatomegaly, not elsewhere classified Fatty (change of) liver, not elsewhere classified April Barros APRN CNP [facility] [address] [place] [address] Phone: tel: fax: Referral ID Status Reason Start Date Expiration Date V isits Requested Visits Authorized [id number] Pending Review 03/18/2024 03/18/2025 1 1 Encounter Details Date Type Department Care Team (Late st Contact Info) Description 04/05/2024 12:45 PM CDT Office Visit [facility] [address] [phone] April Barros APRN CNP [facility] [address] [place], [place] [id number] Evangelista Tucker MD [address] [place] [address] Nausea (Primary Dx); Hepatomegaly, not elsewhere classified; [...] on file Legal Sex Female 9:35 AM FERN GATHERER Gender Identity Not on file Sexual Orientation [...] serologies are negative. 2. The ultrasound from [facility] in January showed an echogenic liver, which [...] tests, you can call the clinic at [phone]. 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 She is accompanied by her and young son. The information is obtained from the patient, since we do not have access to any records from the [facility]. I do have an ultrasound report dated [...] She lives with her and children in [place]. Past Medical History: No past medical history [...] accuracy, typos may remain. Evangelista Tucker MD customer care professional [facility] Division of Gastroenterology, Hepatology, and Nutrition documented [...] obstruction documented in this encounter Care Teams Relay Associate Relationship Specialty Start Date End Date No Ref-Primary, Physician PCP - General 09/24/23 Evangelista Tucker MD [address] [place] [address] Gastroenterology 03/22/24 April Barros APRN [facility] [address] [place] [address] Nurse Practitioner tube former operator 03/22/24 documented as of this encounter
--- OUTSIDE RECORDS SUMMARY | 2024-07-14 10:59 | XMS_ITS | Encounter Summary ---
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 Gender Identity Not on file Sexual Orientation [...] [facility] documented in this encounter Plan of Treatment Not on file documented as of this encounter Visit Diagnoses Not on filedocumented in this encounter Care Teams Filenet Architect Relationship Specialty Start Date End Date No Ref-Primary, Physician PCP - General 09/24/23 Evangelista Tucker MD [address] [place] [address] Gastroenterology 03/22/24 April Barros APRN [facility] [address] [place] [address] Nurse Practitioner stone and concrete washer 03/22/24 documented as of this encounter
--- OUTSIDE RECORDS SUMMARY | 2024-07-14 10:59 | XMS_ITS | Clinical Summary ---
Author Organization [facility] Address [place], [place] [address] Care Team Providers Care Product Responsibility Liaison Name Role Phone Noris Todd MD Primary Care P rovider Dana Ch MD Unavailable [phone] Allergies No known active allergies Medications Medication [...] arrhythmia affecting p regnancy, antepartum-intermittent SVT 07/23/2021 [facility] Supervision of high-risk Overview (09/03/2021): [facility] OB PATIENT SO: Pato Its a boy! [...] Normal REFERRING PHYSICIAN/PHONE/LAST UPDATE: Dana Ch MD [facility] [phone] Primary MD approves scheduling of recommended ultrasounds/testing: Not specified SPECIALISTS/CONSULTS: Include: Specialty MD Clinic Name Phone# [phone] NV and ADDED TO PATIENT CARE TEAM Yes LEXI signed for [facility]: Signed 08/22/21 CARE COORDINATION: Belle Coleman, SERGEI/Lay House RN/Radhika Huitron RN/Angelique Pabon RN/Jesenia Coy RN [phone] FIELD TRAINING MANAGER: GENETICS: 04/17/21 AFP Negative 07/25/21 [facility] - genetic testing after PROCEDURES: EKG 07/26/21 [...] PCR 0.1 CHECKLIST FOR SCHEDULING PROCEDURES: Call [phone] for Daily Pic and [phone] for Scammon Procedure: Induction Hospital: [facility] Unit: L&D Date & Time of procedure: 09/06/21 @ 1930 Nur Score if induction: 3 Pertinent information: gHTN, intermittent SVT Gestational age on procedure date? 37 MD doing procedure: Al OB Date scheduled: 08/28/2021 when patient was 35w5d. Scheduling MD & RN: COOPER Rico & Richard RN Notifications: Hospitalist Delivery-OBH industrial/organizational psychologist notified through Ashlee inbox? Yes [facility] MD industrial/organizational psychologist notified via [employer] inbox? Yes Primary MD notified via Ashlee inbox? No Primary MD clinic called if not Ashlee? No On [facility] calendar? Yes Care Coordination notified? Yes H&P/PPTL: PPTL permit signed? Not Applicable H&P and Plan in chart? Yes, 08/22/21 [facility] appointment made for H&P with DIRECT ENTRY MIDWIFE within 30 days of procedure? Completed 08/22/21 Regardless of vaccination status, all procedures require a COVID-19 test . Patients should be scheduled for a COVID-19 test within 3-5 days prior to the scheduled procedure to be done in main [facility] Clinic Date: 09/03/21 Patient notification: Patient notified of procedure date? Yes Written admission instructions given to patient via AVS? No PPTL& DELIVERY SCHEDULING: Do COVID testing with in 3-5 days of scheduled delivery @ a main [facility] site H&P needed 30 days before delivery Date: PPTL: No Is Medical assistance? PPTL Permit signed: Date: Scanned date: PLAN OF CARE: 08/28/21 per HS Continue routine ob cares -- Patients home cuff with big discrepancy from the clinic, she desires a cuff from our clinic today. She was instructed to check her blood pressure twice a day at home and will bring the readings with her her to next weeks appointment. Instructed to call if >150/100. Return OB checks: -- Weekly given concern for gestational hypertension Return Ultrasound/Testing -- Growth ultrasound last week, no need to repeat prior to delivery -- Weekly BPP/NST given gestational hypertension -- echocardiogram every 2 weeks-will cancel for next week. Okay per cardiology given patient will be induced the day it was scheduled. Labs: -- : Completed with primary -- Diabetes screening: passed on 07/04/21 -- GBS culture tioday -- Preeclampsia labs completed today given gestation hypertension and elevated blood pressure at home -- COVID-19 test today given symptoms, repeat next week if negative for pre- procedure Medications: -- Continue vitamin with folic acid and medications noted above -- Tdap at 28 weeks -- Flu vaccine (if not given yet) -- Continue on flecainide 100mg twice daily, refill given today -- Continue bASA -- COVID-19 Vaccine-11/27/20; 12/18/20- Plans to schedule booster -- Celexa, take 10mg daily x5-7 days then 20mg daily Depression screening/management: did not require intervention (scores<=9). Consult: --NICU consult Patient understands she should call or return to clinic if she experiences any s/s infection, persistent uterine cramping, vaginal bleeding, leaking of fluid, pain/swelling in legs. Delivery: IOL 37 weeks given GHTN, scheduled for 09/06/20 [...] Current BMI: Body mass index is 36.36 kg/m . Recommended wt gain: 07-13 Genetic screening: yes [...] ral,L ocal Livin g 7 9 GLORIA GUERRA,Chucky Liu MD Complications:None Delivery Location:[facility] ( [facility] [id number] [place]) Last Filed Vital Signs Vital Sign Reading Time Taken Comments Blood Pressure 143/92 11/05/2022 2:50 PM CDT Pulse 119 11/05/2022 2:50 PM CDT Temperature 36.7 C (98.1 F) 11/05/2022 11:56 AM CDT Respiratory Rate 22 11/05/2022 11:56 AM CDT [...] exists Pap test for age 21-65 06/18/2023 , 06/15/2017, 06/09/2016 COVID-19 vaccine series ( season) 2024 12/18/2020, 11/27/2020 Influenza for age 9-49 04/24/2024 , 06/13/2019, 05/03/2018, Additional history exists Tetanus booster [...] supervision of normal first in first trimester ULTRASOUND SPEC THIN PREP PAP SCREEN IMAGED Routine 06/18/2020 2:20 PM CDT Cervical cancer screening from Last 3 Months or Most Recently Relevant to Health Maintenance Results * ANTI HCV (03/04/2021 3:03 PM CDT) HEPATITIS C ANTIBODY Non-React monique Non-React monique 03/05/2021 12:30 AM CDT [facility] Comment:Antibodies to HCV no t detected; does not exclude the possibility of exposure to HCV. Blood BLOOD SPECIMEN / Unknown Venipuncture / Unknown 03/04/2021 3:03 PM CDT 03/04/2021 3:06 PM CDT Monica Licea MD [facility] [address] [place] [address], * ANTI HIV 1/2 (03/04/2021 3:03 PM CDT) HIV-1/HIV-2 ANTIBODY Non-Reacti ve Non-Reacti ve 03/05/2021 12:49 AM CDT [facility] Comment:HIV-1 p24 and HIV-1/ HIV-2 Ab not detected. Blood BLOOD SPECIMEN / Unknown Venipuncture / Unknown 03/04/2021 3:03 PM CDT 03/04/2021 3:06 PM CDT Monica Licea MD [facility] [address] [place] [address], * ULTRASOUND SPEC THIN PREP PAP SCREEN IMAGED (06/18/2020 2:20 PM CDT) Case Report Gynecologic Cytology Report Case: [id number] Authorizing Provider: Doreen Meraz NP Collected: 06/18/2020 1420 Ordering Location: [facility] Received: 06/18/2020 1420 Clinic First Screen: Shaniqua Dong Specimen: ULTRASOUND SPEC ThinPrep Vial Screening, Cervical 06/23/2020 8:31 AM CDT [facility] INTERPRETATION/ RESULT NEGATIVE FOR INTRAEPITHELIAL LESION OR MALIGNANCY (NIL) (none) 06/23/2020 8:31 AM CDT [facility] IMEN ADEQUACY Satisfactory for evaluation Endocervical component present 06/23/2020 8:31 AM CDT [facility] HPV REQUEST HPV if ASCUS 06/23/2020 8:31 AM CDT [facility] Date of LMP 05/22/2020 06/23/2020 8:31 AM CDT [facility] Last Pap Date 06/15/17 06/23/2020 8:31 AM CDT [facility] Last Pap Result NIL 0 8:31 AM CDT [facility] Abnormal Pap or Aurora Bx in last 5 years No 06/23/2020 8:31 AM CDT [facility] Menstrual Status Regular Periods 06/23/2020 8:31 AM CDT [facility] Aurora Bx Done Today No 06/23/2020 8:31 AM CDT [facility] Additional Information None given 06/23/2020 8:31 AM CDT [facility] Comment: Cytology is screened at [facility], Central Laboratory - [address], [place] [address] and [facility] - [address] [place] [address] and [facility] - [address] [place] [address] Interpreted at [facility], Central Laboratory - [address], [place] [address] Automated Review Successful 06/23/2020 8:31 AM CDT [facility] Comment:Specimen processed s uccessfully by automated support services tech device, ThinPrep Imaging System, [employer] Note The pap test is a [...] and malignant lesions. 06/23/2020 8:31 AM CDT [facility] Other (Cervical) Non-Blood / Unknown 06/18/2020 2:20 PM CDT 06/18/2020 2:20 PM CDT Doreen Meraz NP PATHOLOGY/CYTOLOGY [facility] LABORATORY-CENTRAL LABORATORY [address] [place] [address], from Last 3 Months or Most Recently Relevant to Health Maintenance Advance Directives Documents on File Type Date Recorded Patient Podiatric Physician Expl anation Treatment Guidelines 09/06/2021 * Full [...] Preferences, Provider to review later Care Teams Product Responsibility Liaison Relationship Specialty Start Date End Date [place] [address] PCP - General Family Practice 04/03/21 Dana Ch MD [address] [place] [address] Referring Provider Obstetrics and Gynecology 08/19/21
--- OUTSIDE RECORDS SUMMARY | 2024-07-14 10:59 | XMS_ITS | Encounter Summary ---
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
--- NOTE | 2024-07-14 11:30 | CRLHL7_ITS ---
For Patients: As a result of the Century Cures Act, medical imaging exams and procedure reports are released immediately into your electronic medical record. You may view this report before your referring provider. If you have questions, please contact your health care provider. INDICATION: Epigastric pain COMPARISON: CT chest 06/15/2024 TECHNIQUE: Real time uribe scale imaging and color Doppler analysis was performed of the right upper quadrant. FINDINGS: The patient`s liver is of normal size and has diffusely increased echogenicity. There is a normal appearance of the hepatic IVC and proximal abdominal aorta. There is no evidence of ascites. The gallbladder is of normal size and there are echogenic foci associated with the gallbladder wall measuring 6 x 4 x 4 millimeters and 8 x 3 x 5 millimeters. The gallbladder wall measures 1.8 mm in thickness. The common bile duct is of normal size and measures 3.3 mm in diameter at the level of the mandi hepatis. The pancreas appears normal. Hyperechoic focus within the right kidney without shadowing measuring 5 x 4 x 5 millimeters. The right kidney measures 11.8 cm in length. IMPRESSION: Hepatic steatosis. Gallbladder polyps measuring up to 8 millimeters. 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 Dictated by Ata Izquierdo MD @ 07/14/2024 12:33:47 PM (Electronically Signed)
== END 2024-07-14 10:57 | disposition home or self-care (01) ==
LOC: US 10:57
PROVIDERS: PCP Registered Nurse; Visit Provider Registered Nurse
DX: R10.13 Epigastric pain (principal); K76.0 Fatty (change of) liver, not elsewhere classified; K82.4 Cholesterolosis of gallbladder
CPT/HCPCS: 76705

== ENCOUNTER 2024-08-11 10:30 | Outpatient (CLI) | payer BC, SELFPAY ==
[2024-08-11 11:24] LABS: HCG Qualitative Serum* Negative (Negative)
--- NOTE | 2024-08-11 12:00 | W.ANESCHARGE ---
Anesthesia Charges Start Date/Time Anesthesia Start Date: 08/11/24 Anesthesia Start Time: 11:46 Stop Date/Time Anesthesia Stop Date: 08/11/24 Anesthesia Stop Time: 12:04
--- NOTE | 2024-08-11 12:05 | W.ANESCHARGE ---
Anesthesia Charges Start Date/Time Anesthesia Start Date: 08/11/24 Anesthesia Start Time: 11:46 Stop Date/Time Anesthesia Stop Date: 08/11/24 Anesthesia Stop Time: 12:04
== END 2024-08-11 10:31 | disposition home or self-care (01) ==
LOC: OP CLINIC 10:31
PROVIDERS: PCP Registered Nurse; Visit Provider Surgery
DX: R07.89 Other chest pain (principal)
CPT/HCPCS: 00731; 36415; 43239; 84703; 88305; J2704; J3490

== ENCOUNTER 2024-09-08 09:28 | Day surgery (SDC) | payer BC, SELFPAY ==
[2024-09-08] VITALS (16 sets, daily range): BP systolic 116–131; BP diastolic 67–83; PULSE 51–70; RESP 14–23; TEMP 36.2–36.5; O2SAT 92–98; BMI 42.2
[2024-09-08 09:56] LABS: Ur HCG Qualitative* Negative (Negative)
[2024-09-08] MEDS: SODIUM CHLORIDE 0.9 % (FLUSH) 10 ML SYRINGE IVF (10:01)
[2024-09-08] MEDS: 0.9 % SODIUM CHLORIDE 500 ML 500 ML 100 ML IV (10:05)
--- NOTE | 2024-09-08 10:34 | W.PM.H&PU ---
History & Physical Update History & Physical Update H&P Reviewed and patient assessed: No changes noted H&P Updates: Jackie presents today for cholecystectomy. She has continued to have epigastric pain and worsening heartburn symptoms that were not relieved with an acid sylvia. Upper endoscopy was essentially normal. Biopsy showed normal mucosa. We will plan for cholecystectomy for presumed symptomatic gallbladder polyps.
[2024-09-08] MEDS: CEFAZOLIN 2 GM INJ IVP (10:40)
--- NOTE | 2024-09-08 10:41 | P.ANES_ITS ---
Anesthesia Charges Start Date/Time Anesthesia Start Date: 09/08/24 Anesthesia Start Time: 10:22 Stop Date/Time Anesthesia Stop Date: 09/08/24 Anesthesia Stop Time: 11:36 Coding CPT Codes CPT Codes: ANESTH SURG UPPER ABDOMEN - 89139 ([id number]) P3 - PATIENT W/SEVERE SYS DISEASE, QK - LIME KILN TENDER 2-4 CNCRNT ANES PROC, QX - MANAGER PROGRESSIVE CARE SVC W/ MD MED DIRECTION
--- NOTE | 2024-09-08 10:41 | W.ANESCHARGE ---
Anesthesia Charges Start Date/Time Anesthesia Start Date: 09/08/24 Anesthesia Start Time: 10:22 Stop Date/Time Anesthesia Stop Date: 09/08/24 Anesthesia Stop Time: 11:36 Coding CPT Codes CPT Codes: ANESTH SURG UPPER ABDOMEN - 91081 ([id number]) P3 - PATIENT W/SEVERE SYS DISEASE, QK - JUMPBASTING ARMHOLE BASTER 2-4 CNCRNT ANES PROC, QX - MANAGER CREDIT SVC W/ MD MED DIRECTION
[2024-09-08] MEDS: BUPIVACAINE 0.25% 30 ML INJECTION (10:48)
--- NOTE | 2024-09-08 11:36 | P.ANES_ITS ---
Anesthesia Charges Start Date/Time Anesthesia Start Date: 09/08/24 Anesthesia Start Time: 10:22 Stop Date/Time Anesthesia Stop Date: 09/08/24 Anesthesia Stop Time: 11:36 Coding CPT Codes CPT Codes: ANESTH SURG UPPER ABDOMEN - 38250 ([id number]) QK - AGRICULTURE LABORATORY TECHNICIAN 2-4 CNCRNT ANES PROC, QX - ACCOUNTING SUPERVISOR SVC W/ MD MED DIRECTION, P3 - PATIENT W/SEVERE SYS DISEASE
--- NOTE | 2024-09-08 11:36 | W.ANESCHARGE ---
Anesthesia Charges Start Date/Time Anesthesia Start Date: 09/08/24 Anesthesia Start Time: 10:22 Stop Date/Time Anesthesia Stop Date: 09/08/24 Anesthesia Stop Time: 11:36 Coding CPT Codes CPT Codes: ANESTH SURG UPPER ABDOMEN - 27034 ([id number]) QK - CUSTOMER RELATIONS ADVISOR 2-4 CNCRNT ANES PROC, QX - WIRE ROLLER SVC W/ MD MED DIRECTION, P3 - PATIENT W/SEVERE SYS DISEASE
--- NOTE | 2024-09-08 11:41 | SUR.PHASEI ---
Patient arrived to PACU, awake, stated she doesn't have pain or nausea when asked.
--- NOTE | 2024-09-08 11:43 | P.GSOP_ITS ---
Operative Note Date of procedure: 09/08/24 Pre-op diagnosis: Symptomatic gallbladder polyps Post-op diagnosis: Same Type of Procedure: Laparoscopic cholecystectomy Indications: The patient is a 29-year-old female who developed epigastric pain and nausea during her recent . She had mildly elevated AST and ALT and had echogenic foci in the gallbladder which were thought to be sludge versus gallstones. She tried an acid blocking medication and this did not seem to help significantly. After she delivered, she continued to have epigastric and chest pain which would occasionally radiate to the left and the right. She underwent upper endoscopy which was normal. Because of persistent pain, and the presence of gallbladder polyps which can sometimes actually be small gallstones and sludge, we discussed cholecystectomy. She agreed to proceed. Procedure Description: After discussing the risks and benefits of the procedure, the patient signed informed consent.? The operative site was marked and the patient was brought to the operating room and placed on the operating table in supine position.? Care was taken to pad the patient's pressure points.?? The patient was then intubated by anesthesia.?? The operative site was then prepped and draped in the usual sterile fashion.? A time-out was then performed. Entrance to the abdomen was gained via a 5 mm Visiport in the left upper quadrant. The abdomen was insufflated and briefly surveyed for signs of injury. There was none. A 10 mm umbilical port was placed at the site of the patient's prior super umbilical incision, as well as 2 working ports along the right costal margin, all under direct vision. The patient was then placed in reverse Trendelenburg position with the right side up. The patient was noted to have hepatomegaly, consistent with her clinical diagnosis of MASH. The gallbladder fundus was grasped and retracted cephalad. The infundibulum was grasped. A combination of hook cautery and blunt dissection was used to carefully dissect out the cystic duct and artery. The cystic artery was small and diminutive. This was actually divided with cautery initially while obtaining the critical view. There was no bleeding noted, however a clip was placed on the proximal end to ensure hemostasis. The gallbladder was dissected off the cystic plate to achieve the critical view. With cystic duct was present. There were no additional structures entering the gallbladder. Once this was achieved the cyst ic duct was clipped with 2 clips proximally and 1 clip distally and transected with the scissors. The gallbladder was then taken off of the liver bed and removed from the abdomen using an Endo-Catch bag. The gallbladder bed was surveyed for hemostasis which appeared excellent. The umbilical port fascia was closed with 0 Vicryl using a Guilherme-Ciara device. The abdomen was desufflated and remaining ports were then removed. The skin was closed with absorbable subcuticular suture. Sterile dressings were then applied. Instrument sponge and needle counts were correct at the end of the case. The patient was then woken and transferred to the PACU in stable condition. ? The patient tolerated the procedure well. Findings: Gallbladder without any significant inflammation noted. Anesthesia: GETA Surgeon: Charline Cruz MD Estimated blood loss (mL): 5 Specimen: Gallbladder Condition: stable Disposition: PACU
--- NOTE | 2024-09-08 11:59 | SUR.PHASEI ---
Patient resting comfortably, no pain or nausea when asked. Patient meets discharge criteria from PACU.
--- NOTE | 2024-09-08 12:07 | SUR.PHASEI ---
Patient complaining of abdominal pain when starting to remove monitors to go to [facility]. Medication administered
[2024-09-08] MEDS: fentaNYL 100 MCG/2 ML inj 50 MCG IVP (12:08)
--- NOTE | 2024-09-08 12:12 | SUR.PHASEI ---
Patient's pain diminished to level 2 after medication. Taken to [facility]
[2024-09-08] MEDS: HYDROCODONE-ACETAMIN 5-325 MG 1 TAB PO (12:57)
[2024-09-08] MEDS: METOCLOPRAMIDE HCL 5 MG/ML INJ 10 MG IVP (13:07)
== END 2024-09-08 15:04 | disposition home or self-care (01) ==
LOC: OR 09:31
PROVIDERS: Anesthesiology; PCP Registered Nurse; Visit Provider Surgery
PROC: 0FT44ZZ Resection of Gallbladder, Percutaneous Endoscopic Approach (ICD-10-PCS; CPT 47562; principal; 2024-09-08 10:30)
DX: K82.4 Cholesterolosis of gallbladder (principal); R10.13 Epigastric pain
CPT/HCPCS: 47562; 00790; 81025; 88304; A9270; J0665; J0690; J1100; J1885; J2250; J2405; J2704; J2710; J2765; J3010; J7030

== ENCOUNTER 2025-03-15 13:36 | Outpatient (CLI) | payer BC, SELFPAY | END 2025-03-15 13:37 | disposition home or self-care (01) | LOC: NFLDREF 13:37 | PROVIDERS: Visit Provider Registered Nurse | DX: R23.3 Spontaneous ecchymoses (principal) | CPT/HCPCS: 82728 ==

== ENCOUNTER 2025-03-20 10:22 | Outpatient (CLI) | payer BC, SELFPAY | END 2025-03-20 10:23 | disposition home or self-care (01) | PROVIDERS: PCP Family Medicine; Visit Provider Family Medicine | DX: R19.7 Diarrhea, unspecified (principal); R10.13 Epigastric pain | CPT/HCPCS: 80048; 80061; 80076 ==

== ENCOUNTER 2025-03-21 11:26 | Outpatient (CLI) | payer BC, SELFPAY | END 2025-03-21 11:27 | disposition home or self-care (01) | LOC: NFLDREF 03-23 15:59 | PROVIDERS: PCP Family Medicine; Referring Provider Family Medicine; Visit Provider Family Medicine | DX: R19.7 Diarrhea, unspecified (principal) | CPT/HCPCS: 87177; 87209; 87493 ==

== ENCOUNTER 2025-03-22 04:30 | Outpatient (CLI) | payer BC, SELFPAY | END 2025-03-22 04:31 | disposition home or self-care (01) | LOC: NFLDREF 03-23 16:11 | PROVIDERS: PCP Family Medicine; Referring Provider Family Medicine; Visit Provider Family Medicine | DX: R19.7 Diarrhea, unspecified (principal) | CPT/HCPCS: 87045; 87046; 87427 ==

== ENCOUNTER 2025-05-22 10:20 | Outpatient (CLI) | payer BC, SELFPAY | END 2025-05-22 10:21 | disposition home or self-care (01) | LOC: NFLDREF 05-23 14:59 | PROVIDERS: PCP Family Medicine; Referring Provider Family Medicine; Visit Provider Registered Nurse | DX: G25.81 Restless legs syndrome (principal); D50.9 Iron deficiency anemia, unspecified | CPT/HCPCS: 82728 ==